=== PATIENT | female | born 1960 | race Caucasian/White ===

== ENCOUNTER 2016-10-30 11:52 | Emergency (ER) | payer MEDICARE ==
[2016-10-30 12:50] LABS: AMPHETAMINES LEVEL URINE NEGATIVE (NEGATIVE); BENZODIAZEPINES URINE NEGATIVE (NEGATIVE); COCAINE METABOLITE URINE NEGATIVE (NEGATIVE); CONTROL LINE INT CTR LINE PRESENT; METHADONE URINE NEGATIVE (NEGATIVE); OPIATES URINE NEGATIVE (NEGATIVE); TRICYCLIC ANTIDEPRESS URINE NEGATIVE (NEGATIVE)
[2016-10-30 13:13] LABS: MEAN CORPUSCULAR HEMOGLOBIN 31.7 pg (27.0-33.0); MEAN CORPUSCULAR HGB CONC 33.9 g/dl (32.0-36.5); MEAN CORPUSCULAR VOLUME 93.6 fl (80.0-96.0); RED CELL DISTRIBUTION WIDTH 11.6 % (11.5-14.5); WHITE BLOOD COUNT 5.5 K/mm3 (4.0-10.0)
[2016-10-30 13:39] LABS: ALBUMIN 3.8 GM/DL (3.2-5.2); ALBUMIN/GLOBULIN RATIO 1.27 (1.00-1.93); ALKALINE PHOSPHATASE 160 U/L (45-117); ALT/SGPT 121 U/L (12-78); ANION GAP 9 MEQ/L (8-16); AST/SGOT 55 U/L (15-37); BILIRUBIN,DIRECT 0.1 MG/DL (0.0-0.2); BILIRUBIN,TOTAL 0.4 MG/DL (0.2-1.0); BLOOD UREA NITROGEN 8 MG/DL (7-18); CALCIUM LEVEL 8.6 MG/DL (8.5-10.1); CARBON DIOXIDE LEVEL 26 MEQ/L (21-32); CHLORIDE LEVEL 106 MEQ/L (98-107); CREATININE FOR GFR 0.53 MG/DL (0.55-1.02); GLOMERULAR FILTRATION RATE > 60.0 (>51); GLUCOSE, FASTING 89 MG/DL (70-105); POTASSIUM SERUM 3.9 MEQ/L (3.5-5.1); SODIUM LEVEL 141 MEQ/L (136-145); TOTAL PROTEIN 6.8 GM/DL (6.4-8.2)
[2016-10-30] MEDS ORDERED: GABAPENTIN 100 MG CAP As Ordered ONE ×2 (14:22→14:45)
[2016-10-30] MEDS ORDERED: clonazePAM 0.5 MG TAB As Ordered ONE (14:22)
--- NOTE | 2016-10-30 19:48 | EDDOCDS ---
Physician Documentation [facility] Name: Keshia Merrill Age: 56 yrs Sex: Female : 1960 Arrival Date: 10/30/2016 Time: 11:52 Bed 30 Private MD: Suraj Neff D Disposition: 10/30/16 19:29 Discharged to Home/Self Care. Impression: Anxiety disorder, unspecified. - Condition is Stable. - Medication Reconciliation, Local Pharmacy Hours form. - Follow up: Suraj Neff; When: Call to arrange an appointment; Reason: Recheck today's complaints. - Problem is chronic. - Symptoms have improved. Historical: - Allergies: Trazodone; Haldol; [place] Carbonate; Risperdal; Zyrtec; Tylenol; Ibuprofen; Zofran; - Home Meds: 1. Crestor 5 mg Oral tab 1 tab once daily (Last dose: 10/29/2016 19:00) 2. meclizine 12.5 mg Oral tab 2 tabs as needed 3. clonazepam 1 mg Oral TbDL 1 tab 3 times per day (Last dose: 10/30/2016 08:00) 4. Linzess oral oral Unknown once daily (Last dose: 10/30/2016 08:00) 5. Prilosec 20 mg Oral cpDR 1 cap once daily (Last dose: 10/30/2016 08:00) 6. aspirin 81 mg Oral tab 1 tab once daily (Last dose: 10/30/2016 08:00) 7. gabapentin 100 mg Oral cap 2 caps 3 times per day (Last dose: 10/30/2016 08:00) - PMHx: Anxiety; Bipolar disorder; GERD; - PSHx: Cholecystectomy; Tubal ligation; Right shoulder tendon repair; Bunionectomy; - Social history: Smoking status: Patient states former smoker of tobacco. No barriers to communication noted, The patient speaks fluent Tajik. - Family history: Not pertinent. - : The pt / caregiver states he / she is not on anticoagulants. Home medication list is obtained from the patient. - Exposure Risk Screening:: None identified. Vital Signs: 10/30 11:53 BP 146 / 93; Pulse 76; Resp 18 S; Temp 97.4(O); Pulse Ox 99% on R/A; Weight 45.81 kg / dd6 100.99 lbs (R); Height 5 ft. 1 in. (154.94 cm) (R); 15:37 BP 142 / 71; Pulse 83; Resp 18; Pulse Ox 98% on R/A; dpm 19:45 BP 137 / 84; Pulse 70; Resp 18; Temp 97.9(O); Pulse Ox 99% on R/A; Pain 0/10; rw1 11:53 Body Mass Index 19.08 (45.81 kg, 154.94 cm) dd6 MDM: 12:26 Consult PFS/PSA/Collaborative Physician ordered. pml 12:26 Consult PFS/PSA/Collaborative Physician: Patient's case requires discussion with on-call pml Psychiatrist ordered. 12:26 PSA/PFS to call Nursing Entry Writer, to enter patient data [place] if patient pml involuntarily admitted or transferred for SI or HI ordered. 12:26 Confirm accurate psychiatric medication list and times of last dosage ordered. pml 12:26 Detain Pt Until Medically/PFS Cleared ordered. pml 12:28 Acetaminophen Level Ordered. EDMS 12:28 Basic Metabolic Profile Ordered. EDMS 12:28 Complete Blood Count Ordered. EDMS 12:28 Drug Eval Toxicology ED Only Ordered. EDMS 12:28 Ethyl Alcohol (ethanol) Ordered. EDMS 12:28 Liver Profile Ordered. EDMS 12:28 Salicylate Level Ordered. EDMS 12:28 Thyroid Stimulating Hormone Ordered. EDMS 12:58 REGULAR DIET PLASTIC SUERO+DIET ordered. EDMS 14:11 Consult PFS/PSA/Socail Worker: Cleared medically for eval ordered. br1 14:11 Gabapentin 100 mg PO once ordered. br1 14:11 clonazePAM 1 mg PO once; prn anxiety ordered. br1 14:48 Gabapentin 100 mg PO once ordered. pml 15:36 Acetaminophen Level Reviewed. br1 15:36 Basic Metabolic Profile Reviewed. br1 15:36 Drug Eval Toxicology ED Only Reviewed. br1 15:36 Liver Profile Reviewed. br1 15:36 Salicylate Level Reviewed. br1 15:36 Complete Blood Count Reviewed. br1 15:36 Ethyl Alcohol (ethanol) Reviewed. br1 15:36 Thyroid Stimulating Hormone Reviewed. br1 16:16 Financial registration complete. zo 16:21 [facility] Payment Agreement was scanned into [employer] and attached to record. zo 16:30 REGULAR DIET PLASTIC SUERO+DIET ordered. EDMS 19:12 Transition of care: After a detail discussion of the patient's case, care is br1 transferred to ED Physician, Dr. Green. 19:36 Consult PFS/PSA/Socail Worker: Cleared medically for eval complete. jfb 19:36 Consult PFS/PSA/Collaborative Physician complete. jfb 19:36 Consult PFS/PSA/Collaborative Physician: Patient's case requires discussion with on-call jfb Psychiatrist complete. 19:37 PSA/PFS to call Nursing Entry Writer, to enter patient data [place] if patient jfb involuntarily admitted or transferred for SI or HI complete. Administered Medications: 14:27 Drug: Gabapentin 100 mg [gabapentin 100 mg capsule (1 caps)] Route: PO; pml 19:45 Follow up: Response: No Adverse Reaction rw1 14:27 Drug: clonazePAM 1 mg [clonazepam 0.5 mg tablet (2 tabs)] Route: PO; pml 19:44 Follow up: Response: No Adverse Reaction rw1 14:48 Drug: Gabapentin 100 mg [gabapentin 100 mg capsule (1 caps)] Route: PO; pml 19:44 Follow up: Response: No Adverse Reaction rw1 Signatures: Dispatcher [employer] EDCA Massimo Rouse, RN RN dwg Robb Emerson LPN LICENSED TAX CONSULTANT rw1 Mira Ann Brian, MD MD br1 Josey Oneal, DARIUSZ PSA jfZelda Agudelo,RN RN pml Rock Green, DO DO cs11 The chart was reviewed and I authenticate all verbal orders and agree with the evaluation and treatment provided.Corrections: (The following items were deleted from the chart) 14:31 12:11 Home Meds: gabapentin 100 mg oral cap 3 times per day (Last Dose: 10/30/2016 pml 08:00); dwg Attachments: 16:21 [facility] Payment Agreement zo MTDD
--- NOTE | 2016-10-30 19:48 | EDDOCDS ---
Nurse's Notes [facility] Name: Keshia Merrill Age: 56 yrs Sex: Female : 1960 Arrival Date: 10/30/2016 Time: 11:52 Bed 30 Private MD: Suraj Neff D Diagnosis: Anxiety disorder, unspecified Presentation: 10/30 12:02 Presenting complaint: Patient states: MHE, increased depression and anxiety, denies dwg feeling suicidal, states she feels like she is going . Mental Health Triage Level: Level 2: Increased depression and anxiety. Adult Sepsis Screening: The patient does not have new or worsening altered mentation. Patient's respiratory rate is less than 22. Systolic blood pressure is greater than 100. Patient has a qSOFA score of 0- Negative Sepsis Screen. Mental Health Triage Level: Level 2:. Suicide/Homicide risk assessment- the patient denies having any suicidal and/or homicidal ideations and does not present with any other emotional, behavioral or mental health complaints. Status: Patient is not a insurance customer service specialist or dependent. Transition of care: patient was not received from another setting of care. 12:02 Acuity: CK Level 3 dwg 12:02 Method Of Arrival: Walkin/Carried/Asstd dwg 14:12 Red Flag criteria, patient assessed and taken directly to a bed. [facility] Triage Assessment: 12:11 General: Appears in no apparent distress, Behavior is cooperative. Pain: Denies pain. [facility] HIV screening NA for this visit Offered previously. Historical: - Allergies: Trazodone; Haldol; [place] Carbonate; Risperdal; Zyrtec; Tylenol; Ibuprofen; Zofran; - Home Meds: 1. Crestor 5 mg Oral tab 1 tab once daily (Last dose: 10/29/2016 19:00) 2. meclizine 12.5 mg Oral tab 2 tabs as needed 3. clonazepam 1 mg Oral TbDL 1 tab 3 times per day (Last dose: 10/30/2016 08:00) 4. Linzess oral oral Unknown once daily (Last dose: 10/30/2016 08:00) 5. Prilosec 20 mg Oral cpDR 1 cap once daily (Last dose: 10/30/2016 08:00) 6. aspirin 81 mg Oral tab 1 tab once daily (Last dose: 10/30/2016 08:00) 7. gabapentin 100 mg Oral cap 2 caps 3 times per day (Last dose: 10/30/2016 08:00) - PMHx: Anxiety; Bipolar disorder; GERD; - PSHx: Cholecystectomy; Tubal ligation; Right shoulder tendon repair; Bunionectomy; - Social history: Smoking status: Patient states former smoker of tobacco. No barriers to communication noted, The patient speaks fluent Portuguese. - Family history: Not pertinent. - : The pt / caregiver states he / she is not on anticoagulants. Home medication list is obtained from the patient. - Exposure Risk Screening:: None identified. Screenin:20 Screening information is obtained from the patient. Fall risk: No risks identified. pml Assistance ADL's: requires no assistance with activities of daily living. Abuse/DV Screen: The patient / caregiver reports he/she is: not in a situation that causes fear, pain or injury. Nutritional screening: No deficits noted. Advance Directives: Currently, there is no health care proxy. home support is adequate. Assessment: 12:20 General: Appears in no apparent distress, comfortable, well nourished, well groomed, pml Behavior is anxious, appropriate for age, cooperative, restless. Pain: Denies pain. Neurological: Level of Consciousness is awake, alert, Oriented to person, place, time. Cardiovascular: Capillary refill < 3 seconds. Respiratory: Airway is patent Respiratory effort is even, unlabored, Respiratory pattern is regular, symmetrical. GI: Abdomen is non- distended. Derm: Skin is pink, warm & dry. 14:33 General: resting on stretcher, resps easy and unlabored, skin p/w/d. anxious. pml 14:49 General: Pt reports episode of dizziness while resting in room - states improved when pml she stood up - gait to bathroom steady. 16:28 Adult Sepsis Screening: Accepted Exclusions-. General: Appears in no apparent distress, pml comfortable, Behavior is appropriate for age, cooperative. Neurological: Level of Consciousness is awake, alert, Oriented to person, place, time. Respiratory: Airway is patent Respiratory effort is even, unlabored. Derm: Skin is pink, warm & dry. 17:33 General: Appears in no apparent distress, comfortable. Neurological: Level of pml Consciousness is awake, alert, Oriented to person, place, time. Respiratory: Airway is patent Respiratory effort is even, unlabored. Derm: Skin is pink, warm & dry. 18:42 General: resting on stretcher, resps easy and unlabored, skin p/w/d. voices no pml complaints. dinner provided. 19:45 Reassessment: Patient appears in no apparent distress at this time. Patient denies pain rw1 at this time. Patient states feeling better. Patient states symptoms have improved. Mental Health Eval: 18:34 Mental health consult is initiated at 17:00. Status: The patient is not a insurance customer service specialist or dependent. [facility] Behavioral Health: The patient is not an established patient of [facility] Behavioral Health. Referral Information: Evaluation referral is generated by the patient himself / herself. The patient was referred for evaluation because Pt states she has been feeling very anxious and restless for last two weeks since her psychiatrist d/c her Geodon and Zoloft. Pt states she has lost 6# in one week, has been "spinning in circles" per . Pt states she has not been sleeping or eating. Vital Signs: 11:53 BP 146 / 93; Pulse 76; Resp 18 S; Temp 97.4(O); Pulse Ox 99% on R/A; Weight 45.81 kg dd6 (R); Height 5 ft. 1 in. (154.94 cm) (R); 15:37 BP 142 / 71; Pulse 83; Resp 18; Pulse Ox 98% on R/A; dpm 19:45 BP 137 / 84; Pulse 70; Resp 18; Temp 97.9(O); Pulse Ox 99% on R/A; Pain 0/10; rw1 11:53 Body Mass Index 19.08 (45.81 kg, 154.94 cm) dd6 Vitals: 11:53 Log In Time: October 30, 2016 at 11:51. RN notified that patient meets Red Flag dd6 criteria. ED Course: 11:53 Patient visited by Max Bonner PCA. dd6 11:53 Suraj Neff is Private Physician. dd6 11:53 Patient moved to Waiting dd6 11:58 Patient moved to [facility] dwg 12:04 Triage Initiated dwg 12:08 Patient visited by Chago Malin. dpm 12:27 Patient visited by Chago Malin. dpm 12:27 Pt greeted and oriented to ED. Patient advised of names of staff involved in care, dpm location of call llamas, wait times and NPO status. Patient has correct armband on for positive identification. Placed in gown. Placed in psych safe attire. Bed in low position. Security observing. Property removed, inventory done, secured in belongings bag- placed in locked locker. Placed in locker 3. Zelda observed pt while changing . Psych Safety Check: Location: Psych Room. Visual Assessment: Cooperative. 12:55 Labs drawn. (by ED staff). Sent per order to lab. pml 12:59 Patient visited by Chago Malin. dpm 13:06 Dann Nava MD is Attending Physician. br1 13:11 Patient visited by Chago Malin. dpm 13:48 Patient visited by Chago Malin. dpm 14:10 Patient visited by Dann Nava MD. br1 14:17 Patient visited by Chago Malin. dpm 14:33 Patient visited by Zelda Romero RN. pml 14:50 Patient visited by Chago Malin. dpm 14:50 Patient visited by Zelda Romero RN. pml 15:11 Patient visited by Chago Malin. dpm 15:33 Patient visited by Chago Malin. dpm 15:45 Patient visited by Chago Malin. dpm 16:04 Patient visited by Chago Malin. dpm 16:20 Patient visited by Chago Malin. dpm 16:21 [facility] [place] [place] Payment Agreement was scanned into [employer] and attached to record. zo 16:29 Patient visited by Zelda Romero RN. pml 16:42 Patient visited by Chago Malin. dpm 17:05 Patient visited by Chago Malin. dpm 17:18 Patient visited by Chago Malin. dpm 17:30 Patient visited by Chago Malin. dpm 17:34 Patient visited by Zelda Romero RN. pml 17:46 Patient visited by Chago Malin. dpm 18:05 Patient visited by Chago Malin. dpm 18:31 Patient visited by Chago Malin. dpm 18:31 Patient moved to D1 dpm 18:31 Patient moved to 30 dpm 18:33 Patient visited by Yoav Dela Cruz PCA. jrd 18:43 Patient visited by Zelda Romero RN. pml 18:58 Patient visited by Yoav Dela Cruz PCA. jrd 19:12 Robb Emerson LPN is Primary Nurse. rw1 19:13 Patient visited by Yoav Dela Cruz PCA. jrd 19:28 Patient visited by Chago Malin. dpm 19:29 Attending Physician role handed off by Dann Nava MD cs11 19:29 Rock Green DO is Attending Physician. cs11 19:29 Suraj Neff is Referral Physician. cs11 19:44 Patient visited by Robb Emerson LPN. rw1 19:45 The patient / caregiver is instructed regarding the plan of care and ED course. rw1 19:45 No IV's were initiated during this patient's visit. No procedures done that require rw1 assistance. Administered Medications: 14:27 Drug: Gabapentin 100 mg [gabapentin 100 mg capsule (1 caps)] Route: PO; pml 19:45 Follow up: Response: No Adverse Reaction rw1 14:27 Drug: clonazePAM 1 mg [clonazepam 0.5 mg tablet (2 tabs)] Route: PO; pml 19:44 Follow up: Response: No Adverse Reaction rw1 14:48 Drug: Gabapentin 100 mg [gabapentin 100 mg capsule (1 caps)] Route: PO; pml 19:44 Follow up: Response: No Adverse Reaction rw1 Order Results: Lab Order: Acetaminophen Level; SPEC'M 10/30/16 12:33 Test: ACETAMINOPHEN LEVEL; Value: < 2.0; Range: 10.0-30.0; Abnormal: Below low normal; Units: UG/ML; Status: F Lab Order: Basic Metabolic Profile; SPEC'M 10/30/16 12:33 Test: GLUCOSE, FASTING; Value: 89; Range: 70-105; Units: MG/DL; Status: F Test: BLOOD UREA NITROGEN; Value: 8; Range: 7-18; Units: MG/DL; Status: F Test: CREATININE FOR GFR; Value: 0.53; Range: 0.55-1.02; Abnormal: Below low normal; Units: MG/DL; Status: F Test: GLOMERULAR FILTRATION RATE; Value: > 60.0; Range: >51; Status: F Test: SODIUM LEVEL; Value: 141; Range: 136-145; Units: MEQ/L; Status: F Test: POTASSIUM SERUM; Value: 3.9; Range: 3.5-5.1; Units: MEQ/L; Status: F Test: CHLORIDE LEVEL; Value: 106; Range: 98-107; Units: MEQ/L; Status: F Test: CARBON DIOXIDE LEVEL; Value: 26; Range: 21-32; Units: MEQ/L; Status: F Test: ANION GAP; Value: 9; Range: 8-16; Units: MEQ/L; Status: F Test: CALCIUM LEVEL; Value: 8.6; Range: 8.5-10.1; Units: MG/DL; Status: F Test Note: ; Units are mL/min/1.73 m2 Chronic Kidney Disease Staging per NKF: Stage I & II GFR >=60 Normal to Mildly Decreased Stage III GFR 30-59 Moderately Decreased Stage IV GFR 15-29 Severely Decreased Stage V GFR <15 Very Little GFR Left ESRD GFR <15 on [employer] Lab Order: Complete Blood Count; SPEC'M 10/30/16 12:33 Test: WHITE BLOOD COUNT; Value: 5.5; Range: 4.0-10.0; Units: K/mm3; Status: F Test: RED BLOOD COUNT; Value: 4.38; Range: 4.00-5.40; Units: M/mm3; Status: F Test: HEMOGLOBIN; Value: 13.9; Range: 12.0-16.0; Units: g/dl; Status: F Test: HEMATOCRIT; Value: 41.0; Range: 36.0-47.0; Units: %; Status: F Test: MEAN CORPUSCULAR VOLUME; Value: 93.6; Range: 80.0-96.0; Units: fl; Status: F Test: MEAN CORPUSCULAR HEMOGLOBIN; Value: 31.7; Range: 27.0-33.0; Units: pg; Status: F Test: MEAN CORPUSCULAR HGB CONC; Value: 33.9; Range: 32.0-36.5; Units: g/dl; Status: F Test: RED CELL DISTRIBUTION WIDTH; Value: 11.6; Range: 11.5-14.5; Units: %; Status: F Test: PLATELET COUNT, AUTOMATED; Value: 151; Range: 150-450; Units: k/mm3; Status: F Lab Order: Drug Eval Toxicology ED Only; SPEC'M 10/30/16 12:31 Test: AMPHETAMINES LEVEL URINE; Value: NEGATIVE; Range: NEGATIVE; Status: F Test: BARBITURATES URINE; Value: NEGATIVE; Range: NEGATIVE; Status: F Test: BENZODIAZEPINES URINE; Value: NEGATIVE; Range: NEGATIVE; Status: F Test: CANNABINOIDS URINE; Value: POSITIVE; Range: NEGATIVE; Abnormal: Above high normal; Status: F Test: COCAINE METABOLITE URINE; Value: NEGATIVE; Range: NEGATIVE; Status: F Test: METHADONE URINE; Value: NEGATIVE; Range: NEGATIVE; Status: F Test: OPIATES URINE; Value: NEGATIVE; Range: NEGATIVE; Status: F Test: TRICYCLIC ANTIDEPRESS URINE; Value: NEGATIVE; Range: NEGATIVE; Status: F Test Note: ; FALSE POSITIVE RESULTS CAN BE CAUSED BY THE USE OF PANTOPRAZOLE (PROTONIX). Lab Order: Ethyl Alcohol (ethanol); SPEC'M 10/30/16 12:33 Test: ETHYL ALCOHOL (ETHANOL); Value: < 0.003; Range: 0.000-0.010; Units: %; Status: F Lab Order: Liver Profile; SPEC'M 10/30/16 12:33 Test: AST/SGOT; Value: 55; Range: 15-37; Abnormal: Above high normal; Units: U/L; Status: F Test: ALT/SGPT; Value: 121; Range: 12-78; Abnormal: Above high normal; Units: U/L; Status: F Test: ALKALINE PHOSPHATASE; Value: 160; Range: 45-117; Abnormal: Above high normal; Units: U/L; Status: F Test: BILIRUBIN,TOTAL; Value: 0.4; Range: 0.2-1.0; Units: MG/DL; Status: F Test: BILIRUBIN,DIRECT; Value: 0.1; Range: 0.0-0.2; Units: MG/DL; Status: F Test: TOTAL PROTEIN; Value: 6.8; Range: 6.4-8.2; Units: GM/DL; Status: F Test: ALBUMIN; Value: 3.8; Range: 3.2-5.2; Units: GM/DL; Status: F Test: ALBUMIN/GLOBULIN RATIO; Value: 1.27; Range: 1.00-1.93; Status: F Lab Order: Salicylate Level; SPEC'M 10/30/16 12:33 Test: SALICYLATE LEVEL; Value: 1.9; Range: 5.0-30.0; Abnormal: Below low normal; Units: MG/DL; Status: F Lab Order: Thyroid Stimulating Hormone; SPEC'M 10/30/16 12:33 Test: THYROID STIMULATING HORMONE; Value: 1.470; Range: 0.358-3.740; Units: uIU/ML; Status: F Outcome: 19:29 Discharge ordered by Provider. cs11 19:45 Discharge Assessment: Patient awake, alert and oriented x 3. No cognitive and/or rw1 functional deficits noted. Patient verbalized understanding of disposition instructions. patient administered narcotics - yes. Pt provided with safe discharge. The following High Risk Discharge criteria are identified: None. Discharged to home ambulatory, with significant other. Condition: stable Condition: improved. Discharge instructions given to patient, Instructed on discharge instructions, follow up and referral plans. Demonstrated understanding of instructions, Pt was receptive of discharge instructions/ teaching. No special radiology studies were completed. 19:47 Patient left the ED. rw1 Signatures: Massimo Rouse RN RN dwg Issa Merritt, DARIUSZ PSA ac Robb Emerson,NEON SIGN SERVICER NEON SIGN SERVICER rw1 Mira Ann Brian, MD MD br1 Max Bonner, COMPUTER TYPESETTER COMPUTER TYPESETTER dd6 Zelda Romero RN RN pml Marolf, Dustin dpRock Espitia DO DO cs11 Yoav Dela Cruz, COMPUTER TYPESETTER COMPUTER TYPESETTER jrd Corrections: (The following items were deleted from the chart) 14:31 12:11 Home Meds: gabapentin 100 mg oral cap 3 times per day (Last Dose: 10/30/2016 pml 08:00); jailene MTDD
[2016-10-31] MEDS ORDERED: ASPI1TAB PO (17:34)
[2016-10-31] MEDS ORDERED: MECL-68 PO (17:34)
[2016-10-31] MEDS ORDERED: OMEP20CA3 PO (17:34)
[2016-10-31] MEDS ORDERED: CRES5TAB PO (17:34)
[2016-10-31] MEDS ORDERED: LINZ290C PO (17:34)
[2016-10-31] MEDS ORDERED: CLON1TAB PO (17:34)
[2016-10-31] MEDS ORDERED: GABA-279 PO (17:34)
--- NOTE | 2016-11-01 20:47 | EDDOCDS ---
Nurse's Notes [facility] Name: Keshia Merrill Age: 56 yrs Sex: Female : 1960 Arrival Date: 10/30/2016 Time: 11:52 Bed 30 Private MD: Suraj Neff D Diagnosis: Anxiety disorder, unspecified Presentation: 10/30 12:02 Presenting complaint: Patient states: MHE, increased depression and anxiety, denies dwg feeling suicidal, states she feels like she is going . Mental Health Triage Level: Level 2: Increased depression and anxiety. Adult Sepsis Screening: The patient does not have new or worsening altered mentation. Patient's respiratory rate is less than 22. Systolic blood pressure is greater than 100. Patient has a qSOFA score of 0- Negative Sepsis Screen. Mental Health Triage Level: Level 2:. Suicide/Homicide risk assessment- the patient denies having any suicidal and/or homicidal ideations and does not present with any other emotional, behavioral or mental health complaints. Status: Patient is not a elevator service technician or dependent. Transition of care: patient was not received from another setting of care. 12:02 Acuity: CK Level 3 dwg 12:02 Method Of Arrival: Walkin/Carried/Asstd dwg 14:12 Red Flag criteria, patient assessed and taken directly to a bed. [facility] Triage Assessment: 12:11 General: Appears in no apparent distress, Behavior is cooperative. Pain: Denies pain. [facility] HIV screening NA for this visit Offered previously. Historical: - Allergies: Trazodone; Haldol; [place] Carbonate; Risperdal; Zyrtec; Tylenol; Ibuprofen; Zofran; - Home Meds: 1. Crestor 5 mg Oral tab 1 tab once daily (Last dose: 10/29/2016 19:00) 2. meclizine 12.5 mg Oral tab 2 tabs as needed 3. clonazepam 1 mg Oral TbDL 1 tab 3 times per day (Last dose: 10/30/2016 08:00) 4. Linzess oral oral Unknown once daily (Last dose: 10/30/2016 08:00) 5. Prilosec 20 mg Oral cpDR 1 cap once daily (Last dose: 10/30/2016 08:00) 6. aspirin 81 mg Oral tab 1 tab once daily (Last dose: 10/30/2016 08:00) 7. gabapentin 100 mg Oral cap 2 caps 3 times per day (Last dose: 10/30/2016 08:00) - PMHx: Anxiety; Bipolar disorder; GERD; - PSHx: Cholecystectomy; Tubal ligation; Right shoulder tendon repair; Bunionectomy; - Social history: Smoking status: Patient states former smoker of tobacco. No barriers to communication noted, The patient speaks fluent [place]. - Family history: Not pertinent. - : The pt / caregiver states he / she is not on anticoagulants. Home medication list is obtained from the patient. - Exposure Risk Screening:: None identified. Screenin:20 Screening information is obtained from the patient. Fall risk: No risks identified. pml Assistance ADL's: requires no assistance with activities of daily living. Abuse/DV Screen: The patient / caregiver reports he/she is: not in a situation that causes fear, pain or injury. Nutritional screening: No deficits noted. Advance Directives: Currently, there is no health care proxy. home support is adequate. Assessment: 12:20 General: Appears in no apparent distress, comfortable, well nourished, well groomed, pml Behavior is anxious, appropriate for age, cooperative, restless. Pain: Denies pain. Neurological: Level of Consciousness is awake, alert, Oriented to person, place, time. Cardiovascular: Capillary refill < 3 seconds. Respiratory: Airway is patent Respiratory effort is even, unlabored, Respiratory pattern is regular, symmetrical. GI: Abdomen is non- distended. Derm: Skin is pink, warm & dry. 14:33 General: resting on stretcher, resps easy and unlabored, skin p/w/d. anxious. pml 14:49 General: Pt reports episode of dizziness while resting in room - states improved when pml she stood up - gait to bathroom steady. 16:28 Adult Sepsis Screening: Accepted Exclusions-. General: Appears in no apparent distress, pml comfortable, Behavior is appropriate for age, cooperative. Neurological: Level of Consciousness is awake, alert, Oriented to person, place, time. Respiratory: Airway is patent Respiratory effort is even, unlabored. Derm: Skin is pink, warm & dry. 17:33 General: Appears in no apparent distress, comfortable. Neurological: Level of pml Consciousness is awake, alert, Oriented to person, place, time. Respiratory: Airway is patent Respiratory effort is even, unlabored. Derm: Skin is pink, warm & dry. 18:42 General: resting on stretcher, resps easy and unlabored, skin p/w/d. voices no pml complaints. dinner provided. 19:45 Reassessment: Patient appears in no apparent distress at this time. Patient denies pain rw1 at this time. Patient states feeling better. Patient states symptoms have improved. Mental Health Eval: 18:34 Mental health consult is initiated at 17:00. Status: The patient is not a elevator service technician or dependent. [facility] Behavioral Health: The patient is not an established patient of [facility]. Referral Information: Evaluation referral is generated by the patient himself / herself. The patient was referred for evaluation because Pt states she has been feeling very anxious and restless for last two weeks since her psychiatrist d/c her Geodon and Zoloft. Pt states she has lost 6# in one week, has been "spinning in circles" per . Pt states she has not been sleeping or eating. 20:14 Disposition: Medically cleared for disposition by Rock Green DO Psychiatric Consult ac is performed by phone with Dr Jae Ferrell MD. 10/31 12:49 Subjective: The patients chief complaint is I'm depressed because my meds got changed ac by Dr. Solis. Delusions are denied. Patient's mood is depressed, Hallucinations are denied. Mental Health history: Bipolar Disorder, Mental Health Admissions: None. Current Outpatient Mental Health Services: Psychiatrist / Agency: Dr Solis. Therapist / Agency: [facility]. Current living environment is The patient currently lives with his / her spouse, . Patient presents to Emergency Department with the following symptoms within the past 2 weeks: anxiety, depressed mood, feelings of helplessness/hopelessness, poor concentration, sleep disturbance - insomnia, suicidal ideation with no plan, weight loss of 6 pounds. Substance abuse: Pt denies. Mental status exam: Patients appearance is thin, Patient's behavior is cooperative, Speech is normal. Affect is flat. Mood is anxious. depressed. Hallucinations are denied. Appetite is poor. Memory is good. Energy level is tires easily. Content of thought is normal. Thought process is intact. Cognitive level is oriented to person, place, time and situation Patient's insight is fair. Judgement is fair. Rapport with interviewer is good. Suicidal Ideation is denied. DSM-V Differential Diagnosis: Unspecified Anxiety Disorder (F41.9) Bipolar I Disorder (F31.0) Current or most recent episode depressed. Narrative: Pt presents after Dr. Solis changed her meds two weeks ago, she feels that she needs different medications. PT denies SI/HI, no AH/VH. Pt states she has been feeling confused and having trouble concentrating, has comorbid medical problems. Pt is able to CFS, was encouraged to contact her psychiatrist on Wednesday to get an appointment before her scheduled appointment for 11-09-16 or return to ED if she feels worse. Vital Signs: 10/30 11:53 BP 146 / 93; Pulse 76; Resp 18 S; Temp 97.4(O); Pulse Ox 99% on R/A; Weight 45.81 kg dd6 (R); Height 5 ft. 1 in. (154.94 cm) (R); 15:37 BP 142 / 71; Pulse 83; Resp 18; Pulse Ox 98% on R/A; dpm 19:45 BP 137 / 84; Pulse 70; Resp 18; Temp 97.9(O); Pulse Ox 99% on R/A; Pain 0/10; rw1 11:53 Body Mass Index 19.08 (45.81 kg, 154.94 cm) dd6 Vitals: 11:53 Log In Time: October 30, 2016 at 11:51. RN notified that patient meets Red Flag dd6 criteria. ED Course: 11:53 Patient visited by Max Bonner PCA. dd6 11:53 Suraj Neff is Private Physician. dd6 11:53 Patient moved to Waiting dd6 11:58 Patient moved to [facility] dwg 12:04 Triage Initiated dwg 12:08 Patient visited by Chago Malin. dpm 12:27 Patient visited by Chago Malin. dpm 12:27 Pt greeted and oriented to ED. Patient advised of names of staff involved in care, dpm location of call llamas, wait times and NPO status. Patient has correct armband on for positive identification. Placed in gown. Placed in psych safe attire. Bed in low position. Security observing. Property removed, inventory done, secured in belongings bag- placed in locked locker. Placed in locker 3. Zelda observed pt while changing . Psych Safety Check: Location: Psych Room. Visual Assessment: Cooperative. 12:55 Labs drawn. (by ED staff). Sent per order to lab. pml 12:59 Patient visited by Chago Malin. dpm 13:06 Dann Nava MD is Attending Physician. br1 13:11 Patient visited by Chago Malin. dpm 13:48 Patient visited by Chago Malin. dpm 14:10 Patient visited by Dann Nava MD. br1 14:17 Patient visited by Chago Malin. dpm 14:33 Patient visited by Zelda Romero RN. pml 14:50 Patient visited by Chago Malin. dpm 14:50 Patient visited by Zelda Romero RN. pml 15:11 Patient visited by Chago Malin. dpm 15:33 Patient visited by Chago Malin. dpm 15:45 Patient visited by Chago Malin. dpm 16:04 Patient visited by Chago Malin. dpm 16:20 Patient visited by Chago Malin. dpm 16:21 [facility] Payment Agreement was scanned into [employer] and attached to record. zo 16:29 Patient visited by Zelda Romero RN. pml 16:42 Patient visited by Chago Malin. dpm 17:05 Patient visited by Chaog Malin. dpm 17:18 Patient visited by Chago Malin. dpm 17:30 Patient visited by Chago Malin. dpm 17:34 Patient visited by Zelda Romero RN. pml 17:46 Patient visited by Chago aMlin. dpm 18:05 Patient visited by Chago Malin. dpm 18:31 Patient visited by Chago Malin. dpm 18:31 Patient moved to D1 dpm 18:31 Patient moved to 30 dpm 18:33 Patient visited by Yoav Dela Cruz PCA. jrd 18:43 Patient visited by Zelda Romero RN. pml 18:58 Patient visited by Yoav Dela Cruz PCA. jrd 19:12 Robb Emerson LPN is Primary Nurse. rw1 19:13 Patient visited by Yoav Dela Cruz PCA. jrd 19:28 Patient visited by Chago Malin. dpm 19:29 Attending Physician role handed off by Dann Nvaa MD cs11 19:29 Rock Green DO is Attending Physician. cs11 19:29 Suraj Neff is Referral Physician. cs11 19:44 Patient visited by Robb Emerson LPN. rw1 19:45 The patient / caregiver is instructed regarding the plan of care and ED course. rw1 19:45 No IV's were initiated during this patient's visit. No procedures done that require rw1 assistance. 10/31 01:12 PSA Outpatient Referrals was scanned into [employer] and attached to record. jfb 12:06 T-Sheet-- Draft Copy was scanned into [employer] and attached to record. gb Administered Medications: 10/30 14:27 Drug: Gabapentin 100 mg [gabapentin 100 mg capsule (1 caps)] Route: PO; pml 19:45 Follow up: Response: No Adverse Reaction rw1 14:27 Drug: clonazePAM 1 mg [clonazepam 0.5 mg tablet (2 tabs)] Route: PO; pml 19:44 Follow up: Response: No Adverse Reaction rw1 14:48 Drug: Gabapentin 100 mg [gabapentin 100 mg capsule (1 caps)] Route: PO; pml 19:44 Follow up: Response: No Adverse Reaction rw1 Order Results: Lab Order: Acetaminophen Level; SPEC'M 10/30/16 12:33 Test: ACETAMINOPHEN LEVEL; Value: < 2.0; Range: 10.0-30.0; Abnormal: Below low normal; Units: UG/ML; Status: F Lab Order: Basic Metabolic Profile; SPEC'M 10/30/16 12:33 Test: GLUCOSE, FASTING; Value: 89; Range: 70-105; Units: MG/DL; Status: F Test: BLOOD UREA NITROGEN; Value: 8; Range: 7-18; Units: MG/DL; Status: F Test: CREATININE FOR GFR; Value: 0.53; Range: 0.55-1.02; Abnormal: Below low normal; Units: MG/DL; Status: F Test: GLOMERULAR FILTRATION RATE; Value: > 60.0; Range: >51; Status: F Test: SODIUM LEVEL; Value: 141; Range: 136-145; Units: MEQ/L; Status: F Test: POTASSIUM SERUM; Value: 3.9; Range: 3.5-5.1; Units: MEQ/L; Status: F Test: CHLORIDE LEVEL; Value: 106; Range: 98-107; Units: MEQ/L; Status: F Test: CARBON DIOXIDE LEVEL; Value: 26; Range: 21-32; Units: MEQ/L; Status: F Test: ANION GAP; Value: 9; Range: 8-16; Units: MEQ/L; Status: F Test: CALCIUM LEVEL; Value: 8.6; Range: 8.5-10.1; Units: MG/DL; Status: F Test Note: ; Units are mL/min/1.73 m2 Chronic Kidney Disease Staging per NKF: Stage I & II GFR >=60 Normal to Mildly Decreased Stage III GFR 30-59 Moderately Decreased Stage IV GFR 15-29 Severely Decreased Stage V GFR <15 Very Little GFR Left ESRD GFR <15 on MEDICAL OPERATIONS SUPERVISOR Lab Order: Complete Blood Count; SPEC'M 10/30/16 12:33 Test: WHITE BLOOD COUNT; Value: 5.5; Range: 4.0-10.0; Units: K/mm3; Status: F Test: RED BLOOD COUNT; Value: 4.38; Range: 4.00-5.40; Units: M/mm3; Status: F Test: HEMOGLOBIN; Value: 13.9; Range: 12.0-16.0; Units: g/dl; Status: F Test: HEMATOCRIT; Value: 41.0; Range: 36.0-47.0; Units: %; Status: F Test: MEAN CORPUSCULAR VOLUME; Value: 93.6; Range: 80.0-96.0; Units: fl; Status: F Test: MEAN CORPUSCULAR HEMOGLOBIN; Value: 31.7; Range: 27.0-33.0; Units: pg; Status: F Test: MEAN CORPUSCULAR HGB CONC; Value: 33.9; Range: 32.0-36.5; Units: g/dl; Status: F Test: RED CELL DISTRIBUTION WIDTH; Value: 11.6; Range: 11.5-14.5; Units: %; Status: F Test: PLATELET COUNT, AUTOMATED; Value: 151; Range: 150-450; Units: k/mm3; Status: F Lab Order: Drug Eval Toxicology ED Only; SPEC'M 10/30/16 12:31 Test: AMPHETAMINES LEVEL URINE; Value: NEGATIVE; Range: NEGATIVE; Status: F Test: BARBITURATES URINE; Value: NEGATIVE; Range: NEGATIVE; Status: F Test: BENZODIAZEPINES URINE; Value: NEGATIVE; Range: NEGATIVE; Status: F Test: CANNABINOIDS URINE; Value: POSITIVE; Range: NEGATIVE; Abnormal: Above high normal; Status: F Test: COCAINE METABOLITE URINE; Value: NEGATIVE; Range: NEGATIVE; Status: F Test: METHADONE URINE; Value: NEGATIVE; Range: NEGATIVE; Status: F Test: OPIATES URINE; Value: NEGATIVE; Range: NEGATIVE; Status: F Test: TRICYCLIC ANTIDEPRESS URINE; Value: NEGATIVE; Range: NEGATIVE; Status: F Test Note: ; FALSE POSITIVE RESULTS CAN BE CAUSED BY THE USE OF PANTOPRAZOLE (PROTONIX). Lab Order: Ethyl Alcohol (ethanol); SPEC'M 10/30/16 12:33 Test: ETHYL ALCOHOL (ETHANOL); Value: < 0.003; Range: 0.000-0.010; Units: %; Status: F Lab Order: Liver Profile; SPEC'M 10/30/16 12:33 Test: AST/SGOT; Value: 55; Range: 15-37; Abnormal: Above high normal; Units: U/L; Status: F Test: ALT/SGPT; Value: 121; Range: 12-78; Abnormal: Above high normal; Units: U/L; Status: F Test: ALKALINE PHOSPHATASE; Value: 160; Range: 45-117; Abnormal: Above high normal; Units: U/L; Status: F Test: BILIRUBIN,TOTAL; Value: 0.4; Range: 0.2-1.0; Units: MG/DL; Status: F Test: BILIRUBIN,DIRECT; Value: 0.1; Range: 0.0-0.2; Units: MG/DL; Status: F Test: TOTAL PROTEIN; Value: 6.8; Range: 6.4-8.2; Units: GM/DL; Status: F Test: ALBUMIN; Value: 3.8; Range: 3.2-5.2; Units: GM/DL; Status: F Test: ALBUMIN/GLOBULIN RATIO; Value: 1.27; Range: 1.00-1.93; Status: F Lab Order: Salicylate Level; SPEC'M 10/30/16 12:33 Test: SALICYLATE LEVEL; Value: 1.9; Range: 5.0-30.0; Abnormal: Below low normal; Units: MG/DL; Status: F Lab Order: Thyroid Stimulating Hormone; SPEC'M 10/30/16 12:33 Test: THYROID STIMULATING HORMONE; Value: 1.470; Range: 0.358-3.740; Units: uIU/ML; Status: F Outcome: 19:29 Discharge ordered by Provider. cs11 19:45 Discharge Assessment: Patient awake, alert and oriented x 3. No cognitive and/or rw1 functional deficits noted. Patient verbalized understanding of disposition instructions. patient administered narcotics - yes. Pt provided with safe discharge. The following High Risk Discharge criteria are identified: None. Discharged to home ambulatory, with significant other. Condition: stable Condition: improved. Discharge instructions given to patient, Instructed on discharge instructions, follow up and referral plans. Demonstrated understanding of instructions, Pt was receptive of discharge instructions/ teaching. No special radiology studies were completed. 19:47 Patient left the ED. rw1 Signatures: Massimo Rouse, RN RN dwg Isas Mreritt, PSA PSA ac Cherry Hallman, Reg Reg gb Robb Emerson,MUD ANALYSIS WELL LOGGING OPERATOR MUD ANALYSIS WELL LOGGING OPERATOR rw1 Mira Ann Brian, MD MD br1 Max Bonner, MUSIC GRAPHER MUSIC GRAPHER dd6 Josey Oneal, PSA PSA jfZelda Agudelo RN RN pml Marolf, Dustin dpm Rock Green, DO cs11 Yoav Dela Cruz, MUSIC GRAPHER MUSIC GRAPHER jrd Corrections: (The following items were deleted from the chart) 14:31 12:11 Home Meds: gabapentin 100 mg oral cap 3 times per day (Last Dose: 10/30/2016 pml 08:00); jailene Chart Complete MTDD
--- NOTE | 2016-11-01 20:47 | EDDOCDS ---
Physician Documentation [facility] Name: Keshia Merrill Age: 56 yrs Sex: Female : 1960 Arrival Date: 10/30/2016 Time: 11:52 Bed 30 Private MD: Suraj Neff D Disposition: 10/30/16 19:29 Discharged to Home/Self Care. Impression: Anxiety disorder, unspecified. - Condition is Stable. - Medication Reconciliation, Local Pharmacy Hours form. - Follow up: Suraj Neff; When: Call to arrange an appointment; Reason: Recheck today's complaints. - Problem is chronic. - Symptoms have improved. Historical: - Allergies: Trazodone; Haldol; [place] Carbonate; Risperdal; Zyrtec; Tylenol; Ibuprofen; Zofran; - Home Meds: 1. Crestor 5 mg Oral tab 1 tab once daily (Last dose: 10/29/2016 19:00) 2. meclizine 12.5 mg Oral tab 2 tabs as needed 3. clonazepam 1 mg Oral TbDL 1 tab 3 times per day (Last dose: 10/30/2016 08:00) 4. Linzess oral oral Unknown once daily (Last dose: 10/30/2016 08:00) 5. Prilosec 20 mg Oral cpDR 1 cap once daily (Last dose: 10/30/2016 08:00) 6. aspirin 81 mg Oral tab 1 tab once daily (Last dose: 10/30/2016 08:00) 7. gabapentin 100 mg Oral cap 2 caps 3 times per day (Last dose: 10/30/2016 08:00) - PMHx: Anxiety; Bipolar disorder; GERD; - PSHx: Cholecystectomy; Tubal ligation; Right shoulder tendon repair; Bunionectomy; - Social history: Smoking status: Patient states former smoker of tobacco. No barriers to communication noted, The patient speaks fluent Polish. - Family history: Not pertinent. - : The pt / caregiver states he / she is not on anticoagulants. Home medication list is obtained from the patient. - Exposure Risk Screening:: None identified. Vital Signs: 10/30 11:53 BP 146 / 93; Pulse 76; Resp 18 S; Temp 97.4(O); Pulse Ox 99% on R/A; Weight 45.81 kg / dd6 100.99 lbs (R); Height 5 ft. 1 in. (154.94 cm) (R); 15:37 BP 142 / 71; Pulse 83; Resp 18; Pulse Ox 98% on R/A; dpm 19:45 BP 137 / 84; Pulse 70; Resp 18; Temp 97.9(O); Pulse Ox 99% on R/A; Pain 0/10; rw1 11:53 Body Mass Index 19.08 (45.81 kg, 154.94 cm) dd6 MDM: 12:26 Consult PFS/PSA/Agriculture Laboratory Technician ordered. pml 12:26 Consult PFS/PSA/Agriculture Laboratory Technician: Patient's case requires discussion with on-call pml Psychiatrist ordered. 12:26 PSA/PFS to call Nursing Blueprint Processor, to enter patient data on [place] Safe Act if patient pml involuntarily admitted or transferred for SI or HI ordered. 12:26 Confirm accurate psychiatric medication list and times of last dosage ordered. pml 12:26 Detain Pt Until Medically/PFS Cleared ordered. pml 12:28 Acetaminophen Level Ordered. EDMS 12:28 Basic Metabolic Profile Ordered. EDMS 12:28 Complete Blood Count Ordered. EDMS 12:28 Drug Eval Toxicology ED Only Ordered. EDMS 12:28 Ethyl Alcohol (ethanol) Ordered. EDMS 12:28 Liver Profile Ordered. EDMS 12:28 Salicylate Level Ordered. EDMS 12:28 Thyroid Stimulating Hormone Ordered. EDMS 12:58 REGULAR DIET PLASTIC SUERO+DIET ordered. EDMS 14:11 Consult PFS/PSA/Socail Worker: Cleared medically for eval ordered. br1 14:11 Gabapentin 100 mg PO once ordered. br1 14:11 clonazePAM 1 mg PO once; prn anxiety ordered. br1 14:48 Gabapentin 100 mg PO once ordered. pml 15:36 Acetaminophen Level Reviewed. br1 15:36 Basic Metabolic Profile Reviewed. br1 15:36 Drug Eval Toxicology ED Only Reviewed. br1 15:36 Liver Profile Reviewed. br1 15:36 Salicylate Level Reviewed. br1 15:36 Complete Blood Count Reviewed. br1 15:36 Ethyl Alcohol (ethanol) Reviewed. br1 15:36 Thyroid Stimulating Hormone Reviewed. br1 16:16 Financial registration complete. zo 16:21 [facility] Payment Agreement was scanned into [employer] and attached to record. zo 16:30 REGULAR DIET PLASTIC SUERO+DIET ordered. EDMS 19:12 Transition of care: After a detail discussion of the patient's case, care is br1 transferred to ED Physician, Dr. Green. 19:36 Consult PFS/PSA/Socail Worker: Cleared medically for eval complete. jfb 19:36 Consult PFS/PSA/Agriculture Laboratory Technician complete. jfb 19:36 Consult PFS/PSA/Agriculture Laboratory Technician: Patient's case requires discussion with on-call jfb Psychiatrist complete. 19:37 PSA/PFS to call Nursing Blueprint Processor, to enter patient data on [place] Safe [place] if patient jfb involuntarily admitted or transferred for SI or HI complete. 10/31 01:12 PSA Outpatient Referrals was scanned into [employer] and attached to record. jfb 12:06 T-Sheet-- Draft Copy was scanned into [employer] and attached to record. gb Administered Medications: 10/30 14:27 Drug: Gabapentin 100 mg [gabapentin 100 mg capsule (1 caps)] Route: PO; pml 19:45 Follow up: Response: No Adverse Reaction rw1 14:27 Drug: clonazePAM 1 mg [clonazepam 0.5 mg tablet (2 tabs)] Route: PO; pml 19:44 Follow up: Response: No Adverse Reaction rw1 14:48 Drug: Gabapentin 100 mg [gabapentin 100 mg capsule (1 caps)] Route: PO; pml 19:44 Follow up: Response: No Adverse Reaction rw1 Signatures: Dispatcher [employer] EDNY Massimo Rouse, RN RN premg Cherry Hallman, Pb Reg gb Robb Emerson,KEYING MACHINE OPERATOR KEYING MACHINE OPERATOR rw1 Mira Ann Brian, MD MD br1 Josey Oneal, PSA PSA b Zelda Romero,RN RN Rock Suarez, DO cs11 The chart was reviewed and I authenticate all verbal orders and agree with the evaluation and treatment provided.Corrections: (The following items were deleted from the chart) 14:31 12:11 Home Meds: gabapentin 100 mg oral cap 3 times per day (Last Dose: 10/30/2016 pml 08:00); jailene Attachments: 16:21 [facility] Payment Agreement zo 12:06 T-Sheet-- Draft Copy gb Chart Complete MTDD
--- NOTE | 2016-11-01 20:47 | EDDOCDS ---
Physician Documentation [facility] Name: Keshia Merrill Age: 56 yrs Sex: Female : 1960 Arrival Date: 10/30/2016 Time: 11:52 Bed 30 Private MD: Suraj Neff D Disposition: 10/30/16 19:29 Discharged to Home/Self Care. Impression: Anxiety disorder, unspecified. - Condition is Stable. - Medication Reconciliation, Local Pharmacy Hours form. - Follow up: Suraj Neff; When: Call to arrange an appointment; Reason: Recheck today's complaints. - Problem is chronic. - Symptoms have improved. Historical: - Allergies: Trazodone; Haldol; [place] Carbonate; Risperdal; Zyrtec; Tylenol; Ibuprofen; Zofran; - Home Meds: 1. Crestor 5 mg Oral tab 1 tab once daily (Last dose: 10/29/2016 19:00) 2. meclizine 12.5 mg Oral tab 2 tabs as needed 3. clonazepam 1 mg Oral TbDL 1 tab 3 times per day (Last dose: 10/30/2016 08:00) 4. Linzess oral oral Unknown once daily (Last dose: 10/30/2016 08:00) 5. Prilosec 20 mg Oral cpDR 1 cap once daily (Last dose: 10/30/2016 08:00) 6. aspirin 81 mg Oral tab 1 tab once daily (Last dose: 10/30/2016 08:00) 7. gabapentin 100 mg Oral cap 2 caps 3 times per day (Last dose: 10/30/2016 08:00) - PMHx: Anxiety; Bipolar disorder; GERD; - PSHx: Cholecystectomy; Tubal ligation; Right shoulder tendon repair; Bunionectomy; - Social history: Smoking status: Patient states former smoker of tobacco. No barriers to communication noted, The patient speaks fluent Occitan. - Family history: Not pertinent. - : The pt / caregiver states he / she is not on anticoagulants. Home medication list is obtained from the patient. - Exposure Risk Screening:: None identified. Vital Signs: 10/30 11:53 BP 146 / 93; Pulse 76; Resp 18 S; Temp 97.4(O); Pulse Ox 99% on R/A; Weight 45.81 kg / dd6 100.99 lbs (R); Height 5 ft. 1 in. (154.94 cm) (R); 15:37 BP 142 / 71; Pulse 83; Resp 18; Pulse Ox 98% on R/A; dpm 19:45 BP 137 / 84; Pulse 70; Resp 18; Temp 97.9(O); Pulse Ox 99% on R/A; Pain 0/10; rw1 11:53 Body Mass Index 19.08 (45.81 kg, 154.94 cm) dd6 MDM: 12:26 Consult PFS/PSA/Rotary Filter Operator ordered. pml 12:26 Consult PFS/PSA/Rotary Filter Operator: Patient's case requires discussion with on-call pml Psychiatrist ordered. 12:26 PSA/PFS to call Nursing Banquet Lead, to enter patient data [place] if patient pml involuntarily admitted or transferred for SI or HI ordered. 12:26 Confirm accurate psychiatric medication list and times of last dosage ordered. pml 12:26 Detain Pt Until Medically/PFS Cleared ordered. pml 12:28 Acetaminophen Level Ordered. EDMS 12:28 Basic Metabolic Profile Ordered. EDMS 12:28 Complete Blood Count Ordered. EDMS 12:28 Drug Eval Toxicology ED Only Ordered. EDMS 12:28 Ethyl Alcohol (ethanol) Ordered. EDMS 12:28 Liver Profile Ordered. EDMS 12:28 Salicylate Level Ordered. EDMS 12:28 Thyroid Stimulating Hormone Ordered. EDMS 12:58 REGULAR DIET PLASTIC SUERO+DIET ordered. EDMS 14:11 Consult PFS/PSA/Socail Worker: Cleared medically for eval ordered. br1 14:11 Gabapentin 100 mg PO once ordered. br1 14:11 clonazePAM 1 mg PO once; prn anxiety ordered. br1 14:48 Gabapentin 100 mg PO once ordered. pml 15:36 Acetaminophen Level Reviewed. br1 15:36 Basic Metabolic Profile Reviewed. br1 15:36 Drug Eval Toxicology ED Only Reviewed. br1 15:36 Liver Profile Reviewed. br1 15:36 Salicylate Level Reviewed. br1 15:36 Complete Blood Count Reviewed. br1 15:36 Ethyl Alcohol (ethanol) Reviewed. br1 15:36 Thyroid Stimulating Hormone Reviewed. br1 16:16 Financial registration complete. zo 16:21 [facility] Payment Agreement was scanned into [employer] and attached to record. zo 16:30 REGULAR DIET PLASTIC SUERO+DIET ordered. EDMS 19:12 Transition of care: After a detail discussion of the patient's case, care is br1 transferred to ED Physician, Dr. Green. 19:36 Consult PFS/PSA/Socail Worker: Cleared medically for eval complete. jfb 19:36 Consult PFS/PSA/Rotary Filter Operator complete. jfb 19:36 Consult PFS/PSA/Rotary Filter Operator: Patient's case requires discussion with on-call jfb Psychiatrist complete. 19:37 PSA/PFS to call Nursing Banquet Lead, to [place] if patient jfb involuntarily admitted or transferred for SI or HI complete. 10/31 01:12 PSA Outpatient Referrals was scanned into [employer] and attached to record. jfb 12:06 T-Sheet-- Draft Copy was scanned into [employer] and attached to record. gb Administered Medications: 10/30 14:27 Drug: Gabapentin 100 mg [gabapentin 100 mg capsule (1 caps)] Route: PO; pml 19:45 Follow up: Response: No Adverse Reaction rw1 14:27 Drug: clonazePAM 1 mg [clonazepam 0.5 mg tablet (2 tabs)] Route: PO; pml 19:44 Follow up: Response: No Adverse Reaction rw1 14:48 Drug: Gabapentin 100 mg [gabapentin 100 mg capsule (1 caps)] Route: PO; pml 19:44 Follow up: Response: No Adverse Reaction rw1 Signatures: Dispatcher [employer] EDPR Massimo Rouse, RN RN premg Cherry Hallman, Pb Reg gb Robb Emerson,REAL ESTATE REP REAL ESTATE REP rw1 Mira Ann Brian, MD MD br1 Josey Oneal, PSA PSA b Zelda Romero,RN RN Rock Suarez, DO cs11 The chart was reviewed and I authenticate all verbal orders and agree with the evaluation and treatment provided.Corrections: (The following items were deleted from the chart) 14:31 12:11 Home Meds: gabapentin 100 mg oral cap 3 times per day (Last Dose: 10/30/2016 pml 08:00); jailene Attachments: 16:21 [facility] Payment Agreement zo 12:06 T-Sheet-- Draft Copy gb Chart Complete MTDD
== END 2016-10-30 19:47 | disposition home or self-care (01) ==
LOC: M ED 11:52
DX: F41.9 Anxiety disorder, unspecified (principal); F31.9 Bipolar disorder, unspecified; K21.9 Gastro-esophageal reflux disease without esophagitis; Z87.891 Personal history of nicotine dependence; Z79.899 Other long term (current) drug therapy; Z79.82 Long term (current) use of aspirin; Z88.8 Allergy status to other drugs, medicaments and biological substances; Z88.6 Allergy status to analgesic agent

== ENCOUNTER 2016-10-31 12:44 | Inpatient (IN) | payer MEDICARE ==
[~2016-10-31] VITALS: Ht 154.9 cm; Wt 46.4 kg
[2016-10-31 13:39] LABS: MEAN CORPUSCULAR HEMOGLOBIN 32.8 pg (27.0-33.0); MEAN CORPUSCULAR HGB CONC 35.1 g/dl (32.0-36.5); MEAN CORPUSCULAR VOLUME 93.4 fl (80.0-96.0); RED CELL DISTRIBUTION WIDTH 11.7 % (11.5-14.5); WHITE BLOOD COUNT 6.6 K/mm3 (4.0-10.0)
[2016-10-31 13:58] LABS: AMPHETAMINES LEVEL URINE NEGATIVE (NEGATIVE); BENZODIAZEPINES URINE NEGATIVE (NEGATIVE); COCAINE METABOLITE URINE NEGATIVE (NEGATIVE); CONTROL LINE INT CTR LINE PRESENT; METHADONE URINE NEGATIVE (NEGATIVE); OPIATES URINE NEGATIVE (NEGATIVE); TRICYCLIC ANTIDEPRESS URINE NEGATIVE (NEGATIVE)
[2016-10-31 14:04] LABS: ALBUMIN 4.1 GM/DL (3.2-5.2); ALBUMIN/GLOBULIN RATIO 1.32 (1.00-1.93); ALKALINE PHOSPHATASE 186 U/L (45-117); ALT/SGPT 111 U/L (12-78); ANION GAP 9 MEQ/L (8-16); AST/SGOT 38 U/L (15-37); BILIRUBIN,DIRECT 0.1 MG/DL (0.0-0.2); BILIRUBIN,TOTAL 0.3 MG/DL (0.2-1.0); BLOOD UREA NITROGEN 9 MG/DL (7-18); CALCIUM LEVEL 9.2 MG/DL (8.5-10.1); CARBON DIOXIDE LEVEL 27 MEQ/L (21-32); CHLORIDE LEVEL 106 MEQ/L (98-107); CREATININE FOR GFR 0.48 MG/DL (0.55-1.02); GLOMERULAR FILTRATION RATE > 60.0 (>51); GLUCOSE, FASTING 91 MG/DL (70-105); SODIUM LEVEL 142 MEQ/L (136-145); TOTAL PROTEIN 7.2 GM/DL (6.4-8.2)
[2016-10-31] MEDS ORDERED: GABAPENTIN 100 MG CAP As Ordered ONE (14:59)
[2016-10-31] MEDS ORDERED: clonazePAM 0.5 MG TAB As Ordered ONE (15:00)
[2016-10-31] MEDS ORDERED: CLON1TAB PO (17:34)
[2016-10-31] MEDS ORDERED: MECL-68 PO (17:34)
[2016-10-31] MEDS ORDERED: ASPI1TAB PO (17:34)
[2016-10-31] MEDS ORDERED: OMEP20CA3 PO (17:34)
[2016-10-31] MEDS ORDERED: GABA-279 PO (17:34)
[2016-10-31] MEDS ORDERED: CRES5TAB PO (17:34)
[2016-10-31] MEDS ORDERED: LINZ290C PO (17:34)
--- NOTE | 2016-10-31 17:42 | EDDOCDS ---
Physician Documentation [facility] Name: Keshia Merrill Age: 56 yrs Sex: Female : 1960 Arrival Date: 10/31/2016 Time: 12:44 Bed [facility] MD: Suraj Neff D Disposition: 10/31/16 17:22 Hospitalization ordered by Jae Ferrell for Inpatient Admission. 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 - Bed requested for Admit. - Status is Inpatient Admission. jo3 - Condition is Stable. - Problem is new. - Symptoms have improved. Historical: - Allergies: Haldol; Ibuprofen; [place] Carbonate; Risperdal; Trazodone; tylenol; Zofran; Zyrtec; - Home Meds: 1. aspirin 81 mg Oral tab 1 tab once daily 2. clonazepam 1 mg Oral TbDL 1 tab 3 times per day (Last dose: 10/31/2016) 3. Crestor 5 mg Oral tab 1 tab nightly (Last dose: 10/30/2016) 4. gabapentin 100 mg Oral cap 2 caps 3 times per day (Last dose: 10/31/2016) 5. Linzess oral Unknown once daily (Last dose: 10/31/2016) 6. meclizine 12.5 mg Oral tab 2 tabs as needed 7. Prilosec 20 mg Oral cpDR 1 cap once daily (Last dose: 10/31/2016) - PMHx: Anxiety; Bipolar disorder; GERD; - Social history: Smoking status: Patient states former smoker of tobacco. No barriers to communication noted, The patient speaks fluent [place], Speaks appropriately for age. - Family history: Not pertinent. - : The pt / caregiver states he / she is not on anticoagulants. Home medication list is obtained from the patient. - Exposure Risk Screening:: None identified. Vital Signs: 10/31 12:45 BP 143 / 84; Pulse 101; Resp 18 S; Temp 97.8(O); Pulse Ox 99% on R/A; Weight 45.81 kg / gr2 100.99 lbs (R); Height 5 ft. 2 in. (157.48 cm) (R); Pain 3/10; 16:34 BP 132 / 88 RA (man/reg); Pulse 92; Resp 18; Pulse Ox 99% on R/A; dpm 12:45 Body Mass Index 18.47 (45.81 kg, 157.48 cm) gr2 MDM: 13:22 Consult PFS/PSA/Tire Building Supervisor ordered. fg 13:22 Consult PFS/PSA/Tire Building Supervisor: Patient's case requires discussion with on-call fg Psychiatrist ordered. 13:22 PSA/PFS to call Nursing Blow Mold Technician, to enter [place] data [place] if patient fg involuntarily admitted or transferred for SI or HI ordered. 13:22 Confirm accurate psychiatric medication list and times of last dosage ordered. fg 13:22 Detain Pt Until Medically/PFS Cleared ordered. fg 13:23 Acetaminophen Level Ordered. EDMS 13:23 Basic Metabolic Profile Ordered. EDMS 13:23 Complete Blood Count Ordered. EDMS 13:23 Drug Eval Toxicology ED Only Ordered. EDMS 13:23 Ethyl Alcohol (ethanol) Ordered. EDMS 13:23 Liver Profile Ordered. EDMS 13:23 Salicylate Level Ordered. EDMS 13:23 Thyroid Stimulating Hormone Ordered. EDMS 13:26 Consult PFS/PSA/Tire Building Supervisor complete. jo3 13:54 REGULAR DIET PLASTIC SUERO+DIET ordered. EDMS 14:09 Consult PFS/PSA/Tire Building Supervisor: Patient's case requires discussion with on-call Psychiatrist complete. 14:09 [facility] [place] ordered. fg 14:35 Gabapentin 200 mg PO once ordered. jo3 14:35 clonazePAM 1 mg PO once ordered. jo3 14:35 Enema - Fleets ordered. jo3 14:41 Financial registration complete. jls1 14:42 [facility] [place] Agreement was scanned into [employer] and attached to record. jls1 16:09 REGULAR DIET PLASTIC SUERO+DIET ordered. EDMS 17:06 Admit to [facility]: ordered. EDMS 17:35 [facility] Legal paperwork was scanned into [employer] and attached to record. ms 17:42 PSA/PFS to call Nursing Blow Mold Technician, to enter [place] data [place] if patient jo3 involuntarily admitted or transferred for SI or HI complete. Administered Medications: 15:10 Drug: Gabapentin 200 mg [gabapentin 100 mg capsule (2 caps)] Route: PO; jo3 15:10 Drug: clonazePAM 1 mg [clonazepam 0.5 mg tablet (2 tabs)] Route: PO; jo3 Signatures: Dispatcher [employer] EDMS Issa Merritt, PSA PSA ac Chrissy Rivera, PSA PSA ms Jane Mendez,RN RN kr3 Esme Craven,RN RN jo3 sEme Sheldon jls1 Keeley Guallpa MD MD fg The chart was reviewed and I authenticate all verbal orders and agree with the evaluation and treatment provided.Attachments: 14:42 [facility] Agreement jls1 MTDD
--- NOTE | 2016-10-31 17:43 | EDDOCDS ---
Nurse's Notes [facility] Name: Keshia Merrill Age: 56 yrs Sex: Female : 1960 Arrival Date: 10/31/2016 Time: 12:44 Bed [facility] Private MD: Suraj Neff D Diagnosis: Major depressive disorder, recurrent severe without psychotic features Presentation: 10/31 12:54 Presenting complaint: Patient states: is ready for admission. Reports left yesterday kr3 with agreement she could return. Reports high anxiety, depression, not sleeping, confusion and shakiness. Adult Sepsis Screening: The patient does not have new or worsening altered mentation. Patient's respiratory rate is less than 22. Systolic blood pressure is greater than 100. Patient has a qSOFA score of 0- Negative Sepsis Screen. Mental Health Triage Level: Level 2:. Suicide/Homicide risk assessment- the patient denies having any suicidal and/or homicidal ideations and does not present with any other emotional, behavioral or mental health complaints. Status: Patient is not a financial service representative or dependent. Transition of care: patient was not received from another setting of care. 12:54 Acuity: CK Level 3 kr3 12:54 Method Of Arrival: Walkin/Carried/Asstd kr3 12:58 Red Flag criteria, patient assessed and taken directly to a bed. kr3 Triage Assessment: 12:57 General: Appears comfortable, Behavior is cooperative. Pain: Location: right upper back kr3 Pain currently is 5 out of 10 on a pain scale. HIV screening NA for this visit Offered previously. The patient is triaged at the bedside. See Assessment in Nurses Notes section of ED record. Neurological: Level of Consciousness is awake, alert. Respiratory: Respiratory effort is even, unlabored. Derm: Skin is normal. Musculoskeletal: Range of motion intact in all extremities. Historical: - Allergies: Haldol; Ibuprofen; [place] Carbonate; Risperdal; Trazodone; tylenol; Zofran; Zyrtec; - Home Meds: 1. aspirin 81 mg Oral tab 1 tab once daily 2. clonazepam 1 mg Oral TbDL 1 tab 3 times per day (Last dose: 10/31/2016) 3. Crestor 5 mg Oral tab 1 tab nightly (Last dose: 10/30/2016) 4. gabapentin 100 mg Oral cap 2 caps 3 times per day (Last dose: 10/31/2016) 5. Linzess oral Unknown once daily (Last dose: 10/31/2016) 6. meclizine 12.5 mg Oral tab 2 tabs as needed 7. Prilosec 20 mg Oral cpDR 1 cap once daily (Last dose: 10/31/2016) - PMHx: Anxiety; Bipolar disorder; GERD; - Social history: Smoking status: Patient states former smoker of tobacco. No barriers to communication noted, The patient speaks fluent Kazakh, Speaks appropriately for age. - Family history: Not pertinent. - : The pt / caregiver states he / she is not on anticoagulants. Home medication list is obtained from the patient. - Exposure Risk Screening:: None identified. Screenin:19 Screening information is obtained from the patient. Fall risk: No risks identified. jo3 Assistance ADL's: requires no assistance with activities of daily living. Abuse/DV Screen: The patient / caregiver reports he/she is: not in a situation that causes fear, pain or injury. Nutritional screening: No deficits noted. Advance Directives: There is no active DNR order. home support is adequate. Assessment: 13:19 General: Appears in no apparent distress, comfortable, Behavior is appropriate for age, jo3 cooperative. General: Behavior is anxious. Neurological: No deficits noted. Level of Consciousness is awake, alert, Oriented to person, place, time. Cardiovascular: No deficits noted. Respiratory: Airway is patent Respiratory effort is even, unlabored. Derm: Skin is pink, warm & dry. 14:36 Reassessment: Patient appears in no apparent distress at this time. Pt requesting enema jo3 and home dose Klonopin and Gabapentin at this time. Orders received . 15:30 Reassessment: Patient appears in no apparent distress at this time. Patient denies pain jo3 at this time. Enema given at this time. Pt instructed to hold as long as possible before attempting to have BM. Commode placed in room for pt comfort. Awaiting results. Significant other remains with pt . 16:35 Reassessment: Patient appears in no apparent distress at this time. Moderate diarrhea jo3 stool following enema. Pt awaiting admission to [facility]. Aware of plan of care. Significant other at bedside . 17:28 General: Appears in no apparent distress, comfortable, Behavior is anxious, jo3 cooperative. General: Security observing . Neurological: No deficits noted. Level of Consciousness is awake, alert, Oriented to person, place, time. Cardiovascular: No deficits noted. Respiratory: Airway is patent Respiratory effort is even, unlabored. Derm: Skin is pink, warm & dry. Mental Health Eval: 15:06 Mental health consult is initiated at 14:15. Status: The patient is not a financial service representative or dependent. [facility] Behavioral Health: The patient is not an established patient of [facility]. Referral Information: Evaluation referral is generated by the patient himself / herself. The patient was referred for evaluation because Pt was seen yesterday, declined admission at that time. Pt states she feels worse, is more anxious, and "I feel like I'm going to ". PT states she is "feeling risky", is not able to function due to her anxiety and depression. Pt also has multiple somatic complaints, states she has been constipated for at least a week, although she states she lost 6# in the last week. Pt states she has not been sleeping as her "mind keeps racing". 16:17 Subjective: The patients chief complaint is I can't take it anymore. I tried, but I ac need to come in to the hospital. I can't function because my depression and anxiety are so bad. Delusions are denied. Patient's mood is anxious, depressed. 16:19 Mental Health history: anxiety, Bipolar Disorder, depression, Mental Health Admissions: [facility] in 2014 Current Outpatient Mental Health Services: Psychiatrist / Agency: Dr. Solis at [facility]. Therapist / Agency: Yvon Albarran at [facility], Abram Flores at [facility]. Current living environment is The patient currently lives with his / her spouse, . Patient presents to Emergency Department with the following symptoms within the past 2 weeks: anxiety, depressed mood, feelings of helplessness/hopelessness, panic attacks, poor concentration, sleep disturbance - insomnia, suicidal ideation with no plan, weight loss of 6 pounds. Substance abuse: Patient uses marijuana. Mental status exam: Patients appearance is appropriate, Patient's behavior is agitated, Speech is rapid. Affect is appropriate. Mood is anxious. depressed. Hallucinations are denied. Appetite is poor. Memory is good. Energy level is tires easily. Content of thought is somatic preoccupation. Thought process is intact. Cognitive level is oriented to person, place, time and situation Patient's insight is poor. Judgement is poor. Rapport with interviewer is good. Suicidal Ideation is present with no specific plan. Disposition: Medically cleared for disposition by Keeley Guallpa MD Psychiatric Consult is performed by phone with Dr Jae Ferrell MD. [facility] Admission Criteria: The patient is experiencing suicidal ideation. The patient displays symptoms of severe psychiatric disorder resulting in disordered behavior and significant interference with his / her ability to maintain self care. Severe Anxiety. The patient requires continuous observation and/or control to protect self, others or property. The patient's care requires a multi-modal treatment plan under close supervision and coordination due to the complexity and severity of the patient's symptoms. The patient requires administration and monitoring of psychoactive medications by skilled medical providers due to the side effects of the psychoactive medications or significant dosage adjustments. Legal Status: Patient's legal status will be Emergency admission: . [place] Safe Act: [place] Safe Act is applicable to this patient. The patient poses a risk to self or other and the [facility] Utility Locator has been notified. He/She will enter the patient's data. DSM-V Differential Diagnosis: Bipolar I Disorder (F31.0) Current or most recent episode depressed, severe (F31.34). Narrative:. Pt states preferred pharmacy is: [facility]. Vital Signs: 12:45 BP 143 / 84; Pulse 101; Resp 18 S; Temp 97.8(O); Pulse Ox 99% on R/A; Weight 45.81 kg gr2 (R); Height 5 ft. 2 in. (157.48 cm) (R); Pain 3/10; 16:34 BP 132 / 88 RA (man/reg); Pulse 92; Resp 18; Pulse Ox 99% on R/A; dpm 12:45 Body Mass Index 18.47 (45.81 kg, 157.48 cm) gr2 Vitals: 12:45 Log In Time: October 31, 2016 at 12:45. RN notified that patient meets Red Flag gr2 criteria. ED Course: 12:45 Patient visited by Kate Hernandez. gr2 12:45 Suraj Neff is Private Physician. gr2 12:45 Patient moved to Waiting gr2 12:48 Patient visited by Kate Hernandez. gr2 12:48 Patient moved to Pre RCE gr2 12:50 Patient moved to [facility] dpm 12:56 Triage Initiated kr3 12:59 Pt greeted and oriented to ED. Patient advised of names of staff involved in care, dpm location of call llamas, wait times and NPO status. Patient has correct armband on for positive identification. Placed in gown. Placed in psych safe attire. Security observing. Property removed, inventory done, secured in belongings bag- placed in locked locker. Placed in locker 3. Catherine (telephone sales agent) observed pt while changing. Psych Safety Check: Location: Psych Room. Visual Assessment: Cooperative. 13:08 Patient visited by Chago Malin. dpm 13:19 The patient / caregiver is instructed regarding the plan of care and ED course. jo3 13:19 No IV's were initiated during this patient's visit. Labs drawn. (by ED staff). Sent per jo3 order to lab. 13:20 Patient visited by Esme Craven RN. jo3 13:22 Keeley Guallpa MD is Attending Physician. fg 13:26 Acetaminophen Level Sent. jo3 13:26 Basic Metabolic Profile Sent. jo3 13:26 Complete Blood Count Sent. jo3 13:26 Drug Eval Toxicology ED Only Sent. jo3 13:26 Ethyl Alcohol (ethanol) Sent. jo3 13:26 Liver Profile Sent. jo3 13:26 Salicylate Level Sent. jo3 13:26 Thyroid Stimulating Hormone Sent. jo3 13:35 Patient visited by Chago Malin. dpm 13:52 Patient visited by Chago Malin. dpm 13:53 Patient visited by Esme Craven RN. jo3 14:08 Patient visited by Keeley Guallpa MD. fg 14:15 Patient visited by Chago Malin. dpm 14:26 Patient visited by Destiny Woods PCA. rs6 14:26 Diet: Patient given regular meal. Tolerated well. rs6 14:34 Patient visited by Chago Malin. dpm 14:36 No procedures done that require assistance. jo3 14:38 Patient visited by Esme Craven RN. jo3 14:42 [facility] Payment Agreement was scanned into [employer] and attached to record. jls1 14:55 Patient visited by Chago Malin. dpm 15:09 Patient visited by Chago Malin. dpm 15:24 Patient visited by Chago Malin. dpm 15:39 Patient visited by Catherine Milton. nb2 15:39 Psych Safety Check: Location: Psych Room. Visual Assessment: Cooperative. nb2 15:57 Patient visited by Chago Malin. dpm 16:12 Patient visited by Chago Malin. dpm 16:17 Patient visited by Chago Malin. dpm 16:35 Patient visited by Chago Malin. dpm 16:46 Patient visited by Chago Malin. dpm 17:00 Patient visited by Chago Malin. dpm 17:15 Patient visited by Chago Malin. dpm 17:22 Jae Ferrell MD is Hospitalizing Provider. fg 17:25 Patient visited by Humble Merrill RN. bcj 17:29 Patient visited by Esme Craven RN. jo3 17:35 E Legal paperwork was scanned into [employer] and attached to record. ms 17:37 Patient visited by Chago Malin. dpm Administered Medications: 15:10 Drug: Gabapentin 200 mg [gabapentin 100 mg capsule (2 caps)] Route: PO; jo3 15:10 Drug: clonazePAM 1 mg [clonazepam 0.5 mg tablet (2 tabs)] Route: PO; jo3 Attachments: 17:35 M[facility] Legal paperwork ms Order Results: Lab Order: Acetaminophen Level; SPEC'M 10/31/16 13:16 Test: ACETAMINOPHEN LEVEL; Value: < 2.0; Range: 10.0-30.0; Abnormal: Below low normal; Units: UG/ML; Status: F Lab Order: Basic Metabolic Profile; SPEC'M 10/31/16 13:16 Test: GLUCOSE, FASTING; Value: 91; Range: 70-105; Units: MG/DL; Status: F Test: BLOOD UREA NITROGEN; Value: 9; Range: 7-18; Units: MG/DL; Status: F Test: CREATININE FOR GFR; Value: 0.48; Range: 0.55-1.02; Abnormal: Below low normal; Units: MG/DL; Status: F Test: GLOMERULAR FILTRATION RATE; Value: > 60.0; Range: >51; Status: F Test: SODIUM LEVEL; Value: 142; Range: 136-145; Units: MEQ/L; Status: F Test: POTASSIUM SERUM; Value: 4.0; Range: 3.5-5.1; Units: MEQ/L; Status: F Test: CHLORIDE LEVEL; Value: 106; Range: 98-107; Units: MEQ/L; Status: F Test: CARBON DIOXIDE LEVEL; Value: 27; Range: 21-32; Units: MEQ/L; Status: F Test: ANION GAP; Value: 9; Range: 8-16; Units: MEQ/L; Status: F Test: CALCIUM LEVEL; Value: 9.2; Range: 8.5-10.1; Units: MG/DL; Status: F Test Note: ; Units are mL/min/1.73 m2 Chronic Kidney Disease Staging per NKF: Stage I & II GFR >=60 Normal to Mildly Decreased Stage III GFR 30-59 Moderately Decreased Stage IV GFR 15-29 Severely Decreased Stage V GFR <15 Very Little GFR Left ESRD GFR <15 on GRANULATING BLENDER Lab Order: Complete Blood Count; SPEC'M 10/31/16 13:16 Test: WHITE BLOOD COUNT; Value: 6.6; Range: 4.0-10.0; Units: K/mm3; Status: F Test: RED BLOOD COUNT; Value: 4.53; Range: 4.00-5.40; Units: M/mm3; Status: F Test: HEMOGLOBIN; Value: 14.8; Range: 12.0-16.0; Units: g/dl; Status: F Test: HEMATOCRIT; Value: 42.3; Range: 36.0-47.0; Units: %; Status: F Test: MEAN CORPUSCULAR VOLUME; Value: 93.4; Range: 80.0-96.0; Units: fl; Status: F Test: MEAN CORPUSCULAR HEMOGLOBIN; Value: 32.8; Range: 27.0-33.0; Units: pg; Status: F Test: MEAN CORPUSCULAR HGB CONC; Value: 35.1; Range: 32.0-36.5; Units: g/dl; Status: F Test: RED CELL DISTRIBUTION WIDTH; Value: 11.7; Range: 11.5-14.5; Units: %; Status: F Test: PLATELET COUNT, AUTOMATED; Value: 157; Range: 150-450; Units: k/mm3; Status: F Lab Order: Drug Eval Toxicology ED Only; SPEC'M 10/31/16 13:16 Test: AMPHETAMINES LEVEL URINE; Value: NEGATIVE; Range: NEGATIVE; Status: F Test: BARBITURATES URINE; Value: NEGATIVE; Range: NEGATIVE; Status: F Test: BENZODIAZEPINES URINE; Value: NEGATIVE; Range: NEGATIVE; Status: F Test: CANNABINOIDS URINE; Value: POSITIVE; Range: NEGATIVE; Abnormal: Above high normal; Status: F Test: COCAINE METABOLITE URINE; Value: NEGATIVE; Range: NEGATIVE; Status: F Test: METHADONE URINE; Value: NEGATIVE; Range: NEGATIVE; Status: F Test: OPIATES URINE; Value: NEGATIVE; Range: NEGATIVE; Status: F Test: TRICYCLIC ANTIDEPRESS URINE; Value: NEGATIVE; Range: NEGATIVE; Status: F Test Note: ; FALSE POSITIVE RESULTS CAN BE CAUSED BY THE USE OF PANTOPRAZOLE (PROTONIX). Lab Order: Ethyl Alcohol (ethanol); SPEC'M 10/31/16 13:16 Test: ETHYL ALCOHOL (ETHANOL); Value: 0.003; Range: 0.000-0.010; Units: %; Status: F Lab Order: Liver Profile; SPEC'M 10/31/16 13:16 Test: AST/SGOT; Value: 38; Range: 15-37; Abnormal: Above high normal; Units: U/L; Status: F Test: ALT/SGPT; Value: 111; Range: 12-78; Abnormal: Above high normal; Units: U/L; Status: F Test: ALKALINE PHOSPHATASE; Value: 186; Range: 45-117; Abnormal: Above high normal; Units: U/L; Status: F Test: BILIRUBIN,TOTAL; Value: 0.3; Range: 0.2-1.0; Units: MG/DL; Status: F Test: BILIRUBIN,DIRECT; Value: 0.1; Range: 0.0-0.2; Units: MG/DL; Status: F Test: TOTAL PROTEIN; Value: 7.2; Range: 6.4-8.2; Units: GM/DL; Status: F Test: ALBUMIN; Value: 4.1; Range: 3.2-5.2; Units: GM/DL; Status: F Test: ALBUMIN/GLOBULIN RATIO; Value: 1.32; Range: 1.00-1.93; Status: F Lab Order: Salicylate Level; SPEC'M 10/31/16 13:16 Test: SALICYLATE LEVEL; Value: 2.6; Range: 5.0-30.0; Abnormal: Below low normal; Units: MG/DL; Status: F Lab Order: Thyroid Stimulating Hormone; SPEC'M 10/31/16 13:16 Test: THYROID STIMULATING HORMONE; Value: 2.360; Range: 0.358-3.740; Units: uIU/ML; Status: F Outcome: 17:22 Decision to Hospitalize by Provider. fg 17:38 Discharge Assessment: Patient awake, alert and oriented x 3. No cognitive and/or jo3 functional deficits noted. Patient verbalized understanding of disposition instructions. patient administered narcotics - no. The following High Risk Discharge criteria are identified: None. Admitted to Psych accompanied by tech, family with patient, via wheelchair, with chart. Condition: stable. No special radiology studies were completed. Property :Personal belongings accompany Pt. 17:41 Patient left the ED. jo3 Signatures: Humble Merrill, RN RN bcted Merritt, Issa, PSA PSA ac Stone, Chrissy, PSA PSA ms Jane Mendez,RN RN Esme Moralez RN RN jo3 Chago Malin dpm, [place]ains[place] gr2 Destiny Woods, [employer]DER rs6 Esme Sheldon jls1 Keeley Guallpa MD MD fg Baart, Nicole nb2 Corrections: (The following items were deleted from the chart) 16:18 15:06 Referral Information: Evaluation referral is generated by the patient himself / ac herself. The patient was referred for evaluation because Pt was seen yesterday, declined admission at that time. Pt states she feels worse, is more anxious, and "I feel like I'm going to ". PT states she is "feeling risky", is not able to function due to her anxiety and depression. Pt also has multiple somatic complaints, states she has been constipated for at least a week, although she states she lost 6# in the last week. Pt states. ac 17:26 16:40 Reassessment: Patient appears in no apparent distress at this time. Moderate jo3 diarrhea stool following enema. Pt awaiting admission to [facility]. Aware of plan of care. Significant other at bedside . [facility] 17:26 15:35 Reassessment: Patient appears in no apparent distress at this time. Patient jo3 denies pain at this time. Enema given at this time. Pt instructed to hold as long as possible before attempting to have BM. Commode placed in room for pt comfort. Awaiting results. Significant other remains with pt . [facility] MTDD
[2016-10-31 17:56] VITALS: BP 135/87
[2016-10-31] MEDS ORDERED: MECLIZINE 25 MG TABLET PO PRN (19:15)
[2016-10-31] MEDS: GABAPENTIN 100 MG CAP PO SCH (20:26)
[2016-10-31] MEDS: clonazePAM 1 MG TAB PO SCH (20:26)
[2016-10-31] MEDS: DOCUSATE SODIUM 100 MG CAP PO SCH (20:26)
[2016-10-31] MEDS: ROSUVASTATIN 10 MG TAB (CRESTOR) PO SCH (20:57)
[2016-10-31] MEDS: zolPIDEM TARTRATE 10MG TAB PO PRN (20:58)
[2016-11-01] MEDS ORDERED: diphenhydrAMINE 50 MG CAP PO ONE (02:00)
[2016-11-01 06:00] VITALS: BP 120/69
[2016-11-01] MEDS ORDERED: QUEtiapine FUMARATE 12.5 MG HALF-TAB PO SCH (08:00)
[2016-11-01] MEDS: OMEPRAZOLE 20 MG CAP PO SCH (08:39)
[2016-11-01] MEDS: DOCUSATE SODIUM 100 MG CAP PO SCH ×2 (08:39→20:42)
[2016-11-01] MEDS: GABAPENTIN 100 MG CAP PO SCH ×3 (08:40→20:42)
[2016-11-01] MEDS: ASPIRIN 81 MG ENTERIC TAB PO SCH (08:40)
[2016-11-01] MEDS: clonazePAM 1 MG TAB PO SCH ×3 (08:40→20:42)
[2016-11-01] MEDS ORDERED: QUEtiapine FUMARATE 25 MG TAB PO SCH (09:27)
[2016-11-01] MEDS: MIRALAX *UNIT DOSE* 17GM PACKET PO SCH ×2 (09:42→20:42)
[2016-11-01] MEDS: MOM 30ML SUSPENSION UDC PO PRN (11:45)
[2016-11-01] MEDS: QUEtiapine FUMARATE 25 MG TAB PO SCH ×2 (12:27→17:33)
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
[2016-11-01 18:00] VITALS: BP 146/83
[2016-11-01] MEDS: ROSUVASTATIN 10 MG TAB (CRESTOR) PO SCH (20:42)
[2016-11-01] MEDS ORDERED: QUEtiapine FUMARATE 100 MG TAB PO SCH (21:00)
[2016-11-01] MEDS ORDERED: DOCUSATE SODIUM 100 MG CAP PO SCH (21:00)
[2016-11-01] MEDS: zolPIDEM TARTRATE 10MG TAB PO PRN (21:51)
[2016-11-02] MEDS: QUEtiapine FUMARATE 100 MG TAB PO PRN ×2 (01:57→22:51)
[2016-11-02 06:36] VITALS: BP 117/70
[2016-11-02 07:20] LABS: ALBUMIN/GLOBULIN RATIO 1.25 (1.00-1.93); ALKALINE PHOSPHATASE 193 U/L (45-117); ALT/SGPT 94 U/L (12-78); AST/SGOT 37 U/L (15-37); BILIRUBIN,DIRECT 0.2 MG/DL (0.0-0.2); BILIRUBIN,TOTAL 0.6 MG/DL (0.2-1.0); TOTAL PROTEIN 7.2 GM/DL (6.4-8.2)
[2016-11-02] MEDS: ASPIRIN 81 MG ENTERIC TAB PO SCH (08:29)
[2016-11-02] MEDS: QUEtiapine FUMARATE 25 MG TAB PO SCH ×3 (08:29→17:14)
[2016-11-02] MEDS: GABAPENTIN 100 MG CAP PO SCH ×3 (08:29→20:45)
[2016-11-02] MEDS: DOCUSATE SODIUM 100 MG CAP PO SCH ×2 (08:29→20:45)
[2016-11-02] MEDS: OMEPRAZOLE 20 MG CAP PO SCH (08:29)
[2016-11-02] MEDS: clonazePAM 1 MG TAB PO SCH ×2 (08:29→20:45)
--- NOTE | 2016-11-02 09:37 | REP ---
RIGHT UPPER QUADRANT ULTRASOUND: Real-time sonographic evaluation of the right upper quadrant is performed. The patient is status post cholecystectomy. There is no intrahepatic or extrahepatic biliary dilatation, common bile duct measuring 3 mm in diameter. The liver and pancreas demonstrate homogenous echotexture with no gross mass. The right kidney demonstrates no hydronephrosis or nephrolithiasis with normal size at 10.9 cm in length. No ascites is seen. IMPRESSION: Negative right upper quadrant ultrasound status post cholecystectomy. Signed by Massimo Dominique MD 11/02/2016 05:03 P
--- NOTE | 2016-11-02 09:39 | HPE ---
DATE OF ADMISSION: 10/31/2016 Please refer to psychiatric history and evaluation for further details on this admission. This examination and history is intended for medical issues which may need treatment, followup or consult on this 56-year-old female. ALLERGIES: ACETAMINOPHEN, CETIRIZINE, HALOPERIDOL, IBUPROFEN, LITHIUM, ONDANSETRON, RISPERIDONE, TRAZODONE. PAST MEDICAL HISTORY: Hypercholesterolemia. Gastroesophageal reflux disease (GERD). Fibromyalgia. Obstructive sleep apnea. She does not wear a mask. Irritable bowel syndrome for over a year and a half. She follows with Dr. Ivonne Webber in [place]. GI: Most recently saw his nurse practitioner there. PAST SURGICAL HISTORY: Laparoscopic cholecystectomy 1990. A month later, she had a bowel resection. She has had a pin in her right little finger. Left bunion surgery. Right shoulder surgery. SOCIAL HISTORY: She is . She lives in [place]. ETOH none. She does not smoke. States she smokes marijuana. Has not smoked she stated any for 7 days. LABORATORY STUDIES: CBC normal. Electrolytes normal. BUN and creatinine 9 and 0.48. AST 38, ALT 111, alkaline phos 186, urine was positive for cannabinoids. HOME MEDICATIONS: - aspirin 81 mg by mouth daily - clonazepam 1 mg by mouth three times daily - gabapentin 200 mg by mouth three times daily - meclizine 25 mg by mouth three times daily as needed vertigo - omeprazole 20 mg by mouth daily - Crestor 5 mg by mouth daily at bedtime - Linzess 250 mcg capsule by mouth daily REVIEW OF SYSTEMS: No current complaints of headache. No blurry or double vision. No fever. No chills. No tinnitus. No hoarseness. No difficulty swallowing. No lightheadedness. No Vertigo. BREASTS: No masses. CARDIOVASCULAR: No complaints of chest pain, shortness of breath, palpitations or edema. RESPIRATORY: No chronic cough, no sputum production. No hemoptysis. No orthopnea. No wheeze. GI: She has a decreased appetite. No hematochezia, no melena. She complains of constipation. It will be soft but she does not have the force to get it out or is diarrhea or is constipated. This has been going on for a year and a half. She has used MiraLAX, Colace and most recently was given about 5 day samples of Linzess which she just started 1 or 2 days before she came here but she states that she did not get them filled because she cannot afford the drug. She does not have a followup with her GI specialist until December. I advised her to let them know and we will try and contact them that she cannot afford the Linzess. They will need to perhaps recommend something different that she is able to afford or her insurance will cover. : No hematuria, dysuria or frequency. MUSCULOSKELETAL: No joint redness or swelling. ENDOCRINE: No polyuria, polydipsia, polyphagia. HEMATOLOGICAL: No history of anemia. NEUROLOGICAL: No history of seizures, paresthesias or paralysis. PSYCHOLOGICAL: See psychiatric history of present illness. PHYSICAL EXAMINATION: 56-year-old thin cooperative female in no acute distress. Height 62 inches, weight 44.7 kg. BMI 18. Temperature 96.1, pulse 75, respirations 18. Blood pressure 120/69. The patient is alert and oriented times three. Pupils equal and reactive to light. Extraocular movements intact. Cornea and sclera clear. Conjunctiva normal. No facial asymmetry. Pharynx, tongue and gums pink and moist. Tongue is midline. Neck is supple, without lymphadenopathy. No thyromegaly. No goiter. Chest clear to auscultation, without wheeze or retraction. Heart is regular. Abdomen benign. Bowel sounds positive. Genitourinary ()/Rectal: Not done. Extremities show equal strength, full range of motion. No cyanosis, clubbing or edema. Peripheral pulses equal and palpable bilaterally. Skin is warm and dry. Cranial nerves III-XII grossly intact. IMPRESSION/PLAN: Psychiatric plan per psychiatry. History of gastroesophageal reflux disease (GERD). Continue omeprazole. Irritable bowel syndrome. Unable to afford Linzess. Will continue MiraLax and Colace. Need to contact her GI specialist to see what they would like her to try. She needs to schedule also a followup appointment with them upon discharge. She has one scheduled for December. She will need one sooner. Elevated AST, ALT and alkaline phosphatase. Will do a hepatitis panel, liver ultrasound. EKG we will order at baseline. Hypercholesterolemia. Continue diet and medication.
[2016-11-02] MEDS: MIRALAX *UNIT DOSE* 17GM PACKET PO SCH ×2 (09:45→20:44)
[2016-11-02] MEDS: clonazePAM 0.5 MG TAB PO SCH (13:08)
--- NOTE | 2016-11-02 16:55 | IPN ---
DATE: 11/02/2016 A 56-year-old female with history of bipolar disorder, admitted with very high anxiety. The patient was unable to sleep, relax. She has been worried all day long, making statements such as "I cannot stand it anymore." The patient also has multiple somatic complaints and worries about everything including side effects from medication. The patient has lost six pounds in the last week. She reports that her mind "keeps racing" and "I can't function because of my depression and anxiety." MEDICATIONS: - Seroquel 150 mg by mouth at bedtime - Seroquel 25 mg at 0800, 1300 and 1800 - Klonopin 1 mg by mouth twice a day plus 0.5 mg by mouth at night - Neurontin 200 mg by mouth three times a day - Zolpidem 10 mg by mouth at bedtime as needed for insomnia SUBJECTIVE: "I cannot stand it anymore." OBJECTIVE: The patient is very anxious constantly, cannot stop ruminating and being preoccupied. She worries about how she is going to be doing, if the medication is going to be effective, if she is going to develop side effects from medication, etcetera. She has been able to sleep a little better with the help of Seroquel. The patient is able to contract for safety on the unit and denied suicidal ideation during the interview. MENTAL STATUS EXAMINATION: The patient is dressed in [facility]. The patient is fidgety, very anxious, poor eye contact. Speech is pressured. Mood is highly anxious and depressed. Affect is labile and congruent with mood. No evidence of delusions or hallucinations. Memory, attention and concentration are affected by her high anxiety. The patient is able to contract for safety and denies suicidal or homicidal ideation during the interview. Insight and judgment is poor. ASSESSMENT: 1. Bipolar disorder, depressed episode. 2. Very high anxiety. 3. Insomnia. PLAN: 1. Continue with Seroquel 150 mg by mouth at bedtime. 2. Continue with 25 mg at 0800, 1300 and 1800. 3. Taper Klonopin slowly. The patient will continue with 1 mg by mouth twice a day and 0.5 mg at 1300. 4. Neurontin 200 mg by mouth three times a day. We will probably taper this medication later. 5. Zolpidem 10 mg by mouth at bedtime as needed for insomnia. 6. Continue with medication management, individual and group therapy.
[2016-11-02 18:00] VITALS: BP 142/87
--- NOTE | 2016-11-02 18:41 | ECGEPIP ---
Stationary ECG Study [facility] Test Date: 2016-11-02 Pat Name: ROLANDO AVERY Department: Room: [place] [address] Gender: F Report Programmer: INNA : 1960 Requested By: Michelle Choudhury [facility] Order Number: [id number] Reading MD: David Titus Measurements Intervals [place] Rate: 107 P: 63 ME: 153 QRS: 35 QRSD: 93 T: 52 QT: 317 QTc: 424 Interpretive Statements SINUS TACHYCARDIA. SMALL q WAVES NOTED IN THE INFEROLATERAL LEADS WITH REPOLARIZATION ABNORMALITY ABNORMAL RHYTHM ECG LAST TRACING ON 05/14/2015 AT 22:44:25. HEART RATE WAS THEN 50 BEATS A MINUTE Electronically Signed On 11-02-2016 18:41:18 EST by David Titus
--- NOTE | 2016-11-02 18:43 | EDDOCDS ---
Physician Documentation [facility] Name: Keshia Merrill Age: 56 yrs Sex: Female : 1960 Arrival Date: 10/31/2016 Time: 12:44 Bed [facility] MD: Suraj Neff D Disposition: 10/31/16 17:22 Hospitalization ordered by Jae Ferrell for Inpatient Admission. 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 - Bed requested for Admit. - Status is Inpatient Admission. jo3 - Condition is Stable. - Problem is new. - Symptoms have improved. Historical: - Allergies: Haldol; Ibuprofen; [place] Carbonate; Risperdal; Trazodone; tylenol; Zofran; Zyrtec; - Home Meds: 1. aspirin 81 mg Oral tab 1 tab once daily 2. clonazepam 1 mg Oral TbDL 1 tab 3 times per day (Last dose: 10/31/2016) 3. Crestor 5 mg Oral tab 1 tab nightly (Last dose: 10/30/2016) 4. gabapentin 100 mg Oral cap 2 caps 3 times per day (Last dose: 10/31/2016) 5. Linzess oral Unknown once daily (Last dose: 10/31/2016) 6. meclizine 12.5 mg Oral tab 2 tabs as needed 7. Prilosec 20 mg Oral cpDR 1 cap once daily (Last dose: 10/31/2016) - PMHx: Anxiety; Bipolar disorder; GERD; - Social history: Smoking status: Patient states former smoker of tobacco. No barriers to communication noted, The patient speaks fluent Azeri, Speaks appropriately for age. - Family history: Not pertinent. - : The pt / caregiver states he / she is not on anticoagulants. Home medication list is obtained from the patient. - Exposure Risk Screening:: None identified. Vital Signs: 10/31 12:45 BP 143 / 84; Pulse 101; Resp 18 S; Temp 97.8(O); Pulse Ox 99% on R/A; Weight 45.81 kg / gr2 100.99 lbs (R); Height 5 ft. 2 in. (157.48 cm) (R); Pain 3/10; 16:34 BP 132 / 88 RA (man/reg); Pulse 92; Resp 18; Pulse Ox 99% on R/A; dpm 12:45 Body Mass Index 18.47 (45.81 kg, 157.48 cm) gr2 MDM: 13:22 Consult PFS/PSA/Singer Songwriter ordered. fg 13:22 Consult PFS/PSA/Singer Songwriter: Patient's case requires discussion with on-call fg Psychiatrist ordered. 13:22 PSA/PFS to call Nursing Assistant Toddler Teacher, to enter [place] data [place] if patient fg involuntarily admitted or transferred for SI or HI ordered. 13:22 Confirm accurate psychiatric medication list and times of last dosage ordered. fg 13:22 Detain Pt Until Medically/PFS Cleared ordered. fg 13:23 Acetaminophen Level Ordered. EDMS 13:23 Basic Metabolic Profile Ordered. EDMS 13:23 Complete Blood Count Ordered. EDMS 13:23 Drug Eval Toxicology ED Only Ordered. EDMS 13:23 Ethyl Alcohol (ethanol) Ordered. EDMS 13:23 Liver Profile Ordered. EDMS 13:23 Salicylate Level Ordered. EDMS 13:23 Thyroid Stimulating Hormone Ordered. EDMS 13:26 Consult PFS/PSA/Singer Songwriter complete. jo3 13:54 REGULAR DIET PLASTIC SUERO+DIET ordered. EDMS 14:09 Consult PFS/PSA/Singer Songwriter: Patient's case requires discussion with on-call ac Psychiatrist complete. 14:09 [facility] ordered. fg 14:35 Gabapentin 200 mg PO once ordered. jo3 14:35 clonazePAM 1 mg PO once ordered. jo3 14:35 Enema - Fleets ordered. jo3 14:41 Financial registration complete. jls1 14:42 [facility] Payment Agreement was scanned into [employer] and attached to record. jls1 16:09 REGULAR DIET PLASTIC SUERO+DIET ordered. EDMS 17:06 Admit to [facility]: ordered. EDMS 17:35 [facility] Legal paperwork was scanned into [employer] and attached to record. ms 17:42 PSA/PFS to call Nursing Assistant Toddler Teacher, to [place] if patient jo3 involuntarily admitted or transferred for SI or HI complete. 11/01 14:55 T-Sheet-- Draft Copy was scanned into [employer] and attached to record. kf3 Administered Medications: 10/31 15:10 Drug: Gabapentin 200 mg [gabapentin 100 mg capsule (2 caps)] Route: PO; jo3 15:10 Drug: clonazePAM 1 mg [clonazepam 0.5 mg tablet (2 tabs)] Route: PO; jo3 Signatures: Dispatcher [employer] EDMS René, Issa, PSA PSA ac Stone, Chrissy, PSA PSA ms Jane Mendez,MISTY RN kr3 Esme Craven,MISTY RN jo3 Brando Goncalves, Reg Reg kf3 Esme Sheldon jls1 Keeley Guallpa MD MD fg The chart was reviewed and I authenticate all verbal orders and agree with the evaluation and treatment provided.Attachments: 14:42 [facility] Payment Agreement jls1 11/01 14:55 T-Sheet-- Draft Copy kf3 Chart Complete MTDD
--- NOTE | 2016-11-02 18:43 | EDDOCDS ---
Nurse's Notes [facility] Name: Keshia Merrill Age: 56 yrs Sex: Female : 1960 Arrival Date: 10/31/2016 Time: 12:44 Bed [facility] Private MD: Suraj Neff D Diagnosis: Major depressive disorder, recurrent severe without psychotic features Presentation: 10/31 12:54 Presenting complaint: Patient states: is ready for admission. Reports left yesterday kr3 with agreement she could return. Reports high anxiety, depression, not sleeping, confusion and shakiness. Adult Sepsis Screening: The patient does not have new or worsening altered mentation. Patient's respiratory rate is less than 22. Systolic blood pressure is greater than 100. Patient has a qSOFA score of 0- Negative Sepsis Screen. Mental Health Triage Level: Level 2:. Suicide/Homicide risk assessment- the patient denies having any suicidal and/or homicidal ideations and does not present with any other emotional, behavioral or mental health complaints. Status: Patient is not a spring floor service worker or dependent. Transition of care: patient was not received from another setting of care. 12:54 Acuity: CK Level 3 kr3 12:54 Method Of Arrival: Walkin/Carried/Asstd kr3 12:58 Red Flag criteria, patient assessed and taken directly to a bed. kr3 Triage Assessment: 12:57 General: Appears comfortable, Behavior is cooperative. Pain: Location: right upper back kr3 Pain currently is 5 out of 10 on a pain scale. HIV screening NA for this visit Offered previously. The patient is triaged at the bedside. See Assessment in Nurses Notes section of ED record. Neurological: Level of Consciousness is awake, alert. Respiratory: Respiratory effort is even, unlabored. Derm: Skin is normal. Musculoskeletal: Range of motion intact in all extremities. Historical: - Allergies: Haldol; Ibuprofen; [place] Carbonate; Risperdal; Trazodone; tylenol; Zofran; Zyrtec; - Home Meds: 1. aspirin 81 mg Oral tab 1 tab once daily 2. clonazepam 1 mg Oral TbDL 1 tab 3 times per day (Last dose: 10/31/2016) 3. Crestor 5 mg Oral tab 1 tab nightly (Last dose: 10/30/2016) 4. gabapentin 100 mg Oral cap 2 caps 3 times per day (Last dose: 10/31/2016) 5. Linzess oral Unknown once daily (Last dose: 10/31/2016) 6. meclizine 12.5 mg Oral tab 2 tabs as needed 7. Prilosec 20 mg Oral cpDR 1 cap once daily (Last dose: 10/31/2016) - PMHx: Anxiety; Bipolar disorder; GERD; - Social history: Smoking status: Patient states former smoker of tobacco. No barriers to communication noted, The patient speaks fluent [place]ymra[place], Speaks appropriately for age. - Family history: Not pertinent. - : The pt / caregiver states he / she is not on anticoagulants. Home medication list is obtained from the patient. - Exposure Risk Screening:: None identified. Screenin:19 Screening information is obtained from the patient. Fall risk: No risks identified. jo3 Assistance ADL's: requires no assistance with activities of daily living. Abuse/DV Screen: The patient / caregiver reports he/she is: not in a situation that causes fear, pain or injury. Nutritional screening: No deficits noted. Advance Directives: There is no active DNR order. home support is adequate. Assessment: 13:19 General: Appears in no apparent distress, comfortable, Behavior is appropriate for age, jo3 cooperative. General: Behavior is anxious. Neurological: No deficits noted. Level of Consciousness is awake, alert, Oriented to person, place, time. Cardiovascular: No deficits noted. Respiratory: Airway is patent Respiratory effort is even, unlabored. Derm: Skin is pink, warm & dry. 14:36 Reassessment: Patient appears in no apparent distress at this time. Pt requesting enema jo3 and home dose Klonopin and Gabapentin at this time. Orders received . 15:30 Reassessment: Patient appears in no apparent distress at this time. Patient denies pain jo3 at this time. Enema given at this time. Pt instructed to hold as long as possible before attempting to have BM. Commode placed in room for pt comfort. Awaiting results. Significant other remains with pt . 16:35 Reassessment: Patient appears in no apparent distress at this time. Moderate diarrhea jo3 stool following enema. Pt awaiting admission to [facility]. Aware of plan of care. Significant other at bedside . 17:28 General: Appears in no apparent distress, comfortable, Behavior is anxious, jo3 cooperative. General: Security observing . Neurological: No deficits noted. Level of Consciousness is awake, alert, Oriented to person, place, time. Cardiovascular: No deficits noted. Respiratory: Airway is patent Respiratory effort is even, unlabored. Derm: Skin is pink, warm & dry. Mental Health Eval: 15:06 Mental health consult is initiated at 14:15. Status: The patient is not a spring floor service worker or dependent. [facility] Behavioral Health: The patient is not an established patient of [facility] Behavioral Health. Referral Information: Evaluation referral is generated by the patient himself / herself. The patient was referred for evaluation because Pt was seen yesterday, declined admission at that time. Pt states she feels worse, is more anxious, and "I feel like I'm going to ". PT states she is "feeling risky", is not able to function due to her anxiety and depression. Pt also has multiple somatic complaints, states she has been constipated for at least a week, although she states she lost 6# in the last week. Pt states she has not been sleeping as her "mind keeps racing". 16:17 Subjective: The patients chief complaint is I can't take it anymore. I tried, but I ac need to come in to the hospital. I can't function because my depression and anxiety are so bad. Delusions are denied. Patient's mood is anxious, depressed. 16:19 Mental Health history: anxiety, Bipolar Disorder, depression, Mental Health Admissions: [facility] in 2014 Current Outpatient Mental Health Services: Psychiatrist / Agency: Dr. Solis at [facility]. Therapist / Agency: Yvon Albarran at [facility], Abram Flores at [facility]. Current living environment is The patient currently lives with his / her spouse, . Patient presents to Emergency Department with the following symptoms within the past 2 weeks: anxiety, depressed mood, feelings of helplessness/hopelessness, panic attacks, poor concentration, sleep disturbance - insomnia, suicidal ideation with no plan, weight loss of 6 pounds. Substance abuse: Patient uses marijuana. Mental status exam: Patients appearance is appropriate, Patient's behavior is agitated, Speech is rapid. Affect is appropriate. Mood is anxious. depressed. Hallucinations are denied. Appetite is poor. Memory is good. Energy level is tires easily. Content of thought is somatic preoccupation. Thought process is intact. Cognitive level is oriented to person, place, time and situation Patient's insight is poor. Judgement is poor. Rapport with interviewer is good. Suicidal Ideation is present with no specific plan. Disposition: Medically cleared for disposition by Keeley Guallpa MD Psychiatric Consult is performed by phone with Dr Jae Ferrell MD. [facility] Admission Criteria: The patient is experiencing suicidal ideation. The patient displays symptoms of severe psychiatric disorder resulting in disordered behavior and significant interference with his / her ability to maintain self care. Severe Anxiety. The patient requires continuous observation and/or control to protect self, others or property. The patient's care requires a multi-modal treatment plan under close supervision and coordination due to the complexity and severity of the patient's symptoms. The patient requires administration and monitoring of psychoactive medications by skilled medical providers due to the side effects of the psychoactive medications or significant dosage adjustments. Legal Status: Patient's legal status will be Emergency admission: . [place] Safe Act: [place] Safe Act is applicable to this patient. The patient poses a risk to self or other and the Nursing Centrifugal Screen Tender has been notified. He/She will enter the patient's data. DSM-V Differential Diagnosis: Bipolar I Disorder (F31.0) Current or most recent episode depressed, severe (F31.34). Narrative:. Pt states preferred pharmacy is: [facility]. Vital Signs: 12:45 BP 143 / 84; Pulse 101; Resp 18 S; Temp 97.8(O); Pulse Ox 99% on R/A; Weight 45.81 kg gr2 (R); Height 5 ft. 2 in. (157.48 cm) (R); Pain 3/10; 16:34 BP 132 / 88 RA (man/reg); Pulse 92; Resp 18; Pulse Ox 99% on R/A; dpm 12:45 Body Mass Index 18.47 (45.81 kg, 157.48 cm) gr2 Vitals: 12:45 Log In Time: October 31, 2016 at 12:45. RN notified that patient meets Red Flag gr2 criteria. ED Course: 12:45 Patient visited by Kate Hernandez. gr2 12:45 Suraj Neff is Private Physician. gr2 12:45 Patient moved to Waiting gr2 12:48 Patient visited by Kate Hernandez. gr2 12:48 Patient moved to Pre RCE gr2 12:50 Patient moved to [facility] dpm 12:56 Triage Initiated kr3 12:59 Pt greeted and oriented to ED. Patient advised of names of staff involved in care, dpm location of call llamas, wait times and NPO status. Patient has correct armband on for positive identification. Placed in gown. Placed in psych safe attire. Security observing. Property removed, inventory done, secured in belongings bag- placed in locked locker. Placed in locker 3. Catherine (rehab consultant) observed pt while changing. Psych Safety Check: Location: Psych Room. Visual Assessment: Cooperative. 13:08 Patient visited by Chago Malin. dpm 13:19 The patient / caregiver is instructed regarding the plan of care and ED course. jo3 13:19 No IV's were initiated during this patient's visit. Labs drawn. (by ED staff). Sent per jo3 order to lab. 13:20 Patient visited by Esme Craven RN. jo3 13:22 Keeley Guallpa MD is Attending Physician. fg 13:26 Acetaminophen Level Sent. jo3 13:26 Basic Metabolic Profile Sent. jo3 13:26 Complete Blood Count Sent. jo3 13:26 Drug Eval Toxicology ED Only Sent. jo3 13:26 Ethyl Alcohol (ethanol) Sent. jo3 13:26 Liver Profile Sent. jo3 13:26 Salicylate Level Sent. jo3 13:26 Thyroid Stimulating Hormone Sent. jo3 13:35 Patient visited by Chago Malin. dpm 13:52 Patient visited by Chago Malin. dpm 13:53 Patient visited by sEme Craven RN. jo3 14:08 Patient visited by Keeley Guallpa MD. fg 14:15 Patient visited by Chago Malin. dpm 14:26 Patient visited by Destiny Woods PCA. rs6 14:26 Diet: Patient given regular meal. Tolerated well. rs6 14:34 Patient visited by Chago Malin. dpm 14:36 No procedures done that require assistance. jo3 14:38 Patient visited by Esme Craven RN. jo3 14:42 [facility] Payment Agreement was scanned into [email or web address] and attached to record. jls1 14:55 Patient visited by Chago Malin. dpm 15:09 Patient visited by Chago Malin. dpm 15:24 Patient visited by Chago Malin. dpm 15:39 Patient visited by Catherine Milton. nb2 15:39 Psych Safety Check: Location: Psych Room. Visual Assessment: Cooperative. nb2 15:57 Patient visited by Chago Malin. dpm 16:12 Patient visited by Chago Malin. dpm 16:17 Patient visited by Chago Malin. dpm 16:35 Patient visited by Chago Malin. dpm 16:46 Patient visited by Chago Malin. dpm 17:00 Patient visited by Chago Malin. dpm 17:15 Patient visited by Chago Malin. dpm 17:22 Jae Ferrell MD is Hospitalizing Provider. fg 17:25 Patient visited by Humble Merrill RN. bcj 17:29 Patient visited by Esme Craven RN. jo3 17:35 E Legal paperwork was scanned into [email or web address] and attached to record. ms 17:37 Patient visited by Chago Malin. dpm 11/01 14:55 T-Sheet-- Draft Copy was scanned into [email or web address] and attached to record. kf3 Administered Medications: 10/31 15:10 Drug: Gabapentin 200 mg [gabapentin 100 mg capsule (2 caps)] Route: PO; jo3 15:10 Drug: clonazePAM 1 mg [clonazepam 0.5 mg tablet (2 tabs)] Route: PO; jo3 Attachments: 17:35 E Legal paperwork ms Order Results: Lab Order: Acetaminophen Level; SPEC'M 10/31/16 13:16 Test: ACETAMINOPHEN LEVEL; Value: < 2.0; Range: 10.0-30.0; Abnormal: Below low normal; Units: UG/ML; Status: F Lab Order: Basic Metabolic Profile; SPEC'M 10/31/16 13:16 Test: GLUCOSE, FASTING; Value: 91; Range: 70-105; Units: MG/DL; Status: F Test: BLOOD UREA NITROGEN; Value: 9; Range: 7-18; Units: MG/DL; Status: F Test: CREATININE FOR GFR; Value: 0.48; Range: 0.55-1.02; Abnormal: Below low normal; Units: MG/DL; Status: F Test: GLOMERULAR FILTRATION RATE; Value: > 60.0; Range: >51; Status: F Test: SODIUM LEVEL; Value: 142; Range: 136-145; Units: MEQ/L; Status: F Test: POTASSIUM SERUM; Value: 4.0; Range: 3.5-5.1; Units: MEQ/L; Status: F Test: CHLORIDE LEVEL; Value: 106; Range: 98-107; Units: MEQ/L; Status: F Test: CARBON DIOXIDE LEVEL; Value: 27; Range: 21-32; Units: MEQ/L; Status: F Test: ANION GAP; Value: 9; Range: 8-16; Units: MEQ/L; Status: F Test: CALCIUM LEVEL; Value: 9.2; Range: 8.5-10.1; Units: MG/DL; Status: F Test Note: ; Units are mL/min/1.73 m2 Chronic Kidney Disease Staging per NKF: Stage I & II GFR >=60 Normal to Mildly Decreased Stage III GFR 30-59 Moderately Decreased Stage IV GFR 15-29 Severely Decreased Stage V GFR <15 Very Little GFR Left ESRD GFR <15 on [employer]ING ROOM WORKER Lab Order: Complete Blood Count; [facility] 10/31/16 13:16 Test: WHITE BLOOD COUNT; Value: 6.6; Range: 4.0-10.0; Units: K/mm3; Status: F Test: RED BLOOD COUNT; Value: 4.53; Range: 4.00-5.40; Units: M/mm3; Status: F Test: HEMOGLOBIN; Value: 14.8; Range: 12.0-16.0; Units: g/dl; Status: F Test: HEMATOCRIT; Value: 42.3; Range: 36.0-47.0; Units: %; Status: F Test: MEAN CORPUSCULAR VOLUME; Value: 93.4; Range: 80.0-96.0; Units: fl; Status: F Test: MEAN CORPUSCULAR HEMOGLOBIN; Value: 32.8; Range: 27.0-33.0; Units: pg; Status: F Test: MEAN CORPUSCULAR HGB CONC; Value: 35.1; Range: 32.0-36.5; Units: g/dl; Status: F Test: RED CELL DISTRIBUTION WIDTH; Value: 11.7; Range: 11.5-14.5; Units: %; Status: F Test: PLATELET COUNT, AUTOMATED; Value: 157; Range: 150-450; Units: k/mm3; Status: F Lab Order: Drug Eval Toxicology ED Only; SPEC'M 10/31/16 13:16 Test: AMPHETAMINES LEVEL URINE; Value: NEGATIVE; Range: NEGATIVE; Status: F Test: BARBITURATES URINE; Value: NEGATIVE; Range: NEGATIVE; Status: F Test: BENZODIAZEPINES URINE; Value: NEGATIVE; Range: NEGATIVE; Status: F Test: CANNABINOIDS URINE; Value: POSITIVE; Range: NEGATIVE; Abnormal: Above high normal; Status: F Test: COCAINE METABOLITE URINE; Value: NEGATIVE; Range: NEGATIVE; Status: F Test: METHADONE URINE; Value: NEGATIVE; Range: NEGATIVE; Status: F Test: OPIATES URINE; Value: NEGATIVE; Range: NEGATIVE; Status: F Test: TRICYCLIC ANTIDEPRESS URINE; Value: NEGATIVE; Range: NEGATIVE; Status: F Test Note: ; FALSE POSITIVE RESULTS CAN BE CAUSED BY THE USE OF PANTOPRAZOLE (PROTONIX). Lab Order: Ethyl Alcohol (ethanol); SPEC'M 10/31/16 13:16 Test: ETHYL ALCOHOL (ETHANOL); Value: 0.003; Range: 0.000-0.010; Units: %; Status: F Lab Order: Liver Profile; SPEC'M 10/31/16 13:16 Test: AST/SGOT; Value: 38; Range: 15-37; Abnormal: Above high normal; Units: U/L; Status: F Test: ALT/SGPT; Value: 111; Range: 12-78; Abnormal: Above high normal; Units: U/L; Status: F Test: ALKALINE PHOSPHATASE; Value: 186; Range: 45-117; Abnormal: Above high normal; Units: U/L; Status: F Test: BILIRUBIN,TOTAL; Value: 0.3; Range: 0.2-1.0; Units: MG/DL; Status: F Test: BILIRUBIN,DIRECT; Value: 0.1; Range: 0.0-0.2; Units: MG/DL; Status: F Test: TOTAL PROTEIN; Value: 7.2; Range: 6.4-8.2; Units: GM/DL; Status: F Test: ALBUMIN; Value: 4.1; Range: 3.2-5.2; Units: GM/DL; Status: F Test: ALBUMIN/GLOBULIN RATIO; Value: 1.32; Range: 1.00-1.93; Status: F Lab Order: Salicylate Level; SPEC'M 10/31/16 13:16 Test: SALICYLATE LEVEL; Value: 2.6; Range: 5.0-30.0; Abnormal: Below low normal; Units: MG/DL; Status: F Lab Order: Thyroid Stimulating Hormone; SPEC'M 10/31/16 13:16 Test: THYROID STIMULATING HORMONE; Value: 2.360; Range: 0.358-3.740; Units: uIU/ML; Status: F Outcome: 10/31 17:22 Decision to Hospitalize by Provider. fg 17:38 Discharge Assessment: Patient awake, alert and oriented x 3. No cognitive and/or jo3 functional deficits noted. Patient verbalized understanding of disposition instructions. patient administered narcotics - no. The following High Risk Discharge criteria are identified: None. Admitted to Psych accompanied by tech, family with patient, via wheelchair, with chart. Condition: stable. No special radiology studies were completed. Property :Personal belongings accompany Pt. 17:41 Patient left the ED. jo3 Signatures: Humble Merrill, RN RN Issa Bush, PSA PSA ac Chrissy Rivera, PSA PSA ms Jane Mendez,RN RN shay3 Esme Craven RN RN jo3 Brando Goncalves, Reg Reg kf3 Chago Malin dpKate León gr2 Destiny Woods, HOME HEALTH CAREGIVER HOME HEALTH CAREGIVER rs6 Esme Sheldon jls1 Keeley Guallpa MD MD fg Baart, Nicole nb2 Corrections: (The following items were deleted from the chart) 16:18 15:06 Referral Information: Evaluation referral is generated by the patient himself / ac herself. The patient was referred for evaluation because Pt was seen yesterday, declined admission at that time. Pt states she feels worse, is more anxious, and "I feel like I'm going to ". PT states she is "feeling risky", is not able to function due to her anxiety and depression. Pt also has multiple somatic complaints, states she has been constipated for at least a week, although she states she lost 6# in the last week. Pt states. ac 17: 16:40 Reassessment: Patient appears in no apparent distress at this time. Moderate jo3 diarrhea stool following enema. Pt awaiting admission to [facility]. Aware of plan of care. Significant other at bedside . community hospital : 15:35 Reassessment: Patient appears in no apparent distress at this time. Patient jo3 denies pain at this time. Enema given at this time. Pt instructed to hold as long as possible before attempting to have BM. Commode placed in room for pt comfort. Awaiting results. Significant other remains with pt . community hospital Chart Complete MTDD
--- NOTE | 2016-11-02 18:43 | EDDOCDS ---
Physician Documentation [facility] Name: Keshia Merrill Age: 56 yrs Sex: Female : 1960 Arrival Date: 10/31/2016 Time: 12:44 Bed [facility] MD: Suraj Neff D Disposition: 10/31/16 17:22 Hospitalization ordered by Jae Ferrell for Inpatient Admission. 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 - Bed requested for Admit. - Status is Inpatient Admission. jo3 - Condition is Stable. - Problem is new. - Symptoms have improved. Historical: - Allergies: Haldol; Ibuprofen; [place] Carbonate; Risperdal; Trazodone; tylenol; Zofran; Zyrtec; - Home Meds: 1. aspirin 81 mg Oral tab 1 tab once daily 2. clonazepam 1 mg Oral TbDL 1 tab 3 times per day (Last dose: 10/31/2016) 3. Crestor 5 mg Oral tab 1 tab nightly (Last dose: 10/30/2016) 4. gabapentin 100 mg Oral cap 2 caps 3 times per day (Last dose: 10/31/2016) 5. Linzess oral Unknown once daily (Last dose: 10/31/2016) 6. meclizine 12.5 mg Oral tab 2 tabs as needed 7. Prilosec 20 mg Oral cpDR 1 cap once daily (Last dose: 10/31/2016) - PMHx: Anxiety; Bipolar disorder; GERD; - Social history: Smoking status: Patient states former smoker of tobacco. No barriers to communication noted, The patient speaks fluent Arabic, Speaks appropriately for age. - Family history: Not pertinent. - : The pt / caregiver states he / she is not on anticoagulants. Home medication list is obtained from the patient. - Exposure Risk Screening:: None identified. Vital Signs: 10/31 12:45 BP 143 / 84; Pulse 101; Resp 18 S; Temp 97.8(O); Pulse Ox 99% on R/A; Weight 45.81 kg / gr2 100.99 lbs (R); Height 5 ft. 2 in. (157.48 cm) (R); Pain 3/10; 16:34 BP 132 / 88 RA (man/reg); Pulse 92; Resp 18; Pulse Ox 99% on R/A; dpm 12:45 Body Mass Index 18.47 (45.81 kg, 157.48 cm) gr2 MDM: 13:22 Consult PFS/PSA/Station Cleaning Porter ordered. fg 13:22 Consult PFS/PSA/Station Cleaning Porter: Patient's case requires discussion with on-call fg Psychiatrist ordered. 13:22 PSA/PFS to call Nursing Cracking Still Operator, to enter patient data on [place] Safe Act if patient fg involuntarily admitted or transferred for SI or HI ordered. 13:22 Confirm accurate psychiatric medication list and times of last dosage ordered. fg 13:22 Detain Pt Until Medically/PFS Cleared ordered. fg 13:23 Acetaminophen Level Ordered. EDMS 13:23 Basic Metabolic Profile Ordered. EDMS 13:23 Complete Blood Count Ordered. EDMS 13:23 Drug Eval Toxicology ED Only Ordered. EDMS 13:23 Ethyl Alcohol (ethanol) Ordered. EDMS 13:23 Liver Profile Ordered. EDMS 13:23 Salicylate Level Ordered. EDMS 13:23 Thyroid Stimulating Hormone Ordered. EDMS 13:26 Consult PFS/PSA/Station Cleaning Porter complete. jo3 13:54 REGULAR DIET PLASTIC SUERO+DIET ordered. EDMS 14:09 Consult PFS/PSA/Station Cleaning Porter: Patient's case requires discussion with on-call ac Psychiatrist complete. [facility] Order ordered. fg 14:35 Gabapentin 200 mg PO once ordered. jo3 14:35 clonazePAM 1 mg PO once ordered. jo3 14:35 Enema - Fleets ordered. jo3 14:41 Financial registration complete. jls1 14:42 [facility] Payment Agreement was scanned into [employer] and attached to record. jls1 16:09 REGULAR DIET PLASTIC SUERO+DIET ordered. EDMS 17:06 Admit to [facility]: ordered. EDMS 17:35 [facility] Legal paperwork was scanned into [employer] and attached to record. ms 17:42 PSA/PFS to call Nursing Cracking Still Operator, to enter patient data on [place] Safe Act if patient jo3 involuntarily admitted or transferred for SI or HI complete. 11/01 14:55 T-Sheet-- Draft Copy was scanned into [employer] and attached to record. kf3 Administered Medications: 10/31 15:10 Drug: Gabapentin 200 mg [gabapentin 100 mg capsule (2 caps)] Route: PO; jo3 15:10 Drug: clonazePAM 1 mg [clonazepam 0.5 mg tablet (2 tabs)] Route: PO; jo3 Signatures: Dispatcher [employer] EDMS René, Issa, PSA PSA ac Stone, Chrissy, PSA PSA ms Jane Mendez,MISTY RN kr3 Esme Craven,MISTY RN jo3 Brando Goncalves, Reg Reg kf3 Esme Sheldon jls1 Keeley Guallpa MD MD fg The chart was reviewed and I authenticate all verbal orders and agree with the evaluation and treatment provided.Attachments: 14:42 [facility] Payment Agreement jls1 11/01 14:55 T-Sheet-- Draft Copy kf3 Chart Complete MTDD
[2016-11-02] MEDS: ROSUVASTATIN 10 MG TAB (CRESTOR) PO SCH (20:45)
[2016-11-02] MEDS ORDERED: QUEtiapine FUMARATE 50 MG TAB PO SCH (21:00)
[2016-11-02] MEDS: zolPIDEM TARTRATE 10MG TAB PO PRN (22:51)
[2016-11-03 06:28] VITALS: BP 131/76
[2016-11-03 08:07] LABS: ALBUMIN 3.8 GM/DL (3.2-5.2); ALBUMIN/GLOBULIN RATIO 1.27 (1.00-1.93); ALKALINE PHOSPHATASE 219 U/L (45-117); ALT/SGPT 98 U/L (12-78); ANION GAP 10 MEQ/L (8-16); AST/SGOT 36 U/L (15-37); BILIRUBIN,TOTAL 0.7 MG/DL (0.2-1.0); BLOOD UREA NITROGEN 8 MG/DL (7-18); CARBON DIOXIDE LEVEL 26 MEQ/L (21-32); CHLORIDE LEVEL 106 MEQ/L (98-107); CREATININE FOR GFR 0.62 MG/DL (0.55-1.02); GLOMERULAR FILTRATION RATE > 60.0 (>51); GLUCOSE, FASTING 144 MG/DL (70-105); SODIUM LEVEL 142 MEQ/L (136-145); TOTAL PROTEIN 6.8 GM/DL (6.4-8.2)
[2016-11-03] MEDS: ASPIRIN 81 MG ENTERIC TAB PO SCH (08:50)
[2016-11-03] MEDS: clonazePAM 1 MG TAB PO SCH ×2 (08:50→21:20)
[2016-11-03] MEDS: MIRALAX *UNIT DOSE* 17GM PACKET PO SCH ×2 (08:50→21:19)
[2016-11-03] MEDS: DOCUSATE SODIUM 100 MG CAP PO SCH ×2 (08:50→21:19)
[2016-11-03] MEDS: QUEtiapine FUMARATE 25 MG TAB PO SCH ×3 (08:50→17:56)
[2016-11-03] MEDS: OMEPRAZOLE 20 MG CAP PO SCH (08:51)
[2016-11-03] MEDS: GABAPENTIN 100 MG CAP PO SCH ×3 (08:51→21:20)
[2016-11-03] MEDS: SODIUM CHLORIDE NASAL 0.65% SPRAY BTL (OCEAN) PRN ×3 (10:34→17:58)
[2016-11-03] MEDS: clonazePAM 0.5 MG TAB PO SCH (12:43)
--- NOTE | 2016-11-03 16:51 | IPN ---
DATE: 11/03/2016 A 56-year-old female with history of bipolar disorder, admitted to our unit with very high anxiety. The patient was unable to sleep and relax. She was worried "all day," making statements such as "I cannot stand it anymore." The patient is also having multiple somatic complaints and worries about "everything" including side effects from medication. The patient lost six pounds in the last week. She reports that her mind "keeps racing" and "I can't function because of my depression and anxiety." MEDICATIONS: - Seroquel 150 mg by mouth at bedtime - Seroquel 25 mg at 0800, 1300 and 1800 - Klonopin 1 mg by mouth twice a day and 0.5 mg by mouth in the evening - Neurontin 200 mg by mouth three times a day - Zolpidem 10 mg by mouth at bedtime as needed for insomnia SUBJECTIVE: "I cannot stand it anymore." OBJECTIVE: The patient continues very anxious and cannot stop ruminating and being preoccupied. She worries about "everything." She is preoccupied with how the medication is going to work, if the medication is going to give her side effect, if she is going to be able to sleep or not, etcetera. The patient is not having side effects from the medication so far. MENTAL STATUS EXAMINATION: The patient is dressed in [facility]. The patient continues fidgety, very anxious with poor eye contact. Speech is pressured. Mood is highly anxious and depressed. Affect is labile and congruent with mood. No evidence of delusions or hallucinations. Memory, attention and concentration are affected by her high anxiety. The patient is able to contract for safety on the unit but she was afraid she could hurt herself before admission. Insight and judgment is poor. ASSESSMENT: 1. Bipolar disorder, depressive episode. 2. Very high anxiety. 3. Insomnia. PLAN: 1. Increase Seroquel to 250 mg by mouth at bedtime. 2. Continue with Seroquel 25 mg by mouth at 8:00 a.m., 1:00 p.m. and 6 p.m. 3. Continue tapering Klonopin slowly. 4. Continue with gabapentin 200 mg by mouth three times a day. 5. Continue with Ambien 10 mg by mouth at bedtime as needed for insomnia. 6. Start Zoloft 25 mg by mouth daily.
[2016-11-03 18:00] VITALS: BP 136/86
[2016-11-03] MEDS ORDERED: SERTRALINE HCL 25 MG TABLET PO SCH (21:00)
[2016-11-03] MEDS: ROSUVASTATIN 10 MG TAB (CRESTOR) PO SCH (21:19)
[2016-11-03] MEDS: QUEtiapine FUMARATE 100 MG TAB PO SCH (21:20)
[2016-11-03] MEDS: zolPIDEM TARTRATE 10MG TAB PO PRN (22:06)
[2016-11-04] MEDS: QUEtiapine FUMARATE 100 MG TAB PO PRN (00:10)
[2016-11-04 06:26] VITALS: BP 141/97
[2016-11-04 07:20] LABS: ALBUMIN 3.9 GM/DL (3.2-5.2); ALBUMIN/GLOBULIN RATIO 1.18 (1.00-1.93); ALKALINE PHOSPHATASE 207 U/L (45-117); ALT/SGPT 110 U/L (12-78); ANION GAP 8 MEQ/L (8-16); AST/SGOT 43 U/L (15-37); BILIRUBIN,TOTAL 0.5 MG/DL (0.2-1.0); BLOOD UREA NITROGEN 11 MG/DL (7-18); CALCIUM LEVEL 8.9 MG/DL (8.5-10.1); CARBON DIOXIDE LEVEL 26 MEQ/L (21-32); CHLORIDE LEVEL 107 MEQ/L (98-107); CREATININE FOR GFR 0.62 MG/DL (0.55-1.02); GLOMERULAR FILTRATION RATE > 60.0 (>51); GLUCOSE, FASTING 171 MG/DL (70-105); POTASSIUM SERUM 3.9 MEQ/L (3.5-5.1); SODIUM LEVEL 141 MEQ/L (136-145); TOTAL PROTEIN 7.2 GM/DL (6.4-8.2)
[2016-11-04] MEDS: OMEPRAZOLE 20 MG CAP PO SCH (08:26)
[2016-11-04] MEDS: ASPIRIN 81 MG ENTERIC TAB PO SCH (08:26)
[2016-11-04] MEDS: SODIUM CHLORIDE NASAL 0.65% SPRAY BTL (OCEAN) PRN ×2 (08:26→20:38)
[2016-11-04] MEDS: MIRALAX *UNIT DOSE* 17GM PACKET PO SCH ×2 (08:26→20:31)
[2016-11-04] MEDS: QUEtiapine FUMARATE 25 MG TAB PO SCH ×3 (08:27→17:28)
[2016-11-04] MEDS: DOCUSATE SODIUM 100 MG CAP PO SCH ×2 (08:27→20:32)
[2016-11-04] MEDS: GABAPENTIN 100 MG CAP PO SCH ×3 (08:27→20:36)
[2016-11-04] MEDS: clonazePAM 1 MG TAB PO SCH ×2 (08:27→20:32)
[2016-11-04] MEDS: SERTRALINE HCL 50 MG TAB PO SCH (09:36)
--- NOTE | 2016-11-04 13:37 | IPNPDOC ---
Assessment/Plan Date Seen The patient was seen on 11/04/16. Problems Problems: (1) Elevated LFTs Status: Acute Problem Text: * trend overall decreased from admission but variable. * Hepatitis profile neg. * RUQ U/S unremarkable. * Will hold statin and continue to monitor. (2) IBS (irritable bowel syndrome) Status: Chronic Problem Text: * IBD-C * Copy of records pending from GI- Dr Webber. * Pt is unable to afford Linzess. * Colace/Miralax. (3) HLD (hyperlipidemia) Status: Chronic Problem Text: * Will hold statin temporarily and see if LFTs improve. * Monitor. (4) GERD (gastroesophageal reflux disease) Status: Chronic Problem Text: * PPI (5) Fibromyalgia Status: Acute Problem Text: * Gabapentin. Plan / VTE VTE Prophylaxis Ordered?: No (ambulatory. ) Subjective Review of Systems CC/HPI The patient is a 56-year-old female admitted with a reason for visit of Unspecified Depressive Disorder. Events since last encounter Pt with no new complaints. Objective Physical Examination General Exam: Positive: Alert Eye Exam: Positive: PERRLA ENT Exam: Positive: Atraumatic Chest Exam: Positive: Clear to auscultation, Normal air movement Heart Exam: Positive: Normal S1, Normal S2, Rate Normal, Regular Rhythm, Negative: Murmurs, Rubs Abdomen Exam: Positive: Normal bowel sounds, Soft, Negative: Hepatospenomegaly, Tenderness Neuro Exam: Positive: Normal Gait Vital Signs/I&O Vital Signs Date Time Temp Pulse Resp B/P Pulse Ox O2 Delivery O2 Flow Rate FiO2 11/04/16 06:26 95.8 112 20 141/97 10/31/16 17:56 97 Room Air Laboratory Data Labs 24H Laboratory Tests 2 11/04/16 06:23: Blood Urea Nitrogen 11, Creatinine 0.62, Sodium Level 141, Potassium Level 3.9, Chloride Level 107, Carbon Dioxide Level 26, Calcium Level 8.9, Aspartate Amino Transf (AST/SGOT) 43H, Alanine Aminotransferase (ALT/SGPT) 110H, Alkaline Phosphatase 207H, Total Bilirubin 0.5, Total Protein 7.2, Albumin 3.9, Albumin/ Globulin Ratio 1.18, Anion Gap 8, Glomerular Filtration Rate > 60.0 CBC/BMP Laboratory Tests 11/04/16 06:23 Calcium Level 8.9, Aspartate Amino Transf (AST/SGOT) 43 H, Alanine Aminotransferase (ALT/SGPT) 110 H, Alkaline Phosphatase 207 H, Total Bilirubin 0.5, Total Protein 7.2, Albumin 3.9 Love Munoz Nov 04, 2016 13:37
[2016-11-04 18:12] VITALS: BP 138/78
[2016-11-04] MEDS: QUEtiapine FUMARATE 100 MG TAB PO SCH (20:36)
[2016-11-05] MEDS: QUEtiapine FUMARATE 100 MG TAB PO PRN (00:17)
[2016-11-05 06:38] VITALS: BP 118/72
[2016-11-05 06:53] LABS: ALBUMIN 3.9 GM/DL (3.2-5.2); ALBUMIN/GLOBULIN RATIO 1.22 (1.00-1.93); ALKALINE PHOSPHATASE 214 U/L (45-117); ALT/SGPT 96 U/L (12-78); ANION GAP 8 MEQ/L (8-16); AST/SGOT 27 U/L (15-37); BILIRUBIN,TOTAL 0.5 MG/DL (0.2-1.0); BLOOD UREA NITROGEN 10 MG/DL (7-18); CALCIUM LEVEL 9.3 MG/DL (8.5-10.1); CARBON DIOXIDE LEVEL 27 MEQ/L (21-32); CHLORIDE LEVEL 107 MEQ/L (98-107); CREATININE FOR GFR 0.63 MG/DL (0.55-1.02); GLOMERULAR FILTRATION RATE > 60.0 (>51); GLUCOSE, FASTING 141 MG/DL (70-105); SODIUM LEVEL 142 MEQ/L (136-145); TOTAL PROTEIN 7.1 GM/DL (6.4-8.2)
[2016-11-05] MEDS: MIRALAX *UNIT DOSE* 17GM PACKET PO SCH ×2 (08:16→21:00)
[2016-11-05] MEDS: ASPIRIN 81 MG ENTERIC TAB PO SCH (08:16)
[2016-11-05] MEDS: DOCUSATE SODIUM 100 MG CAP PO SCH ×2 (08:16→21:14)
[2016-11-05] MEDS: SERTRALINE HCL 50 MG TAB PO SCH (08:16)
[2016-11-05] MEDS: OMEPRAZOLE 20 MG CAP PO SCH (08:16)
[2016-11-05] MEDS: GABAPENTIN 100 MG CAP PO SCH ×3 (08:17→21:14)
[2016-11-05] MEDS: QUEtiapine FUMARATE 25 MG TAB PO SCH ×3 (08:17→17:24)
[2016-11-05] MEDS: clonazePAM 1 MG TAB PO SCH ×2 (08:17→21:15)
[2016-11-05] MEDS: SODIUM CHLORIDE NASAL 0.65% SPRAY BTL (OCEAN) PRN ×2 (08:22→23:01)
--- NOTE | 2016-11-05 13:47 | IPNPDOC ---
[facility] Progress Note Progress Note DATE OF SERVICE: 11/05/16 HISTORY:A 56-year-old female with history of bipolar disorder, admitted to our unit with very high anxiety. The patient was unable to sleep and relax. She was worried "all day," making statements such as "I cannot stand it anymore." The patient is also having multiple somatic complaints and worries about "everything" including side effects from medication. The patient lost six pounds in the last week. She reports that her mind "keeps racing" and "I can't function because of my depression and anxiety." VITAL SIGNS: Please see below. CURRENT MEDICATIONS: - Seroquel 350 mg by mouth at bedtime - Seroquel 25 mg by mouth @ 8:00, 13:00, 18:00 - Seroquel 100 mg by mouth at bedtime as needed for insomnia - Klonopin 1 mg by mouth twice a day - Neurontin 200 mg by mouth three times a day - Ambien 10 mg by mouth at bedtime as needed for insomnia SUBJECTIVE: "I feel stressed, nervous, and anxious" OBJECTIVE:The patient continues to be very anxious and worried about "everything ". She reports that she only slept for 1-2 hours last night because her thoughts are constantly racing. She feels uncomfortable around her roommate which adds to her anxiety so arrangements have been made for a room change. Her appetite has increased since admission. She denies side effects from her medications, but can not stop worrying about potential side effects and if the medications are working. MENTAL STATUS EXAMINATION: The patient is dressed in street clothes and well groomed. She was resting in bed upon entering the room, but sits up to be interviewed. She maintains fair eye contact through out the interview and is able to follow commands. Attitude is cooperative. She is alert and oriented x 3. Speech is soft and slightly pressured. Mood is depressed and very anxious due to ruminating thoughts. Affect is consistent with mood. Thoughts are racing. Denies delusions and hallucinations. Patient can contract for her safety in our unit. Her insight and judgement are impaired. Attention span and concentration also impaired. Immediate, recent, and remote memory intact. Able to form abstract thoughts. ASSESSMENT: 1. Bipolar disorder, depressive episode. 2. Very high anxiety. 3. Insomnia. MANAGEMENT PLAN: 1. Increase Seroquel to 350 mg by mouth at bedtime. 2. Continue with Seroquel 25 mg by mouth @ 8:00, 13:00, 18:00. 3. Continue with Seroquel 100 mg by mouth at bedtime as needed for insomnia. 4. Zoloft 50 mg by mouth in the morning on HOLD due to the activating effects of SSRI's and her current anxiety 5. Continue tapering Klonopin slowly. 6. Continue with gabapentin 200 mg by mouth three times a day. 7. Continue with Ambien 10 mg by mouth at bedtime as needed for insomnia. 8. Continue medication management and individual and group therapy. Vital Signs Vital Signs Date Time Temp Pulse Resp B/P Pulse Ox O2 Delivery O2 Flow Rate FiO2 11/05/16 06:38 98.1 100 16 118/72 10/31/16 17:56 97 Room Air Laboratory Data 24H Labs Laboratory Tests 2 11/05/16 06:14: Blood Urea Nitrogen 10, Creatinine 0.63, Sodium Level 142, Potassium Level 4.0, Chloride Level 107, Carbon Dioxide Level 27, Calcium Level 9.3, Aspartate Amino Transf (AST/SGOT) 27, Alanine Aminotransferase (ALT/SGPT) 96H, Alkaline Phosphatase 214H, Total Bilirubin 0.5, Total Protein 7.1, Albumin 3.9, Albumin/ Globulin Ratio 1.22, Anion Gap 8, Glomerular Filtration Rate > 60.0 CBC/BMP Laboratory Tests 11/05/16 06:14 Calcium Level 9.3, Aspartate Amino Transf (AST/SGOT) 27, Alanine Aminotransferase (ALT/SGPT) 96 H, Alkaline Phosphatase 214 H, Total Bilirubin 0.5, Total Protein 7.1, Albumin 3.9 Current Medications Current Medications Al Hydrox/Mg Hydrox/Simethicone (Mylanta) 30 ml Q4HP PRN PO HEARTBURN/ INDIGESTION; Start 10/31/16 at 19:15; Stop 11/30/16 at 19:14 Aspirin (Ecotrin) 81 mg DAILY PO Last administered on 11/05/16 08:16; Start at 09:00; Stop 12/01/16 at 08:59 Clonazepam (KlonoPIN) 0.5 mg DAILY@13 PO Last administered on 11/03/16 12:43; Start 11/02/16 at 13:00; Stop 11/04/16 at 09:18; Status DC Clonazepam (KlonoPIN) 1 mg BID PO Last administered on 11/05/16 08:17; Start 11/02/16 at 21:00; Stop 11/09/16 at 20:59 Clonazepam (KlonoPIN) 1 mg TID PO Last administered on 11/02/16 08:29; Start 10/31/16 at 21:00; Stop 11/02/16 at 09:41; Status DC Docusate Sodium (Colace) 100 mg BID PO Last administered on 11/05/16 08:16; Start 10/31/16 at 21:00; Stop 11/30/16 at 20:59 Docusate Sodium (Colace) 100 mg BID PO ; Start 11/01/16 at 21:00; Stop 12/01/16 at 20:59; Status UNV Gabapentin (Neurontin) 200 mg TID PO Last administered on 11/05/16 08:17; Start 10/31/16 at 21:00; Stop 11/30/16 at 20:59 Home Med (Med Rec Complete!) ASDIRECTED XX ; Start 10/31/16 at 17:45; Stop at 17:51; Status DC Magnesium Hydroxide (Milk Of Magnesia) 30 ml DAILYPRN PRN PO CONSTIPATION Last administered on 11/01/16 11:45; Start 10/31/16 at 19:15; Stop 11/30/16 at 19:14 Meclizine HCl (Antivert) 25 mg TIDP PRN PO VERTIGO/DIZZINESS; Start 10/31/16 at 19:15; Stop 11/30/16 at 19:14 Omeprazole (PriLOSEC) 20 mg DAILY PO Last administered on 11/05/16 08:16; Start 11/01/16 at 09:00; Stop 12/01/16 at 08:59 Polyethylene Glycol (Miralax) 1 pkt BID PO Last administered on 11/05/16 08:16 ; Start 11/01/16 at 09:00; Stop 12/01/16 at 08:59 Quetiapine Fumarate (SEROquel) 25 mg TID@08,13,18 PO ; Start 11/01/16 at 08:00; Stop 11/01/16 at 09:27; Status DC Quetiapine Fumarate (SEROquel) 25 mg TID@08,13,18 PO ; Start 11/01/16 at 09:27; Stop 11/01/16 at 12:23; Status DC Quetiapine Fumarate (SEROquel) 25 mg TID@08,13,18 PO Last administered on 08:17; Start 11/01/16 at 13:00; Stop 12/01/16 at 12:59 Quetiapine Fumarate (SEROquel) 100 mg QHS PO Last administered on 11/01/16 20: 42; Start 11/01/16 at 21:00; Stop 11/02/16 at 09:25; Status DC Quetiapine Fumarate (SEROquel) 100 mg QHSP PRN PO INSOMNIA Last administered on 11/05/16 00:17; Start 11/01/16 at 09:45; Stop 12/01/16 at 09:44 Quetiapine Fumarate (SEROquel) 150 mg QHS PO Last administered on 11/02/16 20: 45; Start 11/02/16 at 21:00; Stop 11/03/16 at 08:48; Status DC Quetiapine Fumarate (SEROquel) 150 mg QHS PO ; Start 11/05/16 at 21:00; Stop at 20:59 Quetiapine Fumarate (SEROquel) 200 mg QHS PO ; Start 11/05/16 at 21:00; Stop at 20:59 Quetiapine Fumarate (SEROquel) 250 mg QHS PO Last administered on 11/04/16 20: 36; Start 11/03/16 at 21:00; Stop 11/05/16 at 09:28; Status DC Rosuvastatin Calcium (Crestor) 5 mg QHS PO Last administered on 11/03/16 21:19 ; Start 10/31/16 at 21:00; Stop 11/04/16 at 13:32; Status DC Sertraline HCl (Zoloft) 25 mg QHS PO Last administered on 11/03/16 21:31; Start 11/03/16 at 21:00; Stop 11/04/16 at 09:21; Status DC Sertraline HCl (Zoloft) 50 mg QAM PO Last administered on 11/05/16 08:16; Start 11/04/16 at 09:00; Stop 11/05/16 at 09:28; Status DC Sodium Chloride ([place] Nasal [place]) 2 spray Q2HP PRN NA NASAL DRYNESS Last administered on 11/05/16 08:22; Start 11/03/16 at 08:30; Stop 12/03/16 at 08:29 Zolpidem Tartrate (Ambien) 10 mg QHSP PRN PO INSOMNIA Last administered on 11/03 22:06; Start 10/31/16 at 19:15; Stop 11/07/16 at 19:14 Allergies Coded Allergies: Acetaminophen (Unverified Allergy, Unknown, ELEVATES LIVER ENZYMES, ) Cetirizine (Unverified Allergy, Unknown, UNKNOWN, 10/31/16) Haloperidol (Unverified Allergy, Unknown, UNKNOWN, 10/31/16) Ibuprofen (Unverified Allergy, Unknown, ELEVATES LIVER ENZYMES, 10/31/16) [place] (Unverified Allergy, Unknown, SPEECH IS SLURRED, 10/31/16) Ondansetron (Unverified Allergy, Unknown, N/V, 10/31/16) Risperidone (Unverified Allergy, Unknown, UNKNOWN, 10/31/16) Trazodone (Unverified Allergy, Unknown, HYPERTENSION, 10/31/16) GME ATTESTATION GME ATTESTATION My preceptor for this patient encounter was physically present in the building during the encounter and was fully available. As needed, all aspects of the patient interview, examination, medical decision making process, and medical care plan development were reviewed and approved by the preceptor. Preceptor is aware and concurs with the plan as stated in the body of this note and will attest to such by his/her cosignature. MANASA PEOPLES Nov 05, 2016 12:00
--- NOTE | 2016-11-05 16:33 | IPN ---
DATE: 11/04/2016 56-year-old female with history of bipolar disorder, admitted to our unit with very high anxiety. Patient was unable to sleep/relax. She was worried "all day," making statement such as "I cannot stand it anymore." Patient is also having multiple somatic complaints and worries about "everything," including side effects from medication or if the medication is going to be effective or even if she is going to ever get better. Patient lost 6 pounds in the last week. She reports her mind "keeps racing" and "I can't function because of my depression and anxiety." MEDICATIONS: - Seroquel 250 mg by mouth nightly - Seroquel 25 mg by mouth three times a day - continue tapering of Klonopin slowly - gabapentin 200 mg by mouth three times a day - Ambien as needed for insomnia - Zoloft 25 mg by mouth every morning SUBJECTIVE: "I'm very worried I will never get better." OBJECTIVE: Patient continues very anxious, cannot stop ruminating and being preoccupied, worries about everything. She is preoccupied about the severity of her illness, that she is never going to get better, the medication is not going to work, etc. Patient denies side effect from the medication so far. Patient has not been able to sleep at night. MENTAL STATUS EXAMINATION: Patient is dressed in [facility]. Patient continues very anxious, fidgety, labile, at times tearful. Speech is somewhat pressured. Mood is depressed and anxious. No delusions or hallucinations. Memory, attention, and concentration are impaired due to her high anxiety. Patient is able to contract for safety in the unit but is afraid that she will end up hurting herself because "I'm not going to get better." Insight and judgment is poor. ASSESSMENT: 1. Bipolar disorder, depressive episode. 2. High anxiety. 3. Insomnia. PLAN: 1. Increase Seroquel to 300 mg by mouth nightly. 2. Continue with Seroquel 25 mg by mouth three times a day. 3. Continue tapering Klonopin slowly. 4. Continue with gabapentin 200 mg by mouth three times a day. 5. Continue with Ambien as needed for insomnia. 6. Continue with Zoloft 50 mg by mouth daily.
[2016-11-05 18:00] VITALS: BP 122/88
[2016-11-05] MEDS: QUEtiapine FUMARATE 200 MG TAB PO SCH (21:15)
[2016-11-05] MEDS: QUEtiapine FUMARATE 100 MG TAB PO SCH (21:48)
[2016-11-05 22:00] VITALS: BP 122/88
[2016-11-06 06:00] VITALS: BP 145/71
[2016-11-06 07:30] LABS: ALBUMIN 3.9 GM/DL (3.2-5.2); ALBUMIN/GLOBULIN RATIO 1.11 (1.00-1.93); ALKALINE PHOSPHATASE 203 U/L (45-117); ALT/SGPT 71 U/L (12-78); ANION GAP 7 MEQ/L (8-16); AST/SGOT 17 U/L (15-37); BILIRUBIN,TOTAL 0.6 MG/DL (0.2-1.0); BLOOD UREA NITROGEN 15 MG/DL (7-18); CALCIUM LEVEL 9.2 MG/DL (8.5-10.1); CARBON DIOXIDE LEVEL 28 MEQ/L (21-32); CHLORIDE LEVEL 107 MEQ/L (98-107); CREATININE FOR GFR 0.65 MG/DL (0.55-1.02); GLOMERULAR FILTRATION RATE > 60.0 (>51); GLUCOSE, FASTING 130 MG/DL (70-105); POTASSIUM SERUM 4.1 MEQ/L (3.5-5.1); SODIUM LEVEL 142 MEQ/L (136-145); TOTAL PROTEIN 7.4 GM/DL (6.4-8.2)
[2016-11-06] MEDS: DOCUSATE SODIUM 100 MG CAP PO SCH ×2 (08:49→21:43)
[2016-11-06] MEDS: MIRALAX *UNIT DOSE* 17GM PACKET PO SCH ×2 (08:49→21:42)
[2016-11-06] MEDS: ASPIRIN 81 MG ENTERIC TAB PO SCH (08:49)
[2016-11-06] MEDS: OMEPRAZOLE 20 MG CAP PO SCH (08:49)
[2016-11-06] MEDS: clonazePAM 1 MG TAB PO SCH ×2 (08:49→21:43)
[2016-11-06] MEDS: QUEtiapine FUMARATE 25 MG TAB PO SCH ×3 (08:50→18:25)
[2016-11-06] MEDS: GABAPENTIN 100 MG CAP PO SCH ×3 (08:50→21:43)
--- NOTE | 2016-11-06 10:12 | IPNPDOC ---
Assessment/Plan Date Seen The patient was seen on 11/06/16. Problems Problems: (1) Elevated LFTs Status: Acute Problem Text: * LFT trend improved. * Hepatitis profile neg. * RUQ U/S unremarkable. * LFTs are trending downward with holding statin. * Have discussed this with patient. * F/U CMP in AM (2) IBS (irritable bowel syndrome) Status: Chronic Problem Text: * IBD-C * Copy of records pending from GI- Dr Webber. * Pt is unable to afford Linzess. * Colace/Miralax. (3) HLD (hyperlipidemia) Status: Chronic Problem Text: * Will hold statin temporarily and see if LFTs improve. * Monitor. (4) GERD (gastroesophageal reflux disease) Status: Chronic Problem Text: * PPI (5) Fibromyalgia Status: Acute Problem Text: * Gabapentin. Plan / VTE VTE Prophylaxis Ordered?: No (ambulatory. ) Disposition Emma Up RN present through exam. Subjective Review of Systems CC/HPI The patient is a 56-year-old female admitted with a reason for visit of Unspecified Depressive Disorder. Events since last encounter Following up with patient regarding LFTs. Objective Physical Examination General Exam: Positive: Alert Eye Exam: Positive: PERRLA ENT Exam: Positive: Atraumatic Chest Exam: Positive: Clear to auscultation, Normal air movement Heart Exam: Positive: Normal S1, Normal S2, Rate Normal, Regular Rhythm, Negative: Murmurs, Rubs Abdomen Exam: Positive: Normal bowel sounds, Soft, Negative: Hepatospenomegaly, Tenderness Neuro Exam: Positive: Normal Gait Vital Signs/I&O Vital Signs Date Time Temp Pulse Resp B/P Pulse Ox O2 Delivery O2 Flow Rate FiO2 11/06/16 06:00 97.1 94 18 145/71 11/05/16 22:00 97 Room Air Laboratory Data Labs 24H Laboratory Tests 2 11/06/16 06:49: Blood Urea Nitrogen 15, Creatinine 0.65, Sodium Level 142, Potassium Level 4.1, Chloride Level 107, Carbon Dioxide Level 28, Calcium Level 9.2, Aspartate Amino Transf (AST/SGOT) 17, Alanine Aminotransferase (ALT/SGPT) 71, Alkaline Phosphatase 203H, Total Bilirubin 0.6, Total Protein 7.4, Albumin 3.9, Albumin/ Globulin Ratio 1.11, Anion Gap 7L, Glomerular Filtration Rate > 60.0 CBC/BMP Laboratory Tests 11/06/16 06:49 Calcium Level 9.2, Aspartate Amino Transf (AST/SGOT) 17, Alanine Aminotransferase (ALT/SGPT) 71, Alkaline Phosphatase 203 H, Total Bilirubin 0.6 , Total Protein 7.4, Albumin 3.9 Love Munoz Nov 06, 2016 10:11
--- NOTE | 2016-11-06 15:15 | IPNPDOC ---
[facility] Progress Note Progress Note DATE OF SERVICE: 11/06/16 HISTORY:A 56-year-old female with history of bipolar disorder, admitted to our unit with very high anxiety. The patient was unable to sleep and relax. She was worried "all day," making statements such as "I cannot stand it anymore." The patient is also having multiple somatic complaints and worries about "everything " including side effects from medication. The patient lost six pounds in the last week. She reports that her mind "keeps racing" and "I can't function because of my depression and anxiety." VITAL SIGNS: Please see below. CURRENT MEDICATIONS: - Seroquel 350 mg by mouth at bedtime - Seroquel 25 mg by mouth @ 8:00, 13:00, 18:00 - Seroquel 100 mg by mouth at bedtime as needed for insomnia - Klonopin 1 mg by mouth twice a day - Neurontin 200 mg by mouth three times a day - Ambien 10 mg by mouth at bedtime as needed for insomnia SUBJECTIVE: "I just don't feel right" OBJECTIVE:The patient continues to be extremely anxious and worried about "everything". She has many somatic complaints. She is very preoccupied with worry about if her medication is working and if it is causing side effects. She is depressed because she states she can not function as she normally does or carry on conversations because she has so much anxiety. She did however sleep for 6 hours last night with the increase in seroquel. This is the longest she has slept at night since admission. Her appetite remains depressed. MENTAL STATUS EXAMINATION: The patient is dressed in street clothes and well groomed. She sits on her bed for the interview. She maintains fair eye contact and is very fidgety during the interview. Attitude is cooperative, but she does seem flustered. She is alert and oriented x 3. Speech is soft and pressured. Mood is depressed and highly anxious. Affect is labile. Thoughts continue to race. Denies delusions and hallucinations. Patient can contract for her safety in our unit. Her insight and judgement remain impaired. Attention span and concentration also remain impaired. Immediate, recent, and remote memory intact. Able to form abstract thoughts. ASSESSMENT: 1. Bipolar disorder, depressive episode. 2. Very high anxiety. 3. Insomnia. MANAGEMENT PLAN: 1. Continue with Seroquel 350 mg by mouth at bedtime. 2. Continue with Seroquel 25 mg by mouth @ 8:00, 13:00, 18:00. 3. Continue with Seroquel 100 mg by mouth at bedtime as needed for insomnia. 4. Continue to HOLD Zoloft 50 mg by mouth in the morning due to the activating effects of SSRI's and her current anxiety 5. Continue tapering Klonopin slowly. 6. Continue with gabapentin 200 mg by mouth three times a day. 7. Continue with Ambien 10 mg by mouth at bedtime as needed for insomnia. 8. Continue medication management and individual and group therapy. Vital Signs Vital Signs Date Time Temp Pulse Resp B/P Pulse Ox O2 Delivery O2 Flow Rate FiO2 11/06/16 06:00 97.1 94 18 145/71 11/05/16 22:00 97 Room Air Laboratory Data 24H Labs Laboratory Tests 2 11/06/16 06:49: Blood Urea Nitrogen 15, Creatinine 0.65, Sodium Level 142, Potassium Level 4.1, Chloride Level 107, Carbon Dioxide Level 28, Calcium Level 9.2, Aspartate Amino Transf (AST/SGOT) 17, Alanine Aminotransferase (ALT/SGPT) 71, Alkaline Phosphatase 203H, Total Bilirubin 0.6, Total Protein 7.4, Albumin 3.9, Albumin/ Globulin Ratio 1.11, Anion Gap 7L, Glomerular Filtration Rate > 60.0 CBC/BMP Laboratory Tests 11/06/16 06:49 Calcium Level 9.2, Aspartate Amino Transf (AST/SGOT) 17, Alanine Aminotransferase (ALT/SGPT) 71, Alkaline Phosphatase 203 H, Total Bilirubin 0.6 , Total Protein 7.4, Albumin 3.9 Current Medications Current Medications Medications (Trade) Dose Ordered Sig/Jay Route PRN Reason Start Time Stop Time Status Last Admin Dose Admin Al Hydrox/Mg Hydrox/Simethicone (Mylanta) 30 ml Q4HP PRN PO HEARTBURN/INDIGESTION 10/31/16 19:15 11/30/16 19:14 Aspirin (Ecotrin) 81 mg DAILY PO 11/01/16 09:00 12/01/16 08:59 11/06/16 08:49 Clonazepam (KlonoPIN) 0.5 mg DAILY@13 PO 11/02/16 13:00 11/04/16 09:18 DC 11/03/16 12:43 Clonazepam (KlonoPIN) 1 mg BID PO 11/02/16 21:00 11/09/16 20:59 11/06/16 08:49 Clonazepam (KlonoPIN) 1 mg TID PO 10/31/16 21:00 11/02/16 09:41 DC 11/02/16 08:29 Docusate Sodium (Colace) 100 mg BID PO 10/31/16 21:00 11/30/16 20:59 11/06/16 08:49 Docusate Sodium (Colace) 100 mg BID PO 11/01/16 21:00 12/01/16 20:59 UNV Gabapentin (Neurontin) 200 mg TID PO 10/31/16 21:00 11/30/16 20:59 11/06/16 08:50 Home Med (Med Rec Complete!) ASDIRECTED XX 10/31/16 17:45 10/31/16 17:51 DC Magnesium Hydroxide (Milk Of Magnesia) 30 ml DAILYPRN PRN PO CONSTIPATION 10/31/16 19:15 11/30/16 19:14 11/01/16 11:45 Meclizine HCl (Antivert) 25 mg TIDP PRN PO VERTIGO/DIZZINESS 10/31/16 19:15 11/30/16 19:14 Omeprazole (PriLOSEC) 20 mg DAILY PO 11/01/16 09:00 12/01/16 08:59 11/06/16 08:49 Polyethylene Glycol (Miralax) 1 pkt BID PO 11/01/16 09:00 12/01/16 08:59 11/06/16 08:49 Quetiapine Fumarate (SEROquel) 25 mg TID@,,18 PO 11/01/16 08:00 11/01/16 09:27 DC Quetiapine Fumarate (SEROquel) 25 mg TID@,,18 PO 11/01/16 09:27 11/01/16 12:23 DC Quetiapine Fumarate (SEROquel) 25 mg TID@08,13,18 PO 11/01/16 13:00 12/01/16 12:59 11/06/16 13:31 Quetiapine Fumarate (SEROquel) 100 mg QHS PO 11/01/16 21:00 11/02/16 09:25 DC 11/01/16 20:42 Quetiapine Fumarate (SEROquel) 100 mg QHSP PRN PO INSOMNIA 11/01/16 09:45 12/01/16 09:44 11/05/16 00:17 Quetiapine Fumarate (SEROquel) 150 mg QHS PO 11/02/16 21:00 11/03/16 08:48 DC 11/02/16 20:45 Quetiapine Fumarate (SEROquel) 150 mg QHS PO 11/05/16 21:00 12/05/16 20:59 11/05/16 21:48 Quetiapine Fumarate (SEROquel) 200 mg QHS PO 11/05/16 21:00 12/05/16 20:59 11/05/16 21:15 Quetiapine Fumarate (SEROquel) 250 mg QHS PO 11/03/16 21:00 11/05/16 09:28 DC 11/04/16 20:36 Rosuvastatin Calcium (Crestor) 5 mg QHS PO 10/31/16 21:00 11/04/16 13:32 DC 11/03/16 21:19 Sertraline HCl (Zoloft) 25 mg QHS PO 11/03/16 21:00 11/04/16 09:21 DC 11/03/16 21:31 Sertraline HCl (Zoloft) 50 mg QAM PO 11/04/16 09:00 11/05/16 09:28 DC 11/05/16 08:16 Sodium Chloride ([place] Nasal [place]) 2 spray Q2HP PRN NA NASAL DRYNESS 11/03/16 08:30 12/03/16 08:29 11/05/16 23:01 Zolpidem Tartrate (Ambien) 10 mg QHSP PRN PO INSOMNIA 10/31/16 19:15 11/07/16 19:14 11/03/16 22:06 Allergies Coded Allergies: Acetaminophen (Unverified Allergy, Unknown, ELEVATES LIVER ENZYMES, ) Cetirizine (Unverified Allergy, Unknown, UNKNOWN, 10/31/16) Haloperidol (Unverified Allergy, Unknown, UNKNOWN, 10/31/16) Ibuprofen (Unverified Allergy, Unknown, ELEVATES LIVER ENZYMES, 10/31/16) [place] (Unverified Allergy, Unknown, SPEECH IS SLURRED, 10/31/16) Ondansetron (Unverified Allergy, Unknown, N/V, 10/31/16) Risperidone (Unverified Allergy, Unknown, UNKNOWN, 10/31/16) Trazodone (Unverified Allergy, Unknown, HYPERTENSION, 10/31/16) GME ATTESTATION My preceptor for this patient encounter was physically present in the building during the encounter and was fully available. As needed, all aspects of the patient interview, examination, medical decision making process, and medical care plan development were reviewed and approved by the preceptor. Preceptor is aware and concurs with the plan as stated in the body of this note and will attest to such by his/her cosignature. MANASA PEOPLES Nov 06, 2016 15:15
[2016-11-06 18:22] VITALS: BP 138/82
[2016-11-06] MEDS: QUEtiapine FUMARATE 100 MG TAB PO SCH (21:43)
[2016-11-06] MEDS: QUEtiapine FUMARATE 200 MG TAB PO SCH (21:43)
[2016-11-07 06:36] VITALS: BP 112/73
[2016-11-07 07:12] LABS: ALBUMIN 3.8 GM/DL (3.2-5.2); ALBUMIN/GLOBULIN RATIO 1.15 (1.00-1.93); ALKALINE PHOSPHATASE 199 U/L (45-117); ALT/SGPT 58 U/L (12-78); ANION GAP 9 MEQ/L (8-16); AST/SGOT 13 U/L (15-37); BILIRUBIN,TOTAL 0.4 MG/DL (0.2-1.0); BLOOD UREA NITROGEN 15 MG/DL (7-18); CALCIUM LEVEL 9.2 MG/DL (8.5-10.1); CARBON DIOXIDE LEVEL 28 MEQ/L (21-32); CHLORIDE LEVEL 106 MEQ/L (98-107); CREATININE FOR GFR 0.75 MG/DL (0.55-1.02); GLOMERULAR FILTRATION RATE > 60.0 (>51); GLUCOSE, FASTING 122 MG/DL (70-105); POTASSIUM SERUM 4.4 MEQ/L (3.5-5.1); SODIUM LEVEL 143 MEQ/L (136-145); TOTAL PROTEIN 7.1 GM/DL (6.4-8.2)
[2016-11-07] MEDS: MIRALAX *UNIT DOSE* 17GM PACKET PO SCH ×2 (08:16→21:46)
[2016-11-07] MEDS: DOCUSATE SODIUM 100 MG CAP PO SCH ×2 (08:16→21:46)
[2016-11-07] MEDS: QUEtiapine FUMARATE 25 MG TAB PO SCH ×3 (08:17→18:11)
[2016-11-07] MEDS: ASPIRIN 81 MG ENTERIC TAB PO SCH (08:17)
[2016-11-07] MEDS: OMEPRAZOLE 20 MG CAP PO SCH (08:17)
[2016-11-07] MEDS: GABAPENTIN 100 MG CAP PO SCH ×3 (08:17→21:47)
[2016-11-07] MEDS: clonazePAM 1 MG TAB PO SCH ×2 (08:17→21:47)
[2016-11-07 18:16] VITALS: BP 132/84
[2016-11-07] MEDS: QUEtiapine FUMARATE 100 MG TAB PO SCH (21:49)
[2016-11-07] MEDS: QUEtiapine FUMARATE 200 MG TAB PO SCH (21:49)
[2016-11-07] MEDS: zolPIDEM TARTRATE 10MG TAB PO PRN (21:49)
[2016-11-08 06:07] VITALS: BP 121/68
[2016-11-08] MEDS: GABAPENTIN 100 MG CAP PO SCH ×3 (08:28→21:30)
[2016-11-08] MEDS: MIRALAX *UNIT DOSE* 17GM PACKET PO SCH ×2 (08:28→21:29)
[2016-11-08] MEDS: clonazePAM 1 MG TAB PO SCH ×2 (08:29→21:29)
[2016-11-08] MEDS: OMEPRAZOLE 20 MG CAP PO SCH (08:29)
[2016-11-08] MEDS: QUEtiapine FUMARATE 25 MG TAB PO SCH ×3 (08:29→17:38)
[2016-11-08] MEDS: DOCUSATE SODIUM 100 MG CAP PO SCH ×2 (08:29→21:29)
[2016-11-08] MEDS: ASPIRIN 81 MG ENTERIC TAB PO SCH (08:29)
[2016-11-08 18:00] VITALS: BP 140/79
[2016-11-08] MEDS: QUEtiapine FUMARATE 200 MG TAB PO SCH (21:29)
[2016-11-08] MEDS: QUEtiapine FUMARATE 100 MG TAB PO SCH (21:29)
[2016-11-08] MEDS: zolPIDEM TARTRATE 10MG TAB PO PRN (21:37)
[2016-11-09 06:00] VITALS: BP 115/74
[2016-11-09 07:20] LABS: ALBUMIN 3.8 GM/DL (3.2-5.2); ALBUMIN/GLOBULIN RATIO 1.15 (1.00-1.93); BILIRUBIN,DIRECT 0.1 MG/DL (0.0-0.2); BILIRUBIN,TOTAL 0.3 MG/DL (0.2-1.0); TOTAL PROTEIN 7.1 GM/DL (6.4-8.2)
[2016-11-09] MEDS: QUEtiapine FUMARATE 25 MG TAB PO SCH (08:00)
[2016-11-09] MEDS: MIRALAX *UNIT DOSE* 17GM PACKET PO SCH ×2 (08:05→21:45)
[2016-11-09] MEDS: clonazePAM 1 MG TAB PO SCH ×2 (08:05→21:46)
[2016-11-09] MEDS: DOCUSATE SODIUM 100 MG CAP PO SCH ×2 (08:05→21:46)
[2016-11-09] MEDS: GABAPENTIN 100 MG CAP PO SCH ×3 (08:05→21:46)
[2016-11-09] MEDS: ASPIRIN 81 MG ENTERIC TAB PO SCH (08:05)
[2016-11-09] MEDS: OMEPRAZOLE 20 MG CAP PO SCH (08:05)
--- NOTE | 2016-11-09 13:47 | IPNPDOC ---
[facility] Progress Note Progress Note DATE OF SERVICE: 11/09/16 HISTORY:A 56-year-old female with history of bipolar disorder, admitted to our unit with very high anxiety. The patient was unable to sleep and relax. She was worried "all day," making statements such as "I cannot stand it anymore." The patient is also having multiple somatic complaints and worries about "everything " including side effects from medication. The patient lost six pounds in the last week. She reports that her mind "keeps racing" and "I can't function because of my depression and anxiety." VITAL SIGNS: Please see below. CURRENT MEDICATIONS: - Seroquel 350 mg by mouth at bedtime - Seroquel 100 mg by mouth at bedtime as needed for insomnia - Klonopin 0.5 mg by mouth every morning - Klonopin 1 mg by mouth at bedtime - Neurontin 200 mg by mouth three times a day - Ambien 10 mg by mouth at bedtime as needed for insomnia SUBJECTIVE: "I still feel kind of down" OBJECTIVE:The patient continues to have anxiety and worry about "everything." She has racing thoughts and constantly worries if the medications she is taking are causing her any side effects. She continues to have many somatic complaints and worries they are a result of her medications. She has been refusing her Seroquel throughout the day because it "makes her head feel cloudy." However, she still is not able to sleep throughout the night. She reports getting between 4-5 hours of sleep last night because of her constant ruminating thoughts and anxiety. Because of the lack of sleep she is exhausted and has no energy. She also remains depressed because of the fact she feels she can not function at her normal level. Appetite remains depressed. MENTAL STATUS EXAMINATION: The patient is dressed in street clothes and well groomed. She sits upright on her bed during the interview. She maintains good eye contact throughout the interview. There is some psychomotor retardation noted. Attitude is cooperative. She is drowsy, although oriented x 3. Speech remains soft and pressured. Mood continues to be depressed and highly anxious. Affect is labile. Racing thoughts still present. Denies delusions and hallucinations. Patient can contract for her safety in our unit. Her insight and judgement are still impaired. Attention span and concentration also remain impaired. Immediate, recent, and remote memory intact. Can form abstract thoughts. ASSESSMENT: 1. Bipolar disorder, depressive episode. 2. Very high anxiety. 3. Insomnia. MANAGEMENT PLAN: 1. Continue with Seroquel 350 mg by mouth at bedtime. 2. Discontinue Seroquel 25 mg by mouth @ 8:00, 13:00, 18:00. 3. Continue with Seroquel 100 mg by mouth at bedtime as needed for insomnia. 4. Continue to HOLD Zoloft 50 mg by mouth in the morning due to the activating effects of SSRI's and her current anxiety 5. Continue tapering Klonopin slowly - reduced from 1 mg BID to 0.5 mg in the morning and 1 mg at bedtime. 6. Continue with gabapentin 200 mg by mouth three times a day. 7. Continue with Ambien 10 mg by mouth at bedtime as needed for insomnia. 8. Continue medication management and individual and group therapy. Vital Signs Vital Signs Date Time Temp Pulse Resp B/P Pulse Ox O2 Delivery O2 Flow Rate FiO2 11/09/16 06:00 98.5 104 16 115/74 Room Air 11/05/16 22:00 97 Laboratory Data 24H Labs Laboratory Tests 2 11/09/16 06:22: Aspartate Amino Transf (AST/SGOT) 15, Alanine Aminotransferase (ALT/SGPT) 42, Alkaline Phosphatase 162H, Total Bilirubin 0.3, Direct Bilirubin 0.1, Albumin 3.8, Albumin/Globulin Ratio 1.15, Total Protein 7.1 Current Medications Current Medications Medications (Trade) Dose Ordered Sig/Jay Route PRN Reason Start Time Stop Time Status Last Admin Dose Admin Al Hydrox/Mg Hydrox/Simethicone (Mylanta) 30 ml Q4HP PRN PO HEARTBURN/INDIGESTION 10/31/16 19:15 11/30/16 19:14 Aspirin (Ecotrin) 81 mg DAILY PO 11/01/16 09:00 12/01/16 08:59 11/09/16 08:05 Clonazepam (KlonoPIN) 0.5 mg DAILY@13 PO 11/02/16 13:00 11/04/16 09:18 DC 11/03/16 12:43 Clonazepam (KlonoPIN) 0.5 mg QAM PO 11/10/16 09:00 11/17/16 08:59 Clonazepam (KlonoPIN) 1 mg BID PO 11/02/16 21:00 11/09/16 09:24 DC 11/09/16 08:05 Clonazepam (KlonoPIN) 1 mg QHS PO 11/09/16 21:00 11/16/16 20:59 Clonazepam (KlonoPIN) 1 mg TID PO 10/31/16 21:00 11/02/16 09:41 DC 11/02/16 08:29 Docusate Sodium (Colace) 100 mg BID PO 10/31/16 21:00 11/30/16 20:59 11/09/16 08:05 Docusate Sodium (Colace) 100 mg BID PO 11/01/16 21:00 12/01/16 20:59 UNV Gabapentin (Neurontin) 200 mg TID PO 10/31/16 21:00 11/30/16 20:59 11/09/16 08:05 Home Med (Med Rec Complete!) ASDIRECTED XX 10/31/16 17:45 10/31/16 17:51 DC Magnesium Hydroxide (Milk Of Magnesia) 30 ml DAILYPRN PRN PO CONSTIPATION 10/31/16 19:15 11/30/16 19:14 11/01/16 11:45 Meclizine HCl (Antivert) 25 mg TIDP PRN PO VERTIGO/DIZZINESS 10/31/16 19:15 11/30/16 19:14 Omeprazole (PriLOSEC) 20 mg DAILY PO 11/01/16 09:00 12/01/16 08:59 11/09/16 08:05 Polyethylene Glycol (Miralax) 1 pkt BID PO 11/01/16 09:00 12/01/16 08:59 11/09/16 08:05 Quetiapine Fumarate (SEROquel) 25 mg TID@08,,18 PO 11/01/16 08:00 11/01/16 09:27 DC Quetiapine Fumarate (SEROquel) 25 mg TID@08,13,18 PO 11/01/16 09:27 11/01/16 12:23 DC Quetiapine Fumarate (SEROquel) 25 mg TID@08,13,18 PO 11/01/16 13:00 11/09/16 09:24 DC 11/08/16 08:29 Quetiapine Fumarate (SEROquel) 100 mg QHS PO 11/01/16 21:00 11/02/16 09:25 DC 11/01/16 20:42 Quetiapine Fumarate (SEROquel) 100 mg QHSP PRN PO INSOMNIA 11/01/16 09:45 12/01/16 09:44 11/05/16 00:17 Quetiapine Fumarate (SEROquel) 150 mg QHS PO 11/02/16 21:00 11/03/16 08:48 DC 11/02/16 20:45 Quetiapine Fumarate (SEROquel) 150 mg QHS PO 11/05/16 21:00 12/05/16 20:59 11/08/16 21:29 Quetiapine Fumarate (SEROquel) 200 mg QHS PO 11/05/16 21:00 12/05/16 20:59 11/08/16 21:29 Quetiapine Fumarate (SEROquel) 250 mg QHS PO 11/03/16 21:00 11/05/16 09:28 DC 11/04/16 20:36 Rosuvastatin Calcium (Crestor) 5 mg QHS PO 10/31/16 21:00 11/04/16 13:32 DC 11/03/16 21:19 Sertraline HCl (Zoloft) 25 mg QHS PO 11/03/16 21:00 11/04/16 09:21 DC 11/03/16 21:31 Sertraline HCl (Zoloft) 50 mg QAM PO 11/04/16 09:00 11/05/16 09:28 DC 11/05/16 08:16 Sodium Chloride ([place] Nasal [place]) 2 spray Q2HP PRN NA NASAL DRYNESS 11/03/16 08:30 12/03/16 08:29 11/05/16 23:01 Zolpidem Tartrate (Ambien) 10 mg QHSP PRN PO INSOMNIA 10/31/16 19:15 11/13/16 19:14 11/08/16 21:37 Allergies Coded Allergies: Acetaminophen (Unverified Allergy, Unknown, ELEVATES LIVER ENZYMES, ) Cetirizine (Unverified Allergy, Unknown, UNKNOWN, 10/31/16) Haloperidol (Unverified Allergy, Unknown, UNKNOWN, 10/31/16) Ibuprofen (Unverified Allergy, Unknown, ELEVATES LIVER ENZYMES, 10/31/16) [place] (Unverified Allergy, Unknown, SPEECH IS SLURRED, 10/31/16) Ondansetron (Unverified Allergy, Unknown, N/V, 10/31/16) Risperidone (Unverified Allergy, Unknown, UNKNOWN, 10/31/16) Trazodone (Unverified Allergy, Unknown, HYPERTENSION, 10/31/16) GME ATTESTATION My preceptor for this patient encounter was physically present in the building during the encounter and was fully available. As needed, all aspects of the patient interview, examination, medical decision making process, and medical care plan development were reviewed and approved by the preceptor. Preceptor is aware and concurs with the plan as stated in the body of this note and will attest to such by his/her cosignature. MANASA PEOPLES Nov 09, 2016 11:44 MANASA PEOPLES Nov 09, 2016 11:44
[2016-11-09 18:00] VITALS: BP 158/89
[2016-11-09] MEDS: QUEtiapine FUMARATE 200 MG TAB PO SCH (21:46)
[2016-11-09] MEDS: QUEtiapine FUMARATE 100 MG TAB PO SCH (21:46)
[2016-11-09] MEDS: zolPIDEM TARTRATE 10MG TAB PO PRN (21:49)
[2016-11-10 06:53] VITALS: BP 119/81
[2016-11-10] MEDS: clonazePAM 0.5 MG TAB PO SCH (08:23)
[2016-11-10] MEDS: ASPIRIN 81 MG ENTERIC TAB PO SCH (08:23)
[2016-11-10] MEDS: OMEPRAZOLE 20 MG CAP PO SCH (08:23)
[2016-11-10] MEDS: GABAPENTIN 100 MG CAP PO SCH ×3 (08:23→21:17)
[2016-11-10] MEDS: MIRALAX *UNIT DOSE* 17GM PACKET PO SCH ×2 (08:23→21:16)
[2016-11-10] MEDS: DOCUSATE SODIUM 100 MG CAP PO SCH ×2 (08:23→21:16)
[2016-11-10] MEDS ORDERED: PANTOPRAZOLE 20 MG TAB PO ONE (09:15)
[2016-11-10] MEDS ORDERED: DIVALPROEX 250 MG TAB PO ONE ×2 (09:15→16:45)
--- NOTE | 2016-11-10 11:14 | IPNPDOC ---
[facility] Progress Note Progress Note DATE OF SERVICE: 11/10/16 HISTORY:A 56-year-old female with history of bipolar disorder, admitted to our unit with very high anxiety. The patient was unable to sleep and relax. She was worried "all day," making statements such as "I cannot stand it anymore." The patient is also having multiple somatic complaints and worries about "everything " including side effects from medication. The patient lost six pounds in the last week. She reports that her mind "keeps racing" and "I can't function because of my depression and anxiety." VITAL SIGNS: Please see below. CURRENT MEDICATIONS: - Seroquel 350 mg by mouth at bedtime - Seroquel 100 mg by mouth at bedtime as needed for insomnia - Klonopin 0.5 mg by mouth every morning - Klonopin 1 mg by mouth at bedtime - Neurontin 200 mg by mouth three times a day - Ambien 10 mg by mouth at bedtime as needed for insomnia SUBJECTIVE: "I'm so nervous about the Depakote" OBJECTIVE:The patient continues to be highly anxious and depressed. She is unable to relax due to racing thoughts and continues to have many somatic complaints. She constantly worries about "everything" including whether her medications are working and if they are causing her side effects. She was able to get approximately 6 hours of sleep last night with her medications along with earplugs to aid in blocking out the noises of the unit. She feels rested this morning although slightly groggy. Appetite remains depressed. MENTAL STATUS EXAMINATION: The patient is dressed in street clothes and well groomed. She sits in her bed and maintains good eye contact throughout the interview. Psychomotor retardation noted. Attitude is cooperative. She is alert and oriented x 3. Speech continues to be soft and pressured. Mood is highly anxious, as well as depressed. Affect is consistent with mood. Thoughts are still racing from one subject to another. Denies delusions and hallucinations. Patient can contract for her safety in our unit. Her insight and judgement are impaired. Attention span and concentration remain impaired. Immediate, recent, and remote memory intact. Intellectual functioning is fair. ASSESSMENT: 1. Bipolar disorder, depressive episode. 2. Very high anxiety. 3. Insomnia. MANAGEMENT PLAN: 1. Begin Protonix 20 mg by mouth x one dose, 15 minutes prior to taking Depakote. 2. Begin Depakote 250 mg by mouth x one dose to see if patient can tolerate. If no issues, will increase Depakote dosage slowly and begin to taper Seroquel. 3. Continue with Seroquel 350 mg by mouth at bedtime. 4. Continue with Seroquel 100 mg by mouth at bedtime as needed for insomnia. 5. Continue tapering Klonopin slowly 6. Continue with gabapentin 200 mg by mouth three times a day. 7. Continue with Ambien 10 mg by mouth at bedtime as needed for insomnia. 8. Continue to HOLD Zoloft 50 mg by mouth in the morning due to the activating effects of SSRI's and her current anxiety 9. Continue medication management and individual and group therapy. Vital Signs Vital Signs Date Time Temp Pulse Resp B/P Pulse Ox O2 Delivery O2 Flow Rate FiO2 11/10/16 06:53 99.6 125 18 119/81 11/09/16 06:00 Room Air 11/05/16 22:00 97 Current Medications Current Medications Medications (Trade) Dose Ordered Sig/Jay Route PRN Reason Start Time Stop Time Status Last Admin Dose Admin Al Hydrox/Mg Hydrox/Simethicone (Mylanta) 30 ml Q4HP PRN PO HEARTBURN/INDIGESTION 10/31/16 19:15 11/30/16 19:14 Aspirin (Ecotrin) 81 mg DAILY PO 11/01/16 09:00 12/01/16 08:59 11/10/16 08:23 Clonazepam (KlonoPIN) 0.5 mg DAILY@13 PO 11/02/16 13:00 11/04/16 09:18 DC 11/03/16 12:43 Clonazepam (KlonoPIN) 0.5 mg QAM PO 11/10/16 09:00 11/17/16 08:59 11/10/16 08:23 Clonazepam (KlonoPIN) 1 mg BID PO 11/02/16 21:00 11/09/16 09:24 DC 11/09/16 08:05 Clonazepam (KlonoPIN) 1 mg QHS PO 11/09/16 21:00 11/16/16 20:59 11/09/16 21:46 Clonazepam (KlonoPIN) 1 mg TID PO 10/31/16 21:00 11/02/16 09:41 DC 11/02/16 08:29 Docusate Sodium (Colace) 100 mg BID PO 10/31/16 21:00 11/30/16 20:59 11/10/16 08:23 Docusate Sodium (Colace) 100 mg BID PO 11/01/16 21:00 12/01/16 20:59 UNV Gabapentin (Neurontin) 200 mg TID PO 10/31/16 21:00 11/30/16 20:59 11/10/16 08:23 Home Med (Med Rec Complete!) ASDIRECTED XX 10/31/16 17:45 10/31/16 17:51 DC Magnesium Hydroxide (Milk Of Magnesia) 30 ml DAILYPRN PRN PO CONSTIPATION 10/31/16 19:15 11/30/16 19:14 11/01/16 11:45 Meclizine HCl (Antivert) 25 mg TIDP PRN PO VERTIGO/DIZZINESS 10/31/16 19:15 11/30/16 19:14 Omeprazole (PriLOSEC) 20 mg DAILY PO 11/01/16 09:00 12/01/16 08:59 11/10/16 08:23 Polyethylene Glycol (Miralax) 1 pkt BID PO 11/01/16 09:00 12/01/16 08:59 11/10/16 08:23 Quetiapine Fumarate (SEROquel) 25 mg TID@08,13,18 PO 11/01/16 08:00 11/01/16 09:27 DC Quetiapine Fumarate (SEROquel) 25 mg TID@08,,18 PO 11/01/16 09:27 11/01/16 12:23 DC Quetiapine Fumarate (SEROquel) 25 mg TID@08,13,18 PO 11/01/16 13:00 11/09/16 09:24 DC 11/08/16 08:29 Quetiapine Fumarate (SEROquel) 100 mg QHS PO 11/01/16 21:00 11/02/16 09:25 DC 11/01/16 20:42 Quetiapine Fumarate (SEROquel) 100 mg QHSP PRN PO INSOMNIA 11/01/16 09:45 12/01/16 09:44 11/05/16 00:17 Quetiapine Fumarate (SEROquel) 150 mg QHS PO 11/02/16 21:00 11/03/16 08:48 DC 11/02/16 20:45 Quetiapine Fumarate (SEROquel) 150 mg QHS PO 11/05/16 21:00 12/05/16 20:59 11/09/16 21:46 Quetiapine Fumarate (SEROquel) 200 mg QHS PO 11/05/16 21:00 12/05/16 20:59 11/09/16 21:46 Quetiapine Fumarate (SEROquel) 250 mg QHS PO 11/03/16 21:00 11/05/16 09:28 DC 11/04/16 20:36 Rosuvastatin Calcium (Crestor) 5 mg QHS PO 10/31/16 21:00 11/04/16 13:32 DC 11/03/16 21:19 Sertraline HCl (Zoloft) 25 mg QHS PO 11/03/16 21:00 11/04/16 09:21 DC 11/03/16 21:31 Sertraline HCl (Zoloft) 50 mg QAM PO 11/04/16 09:00 11/05/16 09:28 DC 11/05/16 08:16 Sodium Chloride ([place] Nasal [place]) 2 spray Q2HP PRN NA NASAL DRYNESS 11/03/16 08:30 12/03/16 08:29 11/05/16 23:01 Zolpidem Tartrate (Ambien) 10 mg QHSP PRN PO INSOMNIA 10/31/16 19:15 11/13/16 19:14 11/09/16 21:49 Allergies Coded Allergies: Acetaminophen (Unverified Allergy, Unknown, ELEVATES LIVER ENZYMES, ) Cetirizine (Unverified Allergy, Unknown, UNKNOWN, 10/31/16) Haloperidol (Unverified Allergy, Unknown, UNKNOWN, 10/31/16) Ibuprofen (Unverified Allergy, Unknown, ELEVATES LIVER ENZYMES, 10/31/16) [place] (Unverified Allergy, Unknown, SPEECH IS SLURRED, 10/31/16) Ondansetron (Unverified Allergy, Unknown, N/V, 10/31/16) Risperidone (Unverified Allergy, Unknown, UNKNOWN, 10/31/16) Trazodone (Unverified Allergy, Unknown, HYPERTENSION, 10/31/16) GME ATTESTATION My preceptor for this patient encounter was physically present in the building during the encounter and was fully available. As needed, all aspects of the patient interview, examination, medical decision making process, and medical care plan development were reviewed and approved by the preceptor. Preceptor is aware and concurs with the plan as stated in the body of this note and will attest to such by his/her cosignature. MANASA PEOPLES Nov 10, 2016 11:14
[2016-11-10] MEDS: SODIUM CHLORIDE NASAL 0.65% SPRAY BTL (OCEAN) PRN ×2 (15:35→21:17)
[2016-11-10] MEDS: ONDANSETRON 4 MG TAB (S0181) PO PRN (17:06)
[2016-11-10 18:00] VITALS: BP 136/80
[2016-11-10] MEDS: QUEtiapine FUMARATE 200 MG TAB PO SCH (21:16)
[2016-11-10] MEDS: QUEtiapine FUMARATE 100 MG TAB PO SCH (21:16)
[2016-11-10] MEDS: clonazePAM 1 MG TAB PO SCH (21:16)
[2016-11-10] MEDS: zolPIDEM TARTRATE 10MG TAB PO PRN (21:16)
[2016-11-11] MEDS: QUEtiapine FUMARATE 100 MG TAB PO PRN (02:01)
[2016-11-11] MEDS: MAALOX 30 ML SUSP *UDC PO PRN ×2 (02:02→18:49)
[2016-11-11 06:39] VITALS: BP 126/78
[2016-11-11] MEDS ORDERED: MAGNESIUM CITRATE 300 ML BTL PO ONE (08:45)
[2016-11-11] MEDS: OMEPRAZOLE 20 MG CAP PO SCH (09:00)
[2016-11-11] MEDS: DOCUSATE SODIUM 100 MG CAP PO SCH ×2 (09:00→21:04)
[2016-11-11] MEDS: GABAPENTIN 100 MG CAP PO SCH ×3 (09:01→21:04)
[2016-11-11] MEDS: clonazePAM 0.5 MG TAB PO SCH (09:01)
[2016-11-11] MEDS: ASPIRIN 81 MG ENTERIC TAB PO SCH (09:01)
[2016-11-11] MEDS: DIVALPROEX 500 MG TAB PO SCH ×2 (09:03→21:05)
[2016-11-11] MEDS: MIRALAX *UNIT DOSE* 17GM PACKET PO SCH ×2 (09:17→21:03)
--- NOTE | 2016-11-11 10:22 | IPNPDOC ---
[facility] Progress Note Progress Note DATE OF SERVICE: 11/11/16 HISTORY:A 56-year-old female with history of bipolar disorder, admitted to our unit with very high anxiety. The patient was unable to sleep and relax. She was worried "all day," making statements such as "I cannot stand it anymore." The patient is also having multiple somatic complaints and worries about "everything " including side effects from medication. The patient lost six pounds in the last week. She reports that her mind "keeps racing" and "I can't function because of my depression and anxiety." VITAL SIGNS: Please see below. CURRENT MEDICATIONS: - Seroquel 350 mg by mouth at bedtime - Seroquel 100 mg by mouth at bedtime as needed for insomnia - Klonopin 0.5 mg by mouth every morning - Klonopin 1 mg by mouth at bedtime - Neurontin 200 mg by mouth three times a day - Ambien 10 mg by mouth at bedtime as needed for insomnia - Depakote 250 mg by mouth twice a day SUBJECTIVE: "My anxiety is terrible today" OBJECTIVE: The patient is extremely anxious and fidgety today. She did not sleep well last night and estimates that she only got 1-2 hours. She was not able to nap during the day yesterday. She remains depressed and is frustrated because she feels that she still cannot communicate with others as she normally does due to her anxiety. She continues to worry about "everything." She tolerated the Depakote well yesterday, did complain of some nausea but can not tell if it is a result of the medication or from her chronic constipation. Will increase Depakote dose and give magnesium citrate to help relieve constipation. Appetite remains depressed. MENTAL STATUS EXAMINATION: The patient is dressed in street clothes and is appropriately groomed. She sits on her bed and maintains good eye contact during the interview. She fidgets with her blanket through most of the interview. There continues to be psychomotor retardation noted. Attitude is cooperative but she questions everything. She is alert and oriented x 3. Speech remains soft and pressured. Mood is extremely anxious and depressed. Affect is consistent with mood. Thoughts continue to race. Denies delusions and hallucinations. Patient is able to contract for her safety in our unit. Her insight and judgement remain impaired, as well as her attention span and concentration. Immediate, recent, and remote memory intact. Intellectual functioning fair. ASSESSMENT: 1. Bipolar disorder, depressive episode. 2. Very high anxiety. 3. Insomnia. MANAGEMENT PLAN: 1. Discontinue Depakote 250 mg by mouth twice a day. 2. Begin Depakote 500 mg by mouth twice a day with plan to increase Depakote dosage slowly and begin to taper Seroquel. 3. Continue with Seroquel 350 mg by mouth at bedtime. 4. Continue with Seroquel 100 mg by mouth at bedtime as needed for insomnia. 5. Continue tapering Klonopin slowly 6. Continue with gabapentin 200 mg by mouth three times a day. 7. Continue with Ambien 10 mg by mouth at bedtime as needed for insomnia. 8. Continue to HOLD Zoloft 50 mg by mouth in the morning due to the activating effects of SSRI's and her current anxiety 9. Per patients request will begin a multivitamin by mouth daily. 9. Continue medication management and individual and group therapy. Vital Signs Vital Signs Date Time Temp Pulse Resp B/P Pulse Ox O2 Delivery O2 Flow Rate FiO2 11/11/16 06:39 96.8 95 20 126/78 11/09/16 06:00 Room Air 11/05/16 22:00 97 Current Medications Current Medications Medications (Trade) Dose Ordered Sig/Jay Route PRN Reason Start Time Stop Time Status Last Admin Dose Admin Al Hydrox/Mg Hydrox/Simethicone (Mylanta) 30 ml Q4HP PRN PO HEARTBURN/INDIGESTION 10/31/16 19:15 11/30/16 19:14 11/11/16 02:02 Aspirin (Ecotrin) 81 mg DAILY PO 11/01/16 09:00 12/01/16 08:59 11/11/16 09:01 Clonazepam (KlonoPIN) 0.5 mg DAILY@13 PO 11/02/16 13:00 11/04/16 09:18 DC 11/03/16 12:43 Clonazepam (KlonoPIN) 0.5 mg QAM PO 11/10/16 09:00 11/17/16 08:59 11/11/16 09:01 Clonazepam (KlonoPIN) 1 mg BID PO 11/02/16 21:00 11/09/16 09:24 DC 11/09/16 08:05 Clonazepam (KlonoPIN) 1 mg QHS PO 11/09/16 21:00 11/16/16 20:59 11/10/16 21:16 Clonazepam (KlonoPIN) 1 mg TID PO 10/31/16 21:00 11/02/16 09:41 DC 11/02/16 08:29 Divalproex Sodium (Depakote) 500 mg BID PO 11/11/16 09:00 12/11/16 08:59 11/11/16 09:03 Docusate Sodium (Colace) 100 mg BID PO 10/31/16 21:00 11/30/16 20:59 11/11/16 09:00 Docusate Sodium (Colace) 100 mg BID PO 11/01/16 21:00 12/01/16 20:59 UNV Gabapentin (Neurontin) 200 mg TID PO 10/31/16 21:00 11/30/16 20:59 11/11/16 09:01 Home Med (Med Rec Complete!) ASDIRECTED XX 10/31/16 17:45 10/31/16 17:51 DC Magnesium Hydroxide (Milk Of Magnesia) 30 ml DAILYPRN PRN PO CONSTIPATION 10/31/16 19:15 11/30/16 19:14 11/01/16 11:45 Meclizine HCl (Antivert) 25 mg TIDP PRN PO VERTIGO/DIZZINESS 10/31/16 19:15 11/30/16 19:14 Omeprazole (PriLOSEC) 20 mg DAILY PO 11/01/16 09:00 12/01/16 08:59 11/11/16 09:00 Ondansetron HCl (Zofran) 4 mg Q8HP PRN PO NAUSEA OR VOMITING 11/10/16 16:45 12/10/16 16:44 11/10/16 17:06 Polyethylene Glycol (Miralax) 1 pkt BID PO 11/01/16 09:00 12/01/16 08:59 11/11/16 09:17 Quetiapine Fumarate (SEROquel) 25 mg TID@08,13,18 PO 11/01/16 08:00 11/01/16 09:27 DC Quetiapine Fumarate (SEROquel) 25 mg TID@,,18 PO 11/01/16 09:27 11/01/16 12:23 DC Quetiapine Fumarate (SEROquel) 25 mg TID@08,13,18 PO 11/01/16 13:00 11/09/16 09:24 DC 11/08/16 08:29 Quetiapine Fumarate (SEROquel) 100 mg QHS PO 11/01/16 21:00 11/02/16 09:25 DC 11/01/16 20:42 Quetiapine Fumarate (SEROquel) 100 mg QHSP PRN PO INSOMNIA 11/01/16 09:45 12/01/16 09:44 11/11/16 02:01 Quetiapine Fumarate (SEROquel) 150 mg QHS PO 11/02/16 21:00 11/03/16 08:48 DC 11/02/16 20:45 Quetiapine Fumarate (SEROquel) 150 mg QHS PO 11/05/16 21:00 12/05/16 20:59 11/10/16 21:16 Quetiapine Fumarate (SEROquel) 200 mg QHS PO 11/05/16 21:00 12/05/16 20:59 11/10/16 21:16 Quetiapine Fumarate (SEROquel) 250 mg QHS PO 11/03/16 21:00 11/05/16 09:28 DC 11/04/16 20:36 Rosuvastatin Calcium (Crestor) 5 mg QHS PO 10/31/16 21:00 11/04/16 13:32 DC 11/03/16 21:19 Sertraline HCl (Zoloft) 25 mg QHS PO 11/03/16 21:00 11/04/16 09:21 DC 11/03/16 21:31 Sertraline HCl (Zoloft) 50 mg QAM PO 11/04/16 09:00 11/05/16 09:28 DC 11/05/16 08:16 Sodium Chloride ([place] Nasal [place]) 2 spray Q2HP PRN NA NASAL DRYNESS 11/03/16 08:30 12/03/16 08:29 11/10/16 21:17 Zolpidem Tartrate (Ambien) 10 mg QHSP PRN PO INSOMNIA 10/31/16 19:15 11/13/16 19:14 11/10/16 21:16 Allergies Coded Allergies: Acetaminophen (Unverified Allergy, Unknown, ELEVATES LIVER ENZYMES, ) Cetirizine (Unverified Allergy, Unknown, UNKNOWN, 10/31/16) Haloperidol (Unverified Allergy, Unknown, UNKNOWN, 10/31/16) Ibuprofen (Unverified Allergy, Unknown, ELEVATES LIVER ENZYMES, 10/31/16) [place] (Unverified Allergy, Unknown, SPEECH IS SLURRED, 10/31/16) Ondansetron (Unverified Allergy, Unknown, N/V, 10/31/16) Risperidone (Unverified Allergy, Unknown, UNKNOWN, 10/31/16) Trazodone (Unverified Allergy, Unknown, HYPERTENSION, 10/31/16) GME ATTESTATION My preceptor for this patient encounter was physically present in the building during the encounter and was fully available. As needed, all aspects of the patient interview, examination, medical decision making process, and medical care plan development were reviewed and approved by the preceptor. Preceptor is aware and concurs with the plan as stated in the body of this note and will attest to such by his/her cosignature. MANASA PEOPLES Nov 11, 2016 10:22
[2016-11-11] MEDS: SODIUM CHLORIDE NASAL 0.65% SPRAY BTL (OCEAN) PRN (13:44)
[2016-11-11 18:00] VITALS: BP 139/90
[2016-11-11] MEDS: QUEtiapine FUMARATE 200 MG TAB PO SCH (21:04)
[2016-11-11] MEDS: QUEtiapine FUMARATE 100 MG TAB PO SCH (21:04)
[2016-11-11] MEDS: clonazePAM 1 MG TAB PO SCH (21:04)
[2016-11-11] MEDS: zolPIDEM TARTRATE 10MG TAB PO PRN (21:05)
[2016-11-12 06:43] VITALS: BP 117/58
[2016-11-12] MEDS: ASPIRIN 81 MG ENTERIC TAB PO SCH (08:29)
[2016-11-12] MEDS: MIRALAX *UNIT DOSE* 17GM PACKET PO SCH ×2 (08:29→20:54)
[2016-11-12] MEDS: OMEPRAZOLE 20 MG CAP PO SCH (08:29)
[2016-11-12] MEDS: clonazePAM 0.5 MG TAB PO SCH (08:29)
[2016-11-12] MEDS: DOCUSATE SODIUM 100 MG CAP PO SCH ×2 (08:29→20:57)
[2016-11-12] MEDS: GABAPENTIN 100 MG CAP PO SCH ×3 (08:29→20:57)
[2016-11-12] MEDS: DIVALPROEX 500 MG TAB PO SCH ×2 (08:29→20:58)
[2016-11-12] MEDS: MULTIVITAMINS/MINERALS THERAP 1 TAB PO SCH (09:30)
--- NOTE | 2016-11-12 14:30 | IPNPDOC ---
[facility] Progress Note Progress Note DATE OF SERVICE: 11/12/16 HISTORY:A 56-year-old female with history of bipolar disorder, admitted to our unit with very high anxiety. The patient was unable to sleep and relax. She was worried "all day," making statements such as "I cannot stand it anymore." The patient is also having multiple somatic complaints and worries about "everything " including side effects from medication. The patient lost six pounds in the last week. She reports that her mind "keeps racing" and "I can't function because of my depression and anxiety." VITAL SIGNS: Please see below. CURRENT MEDICATIONS: - Seroquel 350 mg by mouth at bedtime - Seroquel 100 mg by mouth at bedtime as needed for insomnia - Klonopin 0.5 mg by mouth every morning - Klonopin 1 mg by mouth at bedtime - Neurontin 200 mg by mouth three times a day - Ambien 10 mg by mouth at bedtime as needed for insomnia - Depakote 500 mg by mouth twice a day SUBJECTIVE: "I feel kind of sluggish today" OBJECTIVE: The patient continues to be extremely anxious and worried about "everything." She worries if her medications are working or not and if they are causing side effects. She does state that her thoughts seem to have slowed a little, allowing her to sleep better. She was able to get about 7 1/2 hours of sleep last night. She has been attending the therapeutic activities of the unit and states she felt slightly more functional this morning during group. Appetite remains depressed. MENTAL STATUS EXAMINATION: The patient is dressed in street clothes and well groomed. She remains standing for majority of the interview and eye contact is good. Psychomotor retardation is noted. Attitude is cooperative. She is alert and oriented x 3. Speech continues to be soft and pressured. Mood remains anxious and depressed. Affect is consistent with mood. Thoughts continue to race , but they have slowed some. Denies delusions and hallucinations. Patient is able to contract for her safety in our unit. Insight and judgement are impaired. Concentration and attention also impaired. Immediate, recent, and remote memory intact. Intellectual functioning remains fair. ASSESSMENT: 1. Bipolar disorder, depressive episode. 2. Very high anxiety. 3. Insomnia. MANAGEMENT PLAN: 1. Continue with Depakote 500 mg by mouth twice a day with plan to increase dosage slowly and begin to taper Seroquel. 2. Continue with Seroquel 350 mg by mouth at bedtime. 3. Continue with Seroquel 100 mg by mouth at bedtime as needed for insomnia. 4. Continue tapering Klonopin slowly - currently at 0.5 mg by mouth in the morning and 1 mg by mouth at bedtime. 5. Continue with gabapentin 200 mg by mouth three times a day. 6. Continue with Ambien 10 mg by mouth at bedtime as needed for insomnia. 7. Continue to HOLD Zoloft 50 mg by mouth in the morning due to the activating effects of SSRI's and her current anxiety 8. Continue medication management and individual and group therapy. Vital Signs Vital Signs Date Time Temp Pulse Resp B/P Pulse Ox O2 Delivery O2 Flow Rate FiO2 11/12/16 06:43 96.6 80 18 117/58 11/09/16 06:00 Room Air Current Medications Current Medications Medications (Trade) Dose Ordered Sig/Jay Route PRN Reason Start Time Stop Time Status Last Admin Dose Admin Al Hydrox/Mg Hydrox/Simethicone (Mylanta) 30 ml Q4HP PRN PO HEARTBURN/INDIGESTION 10/31/16 19:15 11/30/16 19:14 11/11/16 18:49 Aspirin (Ecotrin) 81 mg DAILY PO 11/01/16 09:00 12/01/16 08:59 11/12/16 08:29 Clonazepam (KlonoPIN) 0.5 mg DAILY@13 PO 11/02/16 13:00 11/04/16 09:18 DC 11/03/16 12:43 Clonazepam (KlonoPIN) 0.5 mg QAM PO 11/10/16 09:00 11/17/16 08:59 11/12/16 08:29 Clonazepam (KlonoPIN) 1 mg BID PO 11/02/16 21:00 11/09/16 09:24 DC 11/09/16 08:05 Clonazepam (KlonoPIN) 1 mg QHS PO 11/09/16 21:00 11/16/16 20:59 11/11/16 21:04 Clonazepam (KlonoPIN) 1 mg TID PO 10/31/16 21:00 11/02/16 09:41 DC 11/02/16 08:29 Divalproex Sodium (Depakote) 500 mg BID PO 11/11/16 09:00 12/11/16 08:59 11/12/16 08:29 Docusate Sodium (Colace) 100 mg BID PO 10/31/16 21:00 11/30/16 20:59 11/12/16 08:29 Docusate Sodium (Colace) 100 mg BID PO 11/01/16 21:00 12/01/16 20:59 UNV Gabapentin (Neurontin) 200 mg TID PO 10/31/16 21:00 11/30/16 20:59 11/12/16 08:29 Home Med (Med Rec Complete!) ASDIRECTED XX 10/31/16 17:45 10/31/16 17:51 DC Magnesium Hydroxide (Milk Of Magnesia) 30 ml DAILYPRN PRN PO CONSTIPATION 10/31/16 19:15 11/30/16 19:14 11/01/16 11:45 Meclizine HCl (Antivert) 25 mg TIDP PRN PO VERTIGO/DIZZINESS 10/31/16 19:15 11/30/16 19:14 Multivitamins (Theragram-M) 1 tab QAM PO 11/12/16 09:00 12/12/16 08:59 11/12/16 09:30 Omeprazole (PriLOSEC) 20 mg DAILY PO 11/01/16 09:00 12/01/16 08:59 11/12/16 08:29 Ondansetron HCl (Zofran) 4 mg Q8HP PRN PO NAUSEA OR VOMITING 11/10/16 16:45 12/10/16 16:44 11/10/16 17:06 Polyethylene Glycol (Miralax) 1 pkt BID PO 11/01/16 09:00 12/01/16 08:59 11/12/16 08:29 Quetiapine Fumarate (SEROquel) 25 mg TID@,,18 PO 11/01/16 08:00 11/01/16 09:27 DC Quetiapine Fumarate (SEROquel) 25 mg TID@08,13,18 PO 11/01/16 09:27 11/01/16 12:23 DC Quetiapine Fumarate (SEROquel) 25 mg TID@08,13,18 PO 11/01/16 13:00 11/09/16 09:24 DC 11/08/16 08:29 Quetiapine Fumarate (SEROquel) 100 mg QHS PO 11/01/16 21:00 11/02/16 09:25 DC 11/01/16 20:42 Quetiapine Fumarate (SEROquel) 100 mg QHSP PRN PO INSOMNIA 11/01/16 09:45 12/01/16 09:44 11/11/16 02:01 Quetiapine Fumarate (SEROquel) 150 mg QHS PO 11/02/16 21:00 11/03/16 08:48 DC 11/02/16 20:45 Quetiapine Fumarate (SEROquel) 150 mg QHS PO 11/05/16 21:00 12/05/16 20:59 11/11/16 21:04 Quetiapine Fumarate (SEROquel) 200 mg QHS PO 11/05/16 21:00 12/05/16 20:59 11/11/16 21:04 Quetiapine Fumarate (SEROquel) 250 mg QHS PO 11/03/16 21:00 11/05/16 09:28 DC 11/04/16 20:36 Rosuvastatin Calcium (Crestor) 5 mg QHS PO 10/31/16 21:00 11/04/16 13:32 DC 11/03/16 21:19 Sertraline HCl (Zoloft) 25 mg QHS PO 11/03/16 21:00 11/04/16 09:21 DC 11/03/16 21:31 Sertraline HCl (Zoloft) 50 mg QAM PO 11/04/16 09:00 11/05/16 09:28 DC 11/05/16 08:16 Sodium Chloride ([place] Nasal [place]) 2 spray Q2HP PRN NA NASAL DRYNESS 11/03/16 08:30 12/03/16 08:29 11/11/16 13:44 Zolpidem Tartrate (Ambien) 10 mg QHSP PRN PO INSOMNIA 10/31/16 19:15 11/19/16 19:14 11/11/16 21:05 Allergies Coded Allergies: Acetaminophen (Unverified Allergy, Unknown, ELEVATES LIVER ENZYMES, ) Cetirizine (Unverified Allergy, Unknown, UNKNOWN, 10/31/16) Haloperidol (Unverified Allergy, Unknown, UNKNOWN, 10/31/16) Ibuprofen (Unverified Allergy, Unknown, ELEVATES LIVER ENZYMES, 10/31/16) [place] (Unverified Allergy, Unknown, SPEECH IS SLURRED, 10/31/16) Ondansetron (Unverified Allergy, Unknown, N/V, 10/31/16) Risperidone (Unverified Allergy, Unknown, UNKNOWN, 10/31/16) Trazodone (Unverified Allergy, Unknown, HYPERTENSION, 10/31/16) GME ATTESTATION My preceptor for this patient encounter was physically present in the building during the encounter and was fully available. As needed, all aspects of the patient interview, examination, medical decision making process, and medical care plan development were reviewed and approved by the preceptor. Preceptor is aware and concurs with the plan as stated in the body of this note and will attest to such by his/her cosignature. MANASA PEOPLES Nov 12, 2016 14:30
[2016-11-12 18:00] VITALS: BP 133/76
[2016-11-12] MEDS: ONDANSETRON 4 MG TAB (S0181) PO PRN (20:57)
[2016-11-12] MEDS: zolPIDEM TARTRATE 10MG TAB PO PRN (20:57)
[2016-11-12] MEDS: clonazePAM 1 MG TAB PO SCH (20:57)
[2016-11-12] MEDS: QUEtiapine FUMARATE 200 MG TAB PO SCH (20:57)
[2016-11-12] MEDS: QUEtiapine FUMARATE 100 MG TAB PO SCH (20:57)
[2016-11-12] MEDS: SODIUM CHLORIDE NASAL 0.65% SPRAY BTL (OCEAN) PRN (21:01)
[2016-11-13 06:30] VITALS: BP 111/57
[2016-11-13] MEDS: MULTIVITAMINS/MINERALS THERAP 1 TAB PO SCH (08:14)
[2016-11-13] MEDS: OMEPRAZOLE 20 MG CAP PO SCH (08:14)
[2016-11-13] MEDS: ASPIRIN 81 MG ENTERIC TAB PO SCH (08:14)
[2016-11-13] MEDS: DIVALPROEX 500 MG TAB PO SCH ×2 (08:14→21:13)
[2016-11-13] MEDS: GABAPENTIN 100 MG CAP PO SCH ×3 (08:14→21:13)
[2016-11-13] MEDS: clonazePAM 0.5 MG TAB PO SCH (08:14)
[2016-11-13] MEDS: DOCUSATE SODIUM 100 MG CAP PO SCH ×2 (08:14→21:11)
[2016-11-13] MEDS: MIRALAX *UNIT DOSE* 17GM PACKET PO SCH ×2 (08:14→21:15)
[2016-11-13 18:00] VITALS: BP 124/76
--- NOTE | 2016-11-13 18:41 | IPN ---
DATE: 11/13/2016 A 56-year-old female with a history of bipolar disorder, admitted to our unit with fairly high anxiety. Patient was unable to sleep or to relax. She was worried "all day." She was making statements, such as "I cannot stand it anymore." Patient was also having multiple somatic complaints and worries about "everything," include side effect from medication. Patient lost 6 pounds in the week prior to the admission. She reported that her mind "keeps racing" and "I can't function because of my depression and anxiety." MEDICATIONS: - Seroquel 350 mg by mouth at bedtime - Seroquel 100 mg by mouth at bedtime as needed for insomnia - Ambien 10 mg by mouth at bedtime as needed for insomnia - Klonopin 1 mg by mouth at bedtime and 0.5 mg by mouth every morning - Neurontin 200 mg by mouth three times a day - Depakote 500 mg by mouth twice a day SUBJECTIVE: "I feel sluggish." OBJECTIVE: Patient continues fairly anxious. Reports depression. Continues to report racing thoughts and preoccupation, excessive rumination, and insomnia; however, she is improving slowly, as the medication has been increased. Patient is denying side effect from medication, although she is worried that she will have it, and the medication will have to be stopped, or that it is going to cause somatic problems. MENTAL STATUS EXAMINATION: Patient dressed in casual clothes. Patient is well groomed. Patient continues very anxious, labile. Patient is cooperative during exam. Mood is depressed. No delusions or hallucinations. Memory is fair. Patient is fully oriented. Patient is able to contract for safety and denies suicidal or homicidal ideation. Insight and judgment are limited. ASSESSMENT: 1. Bipolar disorder, mixed episode. 2. Insomnia. PLAN: 1. Continue with Depakote 500 mg by mouth twice a day 2. Continue with Seroquel 350 mg by mouth at bedtime plus 100 mg as needed for insomnia. 3. Continue tapering Klonopin slowly. 4. Continue with Neurontin 200 mg by mouth three times a day. 5. Continue with Ambien 10 mg by mouth at bedtime as needed for insomnia. 6. Continue medication management, individual and group therapy.
[2016-11-13] MEDS: QUEtiapine FUMARATE 200 MG TAB PO SCH (21:11)
[2016-11-13] MEDS: QUEtiapine FUMARATE 100 MG TAB PO SCH (21:12)
[2016-11-13] MEDS: clonazePAM 1 MG TAB PO SCH (21:13)
[2016-11-13] MEDS: zolPIDEM TARTRATE 10MG TAB PO PRN (21:13)
[2016-11-13] MEDS: SODIUM CHLORIDE NASAL 0.65% SPRAY BTL (OCEAN) PRN (21:15)
[2016-11-13] MEDS: ONDANSETRON 4 MG TAB (S0181) PO PRN (21:16)
[2016-11-14 06:47] VITALS: BP 112/75
[2016-11-14] MEDS: OMEPRAZOLE 20 MG CAP PO SCH (08:50)
[2016-11-14] MEDS: DOCUSATE SODIUM 100 MG CAP PO SCH ×2 (08:50→22:05)
[2016-11-14] MEDS: MIRALAX *UNIT DOSE* 17GM PACKET PO SCH ×2 (08:50→22:03)
[2016-11-14] MEDS: GABAPENTIN 100 MG CAP PO SCH ×3 (08:50→22:05)
[2016-11-14] MEDS: DIVALPROEX 500 MG TAB PO SCH ×2 (08:50→22:05)
[2016-11-14] MEDS: MULTIVITAMINS/MINERALS THERAP 1 TAB PO SCH (08:51)
[2016-11-14] MEDS: ASPIRIN 81 MG ENTERIC TAB PO SCH (08:51)
[2016-11-14] MEDS: clonazePAM 0.5 MG TAB PO SCH (08:51)
[2016-11-14] MEDS: SODIUM CHLORIDE NASAL 0.65% SPRAY BTL (OCEAN) PRN ×2 (12:23→22:04)
[2016-11-14 18:00] VITALS: BP 123/77
[2016-11-14] MEDS: QUEtiapine FUMARATE 100 MG TAB PO SCH (22:04)
[2016-11-14] MEDS: QUEtiapine FUMARATE 200 MG TAB PO SCH (22:04)
[2016-11-14] MEDS: clonazePAM 1 MG TAB PO SCH (22:04)
[2016-11-14] MEDS: ONDANSETRON 4 MG TAB (S0181) PO PRN (22:10)
[2016-11-15 06:55] VITALS: BP 108/71
[2016-11-15] MEDS: MULTIVITAMINS/MINERALS THERAP 1 TAB PO SCH (08:40)
[2016-11-15] MEDS: OMEPRAZOLE 20 MG CAP PO SCH (08:40)
[2016-11-15] MEDS: GABAPENTIN 100 MG CAP PO SCH ×3 (08:40→21:29)
[2016-11-15] MEDS: MIRALAX *UNIT DOSE* 17GM PACKET PO SCH ×2 (08:40→21:27)
[2016-11-15] MEDS: DOCUSATE SODIUM 100 MG CAP PO SCH ×2 (08:40→21:29)
[2016-11-15] MEDS: clonazePAM 0.5 MG TAB PO SCH (08:41)
[2016-11-15] MEDS: ASPIRIN 81 MG ENTERIC TAB PO SCH (08:41)
[2016-11-15] MEDS: DIVALPROEX 500 MG TAB PO SCH ×2 (08:41→21:29)
[2016-11-15] MEDS: MOM 30ML SUSPENSION UDC PO PRN (13:50)
[2016-11-15 18:00] VITALS: BP 121/73
[2016-11-15] MEDS: zolPIDEM TARTRATE 10MG TAB PO PRN (21:29)
[2016-11-15] MEDS: QUEtiapine FUMARATE 200 MG TAB PO SCH (21:29)
[2016-11-15] MEDS: QUEtiapine FUMARATE 100 MG TAB PO SCH (21:29)
[2016-11-15] MEDS: clonazePAM 1 MG TAB PO SCH (21:29)
[2016-11-15] MEDS: SODIUM CHLORIDE NASAL 0.65% SPRAY BTL (OCEAN) PRN (21:31)
[2016-11-16 06:33] VITALS: BP 131/62
[2016-11-16 07:36] LABS: ALBUMIN 3.7 GM/DL (3.2-5.2); ALBUMIN/GLOBULIN RATIO 1.23 (1.00-1.93); ALKALINE PHOSPHATASE 126 U/L (45-117); ALT/SGPT 29 U/L (12-78); ANION GAP 9 MEQ/L (8-16); AST/SGOT 13 U/L (15-37); BILIRUBIN,TOTAL 0.3 MG/DL (0.2-1.0); BLOOD UREA NITROGEN 19 MG/DL (7-18); CALCIUM LEVEL 8.9 MG/DL (8.5-10.1); CARBON DIOXIDE LEVEL 29 MEQ/L (21-32); CHLORIDE LEVEL 105 MEQ/L (98-107); CREATININE FOR GFR 0.78 MG/DL (0.55-1.02); GLOMERULAR FILTRATION RATE > 60.0 (>51); GLUCOSE, FASTING 111 MG/DL (70-105); POTASSIUM SERUM 4.2 MEQ/L (3.5-5.1); SODIUM LEVEL 143 MEQ/L (136-145); TOTAL PROTEIN 6.7 GM/DL (6.4-8.2)
[2016-11-16] MEDS: MIRALAX *UNIT DOSE* 17GM PACKET PO SCH ×2 (08:35→21:02)
[2016-11-16] MEDS: clonazePAM 0.5 MG TAB PO SCH (08:36)
[2016-11-16] MEDS: MULTIVITAMINS/MINERALS THERAP 1 TAB PO SCH (08:36)
[2016-11-16] MEDS: DOCUSATE SODIUM 100 MG CAP PO SCH ×2 (08:36→21:03)
[2016-11-16] MEDS: OMEPRAZOLE 20 MG CAP PO SCH (08:36)
[2016-11-16] MEDS: GABAPENTIN 100 MG CAP PO SCH ×3 (08:36→21:02)
[2016-11-16] MEDS: DIVALPROEX 500 MG TAB PO SCH ×2 (08:36→21:02)
[2016-11-16] MEDS: ASPIRIN 81 MG ENTERIC TAB PO SCH (08:36)
[2016-11-16] MEDS ORDERED: zolPIDEM TARTRATE 5 MG TAB PO PRN (09:30)
--- NOTE | 2016-11-16 14:14 | IPNPDOC ---
[facility] Progress Note Progress Note DATE OF SERVICE: 11/16/16 HISTORY: A 56-year-old female with history of bipolar disorder, admitted to our unit with very high anxiety. The patient was unable to sleep and relax. She was worried "all day", making statements such as "I cannot stand it anymore." The patient is also having multiple somatic complaints and worries about "everything " including side effects from medication. The patient lost six pounds in the last week. She reports that her mind "keeps racing" and "I can't function because of my depression and anxiety." VITAL SIGNS: See below. CURRENT MEDICATIONS: - Seroquel 400 mg by mouth daily at bedtime - Ambien 5 mg by mouth daily at bedtime when necessary insomnia - Depakote 500 mg by mouth twice a day - Klonopin 0.5 mg by mouth every morning - Klonopin 1 mg by mouth daily at bedtime - Neurontin 200 mg by mouth 3 times a day SUBJECTIVE: "I feel upset today because I feel ignored." OBJECTIVE: The patient continues to be extremely anxious and worried; although today she is most worried about her medications and if they're working. She states "my head feels mushy." She states that last night she slept through the night; waking up once and found it difficult to fall back asleep. She states today she feels more tired and feels like she is not sleeping well. She admits difficulty being social when she feels this way, although she has been attending groups. Appetite is fair. MENTAL STATUS EXAMINATION: The patient is dressed in street clothes and well groomed. She is sitting during the interview and eye contact is intermittent. Psychomotor retardation is noted. Attitude is cooperative. She is both lethargic and somewhat distracted. She is alert and oriented 3. Speech is soft and hesitant. Mood is anxious, discouraged, and depressed. Affect is appropriate for mood, she is tearful at times. She has racing thoughts that are focused on medication side effects. Patient denies delusions or hallucinations. She is currently able to contract for her safety on the unit. Both insight and judgment seem to be impaired. Concentration and attention is also impaired. Her recent, remote, and immediate memory are intact. Intellectual functioning remains fair. DIAGNOSES: 1. Bipolar disorder, mixed episode. 2. Insomnia. ASSESSMENT: 1. Continue tapering Klonopin slowly -she is currently on 0.5 mg by mouth every morning and 1 mg by mouth daily at bedtime. 2. A therapeutic level of Depakote has been achieved currently at 104.7. Her LFTs are currently at baseline with AST 13 an ALT 29. Continue Depakote 500 mg by mouth twice a day. 3. Seroquel will be changed from 350 mg by mouth daily at bedtime and 100 mg by mouth daily at bedtime when necessary insomnia to 400 mg by mouth daily at bedtime. 4. Continue Neurontin 200 mg by mouth 3 times a day. 5. Decrease Ambien 10 mg by mouth daily at bedtime when necessary insomnia to 5 mg by mouth daily at bedtime when necessary insomnia. 6. Continue management via medications in addition to individual and group therapies. Vital Signs Vital Signs Date Time Temp Pulse Resp B/P Pulse Ox O2 Delivery O2 Flow Rate FiO2 11/16/16 06:33 97.6 77 16 131/62 Laboratory Data 24H Labs Laboratory Tests 2 11/16/16 06:57: Blood Urea Nitrogen 19H, Creatinine 0.78, Sodium Level 143, Potassium Level 4.2 , Chloride Level 105, Carbon Dioxide Level 29, Calcium Level 8.9, Aspartate Amino Transf (AST/SGOT) 13L, Alanine Aminotransferase (ALT/SGPT) 29, Alkaline Phosphatase 126H, Total Bilirubin 0.3, Total Protein 6.7, Albumin 3.7, Albumin/ Globulin Ratio 1.23, Anion Gap 9, Glomerular Filtration Rate > 60.0, Valproic Acid (Depakene) Level 104.7H CBC/BMP Laboratory Tests 11/16/16 06:57 Calcium Level 8.9, Aspartate Amino Transf (AST/SGOT) 13 L, Alanine Aminotransferase (ALT/SGPT) 29, Alkaline Phosphatase 126 H, Total Bilirubin 0.3 , Total Protein 6.7, Albumin 3.7 Current Medications Current Medications Medications (Trade) Dose Ordered Sig/Jay Route PRN Reason Start Time Stop Time Status Last Admin Dose Admin Al Hydrox/Mg Hydrox/Simethicone (Mylanta) 30 ml Q4HP PRN PO HEARTBURN/INDIGESTION 10/31/16 19:15 11/30/16 19:14 11/11/16 18:49 Aspirin (Ecotrin) 81 mg DAILY PO 11/01/16 09:00 12/01/16 08:59 2/6/17 08:36 Clonazepam (KlonoPIN) 0.5 mg DAILY@13 PO 11/02/16 13:00 11/04/16 09:18 DC 11/03/16 12:43 Clonazepam (KlonoPIN) 0.5 mg QAM PO 11/10/16 09:00 11/23/16 08:59 11/16/16 08:36 Clonazepam (KlonoPIN) 1 mg BID PO 11/02/16 21:00 11/09/16 09:24 DC 11/09/16 08:05 Clonazepam (KlonoPIN) 1 mg QHS PO 11/09/16 21:00 11/22/16 20:59 11/15/16 21:29 Clonazepam (KlonoPIN) 1 mg TID PO 10/31/16 21:00 11/02/16 09:41 DC 11/02/16 08:29 Divalproex Sodium (Depakote) 500 mg BID PO 11/11/16 09:00 12/11/16 08:59 11/16/16 08:36 Docusate Sodium (Colace) 100 mg BID PO 10/31/16 21:00 11/30/16 20:59 11/16/16 08:36 Docusate Sodium (Colace) 100 mg BID PO 11/01/16 21:00 12/01/16 20:59 UNV Gabapentin (Neurontin) 200 mg TID PO 10/31/16 21:00 11/30/16 20:59 11/16/16 08:36 Home Med (Med Rec Complete!) ASDIRECTED XX 10/31/16 17:45 10/31/16 17:51 DC Magnesium Hydroxide (Milk Of Magnesia) 30 ml DAILYPRN PRN PO CONSTIPATION 10/31/16 19:15 11/30/16 19:14 11/15/16 13:50 Meclizine HCl (Antivert) 25 mg TIDP PRN PO VERTIGO/DIZZINESS 10/31/16 19:15 11/30/16 19:14 Multivitamins (Theragram-M) 1 tab QAM PO 11/12/16 09:00 12/12/16 08:59 11/16/16 08:36 Omeprazole (PriLOSEC) 20 mg DAILY PO 11/01/16 09:00 12/01/16 08:59 11/16/16 08:36 Ondansetron HCl (Zofran) 4 mg Q8HP PRN PO NAUSEA OR VOMITING 11/10/16 16:45 12/10/16 16:44 11/14/16 22:10 Polyethylene Glycol (Miralax) 1 pkt BID PO 11/01/16 09:00 12/01/16 08:59 11/16/16 08:35 Quetiapine Fumarate (SEROquel) 25 mg TID@,,18 PO 11/01/16 08:00 11/01/16 09:27 DC Quetiapine Fumarate (SEROquel) 25 mg TID@,,18 PO 11/01/16 09:27 11/01/16 12:23 DC Quetiapine Fumarate (SEROquel) 25 mg TID@,,18 PO 11/01/16 13:00 11/09/16 09:24 DC 11/08/16 08:29 Quetiapine Fumarate (SEROquel) 100 mg QHS PO 11/01/16 21:00 11/02/16 09:25 DC 11/01/16 20:42 Quetiapine Fumarate (SEROquel) 100 mg QHSP PRN PO INSOMNIA 11/01/16 09:45 11/16/16 09:33 DC 11/11/16 02:01 Quetiapine Fumarate (SEROquel) 150 mg QHS PO 11/02/16 21:00 11/03/16 08:48 DC 11/02/16 20:45 Quetiapine Fumarate (SEROquel) 150 mg QHS PO 11/05/16 21:00 11/16/16 09:33 DC 11/15/16 21:29 Quetiapine Fumarate (SEROquel) 200 mg QHS PO 11/05/16 21:00 11/16/16 09:33 DC 11/15/16 21:29 Quetiapine Fumarate (SEROquel) 250 mg QHS PO 11/03/16 21:00 11/05/16 09:28 DC 11/04/16 20:36 Quetiapine Fumarate (SEROquel) 400 mg QHS PO 11/16/16 21:00 12/16/16 20:59 Rosuvastatin Calcium (Crestor) 5 mg QHS PO 10/31/16 21:00 11/04/16 13:32 DC 11/03/16 21:19 Sertraline HCl (Zoloft) 25 mg QHS PO 11/03/16 21:00 11/04/16 09:21 DC 11/03/16 21:31 Sertraline HCl (Zoloft) 50 mg QAM PO 11/04/16 09:00 11/05/16 09:28 DC 11/05/16 08:16 Sodium Chloride ([place] Nasal [place]) 2 spray Q2HP PRN NA NASAL DRYNESS 11/03/16 08:30 12/03/16 08:29 11/15/16 21:31 Zolpidem Tartrate (Ambien) 5 mg QHSP PRN PO INSOMNIA 11/16/16 09:30 11/23/16 09:29 Zolpidem Tartrate (Ambien) 10 mg QHSP PRN PO INSOMNIA 10/31/16 19:15 11/16/16 09:33 DC 11/15/16 21:29 Allergies Coded Allergies: Acetaminophen (Unverified Allergy, Unknown, ELEVATES LIVER ENZYMES, ) Cetirizine (Unverified Allergy, Unknown, UNKNOWN, 10/31/16) Haloperidol (Unverified Allergy, Unknown, UNKNOWN, 10/31/16) Ibuprofen (Unverified Allergy, Unknown, ELEVATES LIVER ENZYMES, 10/31/16) [place] (Unverified Allergy, Unknown, SPEECH IS SLURRED, 10/31/16) Ondansetron (Unverified Allergy, Unknown, N/V, 10/31/16) Risperidone (Unverified Allergy, Unknown, UNKNOWN, 10/31/16) Trazodone (Unverified Allergy, Unknown, HYPERTENSION, 10/31/16) GME ATTESTATION GME ATTESTATION My preceptor for this patient encounter was Dr. Ferrell, he was physically present in the building during the encounter and was fully available. As needed , all aspects of the patient interview, examination, medical decision making process, and medical care plan development were reviewed and approved by the preceptor. Preceptor is aware and concurs with the plan as stated in the body of this note and will attest to such by his cosignature. JADE MILLER Nov 16, 2016 14:14
[2016-11-16 18:31] VITALS: BP 130/76
[2016-11-16] MEDS: QUEtiapine FUMARATE 200 MG TAB PO SCH (21:04)
[2016-11-16] MEDS: ONDANSETRON 4 MG TAB (S0181) PO PRN (21:04)
[2016-11-16] MEDS: clonazePAM 1 MG TAB PO SCH (21:04)
[2016-11-17 06:37] VITALS: BP 110/56
[2016-11-17] MEDS: ASPIRIN 81 MG ENTERIC TAB PO SCH (08:35)
[2016-11-17] MEDS: DIVALPROEX 500 MG TAB PO SCH ×2 (08:35→21:15)
[2016-11-17] MEDS: MIRALAX *UNIT DOSE* 17GM PACKET PO SCH ×2 (08:35→21:14)
[2016-11-17] MEDS: GABAPENTIN 100 MG CAP PO SCH ×3 (08:35→21:14)
[2016-11-17] MEDS: MULTIVITAMINS/MINERALS THERAP 1 TAB PO SCH (08:35)
[2016-11-17] MEDS: DOCUSATE SODIUM 100 MG CAP PO SCH ×2 (08:35→21:14)
[2016-11-17] MEDS: clonazePAM 0.5 MG TAB PO SCH (08:35)
[2016-11-17] MEDS: OMEPRAZOLE 20 MG CAP PO SCH (08:35)
--- NOTE | 2016-11-17 15:23 | IPNPDOC ---
[facility] Progress Note Progress Note DATE OF SERVICE: 11/17/16 HISTORY: A 56-year-old female with history of bipolar disorder, admitted to our unit with very high anxiety. The patient was unable to sleep and relax. She was worried "all day", making statements such as "I cannot stand it anymore." The patient is also having multiple somatic complaints and worries about "everything " including side effects from medication. The patient lost six pounds in the last week. She reports that her mind "keeps racing" and "I can't function because of my depression and anxiety." VITAL SIGNS: See below. CURRENT MEDICATIONS: -Seroquel 400 mg by mouth daily at bedtime -Depakote 500 mg by mouth twice a day -Klonopin 1 mg by mouth daily at bedtime -Neurontin 200 mg by mouth 3 times a day SUBJECTIVE: "I feel more sad today, I just want to go home." OBJECTIVE: The patient continues to be anxious and worried today and is focused on her medications. Today she states "it's giving me dry mouth and my memory" - with no further explanation of memory. She admits to taking the Ambien last night to help her sleep. She continues to have difficulty being social unit but states that she is trying her best. She states her appetite is doing "pretty well", and continues to attend groups. MENTAL STATUS EXAMINATION: Patient was in her room laying down prior to being interviewed, she did sit upright during the entire interview. She is wearing her own clothing and is well-groomed. There is mild psychomotor retardation and fair eye contact. She is cooperative, alert and oriented 3. Her speech is slow with a soft tone and occasionally hesitant to answer. She states feeling increased sadness but her affect reflects happiness and is somewhat restricted. She states as happiness is a mask. Her thoughts continue to race and she is focused on medication side effects. She denies delusions or hallucinations. She is currently able to contract for her safety on the unit. Both insight and judgment seem to be fair. Attention is appropriate. Her recent, remote, and immediate memory are intact. Intellectual functioning seems fair. ASSESSMENT: 1. Bipolar disorder, mixed episode 2. Insomnia MANAGEMENT PLAN: 1. Will discontinue 5 mg Ambien by mouth daily at bedtime when necessary insomnia 2. Continue Seroquel 400 mg by mouth daily at bedtime 3. Continue Depakote 500 mg by mouth twice a day. Therapeutic levels were achieved with lab values on 11/16/16 showing valproic acid level of 104.7. Liver function tests on the same day showed levels consistent with her baseline with an AST of 13 and ALT of 29. 4. Continue Neurontin 200 mg by mouth 3 times a day. 5. Discontinue Klonopin 0.5 mg by mouth every morning in order to continue to taper Klonopin slowly. 6. Continue on Klonopin 1 mg by mouth daily at bedtime - plan to continue to slowly discontinue Klonopin over time. 7. Continue management via medications in addition to individual and group therapies. Vital Signs Vital Signs Date Time Temp Pulse Resp B/P Pulse Ox O2 Delivery O2 Flow Rate FiO2 11/17/16 06:37 96.6 76 20 110/56 Current Medications Current Medications Medications (Trade) Dose Ordered Sig/Jay Route PRN Reason Start Time Stop Time Status Last Admin Dose Admin Al Hydrox/Mg Hydrox/Simethicone (Mylanta) 30 ml Q4HP PRN PO HEARTBURN/INDIGESTION 10/31/16 19:15 11/30/16 19:14 11/11/16 18:49 Aspirin (Ecotrin) 81 mg DAILY PO 11/01/16 09:00 12/01/16 08:59 11/17/16 08:35 Clonazepam (KlonoPIN) 0.5 mg DAILY@13 PO 11/02/16 13:00 11/04/16 09:18 DC 11/03/16 12:43 Clonazepam (KlonoPIN) 0.5 mg QAM PO 11/10/16 09:00 11/17/16 09:15 DC 11/17/16 08:35 Clonazepam (KlonoPIN) 1 mg BID PO 11/02/16 21:00 11/09/16 09:24 DC 11/09/16 08:05 Clonazepam (KlonoPIN) 1 mg QHS PO 11/09/16 21:00 11/22/16 20:59 11/16/16 21:04 Clonazepam (KlonoPIN) 1 mg TID PO 10/31/16 21:00 11/02/16 09:41 DC 11/02/16 08:29 Divalproex Sodium (Depakote) 500 mg BID PO 11/11/16 09:00 12/11/16 08:59 11/17/16 08:35 Docusate Sodium (Colace) 100 mg BID PO 10/31/16 21:00 11/30/16 20:59 11/17/16 08:35 Docusate Sodium (Colace) 100 mg BID PO 11/01/16 21:00 12/01/16 20:59 UNV Gabapentin (Neurontin) 200 mg TID PO 10/31/16 21:00 11/30/16 20:59 11/17/16 08:35 Home Med (Med Rec Complete!) ASDIRECTED XX 10/31/16 17:45 10/31/16 17:51 DC Magnesium Hydroxide (Milk Of Magnesia) 30 ml DAILYPRN PRN PO CONSTIPATION 10/31/16 19:15 11/30/16 19:14 11/15/16 13:50 Meclizine HCl (Antivert) 25 mg TIDP PRN PO VERTIGO/DIZZINESS 10/31/16 19:15 11/30/16 19:14 Multivitamins (Theragram-M) 1 tab QAM PO 11/12/16 09:00 12/12/16 08:59 11/17/16 08:35 Omeprazole (PriLOSEC) 20 mg DAILY PO 11/01/16 09:00 12/01/16 08:59 11/17/16 08:35 Ondansetron HCl (Zofran) 4 mg Q8HP PRN PO NAUSEA OR VOMITING 11/10/16 16:45 12/10/16 16:44 11/16/16 21:04 Polyethylene Glycol (Miralax) 1 pkt BID PO 11/01/16 09:00 12/01/16 08:59 11/17/16 08:35 Quetiapine Fumarate (SEROquel) 25 mg TID@08,,18 PO 11/01/16 08:00 11/01/16 09:27 DC Quetiapine Fumarate (SEROquel) 25 mg TID@08,,18 PO 11/01/16 09:27 11/01/16 12:23 DC Quetiapine Fumarate (SEROquel) 25 mg TID@08,,18 PO 11/01/16 13:00 11/09/16 09:24 DC 11/08/16 08:29 Quetiapine Fumarate (SEROquel) 100 mg QHS PO 11/01/16 21:00 11/02/16 09:25 DC 11/01/16 20:42 Quetiapine Fumarate (SEROquel) 100 mg QHSP PRN PO INSOMNIA 11/01/16 09:45 11/16/16 09:33 DC 11/11/16 02:01 Quetiapine Fumarate (SEROquel) 150 mg QHS PO 11/02/16 21:00 11/03/16 08:48 DC 11/02/16 20:45 Quetiapine Fumarate (SEROquel) 150 mg QHS PO 11/05/16 21:00 11/16/16 09:33 DC 11/15/16 21:29 Quetiapine Fumarate (SEROquel) 200 mg QHS PO 11/05/16 21:00 11/16/16 09:33 DC 11/15/16 21:29 Quetiapine Fumarate (SEROquel) 250 mg QHS PO 11/03/16 21:00 11/05/16 09:28 DC 11/04/16 20:36 Quetiapine Fumarate (SEROquel) 400 mg QHS PO 11/16/16 21:00 12/16/16 20:59 11/16/16 21:04 Rosuvastatin Calcium (Crestor) 5 mg QHS PO 10/31/16 21:00 11/04/16 13:32 DC 11/03/16 21:19 Sertraline HCl (Zoloft) 25 mg QHS PO 11/03/16 21:00 11/04/16 09:21 DC 11/03/16 21:31 Sertraline HCl (Zoloft) 50 mg QAM PO 11/04/16 09:00 11/05/16 09:28 DC 11/05/16 08:16 Sodium Chloride ([place] Nasal [place]) 2 spray Q2HP PRN NA NASAL DRYNESS 11/03/16 08:30 12/03/16 08:29 11/15/16 21:31 Zolpidem Tartrate (Ambien) 5 mg QHSP PRN PO INSOMNIA 11/16/16 09:30 11/17/16 09:15 DC 11/16/16 21:04 Zolpidem Tartrate (Ambien) 10 mg QHSP PRN PO INSOMNIA 10/31/16 19:15 11/16/16 09:33 DC 11/15/16 21:29 Allergies Coded Allergies: Acetaminophen (Unverified Allergy, Unknown, ELEVATES LIVER ENZYMES, ) Cetirizine (Unverified Allergy, Unknown, UNKNOWN, 10/31/16) Haloperidol (Unverified Allergy, Unknown, UNKNOWN, 10/31/16) Ibuprofen (Unverified Allergy, Unknown, ELEVATES LIVER ENZYMES, 10/31/16) [place] (Unverified Allergy, Unknown, SPEECH IS SLURRED, 10/31/16) Ondansetron (Unverified Allergy, Unknown, N/V, 10/31/16) Risperidone (Unverified Allergy, Unknown, UNKNOWN, 10/31/16) Trazodone (Unverified Allergy, Unknown, HYPERTENSION, 10/31/16) GME ATTESTATION GME ATTESTATION My preceptor for this patient encounter was Dr. Ferrell, he was physically present in the building during the encounter and was fully available. As needed , all aspects of the patient interview, examination, medical decision making process, and medical care plan development were reviewed and approved by the preceptor. Preceptor is aware and concurs with the plan as stated in the body of this note and will attest to such by his cosignature. JADE MILLER Nov 17, 2016 15:23
[2016-11-17] MEDS: SODIUM CHLORIDE NASAL 0.65% SPRAY BTL (OCEAN) PRN ×2 (15:59→21:16)
[2016-11-17] MEDS: MAALOX 30 ML SUSP *UDC PO PRN (18:28)
[2016-11-17] MEDS: QUEtiapine FUMARATE 200 MG TAB PO SCH (21:15)
[2016-11-17] MEDS: clonazePAM 1 MG TAB PO SCH (21:15)
[2016-11-17] MEDS: ONDANSETRON 4 MG TAB (S0181) PO PRN (21:15)
[2016-11-17 22:06] VITALS: BP 111/61
[2016-11-18 06:53] VITALS: BP 104/53
[2016-11-18] MEDS: OMEPRAZOLE 20 MG CAP PO SCH (08:31)
[2016-11-18] MEDS: MIRALAX *UNIT DOSE* 17GM PACKET PO SCH ×2 (08:31→21:51)
[2016-11-18] MEDS: DOCUSATE SODIUM 100 MG CAP PO SCH ×2 (08:31→21:51)
[2016-11-18] MEDS: MULTIVITAMINS/MINERALS THERAP 1 TAB PO SCH (08:31)
[2016-11-18] MEDS: DIVALPROEX 500 MG TAB PO SCH ×2 (08:32→21:52)
[2016-11-18] MEDS: SERTRALINE HCL 25 MG TABLET PO SCH (08:32)
[2016-11-18] MEDS: ASPIRIN 81 MG ENTERIC TAB PO SCH (08:32)
[2016-11-18] MEDS: GABAPENTIN 100 MG CAP PO SCH ×3 (08:32→21:52)
--- NOTE | 2016-11-18 11:32 | IPNPDOC ---
[facility] [place] DATE OF SERVICE: 11/18/16 HISTORY: A 56-year-old female with history of bipolar disorder, admitted to her unit with very high anxiety. The patient was unable to sleep and relax. She was worried "all day", making statements such as "I cannot stand it anymore." The patient is also having multiple somatic complaints and worries about "everything " including side effects from medication. The patient lost 6 pounds in the last week. She reports that her mind "keeps racing" and "I can't function because of my depression and anxiety." VITAL SIGNS: See below. CURRENT MEDICATIONS: -Depakote 250 mg by mouth every morning -Depakote 500 mg by mouth daily at bedtime -Zoloft 25 mg by mouth every morning -Seroquel 400 mg by mouth daily at bedtime -Klonopin 1 mg by mouth daily at bedtime -Gabapentin 200 mg by mouth 3 times a day SUBJECTIVE: "I'm very tired today." OBJECTIVE: Patient continues to be anxious and worried focusing directly on her medications. She states that last night she was unable to sleep because she did not have her Ambien, and admits to laying in bed all night only dozing off in the early hours. She states "it's hard to have a conversation, hard to get going." She states she is eating well but things "taste differently". She denies any side effects to medications. She continues to attend groups. MENTAL STATUS EXAMINATION: Patient is sitting slouched over for entirety of exam. She is dressed in her home clothing. She exhibits psychomotor retardation. She is cooperative and open and is alert and oriented 3. She remains talkative at a slow rate and soft time and occasionally hesitant to respond stating "I can't get my thoughts together." She feels depressed and anxious but her affect does not correlate with her mood and is somewhat restricted. Thoughts are focused directly on medications and side effects. She is able to contract for safety at this time. Her insight improves but her judgment still remains fair. Her attention is appropriate. Her recent, remote, and immediate memory are intact. Her intellectual functioning is fair. ASSESSMENT: 1. Bipolar disorder, mixed episode 2. Insomnia MANAGEMENT PLAN: 1. Continue Seroquel 400 mg by mouth daily at bedtime 2. Continue Neurontin 200 mg by mouth 3 times a day 3. Continue Klonopin 1 mg by mouth daily at bedtime, with intense to slowly continue to decrease this over time. 4. Continue Zoloft 25 mg by mouth every morning 5. Will decrease one dose of Depakote from 500 mg by mouth every morning to 250 mg by mouth every morning 6. Continue Depakote 500 mg by mouth daily at bedtime. Prior to discharge we will repeat valproic acid levels to ensure therapeutic levels are still reached , as well as LFTs. 7. Continue management in medications in addition to individual and group therapies. Vital Signs Vital Signs Date Time Temp Pulse Resp B/P Pulse Ox O2 Delivery O2 Flow Rate FiO2 11/18/16 06:53 97.2 98 18 104/53 Current Medications Current Medications Al Hydrox/Mg Hydrox/Simethicone (Mylanta) 30 ml Q4HP PRN PO HEARTBURN/ INDIGESTION Last administered on 11/17/16 18:28; Start 10/31/16 at 19:15; Stop 11/30/16 at 19:14 Aspirin (Ecotrin) 81 mg DAILY PO Last administered on 11/18/16 08:32; Start at 09:00; Stop 12/01/16 at 08:59 Clonazepam (KlonoPIN) 0.5 mg DAILY@13 PO Last administered on 11/03/16 12:43; Start 11/02/16 at 13:00; Stop 11/04/16 at 09:18; Status DC Clonazepam (KlonoPIN) 0.5 mg QAM PO Last administered on 11/17/16 08:35; Start 11/10/16 at 09:00; Stop 11/17/16 at 09:15; Status DC Clonazepam (KlonoPIN) 1 mg BID PO Last administered on 11/09/16 08:05; Start 11/02/16 at 21:00; Stop 11/09/16 at 09:24; Status DC Clonazepam (KlonoPIN) 1 mg QHS PO Last administered on 11/17/16 21:15; Start at 21:00; Stop 11/22/16 at 20:59 Clonazepam (KlonoPIN) 1 mg TID PO Last administered on 11/02/16 08:29; Start 10/31/16 at 21:00; Stop 11/02/16 at 09:41; Status DC Divalproex Sodium (Depakote) 250 mg QAM PO ; Start 11/19/16 at 09:00; Stop at 08:59 Divalproex Sodium (Depakote) 500 mg BID PO Last administered on 11/18/16 08:32 ; Start 11/11/16 at 09:00; Stop 11/18/16 at 10:11; Status DC Divalproex Sodium (Depakote) 500 mg QHS PO ; Start 11/18/16 at 21:00; Stop at 20:59 Docusate Sodium (Colace) 100 mg BID PO Last administered on 11/18/16 08:31; Start 10/31/16 at 21:00; Stop 11/30/16 at 20:59 Docusate Sodium (Colace) 100 mg BID PO ; Start 11/01/16 at 21:00; Stop 12/01/16 at 20:59; Status UNV Gabapentin (Neurontin) 200 mg TID PO Last administered on 11/18/16 08:32; Start 10/31/16 at 21:00; Stop 11/30/16 at 20:59 Home Med (Med Rec Complete!) ASDIRECTED XX ; Start 10/31/16 at 17:45; Stop at 17:51; Status DC Magnesium Hydroxide (Milk Of Magnesia) 30 ml DAILYPRN PRN PO CONSTIPATION Last administered on 11/15/16 13:50; Start 10/31/16 at 19:15; Stop 11/30/16 at 19:14 Meclizine HCl (Antivert) 25 mg TIDP PRN PO VERTIGO/DIZZINESS; Start 10/31/16 at 19:15; Stop 11/30/16 at 19:14 Multivitamins (Theragram-M) 1 tab QAM PO Last administered on 11/18/16 08:31; Start 11/12/16 at 09:00; Stop 12/12/16 at 08:59 Omeprazole (PriLOSEC) 20 mg DAILY PO Last administered on 11/18/16 08:31; Start 11/01/16 at 09:00; Stop 12/01/16 at 08:59 Ondansetron HCl (Zofran) 4 mg Q8HP PRN PO NAUSEA OR VOMITING Last administered on 11/17/16 21:15; Start 11/10/16 at 16:45; Stop 12/10/16 at 16:44 Polyethylene Glycol (Miralax) 1 pkt BID PO Last administered on 11/18/16 08:31 ; Start 11/01/16 at 09:00; Stop 12/01/16 at 08:59 Quetiapine Fumarate (SEROquel) 25 mg TID@08,13,18 PO ; Start 11/01/16 at 08:00; Stop 11/01/16 at 09:27; Status DC Quetiapine Fumarate (SEROquel) 25 mg TID@08,13,18 PO ; Start 11/01/16 at 09:27; Stop 11/01/16 at 12:23; Status DC Quetiapine Fumarate (SEROquel) 25 mg TID@08,13,18 PO Last administered on 08:29; Start 11/01/16 at 13:00; Stop 11/09/16 at 09:24; Status DC Quetiapine Fumarate (SEROquel) 100 mg QHS PO Last administered on 11/01/16 20: 42; Start 11/01/16 at 21:00; Stop 11/02/16 at 09:25; Status DC Quetiapine Fumarate (SEROquel) 100 mg QHSP PRN PO INSOMNIA Last administered on 11/11/16 02:01; Start 11/01/16 at 09:45; Stop 11/16/16 at 09:33; Status DC Quetiapine Fumarate (SEROquel) 150 mg QHS PO Last administered on 11/02/16 20: 45; Start 11/02/16 at 21:00; Stop 11/03/16 at 08:48; Status DC Quetiapine Fumarate (SEROquel) 150 mg QHS PO Last administered on 11/15/16 21: 29; Start 11/05/16 at 21:00; Stop 11/16/16 at 09:33; Status DC Quetiapine Fumarate (SEROquel) 200 mg QHS PO Last administered on 11/15/16 21: 29; Start 11/05/16 at 21:00; Stop 11/16/16 at 09:33; Status DC Quetiapine Fumarate (SEROquel) 250 mg QHS PO Last administered on 11/04/16 20: 36; Start 11/03/16 at 21:00; Stop 11/05/16 at 09:28; Status DC Quetiapine Fumarate (SEROquel) 400 mg QHS PO Last administered on 11/17/16 21: 15; Start 11/16/16 at 21:00; Stop 12/16/16 at 20:59 Rosuvastatin Calcium (Crestor) 5 mg QHS PO Last administered on 11/03/16 21:19 ; Start 10/31/16 at 21:00; Stop 11/04/16 at 13:32; Status DC Sertraline HCl (Zoloft) 25 mg QAM PO Last administered on 11/18/16 08:32; Start 11/18/16 at 09:00; Stop 12/18/16 at 08:59 Sertraline HCl (Zoloft) 25 mg QHS PO Last administered on 11/03/16 21:31; Start 11/03/16 at 21:00; Stop 11/04/16 at 09:21; Status DC Sertraline HCl (Zoloft) 50 mg QAM PO Last administered on 11/05/16 08:16; Start 11/04/16 at 09:00; Stop 11/05/16 at 09:28; Status DC Sodium Chloride ([place] Nasal [place]) 2 spray Q2HP PRN NA NASAL DRYNESS Last administered on 11/17/16 21:16; Start 11/03/16 at 08:30; Stop 12/03/16 at 08:29 Zolpidem Tartrate (Ambien) 5 mg QHSP PRN PO INSOMNIA Last administered on 21:04; Start 11/16/16 at 09:30; Stop 11/17/16 at 09:15; Status DC Zolpidem Tartrate (Ambien) 10 mg QHSP PRN PO INSOMNIA Last administered on 21:29; Start 10/31/16 at 19:15; Stop 11/16/16 at 09:33; Status DC Allergies Coded Allergies: Acetaminophen (Unverified Allergy, Unknown, ELEVATES LIVER ENZYMES, ) Cetirizine (Unverified Allergy, Unknown, UNKNOWN, 10/31/16) Haloperidol (Unverified Allergy, Unknown, UNKNOWN, 10/31/16) Ibuprofen (Unverified Allergy, Unknown, ELEVATES LIVER ENZYMES, 10/31/16) [place] (Unverified Allergy, Unknown, SPEECH IS SLURRED, 10/31/16) Ondansetron (Unverified Allergy, Unknown, N/V, 10/31/16) Risperidone (Unverified Allergy, Unknown, UNKNOWN, 10/31/16) Trazodone (Unverified Allergy, Unknown, HYPERTENSION, 10/31/16) GME ATTESTATION GME ATTESTATION My preceptor for this patient encounter was Dr. Ferrell, he was physically present in the building during the encounter and was fully available. As needed , all aspects of the patient interview, examination, medical decision making process, and medical care plan development were reviewed and approved by the preceptor. Preceptor is aware and concurs with the plan as stated in the body of this note and will attest to such by his cosignature. JADE MILLER Nov 18, 2016 11:32
[2016-11-18] MEDS: MAALOX 30 ML SUSP *UDC PO PRN ×2 (14:27→20:08)
[2016-11-18 18:28] VITALS: BP 124/82
[2016-11-18] MEDS: clonazePAM 1 MG TAB PO SCH (21:51)
[2016-11-18] MEDS: ONDANSETRON 4 MG TAB (S0181) PO PRN (21:51)
[2016-11-18] MEDS: QUEtiapine FUMARATE 200 MG TAB PO SCH (21:52)
[2016-11-19 07:32] VITALS: BP 125/75
[2016-11-19] MEDS: MIRALAX *UNIT DOSE* 17GM PACKET PO SCH ×2 (08:25→21:32)
[2016-11-19] MEDS: SERTRALINE HCL 25 MG TABLET PO SCH (08:26)
[2016-11-19] MEDS: OMEPRAZOLE 20 MG CAP PO SCH (08:26)
[2016-11-19] MEDS: DIVALPROEX 250 MG TAB PO SCH (08:26)
[2016-11-19] MEDS: GABAPENTIN 100 MG CAP PO SCH ×3 (08:26→21:33)
[2016-11-19] MEDS: MULTIVITAMINS/MINERALS THERAP 1 TAB PO SCH (08:26)
[2016-11-19] MEDS: ASPIRIN 81 MG ENTERIC TAB PO SCH (08:26)
[2016-11-19] MEDS: DOCUSATE SODIUM 100 MG CAP PO SCH ×2 (08:26→21:33)
--- NOTE | 2016-11-19 11:00 | IPNPDOC ---
[facility] Progress Note Progress Note DATE OF SERVICE: 11/19/16 HISTORY: A 56-year-old female with history of bipolar disorder, admitted to her unit with very high anxiety. The patient was unable to sleep and relax. She was worried "all day", making statements such as "I cannot stand it anymore." The patient is also having multiple somatic complaints and worries about "everything " including side effects from medication. The patient lost 6 pounds in the last week. She reports that her mind "keeps racing" and "I can't function because of my depression and anxiety." VITAL SIGNS: See below. CURRENT MEDICATIONS: - Depakote 250 mg by mouth every morning - Depakote 500 mg by mouth daily at bedtime - Zoloft 25 mg by mouth every morning - Seroquel 400 mg by mouth daily at bedtime - Klonopin 1 mg by mouth daily at bedtime - Gabapentin 200 mg by mouth 3 times a day - Ambien 5 mg by mouth daily at bedtime SUBJECTIVE: "I'm tired and just want to go home." OBJECTIVE: Patient states that last night she was unable to sleep due to not having her Ambien, she states she was awake waiting to staff doing rounds. She continues to acknowledge that she is improving, but is continuing to focus directly on medications and side effects. She states that she is eating well. She denies any side effects to medications. She continues to attend groups. MENTAL STATUS EXAMINATION: Patient is dressed in a clothing and is well- groomed. She sits for the entirety of the interview. She displays mild psychomotor activity retardation, and maintains good eye contact. She is cooperative and open, alert and oriented 3. She continues to speak at a slow rate and soft tone. She states her mood is mildly depressed, mostly tired, her affect is appropriate for her mood. She continues to have linear and goal- directed thought processes. She denies hallucinations or delusions. She is able to contract for safety on the unit. Insight and judgment remained fair. Attention is appropriate. Her recent, remote, and immediate memory are intact. Intellectual function remains fair. ASSESSMENT: 1. Bipolar disorder, mixed episode 2. Insomnia MANAGEMENT PLAN: 1. Continue Depakote 200 mg by mouth every morning and Depakote 500 mg by mouth daily at bedtime. 2. Continue Zoloft 25 mg by mouth every morning. 3. Continue Seroquel 400 mg by mouth daily at bedtime. 4. Continue Klonopin 1 mg by mouth daily at bedtime, with intents to continue to decrease dosage over time slowly. 5. Continue gabapentin milligrams by mouth 3 times a day. 6. Start Ambien 5 mg by mouth daily at bedtime. 7. Continue medical management and individual and group therapies. Vital Signs Vital Signs Date Time Temp Pulse Resp B/P Pulse Ox O2 Delivery O2 Flow Rate FiO2 11/19/16 07:32 98.2 91 20 125/75 Current Medications Current Medications Al Hydrox/Mg Hydrox/Simethicone (Mylanta) 30 ml Q4HP PRN PO HEARTBURN/ INDIGESTION Last administered on 11/18/16 20:08; Start 10/31/16 at 19:15; Stop 11/30/16 at 19:14 Aspirin (Ecotrin) 81 mg DAILY PO Last administered on 11/19/16 08:26; Start at 09:00; Stop 12/01/16 at 08:59 Clonazepam (KlonoPIN) 0.5 mg DAILY@13 PO Last administered on 11/03/16 12:43; Start 11/02/16 at 13:00; Stop 11/04/16 at 09:18; Status DC Clonazepam (KlonoPIN) 0.5 mg QAM PO Last administered on 11/17/16 08:35; Start 11/10/16 at 09:00; Stop 11/17/16 at 09:15; Status DC Clonazepam (KlonoPIN) 1 mg BID PO Last administered on 11/09/16 08:05; Start 11/02/16 at 21:00; Stop 11/09/16 at 09:24; Status DC Clonazepam (KlonoPIN) 1 mg QHS PO Last administered on 11/18/16 21:51; Start at 21:00; Stop 11/22/16 at 20:59 Clonazepam (KlonoPIN) 1 mg TID PO Last administered on 11/02/16 08:29; Start 10/31/16 at 21:00; Stop 11/02/16 at 09:41; Status DC Divalproex Sodium (Depakote) 250 mg QAM PO Last administered on 11/19/16 08:26 ; Start 11/19/16 at 09:00; Stop 12/19/16 at 08:59 Divalproex Sodium (Depakote) 500 mg BID PO Last administered on 11/18/16 08:32 ; Start 11/11/16 at 09:00; Stop 11/18/16 at 10:11; Status DC Divalproex Sodium (Depakote) 500 mg QHS PO Last administered on 11/18/16 21:52 ; Start 11/18/16 at 21:00; Stop 12/18/16 at 20:59 Docusate Sodium (Colace) 100 mg BID PO Last administered on 11/19/16 08:26; Start 10/31/16 at 21:00; Stop 11/30/16 at 20:59 Docusate Sodium (Colace) 100 mg BID PO ; Start 11/01/16 at 21:00; Stop 12/01/16 at 20:59; Status UNV Gabapentin (Neurontin) 200 mg TID PO Last administered on 11/19/16 08:26; Start 10/31/16 at 21:00; Stop 11/30/16 at 20:59 Home Med (Med Rec Complete!) ASDIRECTED XX ; Start 10/31/16 at 17:45; Stop at 17:51; Status DC Magnesium Hydroxide (Milk Of Magnesia) 30 ml DAILYPRN PRN PO CONSTIPATION Last administered on 11/15/16 13:50; Start 10/31/16 at 19:15; Stop 11/30/16 at 19:14 Meclizine HCl (Antivert) 25 mg TIDP PRN PO VERTIGO/DIZZINESS; Start 10/31/16 at 19:15; Stop 11/30/16 at 19:14 Multivitamins (Theragram-M) 1 tab QAM PO Last administered on 11/19/16 08:26; Start 11/12/16 at 09:00; Stop 12/12/16 at 08:59 Omeprazole (PriLOSEC) 20 mg DAILY PO Last administered on 11/19/16 08:26; Start 11/01/16 at 09:00; Stop 12/01/16 at 08:59 Ondansetron HCl (Zofran) 4 mg Q8HP PRN PO NAUSEA OR VOMITING Last administered on 11/18/16 21:51; Start 11/10/16 at 16:45; Stop 12/10/16 at 16:44 Polyethylene Glycol (Miralax) 1 pkt BID PO Last administered on 11/19/16 08:25 ; Start 11/01/16 at 09:00; Stop 12/01/16 at 08:59 Quetiapine Fumarate (SEROquel) 25 mg TID@08,13,18 PO ; Start 11/01/16 at 08:00; Stop 11/01/16 at 09:27; Status DC Quetiapine Fumarate (SEROquel) 25 mg TID@08,13,18 PO ; Start 11/01/16 at 09:27; Stop 11/01/16 at 12:23; Status DC Quetiapine Fumarate (SEROquel) 25 mg TID@08,13,18 PO Last administered on 08:29; Start 11/01/16 at 13:00; Stop 11/09/16 at 09:24; Status DC Quetiapine Fumarate (SEROquel) 100 mg QHS PO Last administered on 11/01/16 20: 42; Start 11/01/16 at 21:00; Stop 11/02/16 at 09:25; Status DC Quetiapine Fumarate (SEROquel) 100 mg QHSP PRN PO INSOMNIA Last administered on 11/11/16 02:01; Start 11/01/16 at 09:45; Stop 11/16/16 at 09:33; Status DC Quetiapine Fumarate (SEROquel) 150 mg QHS PO Last administered on 11/02/16 20: 45; Start 11/02/16 at 21:00; Stop 11/03/16 at 08:48; Status DC Quetiapine Fumarate (SEROquel) 150 mg QHS PO Last administered on 11/15/16 21: 29; Start 11/05/16 at 21:00; Stop 11/16/16 at 09:33; Status DC Quetiapine Fumarate (SEROquel) 200 mg QHS PO Last administered on 11/15/16 21: 29; Start 11/05/16 at 21:00; Stop 11/16/16 at 09:33; Status DC Quetiapine Fumarate (SEROquel) 250 mg QHS PO Last administered on 11/04/16 20: 36; Start 11/03/16 at 21:00; Stop 11/05/16 at 09:28; Status DC Quetiapine Fumarate (SEROquel) 400 mg QHS PO Last administered on 11/18/16 21: 52; Start 11/16/16 at 21:00; Stop 12/16/16 at 20:59 Rosuvastatin Calcium (Crestor) 5 mg QHS PO Last administered on 11/03/16 21:19 ; Start 10/31/16 at 21:00; Stop 11/04/16 at 13:32; Status DC Sertraline HCl (Zoloft) 25 mg QAM PO Last administered on 11/19/16 08:26; Start 11/18/16 at 09:00; Stop 12/18/16 at 08:59 Sertraline HCl (Zoloft) 25 mg QHS PO Last administered on 11/03/16 21:31; Start 11/03/16 at 21:00; Stop 11/04/16 at 09:21; Status DC Sertraline HCl (Zoloft) 50 mg QAM PO Last administered on 11/05/16 08:16; Start 11/04/16 at 09:00; Stop 11/05/16 at 09:28; Status DC Sodium Chloride ([place] Nasal [place]) 2 spray Q2HP PRN NA NASAL DRYNESS Last administered on 11/17/16 21:16; Start 11/03/16 at 08:30; Stop 12/03/16 at 08:29 Zolpidem Tartrate (Ambien) 5 mg QHS PO ; Start 11/19/16 at 21:00; Stop 11/26/16 at 20:59 Zolpidem Tartrate (Ambien) 5 mg QHSP PRN PO INSOMNIA Last administered on 21:04; Start 11/16/16 at 09:30; Stop 11/17/16 at 09:15; Status DC Zolpidem Tartrate (Ambien) 10 mg QHSP PRN PO INSOMNIA Last administered on 21:29; Start 10/31/16 at 19:15; Stop 11/16/16 at 09:33; Status DC Allergies Coded Allergies: Acetaminophen (Unverified Allergy, Unknown, ELEVATES LIVER ENZYMES, ) Cetirizine (Unverified Allergy, Unknown, UNKNOWN, 10/31/16) Haloperidol (Unverified Allergy, Unknown, UNKNOWN, 10/31/16) Ibuprofen (Unverified Allergy, Unknown, ELEVATES LIVER ENZYMES, 10/31/16) [place] (Unverified Allergy, Unknown, SPEECH IS SLURRED, 10/31/16) Ondansetron (Unverified Allergy, Unknown, N/V, 10/31/16) Risperidone (Unverified Allergy, Unknown, UNKNOWN, 10/31/16) Trazodone (Unverified Allergy, Unknown, HYPERTENSION, 10/31/16) GME ATTESTATION GME ATTESTATION My preceptor for this patient encounter was Dr. Ferrell, he was physically present in the building during the encounter and was fully available. As needed , all aspects of the patient interview, examination, medical decision making process, and medical care plan development were reviewed and approved by the preceptor. Preceptor is aware and concurs with the plan as stated in the body of this note and will attest to such by his cosignature. JADE MILLER Nov 19, 2016 10:59
[2016-11-19 18:00] VITALS: BP 140/77
[2016-11-19] MEDS: MAALOX 30 ML SUSP *UDC PO PRN (18:43)
[2016-11-19] MEDS ORDERED: zolPIDEM TARTRATE 5 MG TAB PO SCH (21:00)
[2016-11-19] MEDS: DIVALPROEX 500 MG TAB PO SCH (21:33)
[2016-11-19] MEDS: clonazePAM 1 MG TAB PO SCH (21:33)
[2016-11-19] MEDS: QUEtiapine FUMARATE 200 MG TAB PO SCH (21:33)
[2016-11-20 06:43] VITALS: BP 142/79
[2016-11-20 07:05] LABS: ALBUMIN 3.3 GM/DL (3.2-5.2); ALBUMIN/GLOBULIN RATIO 1.18 (1.00-1.93); ALKALINE PHOSPHATASE 112 U/L (45-117); ALT/SGPT 30 U/L (12-78); ANION GAP 6 MEQ/L (8-16); AST/SGOT 14 U/L (15-37); BILIRUBIN,TOTAL 0.4 MG/DL (0.2-1.0); BLOOD UREA NITROGEN 17 MG/DL (7-18); CALCIUM LEVEL 8.6 MG/DL (8.5-10.1); CARBON DIOXIDE LEVEL 32 MEQ/L (21-32); CHLORIDE LEVEL 105 MEQ/L (98-107); CREATININE FOR GFR 0.68 MG/DL (0.55-1.02); GLOMERULAR FILTRATION RATE > 60.0 (>51); GLUCOSE, FASTING 87 MG/DL (70-105); POTASSIUM SERUM 4.4 MEQ/L (3.5-5.1); SODIUM LEVEL 143 MEQ/L (136-145); TOTAL PROTEIN 6.1 GM/DL (6.4-8.2)
--- NOTE | 2016-11-20 08:03 | IPNPDOC ---
Subjective General Date Seen The patient was seen on 11/20/16. Subjective Chief Complaint/HPI The patient is a 56-year-old female admitted with a reason for visit of Unspecified Depressive Disorder. Events since last encounter Patient exposed to influenza. Roommate influenza positive. Patient with no flu symptoms at this time. Patient states she previously received flu vaccine this season. ENT: Denies: Dysphagia, Ear Pain, Head Aches Pulmonary: Denies: Cough, Dyspnea Cardiovascular: Denies: Chest Pain, Lt Headedness, Orthopnea, Palpitations, Paroxysmal Noc. Dyspnea Gastrointestinal: Denies: Abdominal Pain, Constipation, Diarrhea, Nausea, Vomiting Genitourinary: Denies: Dysuria, Frequency, Incontinence, Retention Objective Physical Examination General Exam: Positive: Alert Eye Exam: Positive: PERRLA ENT Exam: Positive: Atraumatic Chest Exam: Positive: Clear to auscultation, Normal air movement Heart Exam: Positive: Normal S1, Normal S2, Rate Normal, Regular Rhythm, Negative: Murmurs, Rubs Abdomen Exam: Positive: Normal bowel sounds, Soft, Negative: Hepatospenomegaly, Tenderness Neuro Exam: Positive: Normal Gait Assessment /Plan Problems Problems: (1) Elevated LFTs Status: Acute Problem Text: * LFT trend improved. * Hepatitis profile neg. * RUQ U/S unremarkable. * LFTs are normalized with holding statin. * Have discussed this with patient. * outpt f/u PCP/GI (2) IBS (irritable bowel syndrome) Status: Chronic Problem Text: * IBD-C * Follows with GI- Dr Webber. * Pt is unable to afford Linzess. * Colace/Miralax. (3) HLD (hyperlipidemia) Status: Chronic Problem Text: * LFTs normalized off statin. * Monitor. (4) GERD (gastroesophageal reflux disease) Status: Chronic Problem Text: * PPI (5) Fibromyalgia Status: Acute Problem Text: * Gabapentin. (6) Exposure to influenza Status: Acute Problem Text: * Tamiflu 75 mg by mouth daily 7 days. * Patient has previously received flu vaccine this season as per patient. * Infection control is aware. * Patient is planning to discharge from the unit today, she is aware to report to PCP with any change in symptoms status. Plan/VTE VTE Prophylaxis Ordered?: No (ambulatory. ) VS, I&O, 24H, Fishbone Vital Signs/I&O Vital Signs Date Time Temp Pulse Resp B/P Pulse Ox O2 Delivery O2 Flow Rate FiO2 11/20/16 06:43 98.3 98 18 142/79 Laboratory Data 24H LABS Laboratory Tests 2 11/20/16 06:20: Blood Urea Nitrogen 17, Creatinine 0.68, Sodium Level 143, Potassium Level 4.4, Chloride Level 105, Carbon Dioxide Level 32, Calcium Level 8.6, Aspartate Amino Transf (AST/SGOT) 14L, Alanine Aminotransferase (ALT/SGPT) 30, Alkaline Phosphatase 112, Total Bilirubin 0.4, Total Protein 6.1L, Albumin 3.3, Albumin/ Globulin Ratio 1.18, Anion Gap 6L, Glomerular Filtration Rate > 60.0, Valproic Acid (Depakene) Level 104.7H CBC/BMP Laboratory Tests 11/20/16 06:20 Calcium Level 8.6, Aspartate Amino Transf (AST/SGOT) 14 L, Alanine Aminotransferase (ALT/SGPT) 30, Alkaline Phosphatase 112, Total Bilirubin 0.4, Total Protein 6.1 L, Albumin 3.3 Love Munoz Nov 20, 2016 08:03
[2016-11-20] MEDS ORDERED: OSEL75CA PO (08:31)
[2016-11-20] MEDS: ASPIRIN 81 MG ENTERIC TAB PO SCH (08:41)
[2016-11-20] MEDS: DIVALPROEX 250 MG TAB PO SCH (08:41)
[2016-11-20] MEDS: OMEPRAZOLE 20 MG CAP PO SCH (08:41)
[2016-11-20] MEDS: MULTIVITAMINS/MINERALS THERAP 1 TAB PO SCH (08:41)
[2016-11-20] MEDS: DOCUSATE SODIUM 100 MG CAP PO SCH (08:41)
[2016-11-20] MEDS: GABAPENTIN 100 MG CAP PO SCH (08:41)
[2016-11-20] MEDS: MIRALAX *UNIT DOSE* 17GM PACKET PO SCH (08:42)
[2016-11-20] MEDS: SERTRALINE HCL 25 MG TABLET PO SCH (08:42)
[2016-11-20] MEDS ORDERED: OSELTAMIVIR PHOSPHATE 75 MG CAP (TAMIFLU) PO SCH (09:00)
[2016-11-20] MEDS ORDERED: AMBI5TAB PO (10:50)
[2016-11-20] MEDS ORDERED: CLON1TAB PO (10:50)
[2016-11-20] MEDS ORDERED: SERT25TA85 PO (10:50)
[2016-11-20] MEDS ORDERED: QUET1TAB9 PO (10:50)
[2016-11-20] MEDS ORDERED: GABA-279 PO (10:50)
[2016-11-20] MEDS ORDERED: DEPA250T32 PO (10:50)
[2016-11-20] MEDS ORDERED: COLA100C PO (11:21)
[2016-11-20] MEDS ORDERED: MIRA33504 PO (11:21)
[2016-11-20] MEDS ORDERED: OCEA0.654 (11:27)
[2016-11-20] MEDS ORDERED: DEPA1TAB3 PO (11:55)
[2016-11-20] MEDS ORDERED: MULT1TAB10 PO (11:59)
--- NOTE | 2016-11-20 20:10 | DSES ---
DATE OF ADMISSION: 10/31/2016 DATE OF DISCHARGE: 11/20/2016 LEGAL STATUS AT ADMISSION: 939 legal status. HISTORY OF PRESENT ILLNESS: This is a 56-year-old female with history of bipolar disorder admitted to our unit on a 939 legal status. According to the chart, the patient came into the emergency room two days in a row complaining of very high anxiety and being unable to sleep. The patient was seen the previous day and was sent home with the recommendations to followup with her outpatient psychiatrist. However, her psychiatric status worsened in 24 hours and returned stating, "I feel worse, more anxious, and feeling I'm going to ." The patient says that she has not been able to function, sleep, relax, and has been worried 03/05, and "I cannot stand it anymore." The patient has multiple somatic complaints and is worried about every single little thing. The patient says that she lost six pounds over the last weeks, says "my mind keeps racing and I can't function because of my depression and anxiety." There was no evidence of psychotic symptoms. No auditory or visual hallucinations or delusions. The patient has one admission in our unit in 2004. Said that her outpatient psychiatrist told her she does not have bipolar disorder, but her diagnosis is cyclothymia, and two weeks ago was taken off Geodon and Zoloft. She said that the Geodon/Zoloft was making her to be "jittery inside." She continued to take Klonopin 3 mg a day and gabapentin 200 mg three times a day, but she admitted that she was not doing well. She was afraid that she could get "so bad" and she could harm herself. LABORATORIES ON ADMISSION: Her CBC was within normal limits. Her CMP showed an AST of 38, ALT of 111, alkaline phosphatase 186. The patient had a followup from the liver function test, and on 11/05, AST was 27 and ALT of 96, alkaline phosphatase 214, and then after that, her liver function test normalized. On 11/20/2016, before discharge, her AST is 14, ALT 30, alkaline phosphatase of 112 in the context of taking Depakote and Seroquel. HOSPITAL COURSE: The patient was admitted and after the first interview, given the fact that her symptoms were compatible with a mixed episode in which she felt depressed but at the same time, her mind was racing, was very anxious, preoccupied, ruminative, and was unable to sleep more than 1-2 hours a night. She was started on a low dosage of Seroquel that was increased very slowly and progressively. The patient was very worried about the side effects of the medication. She was afraid, somatizing, and that was contributory to her insomnia. So the dosage of Seroquel was slowly increased up to 400 mg a day. Ambien had to be added to the combination of medications because of her severe insomnia. I told the patient that I prefer to use Ambien only for a short period of time. With Seroquel, the patient was able to sleep a little better, but she continued highly anxious, worried, preoccupied for little details, going in circles, being very circumstantial and preoccupied, so she was started on a low dosage of Depakote that was slowly increased up to 500 mg twice a day. Her valproic level was 104, and Depakote was decreased to 250 mg by mouth every morning and 500 mg by mouth at bedtime. Her vital signs and labs including liver function tests were improving from admission and there were no side effects from the medication. However, she continued to worry. By 11/18, we discussed the treatment plan, and the patient was agreeable to be discharged with the current medications and continue the treatment. At that time, she had significantly improved from admission, although she was not at baseline yet, but at this point, the criteria for inpatient hospitalization was no longer valid, so we decided to discharge the patient on 11/20/2016. At this point, the patient is still worried about if she is going to get better or if the medication is going to give her side effects, but again, when I offered to change to other medications, she worries about the others too. At the moment of discharge, the patient does not have auditory or visual hallucinations or delusions. The patient does not have suicidal or homicidal ideations. A meeting with the patient, her , and the process planner was done the day of discharge. The reported that the patient is significantly better than at admission. She said at the day of discharge that she thought that she needed to stay longer in the hospital and that she was afraid that Seroquel was going to give her problems and that she needed to be taken off. After the meeting, the patient was somewhat calmer, and the patient was discharged home. MEDICATIONS AT DISCHARGE: - Depakote 250 mg by mouth every morning and 500 mg by mouth at bedtime - sertraline 25 mg by mouth every morning - Seroquel 400 mg by mouth at bedtime - Klonopin 1 mg by mouth at bedtime that needs to continue to be tapered very slowly and in the context of her improvement; the patient was on 3 mg when she was admitted, and 2 mg have been tapered off slowly - Ambien also needs to be discontinued as soon as the patient is able to sleep better - the patient continues to take gabapentin 200 mg by mouth three times a day, but now in the context of using Depakote, probably this medication can be tapered and discontinued in the outpatient setting MENTAL STATUS EXAMINATION AT DISCHARGE: The patient is dressed in casual clothes. The patient is anxious and afraid of the medications and preoccupied, but also significantly improved from admission. Speech is clear and coherent. Circumstantial. Has fair eye contact. Mood is as above, anxious and depressed, but significantly improved from admission. Affect is congruent with mood. The patient is oriented to time, place, person, and situation. Attention and concentration are impaired by her high anxiety. The patient does not have auditory or visual hallucinations. The patient does not have paranoid, persecutory, somatic, grandiose, or jew delusions. The patient is denying suicidal or homicidal ideations. Judgment is fair. Insight is limited. DISCHARGE DIAGNOSES: AXIS I: Bipolar disorder, mixed episode, marijuana abuse. AXIS II: Deferred. AXIS III: Gastroesophageal reflux disease (GERD). INSTRUCTIONS TO THE PATIENT: The patient is to continue taking her medications as prescribed and followup appointments. The patient is advised to maintain absolute sobriety from drugs and alcohol. The patient has scheduled appointment for medication management, individual psychotherapy and primary care physician.
== END 2016-11-20 12:45 | disposition home or self-care (01) | DRG 885 ==
LOC: M ED 12:44 → M PSY 17:47
PROVIDERS: ADMIT Psychiatry & Neurology Psychiatry; ATTEND Psychiatry & Neurology Psychiatry
DX: F31.60 Bipolar disorder, current episode mixed, unspecified (principal); K21.9 Gastro-esophageal reflux disease without esophagitis; Z79.899 Other long term (current) drug therapy; Z79.82 Long term (current) use of aspirin; G47.33 Obstructive sleep apnea (adult) (pediatric); E78.00 Pure hypercholesterolemia, unspecified; M79.7 Fibromyalgia; K58.8 Other irritable bowel syndrome; E78.5 Hyperlipidemia, unspecified; R74.0 Nonspecific elevation of levels of transaminase and lactic acid dehydrogenase [LDH]

== ENCOUNTER 2016-11-26 13:52 | Emergency (ER) | payer MEDICARE ==
[~2016-11-26 13:52] MED LIST: AMBI5TAB PO; ASPI1TAB PO; CLON1TAB PO; COLA100C PO; CRES5TAB PO; DEPA1TAB3 PO; DEPA250T32 PO; GABA-279 PO; LINZ290C PO; MECL-68 PO; MIRA33504 PO; MULT1TAB10 PO; OCEA0.654; OMEP20CA3 PO; OSEL75CA PO; QUET1TAB9 PO; SERT25TA85 PO
[2016-11-26 15:02] LABS: MEAN CORPUSCULAR HEMOGLOBIN 32.2 pg (27.0-33.0); MEAN CORPUSCULAR HGB CONC 34.1 g/dl (32.0-36.5); MEAN CORPUSCULAR VOLUME 94.2 fl (80.0-96.0); RED CELL DISTRIBUTION WIDTH 11.7 % (11.5-14.5); WHITE BLOOD COUNT 5.8 K/mm3 (4.0-10.0)
[2016-11-26 15:20] LABS: AMPHETAMINES LEVEL URINE NEGATIVE (NEGATIVE); BENZODIAZEPINES URINE NEGATIVE (NEGATIVE); COCAINE METABOLITE URINE NEGATIVE (NEGATIVE); CONTROL LINE INT CTR LINE PRESENT; METHADONE URINE NEGATIVE (NEGATIVE); OPIATES URINE NEGATIVE (NEGATIVE); TRICYCLIC ANTIDEPRESS URINE NEGATIVE (NEGATIVE)
[2016-11-26 15:30] LABS: ALBUMIN 3.7 GM/DL (3.2-5.2); ALBUMIN/GLOBULIN RATIO 1.28 (1.00-1.93); ALKALINE PHOSPHATASE 114 U/L (45-117); ALT/SGPT 39 U/L (12-78); ANION GAP 9 MEQ/L (8-16); AST/SGOT 21 U/L (15-37); BILIRUBIN,DIRECT < 0.1 MG/DL (0.0-0.2); BILIRUBIN,TOTAL 0.2 MG/DL (0.2-1.0); BLOOD UREA NITROGEN 14 MG/DL (7-18); CALCIUM LEVEL 8.8 MG/DL (8.5-10.1); CARBON DIOXIDE LEVEL 28 MEQ/L (21-32); CHLORIDE LEVEL 106 MEQ/L (98-107); CREATININE FOR GFR 0.62 MG/DL (0.55-1.02); GLOMERULAR FILTRATION RATE > 60.0 (>51); GLUCOSE, FASTING 109 MG/DL (70-105); POTASSIUM SERUM 4.4 MEQ/L (3.5-5.1); SODIUM LEVEL 143 MEQ/L (136-145); TOTAL PROTEIN 6.6 GM/DL (6.4-8.2)
--- NOTE | 2016-11-26 19:05 | EDDOCDS ---
Physician Documentation [facility] Name: Keshia Merrill Age: 56 yrs Sex: Female : 1960 Arrival Date: 11/26/2016 Time: 13:[address] MD: Suraj Neff D Disposition: 11/26 16:41 Critical Care: Critical care not applicable. pc Disposition: 11/26/16 16:42 Discharged to Home/Self Care. Impression: Bipolar disorder, current episode depressed, mild. - Condition is Stable. - Discharge Instructions: Bipolar Disorder. - Medication Reconciliation, Local Pharmacy Hours form. - Follow up: [facility]; When: As previously arranged; Reason: Continuance of care. - Problem is chronic. - Symptoms are unchanged. HPI: 14:51 This 56 yrs old Female presents to ER via Walkin/Carried/Asstd with pc complaints of Depression. 14:51 The history is obtained from the patient. The patient presents to the emergency pc department with depression. She is 8 days s/p discharge from [facility]. She has been seen by her therapist and says she does not feel that she was better when she left the unit and wants readmission. 14:58 The patient has experienced similar episodes in the past, chronically. pc Historical: - Allergies: Haldol (Unknown); Ibuprofen (liver enzyme incrased); [place] Carbonate (dementia); Risperdal (Unknown); Trazodone (palpitation); tylenol (can not take due to liver enzyme); Zofran (Vomit); Zyrtec (Unknown); - Home Meds: 1. aspirin 81 mg Oral tab 1 tab once daily 2. clonazepam 1 mg Oral TbDL 1 tab nightly 3. meclizine 12.5 mg Oral tab 2 tabs as needed 4. Prilosec 20 mg Oral cpDR 1 cap once daily 5. Linzess oral Unknown once daily 6. Depakote 500 mg Oral TbEC nightly 7. Ambien 5 mg Oral tab nightly 8. Tamiflu 75 mg Oral cap once daily 9. Zoloft 25 mg Oral tab 1 tab once daily 10. gabapentin 100 mg Oral cap 2 caps 3 times per day 11. Seroquel 400 mg Oral tab nightly 12. Miralax 17 gram Oral pwpk twice a day 13. Colace 100 mg oral cap 1 cap once daily 14. Multivitamin Oral 1 tablet daily 15. Depakote 250 mg Oral TbEC 1 tab once daily 16. sodium chloide nasal spray 2 sprays nasally every 2 hours as needed - PMHx: Anxiety; Bipolar disorder; GERD; - PSHx: Cholecystectomy; small intestine reconstruction; L toe surgery; - The history from nurses notes was reviewed: and I agree with what is documented. - Social history: Smoking status: Patient states was never smoker of tobacco. No barriers to communication noted, The patient speaks fluent Tajik. - : The pt / caregiver states he / she is not on anticoagulants. Home medication list is obtained from the patient. - Exposure Risk Screening:: None identified. - Immunization history:: All immunizations up-to-date. - Family history: Not pertinent. - Social history:: the patient is a non-smoker, the patient does not drink alcohol. ROS: 14:58 All systems are negative except as listed. The psychiatric and neurological components pc are also addressed in the HPI. Exam: 14:58 General Appearance: alert, no acute distress. pc 14:58 ENT: ear, nose and throat normal, pharynx normal. 14:58 Eyes: pupils equal, round and reactive to light, extraocular motions intact. 14:58 Neck: The exam reveals no acute abnormalities. ROM is normal and painless. No nuchal rigidity is noted.. 14:58 Respiratory: breathing is even and unlabored, breath sounds are normal. 14:58 Cardiovascular: regular pulse rate, regular heart rhythm, normal heart sounds, equal and full pulses bilaterally. 14:58 Abdomen: soft, non-tender, no organomegaly, normal bowel sounds. 14:58 Skin: skin color is normal, warm, dry. 14:58 Extremities: The extremities have a grossly normal appearance, are non-tender, without acute ROM abnormalities. 14:58 Neuro: alert, oriented to person, place and time, cranial nerves normal as tested, no motor deficits, no sensory deficits. 14:58 Psych: mood is normal, affect is appropriate. Vital Signs: 13:56 BP 155 / 89 LA Sitting (auto/reg); Pulse 90; Resp 18; Temp 97.5(O); Pulse Ox 99% on bnb R/A; Weight 47.63 kg / 105.01 lbs (R); Height 5 ft. 1 in. (154.94 cm); Pain 0/10; 18:55 BP 154 / 90; Pulse 82; Resp 19; Temp 97.5; Pulse Ox 97% on R/A; Pain 0/10; kcs 13:56 Body Mass Index 19.84 (47.63 kg, 154.94 cm) bnb MDM: 14:14 Consult PFS/PSA/Multimedia Editor: Patient's case requires discussion with on-call pc Psychiatrist ordered. 14:14 PSA/PFS to call Nursing Network Operations Project Manager, to enter patient data on [place] Safe [place] if patient pc involuntarily admitted or transferred for SI or HI ordered. 14:14 Confirm accurate psychiatric medication list and times of last dosage ordered. pc 14:14 Detain Pt Until Medically/PFS Cleared ordered. pc 14:15 Acetaminophen Level Ordered. EDMS 14:15 Basic Metabolic Profile Ordered. EDMS 14:15 Complete Blood Count Ordered. EDMS 14:15 Drug Eval Toxicology ED Only Ordered. EDMS 14:15 Ethyl Alcohol (ethanol) Ordered. EDMS 14:15 Liver Profile Ordered. EDMS 14:15 Salicylate Level Ordered. EDMS 14:15 Thyroid Stimulating Hormone Ordered. EDMS 14:15 DEPAKOTE Ordered. EDMS 14:58 Differential diagnosis: depression. Plan: labs, PFS eval. pc 15:42 Acetaminophen Level Reviewed. pc 15:42 Basic Metabolic Profile Reviewed. pc 15:42 Complete Blood Count Reviewed. pc 15:42 Salicylate Level Reviewed. pc 15:42 Drug Eval Toxicology ED Only Reviewed. pc 15:42 Ethyl Alcohol (ethanol) Reviewed. pc 15:42 Liver Profile Reviewed. pc 15:42 Thyroid Stimulating Hormone Reviewed. pc 15:42 DEPAKOTE Reviewed. pc 16:23 REGULAR DIET PLASTIC SUERO+DIET ordered. EDMS 16:41 The patient has been medically cleared for psychiatric evaluation, admission and/or pc transfer. [place]: Reporting to the [place] was not completed because the patient did not display any suicidal or homicidal ideation and was not considered a risk to self or others. Data reviewed: old medical records, vital signs, nurses notes, lab test results. Test interpretation: LAB - all labs as ordered have been reviewed, interpreted and considered in the overall management of the clinical presentation;. The patient has been re-examined and re-evaluated. The clinical presentation did not require any ED treatment or interventions. Other consultation: The ED insulation worker was notified and will evaluate the patient. 16:41 Disposition: The historical points, examination findings, and any diagnostic results pc supporting the provided diagnosis, were discussed with the patient or legal guardian. The need for outpatient follow up with the provider listed on their discharge instructions was discussed. They were encouraged to return to [facility], or the nearest ED, if symptoms worsen/persist, or for any other questions/concerns. 17:11 Financial registration complete. zo 17:19 Consult PFS/PSA/Multimedia Editor: Patient's case requires discussion with on-call ca Psychiatrist complete. 17:20 PSA/PFS to call Nursing Network Operations Project Manager, to enter patient data [place] if patient ca involuntarily admitted or transferred for SI or HI complete. 17:51 [facility] Payment Agreement was scanned into [employer] and attached to record. zo Signatures: Dispatcher [employer] EDMS Jerod Adames MD MD pc Sleeman, Kacey, RN RN kcs Bee Villanueva PSA PSA Mira Saleh Rosemary,RN RN rs3 The chart was reviewed and I authenticate all verbal orders and agree with the evaluation and treatment provided.Corrections: (The following items were deleted from the chart) 14:57 14:05 Home Meds: gabapentin 100 mg Oral cap 2 caps twice a day; rs3 kcs 14:57 14:06 Home Meds: Depakene 250 mg Oral cap daily; rs3 kcs 14:57 14:07 Home Meds: Seroquel 400 mg Oral tab once daily; rs3 [facility] 14:57 14:07 Home Meds: Miralax 17 gram Oral pwpk once daily; 3 [facility] 14:58 14:51 She is 8 days s/p discharge from [facility]. She has been seen by her therapist and pc says she does not feel that she was better when she left [facility] and wants readmission. pc Attachments: 17:51 [facility] Payment Agreement zo MTDD
--- NOTE | 2016-11-26 19:05 | EDDOCDS ---
Nurse's Notes [facility] Name: Keshia Merrill Age: 56 yrs Sex: Female : 1960 Arrival Date: 11/26/2016 Time: 13:[address] MD: Suraj Neff D Diagnosis: Bipolar disorder, current episode depressed, mild Presentation: 11/26 14:00 Presenting complaint: Patient states: Was recently admitting in Mental health for rs3 depression. discharge home on Nov 20. still not sleeping/unable to focus, racing thoughts. Mental Health Triage Level: Level 2: depression. Adult Sepsis Screening: The patient does not have new or worsening altered mentation. Patient's respiratory rate is less than 22. Systolic blood pressure is greater than 100. Patient has a qSOFA score of 0- Negative Sepsis Screen. Suicide/Homicide risk assessment- Patient denies SI and HI but presents with another emotional, behavioral or other mental health complaint. The patient reports that he/she has been admitted to an inpatient mental health facility in the last 30 days. The patient reports that he/she does not have a recent or current history of substance abuse. The patient reports that he/she has no prior history of suicide attempt and/or organized plan. The patient reports that he/she has experienced a significant life altering event in the last 30 days. The patient reports that he/she has adequate social support. Status: Patient is not a procurement services manager or dependent. Transition of care: patient was not received from another setting of care. 14:00 Acuity: CK Level 3 rs3 14:00 Method Of Arrival: Walkin/Carried/Asstd rs3 Triage Assessment: 14:08 General: Appears in no apparent distress. Pain: Denies pain. HIV screening NA for this rs3 visit Offered previously. Historical: - Allergies: Haldol (Unknown); Ibuprofen (liver enzyme incrased); [place] Carbonate (dementia); Risperdal (Unknown); Trazodone (palpitation); tylenol (can not take due to liver enzyme); Zofran (Vomit); Zyrtec (Unknown); - Home Meds: 1. aspirin 81 mg Oral tab 1 tab once daily 2. clonazepam 1 mg Oral TbDL 1 tab nightly 3. meclizine 12.5 mg Oral tab 2 tabs as needed 4. Prilosec 20 mg Oral cpDR 1 cap once daily 5. Linzess oral Unknown once daily 6. Depakote 500 mg Oral TbEC nightly 7. Ambien 5 mg Oral tab nightly 8. Tamiflu 75 mg Oral cap once daily 9. Zoloft 25 mg Oral tab 1 tab once daily 10. gabapentin 100 mg Oral cap 2 caps 3 times per day 11. Seroquel 400 mg Oral tab nightly 12. Miralax 17 gram Oral pwpk twice a day 13. Colace 100 mg oral cap 1 cap once daily 14. Multivitamin Oral 1 tablet daily 15. Depakote 250 mg Oral TbEC 1 tab once daily 16. sodium chloide nasal spray 2 sprays nasally every 2 hours as needed - PMHx: Anxiety; Bipolar disorder; GERD; - PSHx: Cholecystectomy; small intestine reconstruction; L toe surgery; - The history from nurses notes was reviewed: and I agree with what is documented. - Social history: Smoking status: Patient states was never smoker of tobacco. No barriers to communication noted, The patient speaks fluent Vietnamese. - : The pt / caregiver states he / she is not on anticoagulants. Home medication list is obtained from the patient. - Exposure Risk Screening:: None identified. - Immunization history:: All immunizations up-to-date. - Family history: Not pertinent. - Social history:: the patient is a non-smoker, the patient does not drink alcohol. Screenin:55 Screening information is obtained from the patient. Fall risk: No risks identified. kcs Assistance ADL's: requires no assistance with activities of daily living. Abuse/DV Screen: The patient / caregiver reports he/she is: not in a situation that causes fear, pain or injury. Nutritional screening: No deficits noted. Advance Directives: Currently, there is no health care proxy. There is no living will. home support is adequate. Assessment: 14:45 Reassessment: when getting patient undressed underpants checked and no contraband.. kcs 14:48 Reassessment: patient is anxious and fussy. Requires a lot of attention to small kcs details. Good eye contact. Respirations easy. Color = pink. Glass of water given. Blankets applied. Security observing. 15:26 General: DARIUSZ Cortez evaluating patient. Security observing.. kcs 16:43 Reassessment: Patient back and forth to bathroom to void - now patient is too hot. kcs Patient very fussy and timid. Talking with DARIUSZ Cortez about disposition. Security observing.. 17:48 Reassessment: Patient still waiting for to get here from [facility]. Pleasant kcs and cooperative. Restless - rarely sits down. Security observing.. 18:18 Reassessment: Patient eating dinner.. kcs 18:32 Reassessment: Patient back and forth to bathroom to void.. kcs 18:55 Reassessment: here to get patient. Patient dressing and ready.. General: kcs Appears comfortable, slender, well developed, well nourished, well groomed, Behavior is cooperative, flat. Pain: Denies pain. Neurological: Level of Consciousness is awake, alert. Respiratory: Airway is patent Respiratory effort is even, unlabored, Respiratory pattern is regular, symmetrical. Derm: Skin is intact, is healthy with good turgor, Skin is dry, Skin is normal. Mental Health Eval: 15:16 Mental health consult is initiated at 15:16. Status: The patient is not a [place] procurement services manager or dependent. 16:18 [facility] Behavioral Health: The patient is not an established patient of [facility] Behavioral [place] Health. Referral Information: Evaluation referral is generated by the patient's psychiatrist Dr Solis. The patient was referred for evaluation because Re-evaluation of meds, possible readmission. Subjective: The patients chief complaint is Pt states she is shaky, unable to concentrate, unable to sleep properly, unable to focus and has constant racing thoughts. Pt feels her newer medications may be causing the problems. 16:47 Subjective: Delusions are denied. Patient's mood is anxious, Hallucinations are denied. ca Pt recently discharged from [facility] (10/31-11/20/16) with med changes. Pt feels meds are making her feel shaky and have racing thoughts. Denies SI or HI, denies A/VH. Pt appears anxious. States she was told to come to ER by Dr Solis to be evaluated for possible readmission. Mental Health history: Bipolar Disorder, depression, Mental Health Admissions: Most recently at [facility] 10/31-11/20/16 Current Outpatient Mental Health Services: Psychiatrist / Agency: Dr Solis, [facility]. Current living environment is Family / Home Support: Pt lives at home with supportive spouse. Patient presents to Emergency Department with the following symptoms within the past 2 weeks: anxiety. Substance abuse: Pt denies. Mental status exam: Patients appearance is appropriate, Patient's behavior is cooperative, Speech is normal. Affect is appropriate. Mood is anxious. Hallucinations are denied. Appetite is normal. Memory is good. Energy level is normal. Content of thought is Somatic preoccupation: states shakiness, pins and needles sensation Thought process is intact. Cognitive level is oriented to person, place, time and situation Patient's insight is fair. Judgement is fair. Rapport with interviewer is good. Suicidal Ideation is denied. Homicidal ideation is denied. Disposition: Medically cleared for disposition by Jerod Adames MD Psychiatric Consult is performed by phone with Dr Nayely Cooley. DSM-V Differential Diagnosis: Bipolar I Disorder (F31.0) Current or most recent episode unspecified (F31.9). Narrative: Pt will be discharged to home and f/u [facility] for assistance with med adjustment. Pt also has an appt with her primary at 1 pm Awaiting pt's for transportation home. Vital Signs: 13:56 BP 155 / 89 LA Sitting (auto/reg); Pulse 90; Resp 18; Temp 97.5(O); Pulse Ox 99% on bnb R/A; Weight 47.63 kg (R); Height 5 ft. 1 in. (154.94 cm); Pain 0/10; 18:55 BP 154 / 90; Pulse 82; Resp 19; Temp 97.5; Pulse Ox 97% on R/A; Pain 0/10; kcs 13:56 Body Mass Index 19.84 (47.63 kg, 154.94 cm) bnb Vitals: 13:56 Log In Time: November 26, 2016 at 13:55. RN notified that patient meets Red Flag bnb criteria. 13:57 RN notified that patient meets Red Flag criteria. bnb ED Course: 13:55 Patient visited by Elsa Jasmine PCA. bnb 13:55 Suraj Neff is Private Physician. bnb 13:55 Patient moved to Waiting bnb 13:59 Patient moved to Pre E bnb 14:02 Triage Initiated rs3 14:08 Patient moved to [facility] rs3 14:14 Jerod Adames MD is Attending Physician. pc 14:14 Patient visited by Tripp Pérez Security Aide. pjf 14:17 Pt greeted and oriented to ED. Patient advised of names of staff involved in care, pjf location of call llamas, wait times and NPO status. Patient has correct armband on for positive identification. Bed in low position. Call light in reach. Side rails up X 1. Security observing. Property removed, secured in belongings bag- Placed in locker #5. Door closed. Noise minimized. Visitors limited. Report received from chart rev. - psych. triage level #2, dep., cooperative \T\ this time. The patient / caregiver is instructed regarding the plan of care and ED course. Psych Safety Check: Location: Psych Room. 14:34 Patient visited by Tripp Pérez Security Aide. pjf 14:35 Patient visited by Jerod Adames MD. pc 14:48 Acetaminophen Level Sent. kcs 14:48 DEPAKOTE Sent. kcs 14:48 Complete Blood Count Sent. kcs 14:48 Basic Metabolic Profile Sent. kcs 14:48 Drug Eval Toxicology ED Only Sent. kcs 14:48 Ethyl Alcohol (ethanol) Sent. kcs 14:48 Liver Profile Sent. kcs 14:48 Salicylate Level Sent. kcs 14:48 Thyroid Stimulating Hormone Sent. kcs 14:51 Patient visited by Tripp Pérez Security Aide. pjf 15:04 Patient visited by Tripp Pérez Security Aide. pjf 15:15 Psych Safety Check: Location: Psych Room. Visual Assessment: Cooperative. pjf 15:30 Psych Safety Check: Location: Psych Room. Visual Assessment: Cooperative. pjf 15:43 Patient moved to OBSERVATION pc 15:45 Psych Safety Check: Location: Psych Room. Visual Assessment: Cooperative. pjf 16:00 Psych Safety Check: Location: Psych Room. Visual Assessment: Cooperative. pjf 16:41 [facility] is Referral Physician. pc 16:41 Patient moved to [facility] pc 16:58 Patient visited by Tripp Pérez Security Aide. pjf 17:33 Patient visited by Tripp Pérez Security Aide. pjf 17:51 [facility] Payment Agreement was scanned into [employer] and attached to record. zo 18:55 Patient visited by Tripp Pérez Security Aide. pjf 18:55 No IV's were initiated during this patient's visit. No procedures done that require kcs assistance. Order Results: Lab Order: Acetaminophen Level; SPEC'M 11/26/16 14:44 Test: ACETAMINOPHEN LEVEL; Value: < 2.0; Range: 10.0-30.0; Abnormal: Below low normal; Units: UG/ML; Status: F Lab Order: Basic Metabolic Profile; SPEC'M 11/26/16 14:44 Test: GLUCOSE, FASTING; Value: 109; Range: 70-105; Abnormal: Above high normal; Units: MG/DL; Status: F Test: BLOOD UREA NITROGEN; Value: 14; Range: 7-18; Units: MG/DL; Status: F Test: CREATININE FOR GFR; Value: 0.62; Range: 0.55-1.02; Units: MG/DL; Status: F Test: GLOMERULAR FILTRATION RATE; Value: > 60.0; Range: >51; Status: F Test: SODIUM LEVEL; Value: 143; Range: 136-145; Units: MEQ/L; Status: F Test: POTASSIUM SERUM; Value: 4.4; Range: 3.5-5.1; Units: MEQ/L; Status: F Test: CHLORIDE LEVEL; Value: 106; Range: 98-107; Units: MEQ/L; Status: F Test: CARBON DIOXIDE LEVEL; Value: 28; Range: 21-32; Units: MEQ/L; Status: F Test: ANION GAP; Value: 9; Range: 8-16; Units: MEQ/L; Status: F Test: CALCIUM LEVEL; Value: 8.8; Range: 8.5-10.1; Units: MG/DL; Status: F Test Note: ; Units are mL/min/1.73 m2 Chronic Kidney Disease Staging per NKF: Stage I & II GFR >=60 Normal to Mildly Decreased Stage III GFR 30-59 Moderately Decreased Stage IV GFR 15-29 Severely Decreased Stage V GFR <15 Very Little GFR Left ESRD GFR <15 on FUND CONTROLLER Lab Order: Complete Blood Count; SPEC'M 11/26/16 14:44 Test: WHITE BLOOD COUNT; Value: 5.8; Range: 4.0-10.0; Units: K/mm3; Status: F Test: RED BLOOD COUNT; Value: 4.29; Range: 4.00-5.40; Units: M/mm3; Status: F Test: HEMOGLOBIN; Value: 13.8; Range: 12.0-16.0; Units: g/dl; Status: F Test: HEMATOCRIT; Value: 40.4; Range: 36.0-47.0; Units: %; Status: F Test: MEAN CORPUSCULAR VOLUME; Value: 94.2; Range: 80.0-96.0; Units: fl; Status: F Test: MEAN CORPUSCULAR HEMOGLOBIN; Value: 32.2; Range: 27.0-33.0; Units: pg; Status: F Test: MEAN CORPUSCULAR HGB CONC; Value: 34.1; Range: 32.0-36.5; Units: g/dl; Status: F Test: RED CELL DISTRIBUTION WIDTH; Value: 11.7; Range: 11.5-14.5; Units: %; Status: F Test: PLATELET COUNT, AUTOMATED; Value: 138; Range: 150-450; Abnormal: Below low normal; Units: k/mm3; Status: F Lab Order: Drug Eval Toxicology ED Only; SPEC'M 11/26/16 14:44 Test: AMPHETAMINES LEVEL URINE; Value: NEGATIVE; Range: NEGATIVE; Status: F Test: BARBITURATES URINE; Value: NEGATIVE; Range: NEGATIVE; Status: F Test: BENZODIAZEPINES URINE; Value: NEGATIVE; Range: NEGATIVE; Status: F Test: CANNABINOIDS URINE; Value: NEGATIVE; Range: NEGATIVE; Status: F Test: COCAINE METABOLITE URINE; Value: NEGATIVE; Range: NEGATIVE; Status: F Test: METHADONE URINE; Value: NEGATIVE; Range: NEGATIVE; Status: F Test: OPIATES URINE; Value: NEGATIVE; Range: NEGATIVE; Status: F Test: TRICYCLIC ANTIDEPRESS URINE; Value: NEGATIVE; Range: NEGATIVE; Status: F Test Note: ; ALL PRESUMPTIVE POSITIVE FINDINGS ARE UNCONFIRMED NORMAL VALUES THRESHOLD IN NG/ML AMPHETAMINES 1000 METHAMPHETAMINES 1000 BARBITURATES 300 BENZODIAZEPINES 300 CANNABINOIDS (THC) 50 COCAINE METABOLITE 300 METHADONE 300 OPIATES 300 PHENCYCLIDINE 25 TRICYCLIC ANTIDEPRESSANTS 1000 RESULTS ARE FOR MEDICAL PURPOSES ONLY. ALL URINE SPECIMENS WILL BE SAVED FOR 3 DAYS. IF CONFIRMATION OF A PRESUMPTIVE POSTIVE SCREEN RESULT IS DESIRED, CALL CHEMISTRY ([phone]) AND REQUEST URINE TO BE SENT TO REFERENCE LAB. FOR A LIST OF CLOSELY RELATED COMPOUNDS PLEASE CALL THE LAB. Lab Order: Ethyl Alcohol (ethanol); [facility] 11/26/16 14:44 Test: ETHYL ALCOHOL (ETHANOL); Value: < 0.003; Range: 0.000-0.010; Units: %; Status: F Lab Order: Liver Profile; [facility] 11/26/16 14:44 Test: AST/SGOT; Value: 21; Range: 15-37; Units: U/L; Status: F Test: ALT/SGPT; Value: 39; Range: 12-78; Units: U/L; Status: F Test: ALKALINE PHOSPHATASE; Value: 114; Range: 45-117; Units: U/L; Status: F Test: BILIRUBIN,TOTAL; Value: 0.2; Range: 0.2-1.0; Units: MG/DL; Status: F Test: BILIRUBIN,DIRECT; Value: < 0.1; Range: 0.0-0.2; Units: MG/DL; Status: F Test: TOTAL PROTEIN; Value: 6.6; Range: 6.4-8.2; Units: GM/DL; Status: F Test: ALBUMIN; Value: 3.7; Range: 3.2-5.2; Units: GM/DL; Status: F Test: ALBUMIN/GLOBULIN RATIO; Value: 1.28; Range: 1.00-1.93; Status: F Lab Order: Salicylate Level; [facility] 11/26/16 14:44 Test: SALICYLATE LEVEL; Value: < 1.7; Range: 5.0-30.0; Abnormal: Below low normal; Units: MG/DL; Status: F Lab Order: Thyroid Stimulating Hormone; [facility] 11/26/16 14:44 Test: THYROID STIMULATING HORMONE; Value: 1.980; Range: 0.358-3.740; Units: uIU/ML; Status: F Lab Order: DEPAKOTE; [facility] 11/26/16 14:44 Test: VALPROIC ACID (DEPAKOTE); Value: 88.8; Range: 50.0-100.0; Units: UG/ML; Status: F Outcome: 16:42 Discharge ordered by Provider. pc 18:55 Discharge Assessment: Patient awake, alert and oriented x 3. No cognitive and/or kcs functional deficits noted. Patient verbalized understanding of disposition instructions. Patient awake and alert. patient administered narcotics - no. The following High Risk Discharge criteria are identified: Yes, patient has been evaluated by PSA.. Discharged to home ambulatory, with significant other. Condition: stable. Discharge instructions given to patient, Instructed on discharge instructions, follow up and referral plans. Demonstrated understanding of instructions, Pt was receptive of discharge instructions/ teaching. No special radiology studies were completed. 19:04 Patient left the ED. [facility] Signatures: Jerod Adames MD MD pc Sleeman, Kacey RN RN kcs Bee Villanueva, PSA PSA Tripp Oneal, Security Aide Mira Zimmer Rosemary, RN RN rs3 Elsa Jasmine, ENVIRONMENTAL SCIENCE PROFESSOR ENVIRONMENTAL SCIENCE PROFESSOR bnb Corrections: (The following items were deleted from the chart) 14:57 14:05 Home Meds: gabapentin 100 mg Oral cap 2 caps twice a day; rs3 [facility] 14: 14:06 Home Meds: Depakene 250 mg Oral cap daily; 3 [facility] 14: 14:07 Home Meds: Seroquel 400 mg Oral tab once daily; 3 [facility] 14: 14:07 Home Meds: Miralax 17 gram Oral pwpk once daily; 3 [facility] MTDD
--- NOTE | 2016-11-28 20:05 | EDDOCDS ---
Physician Documentation [facility] Name: Keshia Merrill Age: 56 yrs Sex: Female : 1960 Arrival Date: 11/26/2016 Time: 13:[address] MD: Suraj Neff D Disposition: 11/26 16:41 Critical Care: Critical care not applicable. pc Disposition: 11/26/16 16:42 Discharged to Home/Self Care. Impression: Bipolar disorder, current episode depressed, mild. - Condition is Stable. - Discharge Instructions: Bipolar Disorder. - Medication Reconciliation, Local Pharmacy Hours form. - Follow up: [facility]; When: As previously arranged; Reason: Continuance of care. - Problem is chronic. - Symptoms are unchanged. HPI: 14:51 This 56 yrs old Female presents to ER via Walkin/Carried/Asstd with pc complaints of Depression. 14:51 The history is obtained from the patient. The patient presents to the emergency pc department with depression. She is 8 days s/p discharge from [facility]. She has been seen by her therapist and says she does not feel that she was better when she left the unit and wants readmission. 14:58 The patient has experienced similar episodes in the past, chronically. pc Historical: - Allergies: Haldol (Unknown); Ibuprofen (liver enzyme incrased); [place] Carbonate (dementia); Risperdal (Unknown); Trazodone (palpitation); tylenol (can not take due to liver enzyme); Zofran (Vomit); Zyrtec (Unknown); - Home Meds: 1. aspirin 81 mg Oral tab 1 tab once daily 2. clonazepam 1 mg Oral TbDL 1 tab nightly 3. meclizine 12.5 mg Oral tab 2 tabs as needed 4. Prilosec 20 mg Oral cpDR 1 cap once daily 5. Linzess oral Unknown once daily 6. Depakote 500 mg Oral TbEC nightly 7. Ambien 5 mg Oral tab nightly 8. Tamiflu 75 mg Oral cap once daily 9. Zoloft 25 mg Oral tab 1 tab once daily 10. gabapentin 100 mg Oral cap 2 caps 3 times per day 11. Seroquel 400 mg Oral tab nightly 12. Miralax 17 gram Oral pwpk twice a day 13. Colace 100 mg oral cap 1 cap once daily 14. Multivitamin Oral 1 tablet daily 15. Depakote 250 mg Oral TbEC 1 tab once daily 16. sodium chloide nasal spray 2 sprays nasally every 2 hours as needed - PMHx: Anxiety; Bipolar disorder; GERD; - PSHx: Cholecystectomy; small intestine reconstruction; L toe surgery; - The history from nurses notes was reviewed: and I agree with what is documented. - Social history: Smoking status: Patient states was never smoker of tobacco. No barriers to communication noted, The patient speaks fluent Indonesian. - : The pt / caregiver states he / she is not on anticoagulants. Home medication list is obtained from the patient. - Exposure Risk Screening:: None identified. - Immunization history:: All immunizations up-to-date. - Family history: Not pertinent. - Social history:: the patient is a non-smoker, the patient does not drink alcohol. ROS: 14:58 All systems are negative except as listed. The psychiatric and neurological components pc are also addressed in the HPI. Exam: 14:58 General Appearance: alert, no acute distress. pc 14:58 ENT: ear, nose and throat normal, pharynx normal. 14:58 Eyes: pupils equal, round and reactive to light, extraocular motions intact. 14:58 Neck: The exam reveals no acute abnormalities. ROM is normal and painless. No nuchal rigidity is noted.. 14:58 Respiratory: breathing is even and unlabored, breath sounds are normal. 14:58 Cardiovascular: regular pulse rate, regular heart rhythm, normal heart sounds, equal and full pulses bilaterally. 14:58 Abdomen: soft, non-tender, no organomegaly, normal bowel sounds. 14:58 Skin: skin color is normal, warm, dry. 14:58 Extremities: The extremities have a grossly normal appearance, are non-tender, without acute ROM abnormalities. 14:58 Neuro: alert, oriented to person, place and time, cranial nerves normal as tested, no motor deficits, no sensory deficits. 14:58 Psych: mood is normal, affect is appropriate. Vital Signs: 13:56 BP 155 / 89 LA Sitting (auto/reg); Pulse 90; Resp 18; Temp 97.5(O); Pulse Ox 99% on bnb R/A; Weight 47.63 kg / 105.01 lbs (R); Height 5 ft. 1 in. (154.94 cm); Pain 0/10; 18:55 BP 154 / 90; Pulse 82; Resp 19; Temp 97.5; Pulse Ox 97% on R/A; Pain 0/10; kcs 13:56 Body Mass Index 19.84 (47.63 kg, 154.94 cm) bnb MDM: 14:14 Consult PFS/PSA/Motor Inspection Mechanic: Patient's case requires discussion with on-call pc Psychiatrist ordered. 14:14 PSA/PFS to call Nursing Set Up And Lay Out Inspector, to [place] data [place] if patient pc involuntarily admitted or transferred for SI or HI ordered. 14:14 Confirm accurate psychiatric medication list and times of last dosage ordered. pc 14:14 Detain Pt Until Medically/PFS Cleared ordered. pc 14:15 Acetaminophen Level Ordered. EDMS 14:15 Basic Metabolic Profile Ordered. EDMS 14:15 Complete Blood Count Ordered. EDMS 14:15 Drug Eval Toxicology ED Only Ordered. EDMS 14:15 Ethyl Alcohol (ethanol) Ordered. EDMS 14:15 Liver Profile Ordered. EDMS 14:15 Salicylate Level Ordered. EDMS 14:15 Thyroid Stimulating Hormone Ordered. EDMS 14:15 DEPAKOTE Ordered. EDMS 14:58 Differential diagnosis: depression. Plan: labs, PFS eval. pc 15:42 Acetaminophen Level Reviewed. pc 15:42 Basic Metabolic Profile Reviewed. pc 15:42 Complete Blood Count Reviewed. pc 15:42 Salicylate Level Reviewed. pc 15:42 Drug Eval Toxicology ED Only Reviewed. pc 15:42 Ethyl Alcohol (ethanol) Reviewed. pc 15:42 Liver Profile Reviewed. pc 15:42 Thyroid Stimulating Hormone Reviewed. pc 15:42 DEPAKOTE Reviewed. pc 16:23 REGULAR DIET PLASTIC SUERO+DIET ordered. EDMS 16:41 The patient has been medically cleared for psychiatric evaluation, admission and/or pc transfer. [place]: [place] to the [place] was not completed because the patient did not display any suicidal or homicidal ideation and was not considered a risk to self or others. Data reviewed: old medical records, vital signs, nurses notes, lab test results. Test interpretation: LAB - all labs as ordered have been reviewed, interpreted and considered in the overall management of the clinical presentation;. The patient has been re-examined and re-evaluated. The clinical presentation did not require any ED treatment or interventions. Other consultation: The ED jordan worker was notified and will evaluate the patient. 16:41 Disposition: The historical points, examination findings, and any diagnostic results pc supporting the provided diagnosis, were discussed with the patient or legal guardian. The need for outpatient follow up with the provider listed on their discharge instructions was discussed. They were encouraged to return to [facility], or the nearest ED, if symptoms worsen/persist, or for any other questions/concerns. 17:11 Financial registration complete. zo 17:19 Consult PFS/PSA/Motor Inspection Mechanic: Patient's case requires discussion with on-call ca Psychiatrist complete. 17:20 PSA/PFS to call Nursing Set Up And Lay Out Inspector, to [place] if patient ca involuntarily admitted or transferred for SI or HI complete. 17:51 [facility] Payment Agreement was scanned into [employer] and attached to record. zo Signatures: Dispatcher [employer] EDMS Jerod Adames MD MD pc Sleeman, Kacey, RN RN kcs Bee Villanueva PSA PSA Mira Saleh Rosemary,RN RN rs3 The chart was reviewed and I authenticate all verbal orders and agree with the evaluation and treatment provided.Corrections: (The following items were deleted from the chart) 14:57 14:05 Home Meds: gabapentin 100 mg Oral cap 2 caps twice a day; rs3 kcs 14:57 14:06 Home Meds: Depakene 250 mg Oral cap daily; rs3 kcs 14:57 14:07 Home Meds: Seroquel 400 mg Oral tab once daily; rs3 [facility] 14:57 14:07 Home Meds: Miralax 17 gram Oral pwpk once daily; 3 [facility] 14:58 14:51 She is 8 days s/p discharge from [facility]. She has been seen by her therapist and pc says she does not feel that she was better when she left [facility] and wants readmission. pc Attachments: 17:51 [facility] Payment Agreement zo Chart Complete MTDD
--- NOTE | 2016-11-28 20:05 | EDDOCDS ---
Physician Documentation [facility] Name: Keshia Merrill Age: 56 yrs Sex: Female : 1960 Arrival Date: 11/26/2016 Time: 13:[address] MD: Suraj Neff D Disposition: 11/26 16:41 Critical Care: Critical care not applicable. pc Disposition: 11/26/16 16:42 Discharged to Home/Self Care. Impression: Bipolar disorder, current episode depressed, mild. - Condition is Stable. - Discharge Instructions: Bipolar Disorder. - Medication Reconciliation, Local Pharmacy Hours form. - Follow up: [facility]; When: As previously arranged; Reason: Continuance of care. - Problem is chronic. - Symptoms are unchanged. HPI: 14:51 This 56 yrs old Female presents to ER via Walkin/Carried/Asstd with pc complaints of Depression. 14:51 The history is obtained from the patient. The patient presents to the emergency pc department with depression. She is 8 days s/p discharge from [facility]. She has been seen by her therapist and says she does not feel that she was better when she left the unit and wants readmission. 14:58 The patient has experienced similar episodes in the past, chronically. pc Historical: - Allergies: Haldol (Unknown); Ibuprofen (liver enzyme incrased); [place] Carbonate (dementia); Risperdal (Unknown); Trazodone (palpitation); tylenol (can not take due to liver enzyme); Zofran (Vomit); Zyrtec (Unknown); - Home Meds: 1. aspirin 81 mg Oral tab 1 tab once daily 2. clonazepam 1 mg Oral TbDL 1 tab nightly 3. meclizine 12.5 mg Oral tab 2 tabs as needed 4. Prilosec 20 mg Oral cpDR 1 cap once daily 5. Linzess oral Unknown once daily 6. Depakote 500 mg Oral TbEC nightly 7. Ambien 5 mg Oral tab nightly 8. Tamiflu 75 mg Oral cap once daily 9. Zoloft 25 mg Oral tab 1 tab once daily 10. gabapentin 100 mg Oral cap 2 caps 3 times per day 11. Seroquel 400 mg Oral tab nightly 12. Miralax 17 gram Oral pwpk twice a day 13. Colace 100 mg oral cap 1 cap once daily 14. Multivitamin Oral 1 tablet daily 15. Depakote 250 mg Oral TbEC 1 tab once daily 16. sodium chloide nasal spray 2 sprays nasally every 2 hours as needed - PMHx: Anxiety; Bipolar disorder; GERD; - PSHx: Cholecystectomy; small intestine reconstruction; L toe surgery; - The history from nurses notes was reviewed: and I agree with what is documented. - Social history: Smoking status: Patient states was never smoker of tobacco. No barriers to communication noted, The patient speaks fluent Romansh. - : The pt / caregiver states he / she is not on anticoagulants. Home medication list is obtained from the patient. - Exposure Risk Screening:: None identified. - Immunization history:: All immunizations up-to-date. - Family history: Not pertinent. - Social history:: the patient is a non-smoker, the patient does not drink alcohol. ROS: 14:58 All systems are negative except as listed. The psychiatric and neurological components pc are also addressed in the HPI. Exam: 14:58 General Appearance: alert, no acute distress. pc 14:58 ENT: ear, nose and throat normal, pharynx normal. 14:58 Eyes: pupils equal, round and reactive to light, extraocular motions intact. 14:58 Neck: The exam reveals no acute abnormalities. ROM is normal and painless. No nuchal rigidity is noted.. 14:58 Respiratory: breathing is even and unlabored, breath sounds are normal. 14:58 Cardiovascular: regular pulse rate, regular heart rhythm, normal heart sounds, equal and full pulses bilaterally. 14:58 Abdomen: soft, non-tender, no organomegaly, normal bowel sounds. 14:58 Skin: skin color is normal, warm, dry. 14:58 Extremities: The extremities have a grossly normal appearance, are non-tender, without acute ROM abnormalities. 14:58 Neuro: alert, oriented to person, place and time, cranial nerves normal as tested, no motor deficits, no sensory deficits. 14:58 Psych: mood is normal, affect is appropriate. Vital Signs: 13:56 BP 155 / 89 LA Sitting (auto/reg); Pulse 90; Resp 18; Temp 97.5(O); Pulse Ox 99% on bnb R/A; Weight 47.63 kg / 105.01 lbs (R); Height 5 ft. 1 in. (154.94 cm); Pain 0/10; 18:55 BP 154 / 90; Pulse 82; Resp 19; Temp 97.5; Pulse Ox 97% on R/A; Pain 0/10; kcs 13:56 Body Mass Index 19.84 (47.63 kg, 154.94 cm) bnb MDM: 14:14 Consult PFS/PSA/Engraver Set Up Operator: Patient's case requires discussion with on-call pc Psychiatrist ordered. 14:14 PSA/PFS to call Nursing Technician Semiconductor Development, to [place] if patient pc involuntarily admitted or transferred for SI or HI ordered. 14:14 Confirm accurate psychiatric medication list and times of last dosage ordered. pc 14:14 Detain Pt Until Medically/PFS Cleared ordered. pc 14:15 Acetaminophen Level Ordered. EDMS 14:15 Basic Metabolic Profile Ordered. EDMS 14:15 Complete Blood Count Ordered. EDMS 14:15 Drug Eval Toxicology ED Only Ordered. EDMS 14:15 Ethyl Alcohol (ethanol) Ordered. EDMS 14:15 Liver Profile Ordered. EDMS 14:15 Salicylate Level Ordered. EDMS 14:15 Thyroid Stimulating Hormone Ordered. EDMS 14:15 DEPAKOTE Ordered. EDMS 14:58 Differential diagnosis: depression. Plan: labs, PFS eval. pc 15:42 Acetaminophen Level Reviewed. pc 15:42 Basic Metabolic Profile Reviewed. pc 15:42 Complete Blood Count Reviewed. pc 15:42 Salicylate Level Reviewed. pc 15:42 Drug Eval Toxicology ED Only Reviewed. pc 15:42 Ethyl Alcohol (ethanol) Reviewed. pc 15:42 Liver Profile Reviewed. pc 15:42 Thyroid Stimulating Hormone Reviewed. pc 15:42 DEPAKOTE Reviewed. pc 16:23 REGULAR DIET PLASTIC SUERO+DIET ordered. EDMS 16:41 The patient has been medically cleared for psychiatric evaluation, admission and/or pc transfer. [place]: [place] was not completed because the patient did not display any suicidal or homicidal ideation and was not considered a risk to self or others. Data reviewed: old medical records, vital signs, nurses notes, lab test results. Test interpretation: LAB - all labs as ordered have been reviewed, interpreted and considered in the overall management of the clinical presentation;. The patient has been re-examined and re-evaluated. The clinical presentation did not require any ED treatment or interventions. Other consultation: The ED charhouse worker was notified and will evaluate the patient. 16:41 Disposition: The historical points, examination findings, and any diagnostic results pc supporting the provided diagnosis, were discussed with the patient or legal guardian. The need for outpatient follow up with the provider listed on their discharge instructions was discussed. They were encouraged to return to [facility], or the nearest ED, if symptoms worsen/persist, or for any other questions/concerns. 17:11 Financial registration complete. zo 17:19 Consult PFS/PSA/Engraver Set Up Operator: Patient's case requires discussion with on-call ca Psychiatrist complete. 17:20 PSA/PFS to call Nursing Technician Semiconductor Development, to [place] if patient ca involuntarily admitted or transferred for SI or HI complete. 17:51 [facility] Payment Agreement was scanned into [employer] and attached to record. zo Signatures: Dispatcher [employer] EDMS Jerod Adames MD MD pc Sleeman, Kacey, RN RN kcs Bee Villanueva PSA PSA Mira Saleh Rosemary,RN RN rs3 The chart was reviewed and I authenticate all verbal orders and agree with the evaluation and treatment provided.Corrections: (The following items were deleted from the chart) 14:57 14:05 Home Meds: gabapentin 100 mg Oral cap 2 caps twice a day; rs3 kcs 14:57 14:06 Home Meds: Depakene 250 mg Oral cap daily; rs3 kcs 14:57 14:07 Home Meds: Seroquel 400 mg Oral tab once daily; rs3 [facility] [place] 14:57 14:07 Home Meds: Miralax 17 gram Oral pwpk once daily; 3 [facility] [place] 14:58 14:51 She is 8 days s/p discharge from [facility]. She has been seen by her therapist and pc says she does not feel that she was better when she left [facility] and wants readmission. pc Attachments: 17:51 [facility] Payment Agreement zo Chart Complete MTDD
--- NOTE | 2016-11-28 20:05 | EDDOCDS ---
Nurse's Notes [facility] Name: Keshia Merrill Age: 56 yrs Sex: Female : 1960 Arrival Date: 11/26/2016 Time: 13:[address] MD: Suraj Neff D Diagnosis: Bipolar disorder, current episode depressed, mild Presentation: 11/26 14:00 Presenting complaint: Patient states: Was recently admitting in Mental health for rs3 depression. discharge home on Nov 20. still not sleeping/unable to focus, racing thoughts. Mental Health Triage Level: Level 2: depression. Adult Sepsis Screening: The patient does not have new or worsening altered mentation. Patient's respiratory rate is less than 22. Systolic blood pressure is greater than 100. Patient has a qSOFA score of 0- Negative Sepsis Screen. Suicide/Homicide risk assessment- Patient denies SI and HI but presents with another emotional, behavioral or other mental health complaint. The patient reports that he/she has been admitted to an inpatient mental health facility in the last 30 days. The patient reports that he/she does not have a recent or current history of substance abuse. The patient reports that he/she has no prior history of suicide attempt and/or organized plan. The patient reports that he/she has experienced a significant life altering event in the last 30 days. The patient reports that he/she has adequate social support. Status: Patient is not a healthcare advisory services manager or dependent. Transition of care: patient was not received from another setting of care. 14:00 Acuity: CK Level 3 rs3 14:00 Method Of Arrival: Walkin/Carried/Asstd rs3 Triage Assessment: 14:08 General: Appears in no apparent distress. Pain: Denies pain. HIV screening NA for this rs3 visit Offered previously. Historical: - Allergies: Haldol (Unknown); Ibuprofen (liver enzyme incrased); [place] Carbonate (dementia); Risperdal (Unknown); Trazodone (palpitation); tylenol (can not take due to liver enzyme); Zofran (Vomit); Zyrtec (Unknown); - Home Meds: 1. aspirin 81 mg Oral tab 1 tab once daily 2. clonazepam 1 mg Oral TbDL 1 tab nightly 3. meclizine 12.5 mg Oral tab 2 tabs as needed 4. Prilosec 20 mg Oral cpDR 1 cap once daily 5. Linzess oral Unknown once daily 6. Depakote 500 mg Oral TbEC nightly 7. Ambien 5 mg Oral tab nightly 8. Tamiflu 75 mg Oral cap once daily 9. Zoloft 25 mg Oral tab 1 tab once daily 10. gabapentin 100 mg Oral cap 2 caps 3 times per day 11. Seroquel 400 mg Oral tab nightly 12. Miralax 17 gram Oral pwpk twice a day 13. Colace 100 mg oral cap 1 cap once daily 14. Multivitamin Oral 1 tablet daily 15. Depakote 250 mg Oral TbEC 1 tab once daily 16. sodium chloide nasal spray 2 sprays nasally every 2 hours as needed - PMHx: Anxiety; Bipolar disorder; GERD; - PSHx: Cholecystectomy; small intestine reconstruction; L toe surgery; - The history from nurses notes was reviewed: and I agree with what is documented. - Social history: Smoking status: Patient states was never smoker of tobacco. No barriers to communication noted, The patient speaks fluent Malay. - : The pt / caregiver states he / she is not on anticoagulants. Home medication list is obtained from the patient. - Exposure Risk Screening:: None identified. - Immunization history:: All immunizations up-to-date. - Family history: Not pertinent. - Social history:: the patient is a non-smoker, the patient does not drink alcohol. Screenin:55 Screening information is obtained from the patient. Fall risk: No risks identified. kcs Assistance ADL's: requires no assistance with activities of daily living. Abuse/DV Screen: The patient / caregiver reports he/she is: not in a situation that causes fear, pain or injury. Nutritional screening: No deficits noted. Advance Directives: Currently, there is no health care proxy. There is no living will. home support is adequate. Assessment: 14:45 Reassessment: when getting patient undressed underpants checked and no contraband.. kcs 14:48 Reassessment: patient is anxious and fussy. Requires a lot of attention to small kcs details. Good eye contact. Respirations easy. Color = pink. Glass of water given. Blankets applied. Security observing. 15:26 General: DARIUSZ Cortez evaluating patient. Security observing.. kcs 16:43 Reassessment: Patient back and forth to bathroom to void - now patient is too hot. kcs Patient very fussy and timid. Talking with DARIUSZ Cortez about disposition. Security observing.. 17:48 Reassessment: Patient still waiting for to get here from [facility]. Pleasant kcs and cooperative. Restless - rarely sits down. Security observing.. 18:18 Reassessment: Patient eating dinner.. kcs 18:32 Reassessment: Patient back and forth to bathroom to void.. kcs 18:55 Reassessment: here to get patient. Patient dressing and ready.. General: kcs Appears comfortable, slender, well developed, well nourished, well groomed, Behavior is cooperative, flat. Pain: Denies pain. Neurological: Level of Consciousness is awake, alert. Respiratory: Airway is patent Respiratory effort is even, unlabored, Respiratory pattern is regular, symmetrical. Derm: Skin is intact, is healthy with good turgor, Skin is dry, Skin is normal. Mental Health Eval: 15:16 Mental health consult is initiated at 15:16. Status: The patient is not a [place] healthcare advisory services manager or dependent. 16:18 [facility] Behavioral Health: The patient is not an established patient of [facility] Behavioral [place] Health. Referral Information: Evaluation referral is generated by the patient's psychiatrist Dr Solis. The patient was referred for evaluation because Re-evaluation of meds, possible readmission. Subjective: The patients chief complaint is Pt states she is shaky, unable to concentrate, unable to sleep properly, unable to focus and has constant racing thoughts. Pt feels her newer medications may be causing the problems. 16:47 Subjective: Delusions are denied. Patient's mood is anxious, Hallucinations are denied. ca Pt recently discharged from [facility] (10/31-11/20/16) with med changes. Pt feels meds are making her feel shaky and have racing thoughts. Denies SI or HI, denies A/VH. Pt appears anxious. States she was told to come to ER by Dr Solis to be evaluated for possible readmission. Mental Health history: Bipolar Disorder, depression, Mental Health Admissions: Most recently at [facility] 10/31-11/20/16 Current Outpatient Mental Health Services: Psychiatrist / Agency: Dr Solis, [facility]. Current living environment is Family / Home Support: Pt lives at home with supportive spouse. Patient presents to Emergency Department with the following symptoms within the past 2 weeks: anxiety. Substance abuse: Pt denies. Mental status exam: Patients appearance is appropriate, Patient's behavior is cooperative, Speech is normal. Affect is appropriate. Mood is anxious. Hallucinations are denied. Appetite is normal. Memory is good. Energy level is normal. Content of thought is Somatic preoccupation: states shakiness, pins and needles sensation Thought process is intact. Cognitive level is oriented to person, place, time and situation Patient's insight is fair. Judgement is fair. Rapport with interviewer is good. Suicidal Ideation is denied. Homicidal ideation is denied. Disposition: Medically cleared for disposition by Jerod Adames MD Psychiatric Consult is performed by phone with Dr Nayely Cooley. DSM-V Differential Diagnosis: Bipolar I Disorder (F31.0) Current or most recent episode unspecified (F31.9). Narrative: Pt will be discharged to home and f/u [facility] for assistance with med adjustment. Pt also has an appt with her primary at 1 pm Awaiting pt's for transportation home. Vital Signs: 13:56 BP 155 / 89 LA Sitting (auto/reg); Pulse 90; Resp 18; Temp 97.5(O); Pulse Ox 99% on bnb R/A; Weight 47.63 kg (R); Height 5 ft. 1 in. (154.94 cm); Pain 0/10; 18:55 BP 154 / 90; Pulse 82; Resp 19; Temp 97.5; Pulse Ox 97% on R/A; Pain 0/10; kcs 13:56 Body Mass Index 19.84 (47.63 kg, 154.94 cm) bnb Vitals: 13:56 Log In Time: November 26, 2016 at 13:55. RN notified that patient meets Red Flag bnb criteria. 13:57 RN notified that patient meets Red Flag criteria. bnb ED Course: 13:55 Patient visited by Elsa Jasmine PCA. bnb 13:55 Suraj Neff is Private Physician. bnb 13:55 Patient moved to Waiting bnb 13:59 Patient moved to Pre E bnb 14:02 Triage Initiated rs3 14:08 Patient moved to [facility] rs3 14:14 Jerod Adames MD is Attending Physician. pc 14:14 Patient visited by Tripp Pérez Security Aide. pjf 14:17 Pt greeted and oriented to ED. Patient advised of names of staff involved in care, pjf location of call llamas, wait times and NPO status. Patient has correct armband on for positive identification. Bed in low position. Call light in reach. Side rails up X 1. Security observing. Property removed, secured in belongings bag- Placed in locker #5. Door closed. Noise minimized. Visitors limited. Report received from chart rev. - psych. triage level #2, dep., cooperative \T\ this time. The patient / caregiver is instructed regarding the plan of care and ED course. Psych Safety Check: Location: Psych Room. 14:34 Patient visited by Tripp Pérez Security Aide. pjf 14:35 Patient visited by Jerod Adames MD. pc 14:48 Acetaminophen Level Sent. kcs 14:48 DEPAKOTE Sent. kcs 14:48 Complete Blood Count Sent. kcs 14:48 Basic Metabolic Profile Sent. kcs 14:48 Drug Eval Toxicology ED Only Sent. kcs 14:48 Ethyl Alcohol (ethanol) Sent. kcs 14:48 Liver Profile Sent. kcs 14:48 Salicylate Level Sent. kcs 14:48 Thyroid Stimulating Hormone Sent. kcs 14:51 Patient visited by Tripp Pérez Security Aide. pjf 15:04 Patient visited by Tripp Pérez Security Aide. pjf 15:15 Psych Safety Check: Location: Psych Room. Visual Assessment: Cooperative. pjf 15:30 Psych Safety Check: Location: Psych Room. Visual Assessment: Cooperative. pjf 15:43 Patient moved to OBSERVATION pc 15:45 Psych Safety Check: Location: Psych Room. Visual Assessment: Cooperative. pjf 16:00 Psych Safety Check: Location: Psych Room. Visual Assessment: Cooperative. pjf 16:41 [facility] is Referral Physician. pc 16:41 Patient moved to [facility] pc 16:58 Patient visited by Tripp Pérez Security Aide. pjf 17:33 Patient visited by Tripp Pérez Security Aide. pjf 17:51 [facility] Payment Agreement was scanned into [employer] and attached to record. zo 18:55 Patient visited by Tripp Pérez Security Aide. pjf 18:55 No IV's were initiated during this patient's visit. No procedures done that require kcs assistance. Order Results: Lab Order: Acetaminophen Level; SPEC'M 11/26/16 14:44 Test: ACETAMINOPHEN LEVEL; Value: < 2.0; Range: 10.0-30.0; Abnormal: Below low normal; Units: UG/ML; Status: F Lab Order: Basic Metabolic Profile; SPEC'M 11/26/16 14:44 Test: GLUCOSE, FASTING; Value: 109; Range: 70-105; Abnormal: Above high normal; Units: MG/DL; Status: F Test: BLOOD UREA NITROGEN; Value: 14; Range: 7-18; Units: MG/DL; Status: F Test: CREATININE FOR GFR; Value: 0.62; Range: 0.55-1.02; Units: MG/DL; Status: F Test: GLOMERULAR FILTRATION RATE; Value: > 60.0; Range: >51; Status: F Test: SODIUM LEVEL; Value: 143; Range: 136-145; Units: MEQ/L; Status: F Test: POTASSIUM SERUM; Value: 4.4; Range: 3.5-5.1; Units: MEQ/L; Status: F Test: CHLORIDE LEVEL; Value: 106; Range: 98-107; Units: MEQ/L; Status: F Test: CARBON DIOXIDE LEVEL; Value: 28; Range: 21-32; Units: MEQ/L; Status: F Test: ANION GAP; Value: 9; Range: 8-16; Units: MEQ/L; Status: F Test: CALCIUM LEVEL; Value: 8.8; Range: 8.5-10.1; Units: MG/DL; Status: F Test Note: ; Units are mL/min/1.73 m2 Chronic Kidney Disease Staging per NKF: Stage I & II GFR >=60 Normal to Mildly Decreased Stage III GFR 30-59 Moderately Decreased Stage IV GFR 15-29 Severely Decreased Stage V GFR <15 Very Little GFR Left ESRD GFR <15 on RECYCLING PROGRAM MANAGER Lab Order: Complete Blood Count; SPEC'M 11/26/16 14:44 Test: WHITE BLOOD COUNT; Value: 5.8; Range: 4.0-10.0; Units: K/mm3; Status: F Test: RED BLOOD COUNT; Value: 4.29; Range: 4.00-5.40; Units: M/mm3; Status: F Test: HEMOGLOBIN; Value: 13.8; Range: 12.0-16.0; Units: g/dl; Status: F Test: HEMATOCRIT; Value: 40.4; Range: 36.0-47.0; Units: %; Status: F Test: MEAN CORPUSCULAR VOLUME; Value: 94.2; Range: 80.0-96.0; Units: fl; Status: F Test: MEAN CORPUSCULAR HEMOGLOBIN; Value: 32.2; Range: 27.0-33.0; Units: pg; Status: F Test: MEAN CORPUSCULAR HGB CONC; Value: 34.1; Range: 32.0-36.5; Units: g/dl; Status: F Test: RED CELL DISTRIBUTION WIDTH; Value: 11.7; Range: 11.5-14.5; Units: %; Status: F Test: PLATELET COUNT, AUTOMATED; Value: 138; Range: 150-450; Abnormal: Below low normal; Units: k/mm3; Status: F Lab Order: Drug Eval Toxicology ED Only; SPEC'M 11/26/16 14:44 Test: AMPHETAMINES LEVEL URINE; Value: NEGATIVE; Range: NEGATIVE; Status: F Test: BARBITURATES URINE; Value: NEGATIVE; Range: NEGATIVE; Status: F Test: BENZODIAZEPINES URINE; Value: NEGATIVE; Range: NEGATIVE; Status: F Test: CANNABINOIDS URINE; Value: NEGATIVE; Range: NEGATIVE; Status: F Test: COCAINE METABOLITE URINE; Value: NEGATIVE; Range: NEGATIVE; Status: F Test: METHADONE URINE; Value: NEGATIVE; Range: NEGATIVE; Status: F Test: OPIATES URINE; Value: NEGATIVE; Range: NEGATIVE; Status: F Test: TRICYCLIC ANTIDEPRESS URINE; Value: NEGATIVE; Range: NEGATIVE; Status: F Test Note: ; ALL PRESUMPTIVE POSITIVE FINDINGS ARE UNCONFIRMED NORMAL VALUES THRESHOLD IN NG/ML AMPHETAMINES 1000 METHAMPHETAMINES 1000 BARBITURATES 300 BENZODIAZEPINES 300 CANNABINOIDS (THC) 50 COCAINE METABOLITE 300 METHADONE 300 OPIATES 300 PHENCYCLIDINE 25 TRICYCLIC ANTIDEPRESSANTS 1000 RESULTS ARE FOR MEDICAL PURPOSES ONLY. ALL URINE SPECIMENS WILL BE SAVED FOR 3 DAYS. IF CONFIRMATION OF A PRESUMPTIVE POSTIVE SCREEN RESULT IS DESIRED, CALL CHEMISTRY ([phone]) AND REQUEST URINE TO BE SENT TO REFERENCE LAB. FOR A LIST OF CLOSELY RELATED COMPOUNDS PLEASE CALL THE LAB. Lab Order: Ethyl Alcohol (ethanol); [facility] 11/26/16 14:44 Test: ETHYL ALCOHOL (ETHANOL); Value: < 0.003; Range: 0.000-0.010; Units: %; Status: F Lab Order: Liver Profile; [facility] 11/26/16 14:44 Test: AST/SGOT; Value: 21; Range: 15-37; Units: U/L; Status: F Test: ALT/SGPT; Value: 39; Range: 12-78; Units: U/L; Status: F Test: ALKALINE PHOSPHATASE; Value: 114; Range: 45-117; Units: U/L; Status: F Test: BILIRUBIN,TOTAL; Value: 0.2; Range: 0.2-1.0; Units: MG/DL; Status: F Test: BILIRUBIN,DIRECT; Value: < 0.1; Range: 0.0-0.2; Units: MG/DL; Status: F Test: TOTAL PROTEIN; Value: 6.6; Range: 6.4-8.2; Units: GM/DL; Status: F Test: ALBUMIN; Value: 3.7; Range: 3.2-5.2; Units: GM/DL; Status: F Test: ALBUMIN/GLOBULIN RATIO; Value: 1.28; Range: 1.00-1.93; Status: F Lab Order: Salicylate Level; [facility] 11/26/16 14:44 Test: SALICYLATE LEVEL; Value: < 1.7; Range: 5.0-30.0; Abnormal: Below low normal; Units: MG/DL; Status: F Lab Order: Thyroid Stimulating Hormone; [facility] 11/26/16 14:44 Test: THYROID STIMULATING HORMONE; Value: 1.980; Range: 0.358-3.740; Units: uIU/ML; Status: F Lab Order: DEPAKOTE; [facility] 11/26/16 14:44 Test: VALPROIC ACID (DEPAKOTE); Value: 88.8; Range: 50.0-100.0; Units: UG/ML; Status: F Outcome: 16:42 Discharge ordered by Provider. pc 18:55 Discharge Assessment: Patient awake, alert and oriented x 3. No cognitive and/or kcs functional deficits noted. Patient verbalized understanding of disposition instructions. Patient awake and alert. patient administered narcotics - no. The following High Risk Discharge criteria are identified: Yes, patient has been evaluated by PSA.. Discharged to home ambulatory, with significant other. Condition: stable. Discharge instructions given to patient, Instructed on discharge instructions, follow up and referral plans. Demonstrated understanding of instructions, Pt was receptive of discharge instructions/ teaching. No special radiology studies were completed. 19:04 Patient left the ED. [facility] Signatures: Jerod Adames MD MD pc Sleeman, Kacey, RN RN kcs Bee Villanueva, PSA PSA Tripp Oneal, Security Aide Mira Zimmer Rosemary, RN RN rs3 Elsa Jasmine, AS400 DEVELOPER AS400 DEVELOPER bnb Corrections: (The following items were deleted from the chart) 14:57 14:05 Home Meds: gabapentin 100 mg Oral cap 2 caps twice a day; 3 [facility] 14: 14:06 Home Meds: Depakene 250 mg Oral cap daily; 3 [facility] 14: 14:07 Home Meds: Seroquel 400 mg Oral tab once daily; 3 [facility] 14: 14:07 Home Meds: Miralax 17 gram Oral pwpk once daily; 3 [facility] Chart Complete MTDD
== END 2016-11-26 19:04 | disposition home or self-care (01) ==
LOC: M ED 13:52
DX: F31.31 Bipolar disorder, current episode depressed, mild (principal); K21.9 Gastro-esophageal reflux disease without esophagitis; Z79.82 Long term (current) use of aspirin; Z79.899 Other long term (current) drug therapy; Z88.8 Allergy status to other drugs, medicaments and biological substances; Z88.6 Allergy status to analgesic agent
CPT/HCPCS: 36415; 80048; 80076; 80164; 80306; 84443; 85027; 99284; G0480

== ENCOUNTER 2016-11-30 12:24 | Emergency (ER) | payer MEDICARE ==
[2016-11-30 13:28] LABS: MEAN CORPUSCULAR HEMOGLOBIN 32.7 pg (27.0-33.0); MEAN CORPUSCULAR HGB CONC 33.9 g/dl (32.0-36.5); MEAN CORPUSCULAR VOLUME 96.3 fl (80.0-96.0); RED CELL DISTRIBUTION WIDTH 12.1 % (11.5-14.5); WHITE BLOOD COUNT 8.3 K/mm3 (4.0-10.0)
[2016-11-30 13:39] LABS: AMPHETAMINES LEVEL URINE NEGATIVE (NEGATIVE); BENZODIAZEPINES URINE NEGATIVE (NEGATIVE); COCAINE METABOLITE URINE NEGATIVE (NEGATIVE); CONTROL LINE INT CTR LINE PRESENT; METHADONE URINE NEGATIVE (NEGATIVE); OPIATES URINE NEGATIVE (NEGATIVE); TRICYCLIC ANTIDEPRESS URINE NEGATIVE (NEGATIVE)
[2016-11-30] MEDS ORDERED: NITROFURANTOIN (MACROBID) 100 MG CAP As Ordered ONE (13:47)
[2016-11-30 14:01] LABS: ALBUMIN 3.9 GM/DL (3.2-5.2); ALBUMIN/GLOBULIN RATIO 1.22 (1.00-1.93); ALKALINE PHOSPHATASE 122 U/L (45-117); ALT/SGPT 40 U/L (12-78); ANION GAP 9 MEQ/L (8-16); AST/SGOT 27 U/L (15-37); BILIRUBIN,DIRECT 0.1 MG/DL (0.0-0.2); BILIRUBIN,TOTAL 0.3 MG/DL (0.2-1.0); BLOOD UREA NITROGEN 13 MG/DL (7-18); CALCIUM LEVEL 9.3 MG/DL (8.5-10.1); CARBON DIOXIDE LEVEL 30 MEQ/L (21-32); CHLORIDE LEVEL 104 MEQ/L (98-107); CREATININE FOR GFR 0.63 MG/DL (0.55-1.02); GLOMERULAR FILTRATION RATE > 60.0 (>51); GLUCOSE, FASTING 127 MG/DL (70-105); POTASSIUM SERUM 4.2 MEQ/L (3.5-5.1); SODIUM LEVEL 143 MEQ/L (136-145); TOTAL PROTEIN 7.1 GM/DL (6.4-8.2)
[2016-11-30] MEDS ORDERED: LORazepam 1 MG TAB As Ordered ONE (15:36)
[2016-11-30] MEDS ORDERED: GABAPENTIN 100 MG CAP As Ordered ONE (19:57)
[2016-11-30] MEDS ORDERED: QUEtiapine FUMARATE 100 MG TAB As Ordered ONE (19:57)
[2016-11-30] MEDS ORDERED: DIVALPROEX 250 MG TAB As Ordered ONE (19:57)
--- NOTE | 2016-11-30 20:23 | ECGEPIP ---
Stationary ECG Study [facility] - ED Test Date: 2016-11-30 Pat Name: ROLANDO AVERY Department: Room: - Gender: F Home Support Worker: : 1960 Requested By: ROYER Ellison Order Number: [id number] Reading MD: Caitlin Doran Measurements Intervals [place] Rate: 84 P: 59 CA: 120 QRS: 45 QRSD: 115 T: 66 QT: 335 QTc: 398 Interpretive Statements SINUS RHYTHM POSSIBLE INFERIOR MYOCARDIAL INFARCTION, OF INDETERMINATE AGE DECREASED RATE 11/02/16 Electronically Signed On 11-30-2016 20:23:31 EST by Caitlin Doran
--- NOTE | 2016-11-30 21:06 | EDDOCDS ---
Physician Documentation [facility] Name: Keshia Merrill Age: 56 yrs Sex: Female : 1960 Arrival Date: 11/30/2016 Time: 12:24 Bed OBSERVATION Private MD: Sharifa Guevara ANP Disposition: 11/30/16 16:15 Transfer ordered to [facility]. Diagnosis are Bipolar disorder, Urinary tract infection, site not specified. - Reason for transfer: Higher level of care. - Accepting physician is Dr. Puga. - Condition is Stable. - Problem is new. - Symptoms are unchanged. Historical: - Allergies: Haldol (Unknown); Ibuprofen (liver enzyme incrased); [place] Carbonate (Dementia); Risperdal (Unknown); Trazodone (palpitation); tylenol (can not take due to liver enzyme); Zofran (Vomit); Zyrtec (Unknown); - Home Meds: 1. gabapentin 100 mg Oral cap 2 caps 3 times per day (Last dose: 11/30/2016 07:00) 2. Ambien 5 mg Oral tab nightly (Last dose: Unknown) 3. aspirin 81 mg Oral tab 1 tab once daily (Last dose: Unknown) 4. clonazepam 1 mg Oral TbDL 1 tab nightly (Last dose: Unknown) 5. Colace 100 mg oral cap 1 cap once daily (Last dose: Unknown) 6. Depakote 500 mg Oral TbEC nightly (Last dose: Unknown) 7. Depakote 250 mg Oral TbEC 1 tab once daily (Last dose: Unknown) 8. Linzess oral Unknown once daily (Last dose: Unknown) 9. meclizine 12.5 mg Oral tab 2 tabs as needed (Last dose: Unknown) 10. Miralax 17 gram Oral pwpk twice a day (Last dose: Unknown) 11. Multivitamin Oral 1 tab daily (Last dose: Unknown) 12. Prilosec 20 mg Oral cpDR 1 cap once daily (Last dose: Unknown) 13. Seroquel 400 mg Oral tab nightly (Last dose: Unknown) 14. sodium chloide nasal spray 2 sprays nasally every 2 hours as needed (Last dose: Unknown) 15. Zoloft 25 mg Oral tab 1 tab once daily (Last dose: Unknown) - PMHx: Anxiety; Bipolar disorder; GERD; - PSHx: Cholecystectomy; small intestine reconstruction; L toe surgery; - Social history: Smoking status: Patient states was never smoker of tobacco. No barriers to communication noted, Speaks appropriately for age. - Family history: No immediate family members are acutely ill. - : The pt / caregiver states he / she is not on anticoagulants. Home medication list is obtained from the patient. - Exposure Risk Screening:: None identified. Vital Signs: 11/30 12:26 BP 144 / 86 RA Sitting (auto/reg); Pulse 87; Resp 16; Temp 97.4(O); Pulse Ox 100% on jrd R/A; Weight 47.17 kg / 103.99 lbs; Height 5 ft. 7 in. (170.18 cm); Pain 8/10; 16:16 BP 133 / 84; Pulse 92; Resp 18; Temp 98.2(O); Pulse Ox 98% on R/A; mb9 21:04 BP 148 / 83; Pulse 86; Resp 18; Temp 98.5; Pulse Ox 98% on R/A; Pain 0/10; slm 12:26 Body Mass Index 16.29 (47.17 kg, 170.18 cm) jrd MDM: 12:39 Consult PFS/PSA/Industrial Technologist ordered. br1 12:39 Consult PFS/PSA/Industrial Technologist: Patient's case requires discussion with on-call br1 Psychiatrist ordered. 12:39 PSA/PFS to call Nursing Restaurant Kitchen Manager, to enter patient data on [place] Safe Act if patient br1 involuntarily admitted or transferred for SI or HI ordered. 12:39 Confirm accurate psychiatric medication list and times of last dosage ordered. br1 12:39 Detain Pt Until Medically/PFS Cleared ordered. br1 12:40 Acetaminophen Level Ordered. EDMS 12:40 Basic Metabolic Profile Ordered. EDMS 12:40 Complete Blood Count Ordered. EDMS 12:40 Drug Eval Toxicology ED Only Ordered. EDMS 12:40 Ethyl Alcohol (ethanol) Ordered. EDMS 12:40 Liver Profile Ordered. EDMS 12:40 Salicylate Level Ordered. EDMS 12:40 Thyroid Stimulating Hormone Ordered. EDMS 12:55 Urinalysis Ordered. EDMS 12:55 Urine Culture Ordered. EDMS 13:21 VALPROIC ACID (DEPAKOTE) Ordered. EDMS 13:35 Complete Blood Count Reviewed. br1 13:35 Urinalysis Reviewed. br1 13:37 Nitrofurantoin 100 mg PO once ordered. br1 14:05 Consult PFS/PSA/Industrial Technologist complete. ml4 14:06 Consult PFS/PSA/Industrial Technologist: Patient's case requires discussion with on-call ml4 Psychiatrist complete. 14:06 PSA/PFS to call Nursing Restaurant Kitchen Manager, to enter patient data [place] Safe [place] if patient ml4 involuntarily admitted or transferred for SI or HI complete. 14:14 BED REQUEST+ADM ordered. EDMS 14:32 ECG WITH READING ER PHYS+CARDIAG ordered. EDMS 14:40 Acetaminophen Level Reviewed. br1 14:40 Basic Metabolic Profile Reviewed. br1 14:40 Drug Eval Toxicology ED Only Reviewed. br1 14:40 Liver Profile Reviewed. br1 14:40 Salicylate Level Reviewed. br1 14:40 Ethyl Alcohol (ethanol) Reviewed. br1 14:40 Thyroid Stimulating Hormone Reviewed. br1 14:40 VALPROIC ACID (DEPAKOTE) Reviewed. br1 15:16 REGULAR DIET PLASTIC SUERO+DIET ordered. EDMS 15:27 LORazepam 0.5 mg PO once; prn anxiety ordered. br1 16:20 MHE Legal paperwork was scanned into [employer] and attached to record. ml4 16:56 Financial registration complete. zo 17:08 [facility] Payment Agreement was scanned into [employer] and attached to record. zo 19:55 Gabapentin 200 mg PO once ordered. slm 19:55 SEROquel 400 mg PO once ordered. slm 19:55 Depakote 500 mg PO once ordered. slm Administered Medications: 13:51 Drug: Nitrofurantoin 100 mg Route: PO; mb9 15:38 Drug: LORazepam 0.5 mg [lorazepam 1 mg tablet (0.5 tabs)] Route: PO; me3 19:52 CANCELLED (Other Intervention Used): Gabapentin 100 mg PO once slm 20:03 Drug: Gabapentin 200 mg {Note: pt took only 100 mg reports SHIRT IRONER SUPERVISOR id decreaseing dose .} slm Route: PO; 20:03 Drug: SEROquel 400 mg Route: PO; slm 20:03 Drug: Depakote 500 mg Route: PO; slm Signatures: Dispatcher [employer] EDMS Nhung Romero, PSA PSA ml4 Mira Ann Brian, MD MD br1 Matty Hernandez, RN RN ml6 Clair Kolb LPN WAITER/WAITRESS FIRST CLASS slm Rubio Duncan RN RN mb9 Radha Rodriguez WAITER/WAITRESS FIRST CLASS me3 The chart was reviewed and I authenticate all verbal orders and agree with the evaluation and treatment provided.Corrections: (The following items were deleted from the chart) 13:21 12:40 VALPROIC ACID (DEPAKOTE)+LAB ordered. EDMS EDMS 19:52 19:49 Gabapentin 100 mg PO once ordered. br1 nya Attachments: 17:08 [facility] Payment Agreement zo MTDD
--- NOTE | 2016-11-30 21:07 | EDDOCDS ---
Nurse's Notes [facility] Name: Keshia Merrill Age: 56 yrs Sex: Female : 1960 Arrival Date: 11/30/2016 Time: 12:24 Bed OBSERVATION Private MD: Sharifa Guevara ANP Diagnosis: Bipolar disorder;Urinary tract infection, site not specified Presentation: 11/30 12:37 Presenting complaint: Patient states: states that "I do not want to live anymore". ml6 Mental Health Triage Level: Level 2: The patient displays active suicidal ideations. Adult Sepsis Screening: The patient does not have new or worsening altered mentation. Patient's respiratory rate is less than 22. Systolic blood pressure is greater than 100. Patient has a qSOFA score of 0- Negative Sepsis Screen. Mental Health Triage Level: Level 2: The patient displays active suicidal ideations. Suicide/Homicide risk assessment- The patient admits to and/or has been reported to be having suicidal ideations. Patient denies SI and HI but presents with another emotional, behavioral or other mental health complaint. The patient reports that he/she has been admitted to an inpatient mental health facility in the last 30 days. The patient reports that he/she does not have a recent or current history of substance abuse. The patient reports that he/she has a prior history of suicide attempt and/or organized plan. The patient reports that he/she has not experienced a significant life altering event in the last 30 days. Status: Patient is not a neighborhood service center director or dependent. Transition of care: patient was not received from another setting of care. 12:37 Acuity: CK Level 3 ml6 12:37 Method Of Arrival: Walkin/Carried/Asstd 6 12:37 Red Flag criteria, patient assessed and taken directly to a bed. ml6 Triage Assessment: 12:41 General: Appears in no apparent distress, Behavior is appropriate for age, cooperative. ml6 Pain: Denies pain. HIV screening NA for this visit Offered previously. Neurological: No deficits noted. Level of Consciousness is awake, alert, Oriented to person, place, time. Cardiovascular: No deficits noted. Capillary refill < 3 seconds is brisk in bilateral fingers toes Heart tones S1 S2 present. Respiratory: No deficits noted. Airway is patent Respiratory effort is even, unlabored, Respiratory pattern is regular, symmetrical. GI: No deficits noted. Abdomen is flat, non- distended Bowel sounds present X 4 quads. Historical: - Allergies: Haldol (Unknown); Ibuprofen (liver enzyme incrased); [place] Carbonate (Dementia); Risperdal (Unknown); Trazodone (palpitation); tylenol (can not take due to liver enzyme); Zofran (Vomit); Zyrtec (Unknown); - Home Meds: 1. gabapentin 100 mg Oral cap 2 caps 3 times per day (Last dose: 11/30/2016 07:00) 2. Ambien 5 mg Oral tab nightly (Last dose: Unknown) 3. aspirin 81 mg Oral tab 1 tab once daily (Last dose: Unknown) 4. clonazepam 1 mg Oral TbDL 1 tab nightly (Last dose: Unknown) 5. Colace 100 mg oral cap 1 cap once daily (Last dose: Unknown) 6. Depakote 500 mg Oral TbEC nightly (Last dose: Unknown) 7. Depakote 250 mg Oral TbEC 1 tab once daily (Last dose: Unknown) 8. Linzess oral Unknown once daily (Last dose: Unknown) 9. meclizine 12.5 mg Oral tab 2 tabs as needed (Last dose: Unknown) 10. Miralax 17 gram Oral pwpk twice a day (Last dose: Unknown) 11. Multivitamin Oral 1 tab daily (Last dose: Unknown) 12. Prilosec 20 mg Oral cpDR 1 cap once daily (Last dose: Unknown) 13. Seroquel 400 mg Oral tab nightly (Last dose: Unknown) 14. sodium chloide nasal spray 2 sprays nasally every 2 hours as needed (Last dose: Unknown) 15. Zoloft 25 mg Oral tab 1 tab once daily (Last dose: Unknown) - PMHx: Anxiety; Bipolar disorder; GERD; - PSHx: Cholecystectomy; small intestine reconstruction; L toe surgery; - Social history: Smoking status: Patient states was never smoker of tobacco. No barriers to communication noted, Speaks appropriately for age. - Family history: No immediate family members are acutely ill. - : The pt / caregiver states he / she is not on anticoagulants. Home medication list is obtained from the patient. - Exposure Risk Screening:: None identified. Screenin:43 Screening information is obtained from the patient. Fall risk: No risks identified. mb9 Assistance ADL's: requires no assistance with activities of daily living. Abuse/DV Screen: The patient / caregiver reports he/she is: not in a situation that causes fear, pain or injury. Nutritional screening: No deficits noted. Advance Directives: There is no active DNR order. home support is adequate. Assessment: 13:10 General: Appears in no apparent distress, Behavior is cooperative. General: security mb9 observing. . Pain: Denies pain. Respiratory: Airway is patent Respiratory effort is even, unlabored. 15:16 Reassessment: Patient appears in no apparent distress at this time. General: Appears mb9 Behavior is restless. Respiratory: Airway is patent Respiratory effort is even, unlabored. 16:15 Reassessment: Patient states symptoms have improved. General: Appears in no apparent mb9 distress, Behavior is cooperative, restless. Respiratory: Airway is patent Respiratory effort is even, unlabored. 18:42 Reassessment: Patient appears in no apparent distress at this time. Patient states mb9 symptoms have improved. General: Appears in no apparent distress, Behavior is appropriate for age, cooperative. Respiratory: Airway is patent Respiratory effort is even, unlabored. 19:11 General: Appears in no apparent distress, comfortable, Behavior is cooperative. slm General: pt resting on stretcher security observing . Respiratory: Airway is patent Respiratory effort is even, unlabored. Derm: Skin is pink, warm & dry. 20:04 General: Appears in no apparent distress, comfortable, Behavior is anxious, slm cooperative, pleasant. General: pt sitting on bed pt anxious and nervous acting security observing . Pain: Denies pain. Neurological: Level of Consciousness is awake, alert, obeys commands. Respiratory: Airway is patent Respiratory effort is even, unlabored. 20:32 General: Appears in no apparent distress, Behavior is anxious. General: Behavior is mv5 cooperative. Neurological: Level of Consciousness is awake, alert. Respiratory: Airway is patent Respiratory effort is even, unlabored. Derm: Skin is pink, warm & dry. 21:01 General: Appears in no apparent distress, comfortable, Behavior is cooperative. slm General: pt transferred at this time . Pain: Denies pain. Respiratory: Airway is patent Respiratory effort is even, unlabored. Derm: Skin is pink, warm & dry. Mental Health Eval: 13:32 Mental health consult is initiated at 13:00. Status: The patient is not a ml4 neighborhood service center director or dependent. [facility] Behavioral Health: The patient is not an established patient of [facility] Behavioral Health. Referral Information: Evaluation referral is generated by the patient himself / herself. The patient was referred for evaluation because thoughts of suicide with plan to OD . Subjective: The patients chief complaint is pt states, "I can't take my depression anymore, I just want to end it all." Pt reports being hospitalized to [facility] on 11/01/16 and was discharged 11/20/16. She feels she was discharged too early, therefore returned to ED 11/26/16 for a medication adjustment and was discharged(with no medication change). Pt states she is no longer wanting to live and is thinking about killing herself with plan for OD. Suicidal triggers include her mental health illness and states she feels she is a burden to everyone, specifically her . She notes having some on-going relational problems with due to her level of anxiety. Admits her mind is racing and unable to concentrate on a specific task at home. She continues to voice SI with plan to OD. . Delusions are denied. Patient's mood is anxious, depressed, Hallucinations are denied. Mental Health history: anxiety, Bipolar Disorder, Mental Health Admissions: Numerous admissions to [facility], last admission Oct, 2016 Current Outpatient Mental Health Services: [facility]iat[facility] / [facility]Dr. Solis . Therapist / Agency: Dr. Flores(Psychologist) at [facility] . Current living environment is The patient currently lives with his / her spouse, . 31 year old son . The patient is . Patient presents to Emergency Department with the following symptoms within the past 2 weeks: anxiety, decreased appetite, depressed mood, feelings of helplessness/hopelessness, marital problem, poor concentration, poor impulse control, relational problem, suicidal ideation with plan for pills. Substance abuse: Pt denies. Mental status exam: Patients appearance is thin, Patient's behavior is cooperative, Speech is mumbled. Affect is flat. Mood is anxious. depressed. Hallucinations are denied. Appetite is poor. Memory is good. Energy level is normal. Content of thought is depressive. due to active SI with plan OD Thought process is intact. Cognitive level is oriented to person, place, time and situation Patient's insight is poor. Judgement is poor. Rapport with interviewer is good. Suicidal Ideation present with a plan to kill self by pills. Homicidal ideation is denied. Disposition: Medically cleared for disposition by Dann Nava MD. Narrative: Awaiting psychiatric consult... 14:16 Disposition: Psychiatric Consult is performed by phone with Dr Fabrizio Dougherty MD The ml4 patient is to be transferred to accepting adult facility. [facility] Admission Criteria: The patient is experiencing suicidal ideation. The patient requires continuous observation and/or control to protect self, others or property. The patient's care requires a multi-modal treatment plan under close supervision and coordination due to the complexity and severity of the patient's symptoms. The patient requires administration and monitoring of psychoactive medications by skilled medical providers due to the side effects of the psychoactive medications or significant dosage adjustments. Legal Status: Patient's legal status will be [facility] Services admission: . [place] Safe Act: [place] Safe Act is applicable to this patient. The patient poses a risk to self or other and the Nursing Multicultural Services Librarian has been notified. He/She will enter the patient's data. DSM-V Differential Diagnosis: Unspecified Anxiety Disorder (F41.9) Bipolar II Disorder (F31.81) Current or most recent episode unspecified. Narrative: [facility] is currently at capacity, [facility] will search for bed availability. 14:27 Narrative: [facility], [facility]. and [facility] are currently ml4 at capacity. [place] [facility] [place], awaiting a reply. 19:42 Awaiting: arrival of EMS for transfer. cl Vital Signs: 12:26 BP 144 / 86 RA Sitting (auto/reg); Pulse 87; Resp 16; Temp 97.4(O); Pulse Ox 100% on jrd R/A; Weight 47.17 kg; Height 5 ft. 7 in. (170.18 cm); Pain 8/10; 16:16 BP 133 / 84; Pulse 92; Resp 18; Temp 98.2(O); Pulse Ox 98% on R/A; mb9 21:04 BP 148 / 83; Pulse 86; Resp 18; Temp 98.5; Pulse Ox 98% on R/A; Pain 0/10; slm 12:26 Body Mass Index 16.29 (47.17 kg, 170.18 cm) jrd Vitals: 12:26 Log In Time: November 30, 2016 at 12:23. RN notified that patient meets Red Flag jrd criteria. ED Course: 12:25 Patient visited by Yoav Dela Cruz PCA. jrd 12:25 Patient moved to Waiting jrd 12:26 Sharifa Guevara is Private Physician. jrd 12:28 Patient visited by Yoav Dela Cruz PCA. jrd 12:28 Patient moved to Pre RCE jrd 12:32 Dann Nava MD is Attending Physician. br1 12:32 Patient moved to [facility] pjf 12:37 Triage Initiated ml6 12:40 Patient visited by Tripp Pérez Security Aide. pjf 12:45 Pt greeted and oriented to ED. Patient advised of names of staff involved in care, pjf location of call llamas, wait times and NPO status. Patient has correct armband on for positive identification. Placed in psych safe attire. Bed in low position. Call light in reach. Side rails up X 1. Security observing. Property removed, secured in belongings bag- Placed in locker #3. Door closed. Noise minimized. Visitors limited. Report received from rn - psych. triage level #\\T\\, +si, cooperative \\T\\ this time. The patient / caregiver is instructed regarding the plan of care and ED course. Psych Safety Check: Location: Psych Room. 12:52 Patient visited by Tripp Pérez Security Aide. pjf 12:54 Patient visited by Dann Nava MD. br1 12:57 Patient visited by Tripp Pérez Security Aide. pjf 13:09 Patient visited by Tripp Pérez Security Aide. pjf 13:09 Urine Culture Sent. mb9 13:09 Urinalysis Sent. mb9 13:09 Acetaminophen Level Sent. mb9 13:10 Basic Metabolic Profile Sent. mb9 13:10 Complete Blood Count Sent. mb9 13:10 Drug Eval Toxicology ED Only Sent. mb9 13:10 Ethyl Alcohol (ethanol) Sent. mb9 13:10 Liver Profile Sent. mb9 13:10 Salicylate Level Sent. mb9 13:10 Thyroid Stimulating Hormone Sent. mb9 13:18 Patient visited by Tripp Pérez Security Aide. pjf 13:36 Patient visited by Tripp Pérez Security Aide. pjf 13:44 Patient visited by Tripp Pérez Security Aide. pjf 13:44 VALPROIC ACID (DEPAKOTE) Sent. mb9 14:09 Patient visited by Tripp Pérez Security Aide. pjf 14:25 Patient visited by Tripp Pérez Security Aide. pjf 14:46 Patient moved to OBSERVATION br1 14:57 Patient visited by Tripp Pérez Security Aide. pjf 15:34 Patient visited by Tripp Pérez Security Aide. pjf 16:03 Patient visited by Tripp Pérez Security Aide. pjf 16:17 Patient visited by Tripp Pérez Security Aide. pjf 16:20 [facility] Legal paperwork was scanned into [employer] and attached to record. ml4 16:40 Patient visited by Tripp Pérez Security Aide. pjf 17:02 Patient visited by Tripp Pérez Security Aide. pjf 17:08 [facility] Payment Agreement was scanned into [employer] and attached to record. zo 17:16 Patient visited by Tripp Pérez Security Aide. pjf 17:30 Patient visited by Tripp Pérez Security Aide. pjf 17:46 Patient visited by Tripp Pérez Security Aide. pjf 18:13 Patient visited by Tripp Pérez Security Aide. pjf 18:26 Patient visited by Tripp Pérez Security Aide. pjf 18:43 No IV's were initiated during this patient's visit. No procedures done that require mb9 assistance. 18:46 Patient visited by Tripp Pérez Security Aide. pjf 18:57 Patient visited by Tripp Pérez Security Aide. pjf 19:01 Patient visited by Tripp Pérez Security Aide. pjf 19:10 Clair Kolb LPN is Primary Nurse. slm 19:11 Patient visited by Clair Kolb LPN. slm 19:19 Patient visited by Tripp Pérez Security Aide. pjf 19:36 Patient visited by Tom Foley. mas 19:46 Patient visited by Tom Foley. mas 20:00 Patient visited by Tom Foley. mas 20:05 Patient visited by Clair Kolb LPN. slm 20:15 Patient visited by Tom Foley. mas 20:39 Patient visited by Clair Kolb LPN. slm 20:45 Patient visited by Tom Foley. mas 21:04 Patient visited by Clair Kolb LPN. slm Administered Medications: 13:51 Drug: Nitrofurantoin 100 mg Route: PO; mb9 15:38 Drug: LORazepam 0.5 mg [lorazepam 1 mg tablet (0.5 tabs)] Route: PO; me3 19:52 CANCELLED (Other Intervention Used): Gabapentin 100 mg PO once slm 20:03 Drug: Gabapentin 200 mg {Note: pt took only 100 mg reports DIABETES MANAGER id decreaseing dose .} slm Route: PO; 20:03 Drug: SEROquel 400 mg Route: PO; slm 20:03 Drug: Depakote 500 mg Route: PO; slm Attachments: 16:20 [facility] Legal paperwork ml4 Order Results: Lab Order: Acetaminophen Level; SPEC'M 11/30/16 13:08 Test: ACETAMINOPHEN LEVEL; Value: < 2.0; Range: 10.0-30.0; Abnormal: Below low normal; Units: UG/ML; Status: F Lab Order: Basic Metabolic Profile; SPEC'M 11/30/16 13:08 Test: GLUCOSE, FASTING; Value: 127; Range: 70-105; Abnormal: Above high normal; Units: MG/DL; Status: F Test: BLOOD UREA NITROGEN; Value: 13; Range: 7-18; Units: MG/DL; Status: F Test: CREATININE FOR GFR; Value: 0.63; Range: 0.55-1.02; Units: MG/DL; Status: F Test: GLOMERULAR FILTRATION RATE; Value: > 60.0; Range: >51; Status: F Test: SODIUM LEVEL; Value: 143; Range: 136-145; Units: MEQ/L; Status: F Test: POTASSIUM SERUM; Value: 4.2; Range: 3.5-5.1; Units: MEQ/L; Status: F Test: CHLORIDE LEVEL; Value: 104; Range: 98-107; Units: MEQ/L; Status: F Test: CARBON DIOXIDE LEVEL; Value: 30; Range: 21-32; Units: MEQ/L; Status: F Test: ANION GAP; Value: 9; Range: 8-16; Units: MEQ/L; Status: F Test: CALCIUM LEVEL; Value: 9.3; Range: 8.5-10.1; Units: MG/DL; Status: F Test Note: ; Units are mL/min/1.73 m2 Chronic Kidney Disease Staging per NKF: Stage I & II GFR >=60 Normal to Mildly Decreased Stage III GFR 30-59 Moderately Decreased Stage IV GFR 15-29 Severely Decreased Stage V GFR <15 Very Little GFR Left ESRD GFR <15 on KEY PERSON Lab Order: Complete Blood Count; SPEC'M 11/30/16 13:08 Test: WHITE BLOOD COUNT; Value: 8.3; Range: 4.0-10.0; Units: K/mm3; Status: F Test: RED BLOOD COUNT; Value: 4.52; Range: 4.00-5.40; Units: M/mm3; Status: F Test: HEMOGLOBIN; Value: 14.8; Range: 12.0-16.0; Units: g/dl; Status: F Test: HEMATOCRIT; Value: 43.5; Range: 36.0-47.0; Units: %; Status: F Test: MEAN CORPUSCULAR VOLUME; Value: 96.3; Range: 80.0-96.0; Abnormal: Above high normal; Units: fl; Status: F Test: MEAN CORPUSCULAR HEMOGLOBIN; Value: 32.7; Range: 27.0-33.0; Units: pg; Status: F Test: MEAN CORPUSCULAR HGB CONC; Value: 33.9; Range: 32.0-36.5; Units: g/dl; Status: F Test: RED CELL DISTRIBUTION WIDTH; Value: 12.1; Range: 11.5-14.5; Units: %; Status: F Test: PLATELET COUNT, AUTOMATED; Value: 156; Range: 150-450; Units: k/mm3; Status: F Lab Order: Drug Eval Toxicology ED Only; SPEC'M 11/30/16 13:08 Test: AMPHETAMINES LEVEL URINE; Value: NEGATIVE; Range: NEGATIVE; Status: F Test: BARBITURATES URINE; Value: NEGATIVE; Range: NEGATIVE; Status: F Test: BENZODIAZEPINES URINE; Value: NEGATIVE; Range: NEGATIVE; Status: F Test: CANNABINOIDS URINE; Value: POSITIVE; Range: NEGATIVE; Abnormal: Above high normal; Status: F Test: COCAINE METABOLITE URINE; Value: NEGATIVE; Range: NEGATIVE; Status: F Test: METHADONE URINE; Value: NEGATIVE; Range: NEGATIVE; Status: F Test: OPIATES URINE; Value: NEGATIVE; Range: NEGATIVE; Status: F Test: TRICYCLIC ANTIDEPRESS URINE; Value: NEGATIVE; Range: NEGATIVE; Status: F Test Note: ; FALSE POSITIVE RESULTS CAN BE CAUSED BY THE USE OF PANTOPRAZOLE (PROTONIX). Lab Order: Ethyl Alcohol (ethanol); SPEC' 11/30/16 13:08 Test: ETHYL ALCOHOL (ETHANOL); Value: < 0.003; Range: 0.000-0.010; Units: %; Status: F Lab Order: Liver Profile; [facility]' 11/30/16 13:08 Test: AST/SGOT; Value: 27; Range: 15-37; Units: U/L; Status: F Test: ALT/SGPT; Value: 40; Range: 12-78; Units: U/L; Status: F Test: ALKALINE PHOSPHATASE; Value: 122; Range: 45-117; Abnormal: Above high normal; Units: U/L; Status: F Test: BILIRUBIN,TOTAL; Value: 0.3; Range: 0.2-1.0; Units: MG/DL; Status: F Test: BILIRUBIN,DIRECT; Value: 0.1; Range: 0.0-0.2; Units: MG/DL; Status: F Test: TOTAL PROTEIN; Value: 7.1; Range: 6.4-8.2; Units: GM/DL; Status: F Test: ALBUMIN; Value: 3.9; Range: 3.2-5.2; Units: GM/DL; Status: F Test: ALBUMIN/GLOBULIN RATIO; Value: 1.22; Range: 1.00-1.93; Status: F Lab Order: Salicylate Level; SPEC' 11/30/16 13:08 Test: SALICYLATE LEVEL; Value: < 1.7; Range: 5.0-30.0; Abnormal: Below low normal; Units: MG/DL; Status: F Lab Order: Thyroid Stimulating Hormone; SPEC'M 11/30/16 13:08 Test: THYROID STIMULATING HORMONE; Value: 1.850; Range: 0.358-3.740; Units: uIU/ML; Status: F Lab Order: Urinalysis; SPEC'M 11/30/16 13:08 Test: APPEARANCE, URINE; Value: HAZY; Range: CLEAR; Status: F Test: COLOR, URINE; Value: YELLOW; Range: YELLOW; Status: F Test: PH,URINE; Value: 6.0; Range: 5.0-9.0; Units: UNITS; Status: F Test: SPECIFIC GRAVITY URINE AUTO; Value: 1.015; Range: 1.002-1.035; Status: F Test: PROTEIN, URINE AUTO; Value: NEGATIVE; Range: NEGATIVE; Units: mg/dL; Status: F Test: GLUCOSE, URINE (UA) AUTO; Value: NEGATIVE; Range: NEGATIVE; Units: mg/dL; Status: F Test: KETONE, URINE AUTO; Value: TRACE; Range: NEGATIVE; Abnormal: Above high normal; Units: mg/dL; Status: F Test: UROBILINOGEN, URINE AUTO; Value: 0.2; Range: 0.0-2.0; Units: mg/dL; Status: F Test: BILIRUBIN, URINE AUTO; Value: NEGATIVE; Range: NEGATIVE; Status: F Test: NITRITE, URINE AUTO; Value: NEGATIVE; Range: NEGATIVE; Status: F Test: LEUKOCYTE ESTERASE, URINE AUTO; Value: 1+; Range: NEGATIVE; Abnormal: Above high normal; Status: F Test: BLOOD, URINE BLOOD; Value: 1+; Range: NEGATIVE; Abnormal: Above high normal; Status: F Test: WBC, URINE AUTO; Value: 54; Range: 0-3; Abnormal: Above high normal; Units: /HPF; Status: F Test: RBC, URINE AUTO; Value: 9; Range: 0-3; Abnormal: Above high normal; Units: /HPF; Status: F Test: BACTERIA, URINE AUTO; Value: 1+; Range: NEGATIVE; Abnormal: Above high normal; Status: F Test: SQUAMOUS EPITHELIAL CELL UR AU; Value: 4; Range: 0-6; Units: /HPF; Status: F Test: HYALINE CAST, URINE AUTO; Value: 0; Range: 0-1; Units: /LPF; Status: F Lab Order: VALPROIC ACID (DEPAKOTE); SPEC'M 11/30/16 13:08 Test: VALPROIC ACID (DEPAKOTE); Value: 73.1; Range: 50.0-100.0; Units: UG/ML; Status: F Outcome: 16:15 ER care complete, transfer ordered by Provider. br1 17:13 Admission hand-off: Report called to Catherine ramires at [facility]. All mb9 information relayed. All questions answered. 20:05 No special radiology studies were completed. [facility] 20:05 Discharge Assessment: patient administered narcotics - no. slm 21:02 The following High Risk Discharge criteria are identified: None. Transferred to [place]. sl by EMS ground [facility] ambulance report to accompanying personnel Willa Farrell, Transfer form completed. Condition: stable. 21:05 Patient left the ED. [facility] Signatures: Eliot Metcalf, PSA PSA cl Elisa, Tripp, Security Aide Radha Antoine,CHILD AND FAMILY SERVICES WORKER CHILD AND FAMILY SERVICES WORKER me3 Nhung Romero, PSA PSA ml4 Mira Ann Brian, MD MD br1 Matty Hernandez, RN RN ml6 Tom Foley Stephanie,CHILD AND FAMILY SERVICES WORKER CHILD AND FAMILY SERVICES WORKER slm Yoav Dela Cruz, WATER REGULATOR AND VALVE REPAIRER WATER REGULATOR AND VALVE REPAIRER Rubio Long,RN RN mb9 Teri Lafleur,RN RN mv5 Corrections: (The following items were deleted from the chart) 13:21 13:09 VALPROIC ACID (DEPAKOTE)+LAB sent. mb9 EDMS MTDD
--- NOTE | 2016-12-02 22:07 | EDDOCDS ---
Physician Documentation [facility] Name: Keshia Merrill Age: 56 yrs Sex: Female : 1960 Arrival Date: 11/30/2016 Time: 12:24 Bed OBSERVATION Private MD: Sharifa Guevara ANP Disposition: 11/30/16 16:15 Transfer ordered to [facility] / [facility]. Diagnosis are Bipolar disorder, Urinary tract infection, site not specified. - Reason for transfer: Higher level of care. - Accepting physician is Dr. Puga. - Condition is Stable. - Problem is new. - Symptoms are unchanged. Historical: - Allergies: Haldol (Unknown); Ibuprofen (liver enzyme incrased); [place] Carbonate (Dementia); Risperdal (Unknown); Trazodone (palpitation); tylenol (can not take due to liver enzyme); Zofran (Vomit); Zyrtec (Unknown); - Home Meds: 1. gabapentin 100 mg Oral cap 2 caps 3 times per day (Last dose: 11/30/2016 07:00) 2. Ambien 5 mg Oral tab nightly (Last dose: Unknown) 3. aspirin 81 mg Oral tab 1 tab once daily (Last dose: Unknown) 4. clonazepam 1 mg Oral TbDL 1 tab nightly (Last dose: Unknown) 5. Colace 100 mg oral cap 1 cap once daily (Last dose: Unknown) 6. Depakote 500 mg Oral TbEC nightly (Last dose: Unknown) 7. Depakote 250 mg Oral TbEC 1 tab once daily (Last dose: Unknown) 8. Linzess oral Unknown once daily (Last dose: Unknown) 9. meclizine 12.5 mg Oral tab 2 tabs as needed (Last dose: Unknown) 10. Miralax 17 gram Oral pwpk twice a day (Last dose: Unknown) 11. Multivitamin Oral 1 tab daily (Last dose: Unknown) 12. Prilosec 20 mg Oral cpDR 1 cap once daily (Last dose: Unknown) 13. Seroquel 400 mg Oral tab nightly (Last dose: Unknown) 14. sodium chloide nasal spray 2 sprays nasally every 2 hours as needed (Last dose: Unknown) 15. Zoloft 25 mg Oral tab 1 tab once daily (Last dose: Unknown) - PMHx: Anxiety; Bipolar disorder; GERD; - PSHx: Cholecystectomy; small intestine reconstruction; L toe surgery; - Social history: Smoking status: Patient states was never smoker of tobacco. No barriers to communication noted, Speaks appropriately for age. - Family history: No immediate family members are acutely ill. - : The pt / caregiver states he / she is not on anticoagulants. Home medication list is obtained from the patient. - Exposure Risk Screening:: None identified. Vital Signs: 11/30 12:26 BP 144 / 86 RA Sitting (auto/reg); Pulse 87; Resp 16; Temp 97.4(O); Pulse Ox 100% on jrd R/A; Weight 47.17 kg / 103.99 lbs; Height 5 ft. 7 in. (170.18 cm); Pain 8/10; 16:16 BP 133 / 84; Pulse 92; Resp 18; Temp 98.2(O); Pulse Ox 98% on R/A; mb9 21:04 BP 148 / 83; Pulse 86; Resp 18; Temp 98.5; Pulse Ox 98% on R/A; Pain 0/10; slm 12:26 Body Mass Index 16.29 (47.17 kg, 170.18 cm) jrd MDM: 12:39 Consult PFS/PSA/Cloud Services Architect ordered. br1 12:39 Consult PFS/PSA/Cloud Services Architect: Patient's case requires discussion with on-call br1 Psychiatrist ordered. 12:39 PSA/PFS to call Nursing Ending Machine Operator, to enter patient data on [place] Safe [place] if patient br1 involuntarily admitted or transferred for SI or HI ordered. 12:39 Confirm accurate psychiatric medication list and times of last dosage ordered. br1 12:39 Detain Pt Until Medically/PFS Cleared ordered. br1 12:40 Acetaminophen Level Ordered. EDMS 12:40 Basic Metabolic Profile Ordered. EDMS 12:40 Complete Blood Count Ordered. EDMS 12:40 Drug Eval Toxicology ED Only Ordered. EDMS 12:40 Ethyl Alcohol (ethanol) Ordered. EDMS 12:40 Liver Profile Ordered. EDMS 12:40 Salicylate Level Ordered. EDMS 12:40 Thyroid Stimulating Hormone Ordered. EDMS 12:55 Urinalysis Ordered. EDMS 12:55 Urine Culture Ordered. EDMS 13:21 VALPROIC ACID (DEPAKOTE) Ordered. EDMS 13:35 Complete Blood Count Reviewed. br1 13:35 Urinalysis Reviewed. br1 13:37 Nitrofurantoin 100 mg PO once ordered. br1 14:05 Consult PFS/PSA/Cloud Services Architect complete. ml4 14:06 Consult PFS/PSA/Cloud Services Architect: Patient's case requires discussion with on-call ml4 Psychiatrist complete. 14:06 PSA/PFS to call Nursing Ending Machine Operator, to enter patient data [place] if patient ml4 involuntarily admitted or transferred for SI or HI complete. 14:14 BED REQUEST+ADM ordered. EDMS 14:32 ECG WITH READING ER PHYS+CARDIAG ordered. EDMS 14:40 Acetaminophen Level Reviewed. br1 14:40 Basic Metabolic Profile Reviewed. br1 14:40 Drug Eval Toxicology ED Only Reviewed. br1 14:40 Liver Profile Reviewed. br1 14:40 Salicylate Level Reviewed. br1 14:40 Ethyl Alcohol (ethanol) Reviewed. br1 14:40 Thyroid Stimulating Hormone Reviewed. br1 14:40 VALPROIC ACID (DEPAKOTE) Reviewed. br1 15:16 REGULAR DIET PLASTIC SUERO+DIET ordered. EDMS 15:27 LORazepam 0.5 mg PO once; prn anxiety ordered. br1 16:20 MHE Legal paperwork was scanned into [employer] and attached to record. ml4 16:56 Financial registration complete. zo 17:08 [facility] [place] was scanned into [employer] and attached to record. zo 19:55 Gabapentin 200 mg PO once ordered. slm 19:55 SEROquel 400 mg PO once ordered. slm 19:55 Depakote 500 mg PO once ordered. slm 12/01 11:24 T-Sheet-- Draft Copy was scanned into [employer] and attached to record. gb 11:24 ECG/EKG was scanned into [employer] and attached to record. gb 12/02 12:47 Lab / Xray Callback was scanned into [employer] and attached to record. lbd Administered Medications: 11/30 13:51 Drug: Nitrofurantoin 100 mg Route: PO; mb9 15:38 Drug: LORazepam 0.5 mg [lorazepam 1 mg tablet (0.5 tabs)] Route: PO; me3 19:52 CANCELLED (Other Intervention Used): Gabapentin 100 mg PO once slm 20:03 Drug: Gabapentin 200 mg {Note: pt took only 100 mg reports ITALIAN TEACHER id decreaseing dose .} slm Route: PO; 20:03 Drug: SEROquel 400 mg Route: PO; slm 20:03 Drug: Depakote 500 mg Route: PO; slm Signatures: Dispatcher [employer] EDMS Sharifa Martin, Electrical Line Worker Unit lbd Cherry Hallman, Reg Reg gb Nick, Nhung, PSA PSA ml4 Mira Ann Brian, MD MD br1 Matty Hernandez, RN RN ml6 Clair Kolb LPN DATA COMMUNICATIONS TECHNICIAN slm Rubio Duncan RN RN mb9 Radha Rodriguez DATA COMMUNICATIONS TECHNICIAN me3 The chart was reviewed and I authenticate all verbal orders and agree with the evaluation and treatment provided.Corrections: (The following items were deleted from the chart) 13:21 12:40 VALPROIC ACID (DEPAKOTE)+LAB ordered. EDMS EDMS 19:52 19:49 Gabapentin 100 mg PO once ordered. eufemia fay Attachments: 17:08 [facility] [place] zo 12/01 11:24 T-Sheet-- Draft Copy gb 11:24 ECG/EKG gb Chart Complete MTDD
--- NOTE | 2016-12-02 22:07 | EDDOCDS ---
Physician Documentation [facility] Name: Keshia Merrill Age: 56 yrs Sex: Female : 1960 Arrival Date: 11/30/2016 Time: 12:24 Bed OBSERVATION Private MD: Sharifa Guevara ANP Disposition: 11/30/16 16:15 Transfer ordered to [facility]. Diagnosis are Bipolar disorder, Urinary tract infection, site not specified. - Reason for transfer: Higher level of care. - Accepting physician is Dr. Puga. - Condition is Stable. - Problem is new. - Symptoms are unchanged. Historical: - Allergies: Haldol (Unknown); Ibuprofen (liver enzyme incrased); [place] Carbonate (Dementia); Risperdal (Unknown); Trazodone (palpitation); tylenol (can not take due to liver enzyme); Zofran (Vomit); Zyrtec (Unknown); - Home Meds: 1. gabapentin 100 mg Oral cap 2 caps 3 times per day (Last dose: 11/30/2016 07:00) 2. Ambien 5 mg Oral tab nightly (Last dose: Unknown) 3. aspirin 81 mg Oral tab 1 tab once daily (Last dose: Unknown) 4. clonazepam 1 mg Oral TbDL 1 tab nightly (Last dose: Unknown) 5. Colace 100 mg oral cap 1 cap once daily (Last dose: Unknown) 6. Depakote 500 mg Oral TbEC nightly (Last dose: Unknown) 7. Depakote 250 mg Oral TbEC 1 tab once daily (Last dose: Unknown) 8. Linzess oral Unknown once daily (Last dose: Unknown) 9. meclizine 12.5 mg Oral tab 2 tabs as needed (Last dose: Unknown) 10. Miralax 17 gram Oral pwpk twice a day (Last dose: Unknown) 11. Multivitamin Oral 1 tab daily (Last dose: Unknown) 12. Prilosec 20 mg Oral cpDR 1 cap once daily (Last dose: Unknown) 13. Seroquel 400 mg Oral tab nightly (Last dose: Unknown) 14. sodium chloide nasal spray 2 sprays nasally every 2 hours as needed (Last dose: Unknown) 15. Zoloft 25 mg Oral tab 1 tab once daily (Last dose: Unknown) - PMHx: Anxiety; Bipolar disorder; GERD; - PSHx: Cholecystectomy; small intestine reconstruction; L toe surgery; - Social history: Smoking status: Patient states was never smoker of tobacco. No barriers to communication noted, Speaks appropriately for age. - Family history: No immediate family members are acutely ill. - : The pt / caregiver states he / she is not on anticoagulants. Home medication list is obtained from the patient. - Exposure Risk Screening:: None identified. Vital Signs: 11/30 12:26 BP 144 / 86 RA Sitting (auto/reg); Pulse 87; Resp 16; Temp 97.4(O); Pulse Ox 100% on jrd R/A; Weight 47.17 kg / 103.99 lbs; Height 5 ft. 7 in. (170.18 cm); Pain 8/10; 16:16 BP 133 / 84; Pulse 92; Resp 18; Temp 98.2(O); Pulse Ox 98% on R/A; mb9 21:04 BP 148 / 83; Pulse 86; Resp 18; Temp 98.5; Pulse Ox 98% on R/A; Pain 0/10; slm 12:26 Body Mass Index 16.29 (47.17 kg, 170.18 cm) jrd MDM: 12:39 Consult PFS/PSA/Pre Sales Systems Engineer ordered. br1 12:39 Consult PFS/PSA/Pre Sales Systems Engineer: Patient's case requires discussion with on-call br1 Psychiatrist ordered. 12:39 PSA/PFS to call Nursing Aoc Operations Intelligence Chief, to enter [place] data [place] if patient br1 involuntarily admitted or transferred for SI or HI ordered. 12:39 Confirm accurate psychiatric medication list and times of last dosage ordered. br1 12:39 Detain Pt Until Medically/PFS Cleared ordered. br1 12:40 Acetaminophen Level Ordered. EDMS 12:40 Basic Metabolic Profile Ordered. EDMS 12:40 Complete Blood Count Ordered. EDMS 12:40 Drug Eval Toxicology ED Only Ordered. EDMS 12:40 Ethyl Alcohol (ethanol) Ordered. EDMS 12:40 Liver Profile Ordered. EDMS 12:40 Salicylate Level Ordered. EDMS 12:40 Thyroid Stimulating Hormone Ordered. EDMS 12:55 Urinalysis Ordered. EDMS 12:55 Urine Culture Ordered. EDMS 13:21 VALPROIC ACID (DEPAKOTE) Ordered. EDMS 13:35 Complete Blood Count Reviewed. br1 13:35 Urinalysis Reviewed. br1 13:37 Nitrofurantoin 100 mg PO once ordered. br1 14:05 Consult PFS/PSA/Pre Sales Systems Engineer complete. ml4 14:06 Consult PFS/PSA/Pre Sales Systems Engineer: Patient's case requires discussion with on-call ml4 Psychiatrist complete. 14:06 PSA/PFS to call Nursing Aoc Operations Intelligence Chief, to enter [place] data [place] if patient ml4 involuntarily admitted or transferred for SI or HI complete. 14:14 BED REQUEST+ADM ordered. EDMS 14:32 ECG WITH READING ER PHYS+CARDIAG ordered. EDMS 14:40 Acetaminophen Level Reviewed. br1 14:40 Basic Metabolic Profile Reviewed. br1 14:40 Drug Eval Toxicology ED Only Reviewed. br1 14:40 Liver Profile Reviewed. br1 14:40 Salicylate Level Reviewed. br1 14:40 Ethyl Alcohol (ethanol) Reviewed. br1 14:40 Thyroid Stimulating Hormone Reviewed. br1 14:40 VALPROIC ACID (DEPAKOTE) Reviewed. br1 15:16 REGULAR DIET PLASTIC SUERO+DIET ordered. EDMS 15:27 LORazepam 0.5 mg PO once; prn anxiety ordered. br1 16:20 MHE Legal paperwork was scanned into [employer] and attached to record. ml4 16:56 Financial registration complete. zo 17:08 [facility] Payment Agreement was scanned into [employer] and attached to record. zo 19:55 Gabapentin 200 mg PO once ordered. slm 19:55 SEROquel 400 mg PO once ordered. slm 19:55 Depakote 500 mg PO once ordered. slm 12/01 11:24 T-Sheet-- Draft Copy was scanned into [employer] and attached to record. gb 11:24 ECG/EKG was scanned into [employer] and attached to record. gb 12/02 12:47 Lab / Xray Callback was scanned into [employer] and attached to record. lbd Administered Medications: 11/30 13:51 Drug: Nitrofurantoin 100 mg Route: PO; mb9 15:38 Drug: LORazepam 0.5 mg [lorazepam 1 mg tablet (0.5 tabs)] Route: PO; me3 19:52 CANCELLED (Other Intervention Used): Gabapentin 100 mg PO once slm 20:03 Drug: Gabapentin 200 mg {Note: pt took only 100 mg reports COMMERCIAL LINES MANAGER id decreaseing dose .} slm Route: PO; 20:03 Drug: SEROquel 400 mg Route: PO; slm 20:03 Drug: Depakote 500 mg Route: PO; slm Signatures: Dispatcher [employer] EDMS Sharifa Martin, Junior Staff Accountant Unit lbd Cherry Hallman, Reg Reg gb Nick, Nhung, PSA PSA ml4 Mira Ann Brian, MD MD br1 Matty Hernandez, RN RN ml6 Clair Kolb LPN SERVICE ASSISTANT slm Rubio Duncan RN RN mb9 Radha Rodriguez SERVICE ASSISTANT me3 The chart was reviewed and I authenticate all verbal orders and agree with the evaluation and treatment provided.Corrections: (The following items were deleted from the chart) 13:21 12:40 VALPROIC ACID (DEPAKOTE)+LAB ordered. EDMS EDMS 19:52 19:49 Gabapentin 100 mg PO once ordered. eufemia fay Attachments: 17:08 [facility] Payment Agreement zo 12/01 11:24 T-Sheet-- Draft Copy gb 11:24 ECG/EKG gb Chart Complete MTDD
--- NOTE | 2016-12-02 22:08 | EDDOCDS ---
Nurse's Notes [facility] Name: Keshia Merrill Age: 56 yrs Sex: Female : 1960 Arrival Date: 11/30/2016 Time: 12:24 Bed OBSERVATION Private MD: Sharifa Guevara ANP Diagnosis: Bipolar disorder;Urinary tract infection, site not specified Presentation: 11/30 12:37 Presenting complaint: Patient states: states that "I do not want to live anymore". ml6 Mental Health Triage Level: Level 2: The patient displays active suicidal ideations. Adult Sepsis Screening: The patient does not have new or worsening altered mentation. Patient's respiratory rate is less than 22. Systolic blood pressure is greater than 100. Patient has a qSOFA score of 0- Negative Sepsis Screen. Mental Health Triage Level: Level 2: The patient displays active suicidal ideations. Suicide/Homicide risk assessment- The patient admits to and/or has been reported to be having suicidal ideations. Patient denies SI and HI but presents with another emotional, behavioral or other mental health complaint. The patient reports that he/she has been admitted to an inpatient mental health facility in the last 30 days. The patient reports that he/she does not have a recent or current history of substance abuse. The patient reports that he/she has a prior history of suicide attempt and/or organized plan. The patient reports that he/she has not experienced a significant life altering event in the last 30 days. Status: Patient is not a service center specialist or dependent. Transition of care: patient was not received from another setting of care. 12:37 Acuity: CK Level 3 ml6 12:37 Method Of Arrival: Walkin/Carried/Asstd 6 12:37 Red Flag criteria, patient assessed and taken directly to a bed. ml6 Triage Assessment: 12:41 General: Appears in no apparent distress, Behavior is appropriate for age, cooperative. ml6 Pain: Denies pain. HIV screening NA for this visit Offered previously. Neurological: No deficits noted. Level of Consciousness is awake, alert, Oriented to person, place, time. Cardiovascular: No deficits noted. Capillary refill < 3 seconds is brisk in bilateral fingers toes Heart tones S1 S2 present. Respiratory: No deficits noted. Airway is patent Respiratory effort is even, unlabored, Respiratory pattern is regular, symmetrical. GI: No deficits noted. Abdomen is flat, non- distended Bowel sounds present X 4 quads. Historical: - Allergies: Haldol (Unknown); Ibuprofen (liver enzyme incrased); [place] Carbonate (Dementia); Risperdal (Unknown); Trazodone (palpitation); tylenol (can not take due to liver enzyme); Zofran (Vomit); Zyrtec (Unknown); - Home Meds: 1. gabapentin 100 mg Oral cap 2 caps 3 times per day (Last dose: 11/30/2016 07:00) 2. Ambien 5 mg Oral tab nightly (Last dose: Unknown) 3. aspirin 81 mg Oral tab 1 tab once daily (Last dose: Unknown) 4. clonazepam 1 mg Oral TbDL 1 tab nightly (Last dose: Unknown) 5. Colace 100 mg oral cap 1 cap once daily (Last dose: Unknown) 6. Depakote 500 mg Oral TbEC nightly (Last dose: Unknown) 7. Depakote 250 mg Oral TbEC 1 tab once daily (Last dose: Unknown) 8. Linzess oral Unknown once daily (Last dose: Unknown) 9. meclizine 12.5 mg Oral tab 2 tabs as needed (Last dose: Unknown) 10. Miralax 17 gram Oral pwpk twice a day (Last dose: Unknown) 11. Multivitamin Oral 1 tab daily (Last dose: Unknown) 12. Prilosec 20 mg Oral cpDR 1 cap once daily (Last dose: Unknown) 13. Seroquel 400 mg Oral tab nightly (Last dose: Unknown) 14. sodium chloide nasal spray 2 sprays nasally every 2 hours as needed (Last dose: Unknown) 15. Zoloft 25 mg Oral tab 1 tab once daily (Last dose: Unknown) - PMHx: Anxiety; Bipolar disorder; GERD; - PSHx: Cholecystectomy; small intestine reconstruction; L toe surgery; - Social history: Smoking status: Patient states was never smoker of tobacco. No barriers to communication noted, Speaks appropriately for age. - Family history: No immediate family members are acutely ill. - : The pt / caregiver states he / she is not on anticoagulants. Home medication list is obtained from the patient. - Exposure Risk Screening:: None identified. Screenin:43 Screening information is obtained from the patient. Fall risk: No risks identified. mb9 Assistance ADL's: requires no assistance with activities of daily living. Abuse/DV Screen: The patient / caregiver reports he/she is: not in a situation that causes fear, pain or injury. Nutritional screening: No deficits noted. Advance Directives: There is no active DNR order. home support is adequate. Assessment: 13:10 General: Appears in no apparent distress, Behavior is cooperative. General: security mb9 observing. . Pain: Denies pain. Respiratory: Airway is patent Respiratory effort is even, unlabored. 15:16 Reassessment: Patient appears in no apparent distress at this time. General: Appears mb9 Behavior is restless. Respiratory: Airway is patent Respiratory effort is even, unlabored. 16:15 Reassessment: Patient states symptoms have improved. General: Appears in no apparent mb9 distress, Behavior is cooperative, restless. Respiratory: Airway is patent Respiratory effort is even, unlabored. 18:42 Reassessment: Patient appears in no apparent distress at this time. Patient states mb9 symptoms have improved. General: Appears in no apparent distress, Behavior is appropriate for age, cooperative. Respiratory: Airway is patent Respiratory effort is even, unlabored. 19:11 General: Appears in no apparent distress, comfortable, Behavior is cooperative. slm General: pt resting on stretcher security observing . Respiratory: Airway is patent Respiratory effort is even, unlabored. Derm: Skin is pink, warm & dry. 20:04 General: Appears in no apparent distress, comfortable, Behavior is anxious, slm cooperative, pleasant. General: pt sitting on bed pt anxious and nervous acting security observing . Pain: Denies pain. Neurological: Level of Consciousness is awake, alert, obeys commands. Respiratory: Airway is patent Respiratory effort is even, unlabored. 20:32 General: Appears in no apparent distress, Behavior is anxious. General: Behavior is mv5 cooperative. Neurological: Level of Consciousness is awake, alert. Respiratory: Airway is patent Respiratory effort is even, unlabored. Derm: Skin is pink, warm & dry. 21:01 General: Appears in no apparent distress, comfortable, Behavior is cooperative. slm General: pt transferred at this time . Pain: Denies pain. Respiratory: Airway is patent Respiratory effort is even, unlabored. Derm: Skin is pink, warm & dry. Mental Health Eval: 13:32 Mental health consult is initiated at 13:00. Status: The patient is not a ml4 service center specialist or dependent. [facility] Behavioral Health: The patient is not an established patient of [facility] Behavioral Health. Referral Information: Evaluation referral is generated by the patient himself / herself. The patient was referred for evaluation because thoughts of suicide with plan to OD . Subjective: The patients chief complaint is pt states, "I can't take my depression anymore, I just want to end it all." Pt reports being hospitalized to [facility] on 11/01/16 and was discharged 11/20/16. She feels she was discharged too early, therefore returned to ED 11/26/16 for a medication adjustment and was discharged(with no medication change). Pt states she is no longer wanting to live and is thinking about killing herself with plan for OD. Suicidal triggers include her mental health illness and states she feels she is a burden to everyone, specifically her . She notes having some on-going relational problems with due to her level of anxiety. Admits her mind is racing and unable to concentrate on a specific task at home. She continues to voice SI with plan to OD. . Delusions are denied. Patient's mood is anxious, depressed, Hallucinations are denied. Mental Health history: anxiety, Bipolar Disorder, Mental Health Admissions: Numerous admissions to [facility], last admission Oct, 2016 Current Outpatient Mental Health Services: [facility] / [facility]Dr. Solis . Therapist / Agency: Dr. Flores(Psychologist) at [facility] . Current living environment is The patient currently lives with his / her spouse, . 31 year old son . The patient is . Patient presents to Emergency Department with the following symptoms within the past 2 weeks: anxiety, decreased appetite, depressed mood, feelings of helplessness/hopelessness, marital problem, poor concentration, poor impulse control, relational problem, suicidal ideation with plan for pills. Substance abuse: Pt denies. Mental status exam: Patients appearance is thin, Patient's behavior is cooperative, Speech is mumbled. Affect is flat. Mood is anxious. depressed. Hallucinations are denied. Appetite is poor. Memory is good. Energy level is normal. Content of thought is depressive. due to active SI with plan OD Thought process is intact. Cognitive level is oriented to person, place, time and situation Patient's insight is poor. Judgement is poor. Rapport with interviewer is good. Suicidal Ideation present with a plan to kill self by pills. Homicidal ideation is denied. Disposition: Medically cleared for disposition by Royer Nava MD. Narrative: Awaiting psychiatric consult... 14:16 Disposition: Psychiatric Consult is performed by phone with Dr Fabrizio Dougherty MD The ml4 patient is to be transferred to accepting adult facility. [facility] Admission Criteria: The patient is experiencing suicidal ideation. The patient requires continuous observation and/or control to protect self, others or property. The patient's care requires a multi-modal treatment plan under close supervision and coordination due to the complexity and severity of the patient's symptoms. The patient requires administration and monitoring of psychoactive medications by skilled medical providers due to the side effects of the psychoactive medications or significant dosage adjustments. Legal Status: Patient's legal status will be [facility] Services admission: . [place] Safe Act: [place] Safe Act is applicable to this patient. The patient poses a risk to self or other and the Nursing Environmental Programs Manager has been notified. He/She will enter the patient's data. DSM-V Differential Diagnosis: Unspecified Anxiety Disorder (F41.9) Bipolar II Disorder (F31.81) Current or most recent episode unspecified. Narrative: [facility] is currently at capacity, PSA will search for bed availability. 14:27 Narrative: [facility], [facility]. and [facility] are currently ml4 at capacity. Pt's chart faxed to [facility] for review, awaiting a reply. 19:42 Awaiting: arrival of EMS for transfer. cl Vital Signs: 12:26 BP 144 / 86 RA Sitting (auto/reg); Pulse 87; Resp 16; Temp 97.4(O); Pulse Ox 100% on jrd R/A; Weight 47.17 kg; Height 5 ft. 7 in. (170.18 cm); Pain 8/10; 16:16 BP 133 / 84; Pulse 92; Resp 18; Temp 98.2(O); Pulse Ox 98% on R/A; mb9 21:04 BP 148 / 83; Pulse 86; Resp 18; Temp 98.5; Pulse Ox 98% on R/A; Pain 0/10; slm 12:26 Body Mass Index 16.29 (47.17 kg, 170.18 cm) jrd Vitals: 12:26 Log In Time: November 30, 2016 at 12:23. RN notified that patient meets Red Flag jrd criteria. ED Course: 12:25 Patient visited by Yoav Dela Cruz PCA. jrd 12:25 Patient moved to Waiting jrd 12:26 Sharifa Guevara is Private Physician. jrd 12:28 Patient visited by Yoav Dela Cruz PCA. jrd 12:28 Patient moved to Pre RCE jrd 12:32 Royer Nava MD is Attending Physician. br1 12:32 Patient moved to [facility] pjf 12:37 Triage Initiated ml6 12:40 Patient visited by Tripp Pérez Security Aide. pjf 12:45 Pt greeted and oriented to ED. Patient advised of names of staff involved in care, pjf location of call llamas, wait times and NPO status. Patient has correct armband on for positive identification. Placed in psych safe attire. Bed in low position. Call light in reach. Side rails up X 1. Security observing. Property removed, secured in belongings bag- Placed in locker #3. Door closed. Noise minimized. Visitors limited. Report received from rn - psych. triage level #\\T\\, +si, cooperative \\T\\ this time. The patient / caregiver is instructed regarding the plan of care and ED course. Psych Safety Check: Location: Psych Room. 12:52 Patient visited by Tripp Pérez Security Aide. pjf 12:54 Patient visited by Royer Nava MD. br1 12:57 Patient visited by Tripp Pérez Security Aide. pjf 13:09 Patient visited by Tripp Pérez Security Aide. pjf 13:09 Urine Culture Sent. mb9 13:09 Urinalysis Sent. mb9 13:09 Acetaminophen Level Sent. mb9 13:10 Basic Metabolic Profile Sent. mb9 13:10 Complete Blood Count Sent. mb9 13:10 Drug Eval Toxicology ED Only Sent. mb9 13:10 Ethyl Alcohol (ethanol) Sent. mb9 13:10 Liver Profile Sent. mb9 13:10 Salicylate Level Sent. mb9 13:10 Thyroid Stimulating Hormone Sent. mb9 13:18 Patient visited by Tripp Pérez Security Aide. pjf 13:36 Patient visited by Tripp Pérez Security Aide. pjf 13:44 Patient visited by Tripp Pérez Security Aide. pjf 13:44 VALPROIC ACID (DEPAKOTE) Sent. mb9 14:09 Patient visited by Tripp Pérez Security Aide. pjf 14:25 Patient visited by Tripp Pérez Security Aide. pjf 14:46 Patient moved to OBSERVATION br1 14:57 Patient visited by Tripp Pérez Security Aide. pjf 15:34 Patient visited by Tripp Pérez Security Aide. pjf 16:03 Patient visited by Tripp Pérez Security Aide. pjf 16:17 Patient visited by Tripp Pérez Security Aide. pjf 16:20 [facility] Legal paperwork was scanned into [email or web address] and attached to record. ml4 16:40 Patient visited by Tripp Pérez Security Aide. pjf 17:02 Patient visited by Tripp Pérez Security Aide. pjf 17:08 [facility] Payment Agreement was scanned into [email or web address] and attached to record. zo 17:16 Patient visited by Tripp Pérez Security Aide. pjf 17:30 Patient visited by Tripp Pérez Security Aide. pjf 17:46 Patient visited by Tripp Pérez Security Aide. pjf 18:13 Patient visited by Tripp Pérez Security Aide. pjf 18:26 Patient visited by Tripp Pérez Security Aide. pjf 18:43 No IV's were initiated during this patient's visit. No procedures done that require mb9 assistance. 18:46 Patient visited by Tripp Pérez Security Aide. pjf 18:57 Patient visited by Tripp Pérez Security Aide. pjf 19:01 Patient visited by Tripp Pérez Security Aide. pjf 19:10 Clair Kolb LPN is Primary Nurse. slm 19:11 Patient visited by Clair Kolb LPN. slm 19:19 Patient visited by Tripp Pérez Security Aide. pjf 19:36 Patient visited by Tom Foley. mas 19:46 Patient visited by Tom Foley. mas 20:00 Patient visited by Tom Foley. mas 20:05 Patient visited by Clair Kolb LPN. slm 20:15 Patient visited by Tom Foley. mas 20:39 Patient visited by Clair Kolb LPN. slm 20:45 Patient visited by Tom Foley. mas 21:04 Patient visited by Clair Kolb LPN. slm 21:07 EKG-ADULT Returned. EDMS 12/01 11:24 T-Sheet-- Draft Copy was scanned into [email or web address] and attached to record. gb 11:24 ECG/EKG was scanned into [email or web address] and attached to record. gb 12/02 12:47 Lab / Xray Callback was scanned into [email or web address] and attached to record. lbd Administered Medications: 11/30 13:51 Drug: Nitrofurantoin 100 mg Route: PO; mb9 15:38 Drug: LORazepam 0.5 mg [lorazepam 1 mg tablet (0.5 tabs)] Route: PO; me3 19:52 CANCELLED (Other Intervention Used): Gabapentin 100 mg PO once slm 20:03 Drug: Gabapentin 200 mg {Note: pt took only 100 mg reports FACULTY SUPPORT COORDINATOR id decreaseing dose .} slm Route: PO; 20:03 Drug: SEROquel 400 mg Route: PO; slm 20:03 Drug: Depakote 500 mg Route: PO; slm Attachments: 16:20 E Legal paperwork ml4 Order Results: Lab Order: Acetaminophen Level; SPEC'M 11/30/16 13:08 Test: ACETAMINOPHEN LEVEL; Value: < 2.0; Range: 10.0-30.0; Abnormal: Below low normal; Units: UG/ML; Status: F Lab Order: Basic Metabolic Profile; SPEC'M 11/30/16 13:08 Test: GLUCOSE, FASTING; Value: 127; Range: 70-105; Abnormal: Above high normal; Units: MG/DL; Status: F Test: BLOOD UREA NITROGEN; Value: 13; Range: 7-18; Units: MG/DL; Status: F Test: CREATININE FOR GFR; Value: 0.63; Range: 0.55-1.02; Units: MG/DL; Status: F Test: GLOMERULAR FILTRATION RATE; Value: > 60.0; Range: >51; Status: F Test: SODIUM LEVEL; Value: 143; Range: 136-145; Units: MEQ/L; Status: F Test: POTASSIUM SERUM; Value: 4.2; Range: 3.5-5.1; Units: MEQ/L; Status: F Test: CHLORIDE LEVEL; Value: 104; Range: 98-107; Units: MEQ/L; Status: F Test: CARBON DIOXIDE LEVEL; Value: 30; Range: 21-32; Units: MEQ/L; Status: F Test: ANION GAP; Value: 9; Range: 8-16; Units: MEQ/L; Status: F Test: CALCIUM LEVEL; Value: 9.3; Range: 8.5-10.1; Units: MG/DL; Status: F Test Note: ; Units are mL/min/1.73 m2 Chronic Kidney Disease Staging per NKF: Stage I & II GFR >=60 Normal to Mildly Decreased Stage III GFR 30-59 Moderately Decreased Stage IV GFR 15-29 Severely Decreased Stage V GFR <15 Very Little GFR Left ESRD GFR <15 on CARDIAC REHAB NURSE Lab Order: Complete Blood Count; SPEC'M 11/30/16 13:08 Test: WHITE BLOOD COUNT; Value: 8.3; Range: 4.0-10.0; Units: K/mm3; Status: F Test: RED BLOOD COUNT; Value: 4.52; Range: 4.00-5.40; Units: M/mm3; Status: F Test: HEMOGLOBIN; Value: 14.8; Range: 12.0-16.0; Units: g/dl; Status: F Test: HEMATOCRIT; Value: 43.5; Range: 36.0-47.0; Units: %; Status: F Test: MEAN CORPUSCULAR VOLUME; Value: 96.3; Range: 80.0-96.0; Abnormal: Above high normal; Units: fl; Status: F Test: MEAN CORPUSCULAR HEMOGLOBIN; Value: 32.7; Range: 27.0-33.0; Units: pg; Status: F Test: MEAN CORPUSCULAR HGB CONC; Value: 33.9; Range: 32.0-36.5; Units: g/dl; Status: F Test: RED CELL DISTRIBUTION WIDTH; Value: 12.1; Range: 11.5-14.5; Units: %; Status: F Test: PLATELET COUNT, AUTOMATED; Value: 156; Range: 150-450; Units: k/mm3; Status: F Lab Order: Drug Eval Toxicology ED Only; SPEC'M 11/30/16 13:08 Test: AMPHETAMINES LEVEL URINE; Value: NEGATIVE; Range: NEGATIVE; Status: F Test: BARBITURATES URINE; Value: NEGATIVE; Range: NEGATIVE; Status: F Test: BENZODIAZEPINES URINE; Value: NEGATIVE; Range: NEGATIVE; Status: F Test: CANNABINOIDS URINE; Value: POSITIVE; Range: NEGATIVE; Abnormal: Above high normal; Status: F Test: COCAINE METABOLITE URINE; Value: NEGATIVE; Range: NEGATIVE; Status: F Test: METHADONE URINE; Value: NEGATIVE; Range: NEGATIVE; Status: F Test: OPIATES URINE; Value: NEGATIVE; Range: NEGATIVE; Status: F Test: TRICYCLIC ANTIDEPRESS URINE; Value: NEGATIVE; Range: NEGATIVE; Status: F Test Note: ; FALSE POSITIVE RESULTS CAN BE CAUSED BY THE USE OF PANTOPRAZOLE (PROTONIX). Lab Order: Ethyl Alcohol (ethanol); SPEC'M 11/30/16 13:08 Test: ETHYL ALCOHOL (ETHANOL); Value: < 0.003; Range: 0.000-0.010; Units: %; Status: F Lab Order: Liver Profile; SPEC'M 11/30/16 13:08 Test: AST/SGOT; Value: 27; Range: 15-37; Units: U/L; Status: F Test: ALT/SGPT; Value: 40; Range: 12-78; Units: U/L; Status: F Test: ALKALINE PHOSPHATASE; Value: 122; Range: 45-117; Abnormal: Above high normal; Units: U/L; Status: F Test: BILIRUBIN,TOTAL; Value: 0.3; Range: 0.2-1.0; Units: MG/DL; Status: F Test: BILIRUBIN,DIRECT; Value: 0.1; Range: 0.0-0.2; Units: MG/DL; Status: F Test: TOTAL PROTEIN; Value: 7.1; Range: 6.4-8.2; Units: GM/DL; Status: F Test: ALBUMIN; Value: 3.9; Range: 3.2-5.2; Units: GM/DL; Status: F Test: ALBUMIN/GLOBULIN RATIO; Value: 1.22; Range: 1.00-1.93; Status: F Lab Order: Salicylate Level; SPEC' 11/30/16 13:08 Test: SALICYLATE LEVEL; Value: < 1.7; Range: 5.0-30.0; Abnormal: Below low normal; Units: MG/DL; Status: F Lab Order: Thyroid Stimulating Hormone; SPEC' 11/30/16 13:08 Test: THYROID STIMULATING HORMONE; Value: 1.850; Range: 0.358-3.740; Units: uIU/ML; Status: F Lab Order: Urinalysis; SPECM 11/30/16 13:08 Test: APPEARANCE, URINE; Value: HAZY; Range: CLEAR; Status: F Test: COLOR, URINE; Value: YELLOW; Range: YELLOW; Status: F Test: PH,URINE; Value: 6.0; Range: 5.0-9.0; Units: UNITS; Status: F Test: SPECIFIC GRAVITY URINE AUTO; Value: 1.015; Range: 1.002-1.035; Status: F Test: PROTEIN, URINE AUTO; Value: NEGATIVE; Range: NEGATIVE; Units: mg/dL; Status: F Test: GLUCOSE, URINE (UA) AUTO; Value: NEGATIVE; Range: NEGATIVE; Units: mg/dL; Status: F Test: KETONE, URINE AUTO; Value: TRACE; Range: NEGATIVE; Abnormal: Above high normal; Units: mg/dL; Status: F Test: UROBILINOGEN, URINE AUTO; Value: 0.2; Range: 0.0-2.0; Units: mg/dL; Status: F Test: BILIRUBIN, URINE AUTO; Value: NEGATIVE; Range: NEGATIVE; Status: F Test: NITRITE, URINE AUTO; Value: NEGATIVE; Range: NEGATIVE; Status: F Test: LEUKOCYTE ESTERASE, URINE AUTO; Value: 1+; Range: NEGATIVE; Abnormal: Above high normal; Status: F Test: BLOOD, URINE BLOOD; Value: 1+; Range: NEGATIVE; Abnormal: Above high normal; Status: F Test: WBC, URINE AUTO; Value: 54; Range: 0-3; Abnormal: Above high normal; Units: /HPF; Status: F Test: RBC, URINE AUTO; Value: 9; Range: 0-3; Abnormal: Above high normal; Units: /HPF; Status: F Test: BACTERIA, URINE AUTO; Value: 1+; Range: NEGATIVE; Abnormal: Above high normal; Status: F Test: SQUAMOUS EPITHELIAL CELL UR AU; Value: 4; Range: 0-6; Units: /HPF; Status: F Test: HYALINE CAST, URINE AUTO; Value: 0; Range: 0-1; Units: /LPF; Status: F Lab Order: Urine Culture; SPEC'M 11/30/16 13:08 Test: URINE CULTURE; Value: <EXTERNAL COMMENT eCWMed> FULL REPORT IN LAB NOTES (eCW and Medent).; Status: F Test: URINE CULTURE; Value: ORGANISM 1: STAPHYLOCOCCUS EPIDERMIDIS; Status: F Test: URINE CULTURE; Value: STAPHYLOCOCCUS EPIDERMIDIS; Status: F Test: URINE CULTURE; Value: COLONY COUNT CFU/ml 40,000; Status: F Test: URINE CULTURE; Value: GRAM POS SENSI - VITEK 67; Status: F Test: URINE CULTURE; Value: Method: VIT2; Status: F Test: URINE CULTURE; Value: TETRACYCLINE <=1 S; Status: F Test: URINE CULTURE; Value: PENICILLIN G >=0.5 R; Status: F Test: URINE CULTURE; Value: TRIMETHOPRIM/SULFAMETHOXAZOLE <=10 S; Status: F Test: URINE CULTURE; Value: ERYTHROMYCIN <=0.25 S; Status: F Test: URINE CULTURE; Value: GENTAMICIN <=0.5 S; Status: F Test: URINE CULTURE; Value: CLINDAMYCIN <=0.25 S; Status: F Test: URINE CULTURE; Value: NITROFURANTOIN <=16 S; Status: F Test: URINE CULTURE; Value: OXACILLIN <=0.25 S; Status: F Test: URINE CULTURE; Value: VANCOMYCIN 2 S; Status: F Test: URINE CULTURE; Value: LINEZOLID (ZYVOX) 1 S; Status: F Lab Order: VALPROIC ACID (DEPAKOTE); SPEC'M 11/30/16 13:08 Test: VALPROIC ACID (DEPAKOTE); Value: 73.1; Range: 50.0-100.0; Units: UG/ML; Status: F Radiology Order: EKG-ADULT Test: EKG-ADULT REASON FOR EXAMINATION: adm; Stationary ECG Study; [facility] - ED; ; Test Date: 2016-11-30; Pat Name: KESHIA MERRILL Department:; Room: -; Gender: F Berry Picker:; : 1960 Requested By: ROYER Ellison; Order Number: [id number] Reading MD: Caitlin Doran; Measurements; Intervals Mereta; Rate: 84 P: 59; TX: 120 QRS: 45; QRSD: 115 T: 66; QT: 335; QTc: 398; Interpretive Statements; SINUS RHYTHM; POSSIBLE INFERIOR MYOCARDIAL INFARCTION, OF INDETERMINATE AGE; DECREASED RATE 11/02/16; Electronically Signed On 11-30-2016 20:23:31 EST by Caitlin Doran; Outcome: 11/30 16:15 ER care complete, transfer ordered by Provider. br1 17:13 Admission hand-off: Report called to Catherine ramires at [facility]. All mb9 information relayed. All questions answered. 20:05 No special radiology studies were completed. [facility] 20:05 Discharge Assessment: patient administered narcotics - no. slm 21:02 The following High Risk Discharge criteria are identified: None. Transferred to [facility]. sl by EMS ground [facility] ambulance report to accompanying personnel Willa Farrell, Transfer form completed. Condition: stable. 21:05 Patient left the ED. [facility] 12/02 10:09 urine culture reviewed by Dr Noriega, pt transferred to [facility] , report faxed to [facility].:.[facility] Signatures: Dispatcher [employer] EDMS Sharifa Martin, Battery Wrecker Operator Unit lbd Leeann Osorio RN RN [facility] Eliot Metcalf, PSA PSA cl Lexx, Cherry, Reg Reg gb Elisa, Tripp, [employer] Radha Rodriguez,CREDIT RISK ASSOCIATE CREDIT RISK ASSOCIATE me3 Nhung Romero, PSA PSA ml4 Mira Ann Brian, MD MD br1 Matty Hernandez, RN RN ml6 Tom Foley Stephanie, LPN CREDIT RISK ASSOCIATE slm Yoav Dela Cruz, FINISHING FRAME RUNNER FINISHING FRAME RUNNER d Rubio Duncan,RN RN mb9 Teri Lafleur,RN RN mv5 Corrections: (The following items were deleted from the chart) 11/30 13:21 13:09 VALPROIC ACID (DEPAKOTE)+LAB sent. mb9 EDMS Chart Complete MTDD
== END 2016-11-30 21:05 ==
LOC: M ED 12:24
DX: F31.9 Bipolar disorder, unspecified (principal); N39.0 Urinary tract infection, site not specified; F41.9 Anxiety disorder, unspecified; K21.9 Gastro-esophageal reflux disease without esophagitis; Z79.82 Long term (current) use of aspirin; Z79.899 Other long term (current) drug therapy; Z88.8 Allergy status to other drugs, medicaments and biological substances; Z88.6 Allergy status to analgesic agent
CPT/HCPCS: 80048; 80076; 80164; 80306; 81001; 84443; 85027; 87088; 87186; 93005; 99285; G0480